=== PATIENT | male | born 1945 | race Caucasian/White ===

== ENCOUNTER 2016-04-07 09:51 | Outpatient (RCR) | payer MEDICARE, OTHER ==
--- OUTSIDE RECORDS SUMMARY | 2016-01-09 10:00 | XMS REPORT | Continuity of Care Document ---
Author Author [facility] Organization [facility] Address Unknown Phone Unavailable Care Team Providers Care Hostage Negotiator Name Role Phone Jese Cassidy PCP [phone] Source Comments Some departments are not documenting in the electronic medical record. If you do not see the information that you expected, contact Release of Information in the Health Information Management department at [phone] for further assistance in locating additional records.[facility] Active Allergies and Adverse Reactions No Known Allergies Current Medications Prescription Sig. Disp. Refills Start End Date Status Date amLODIPine (NORVASC) 10 Take 10 mg by mouth Active mg tablet daily. meloxicam (MOBIC) 7.5 mg Take 7.5 mg by mouth Active tablet daily. escitalopram oxalate Take 20 mg by mouth Active (LEXAPRO) 20 mg tablet daily. ondansetron (ZOFRAN ODT) Take by mouth every 8 Active 4 mg rapid dissolve hours as needed for tablet Nausea. hyoscyamine (ANASPAZ; Place 125 mcg under Active NULEV; SYMAX FASTABS; tongue every 4 hours as HYOMAX-FT; ED-SPAZ; needed for Cramps. OSCIMIN) 0.125 mg rapid dissolve tablet linaclotide(+) (LINZESS) Take 145 mcg by mouth Active 145 mcg cap capsule daily 30 minutes before breakfast. phentermine(+) 37.5 mg Take 37.5 mg by mouth Active tablet every morning. HYDROcodone/acetaminophen Take 1 Tab by mouth every Active (+) (LORTAB, NORCO) 6 hours as needed for 10/325 mg tablet Pain Active Problems No known active problems Social History Tobacco Use Types Packs/Day Years Used Date Current Every Day Smoker Last Filed Vital Signs Vital Sign Reading Time Taken Blood Pressure 131/82 06/19/2015 4:02 PM CDT Pulse 71 06/19/2015 2:41 PM CDT Temperature 36.7 C (98 F) 06/19/2015 2:41 PM CDT Respiratory Rate 16 06/19/2015 2:41 PM CDT Height 1.753 m (5' 9") 06/19/2015 2:41 PM CDT Weight 109.77 kg (242 lb) 06/19/2015 2:41 PM CDT Body Mass Index 35.72 06/19/2015 2:41 PM CDT Oxygen Saturation 96% 06/19/2015 4:02 PM CDT Plan of Care Health Maintenance Due Date Last Done Comments Physical (Comprehensive) 12/10/1952 Exam Pertussis Vaccine 12/10/1955 Tetanus Vaccine 1961 Colorectal Cancer 1994 Screening Shingles Vaccine 2004 Prevnar/Pneumovax (#1) 2009 Influenza Vaccine 11/29/2015 Results from Last 3 Months Not on file
[~2016-04-07 09:51] MED LIST: AMLO1CAP7 PO; ESCI20TA38 PO; HYDR-2890 PO; HYDR1TAB PO; HYDR1TAB8 OP; HYOS0.1283 SL; MELO15TA14 PO; ONDA4TAB11 PO; PHEN37.53; PHEN37.53 PO
== END 2016-04-08 | disposition home or self-care (01) ==
PROVIDERS: ATTEND Orthopaedic Surgery
DX: Z47.89 Encounter for other orthopedic aftercare (principal); M54.5 Low back pain

== ENCOUNTER 2016-04-23 10:16 | Outpatient (CLI) | payer MEDICARE, OTHER ==
[~2016-04-23 10:16] MED LIST changes: -RT-ALBUTEROL SULF 2.5 MG/3 ML PRE-MIX VIAL INH ONE
--- OUTSIDE RECORDS SUMMARY | 2016-04-23 10:20 | XMS REPORT | Continuity of Care Document ---
Author Author [facility] Organization [facility] Address Unknown Phone Unavailable Care Team Providers Care Electrophysiology Nurse Practitioner Name Role Phone Jese Cassidy PCP [phone] Source Comments Some departments are not documenting in the electronic medical record. If you do not see the information that you expected, contact Release of Information in the Health Information Management department at [phone] for further assistance in locating additional records.[facility] Active Allergies and Adverse Reactions No [...]
== END 2016-04-23 10:30 | disposition home or self-care (01) ==
LOC: SLEEP 10:16
PROVIDERS: ATTEND Internal Medicine Critical Care Medicine
DX: G47.9 Sleep disorder, unspecified (principal); R06.00 Dyspnea, unspecified; R06.83 Snoring; E66.9 Obesity, unspecified; Z72.0 Tobacco use

== ENCOUNTER → 2016-04-23 | Outpatient (CLI) | payer MEDICARE, OTHER ==
[~2016-04-23] MED LIST changes: +RT-ALBUTEROL SULF 2.5 MG/3 ML PRE-MIX VIAL INH ONE
--- OUTSIDE RECORDS SUMMARY | 2016-04-23 12:58 | XMS REPORT | Continuity of Care Document ---
Author Author [facility] Organization [facility] Address Unknown Phone Unavailable Care Team Providers Care Database Technician Name Role Phone Jese Cassidy PCP [phone] Source Comments Some departments are not documenting in the electronic medical record. If you do not see the information that you expected, contact Release of Information in the Health Information Management department at [phone] for further assistance in locating additional records.[facility] Active Allergies and Adverse Reactions [...]
== END ==
LOC: RT 12:55
PROVIDERS: ATTEND Nurse Practitioner Family
DX: R06.00 Dyspnea, unspecified (principal); Z72.0 Tobacco use; G47.33 Obstructive sleep apnea (adult) (pediatric); R06.83 Snoring; E66.9 Obesity, unspecified
CPT/HCPCS: 94060; 94640; 94726; 94729

== ENCOUNTER 2016-07-03 09:45 | Outpatient (RCR) | payer MEDICARE, OTHER ==
--- OUTSIDE RECORDS SUMMARY | 2016-04-10 10:50 | XMS REPORT | Continuity of Care Document ---
Author Author [facility] Organization [facility] Address Unknown Phone Unavailable Care Team Providers Care Power Transformer Inspector Name Role Phone Jese Cassidy PCP [phone] Source Comments Some departments are not documenting in the electronic medical record. If you do not see the information that you expected, contact Release of Information in the Health Information Management department at [phone] for further assistance in locating additional records.[facility] Active Allergies and Adverse Reactions No Known [...]
== END 2016-07-03 12:08 | disposition home or self-care (01) ==
PROVIDERS: ATTEND Orthopaedic Surgery
DX: Z47.89 Encounter for other orthopedic aftercare (principal); M54.5 Low back pain

== ENCOUNTER 2017-03-25 06:55 | Inpatient (IN) | payer MEDICARE, OTHER ==
[2017-03-25] VITALS (9 sets, daily range): BP systolic 102–141; BP diastolic 75–89
[~2017-03-25] VITALS: Ht 175.3 cm; Wt 115.2 kg
[2017-03-25] MEDS ORDERED: NS IV 1000 ML 1,000 ML IV ONE ×3 (07:07→10:30)
--- OUTSIDE RECORDS SUMMARY | 2017-03-25 07:13 | XMS REPORT | Continuity of Care Document ---
Author Author [facility] Organization [facility] Address Unknown Phone Unavailable Allergies Active Description Code Type Severity Reaction Onset Reported/Identified Relationship to Patient Clinical Status Yes No Known Drug Allergies [id number] Drug Allergy Unknown N/A 10/15/2012 Medications There is no data. Problems Date Dx Coded Attending Type Code Diagnosis Diagnosed By 02/26/1207 JOE MORALES DO Ot M54.5 LOW BACK PAIN 02/26/1207 JOE MORALES DO Ot Z47.89 ENCOUNTER FOR OTHER ORTHOPEDIC AFTERCARE 09/07/2013 STEVEN LÓPEZ DO Ot 813.04 FX UPPER ULNA NEC/NOS-CL 09/07/2013 STEVEN LÓPEZ DO Ot E000.0 CIVILIAN ACTIVITY DONE FOR INCOME OR PAY 09/07/2013 STEVEN LÓPEZ DO Ot E029.9 OTHER ACTIVITY 09/07/2013 STEVEN LÓPEZ DO Ot E849.4 ACCID IN RECREATION AREA 09/07/2013 STEVEN LÓPEZ DO Ot E884.9 FALL-1 LEVEL TO OTH NEC 02/20/2015 JOVANNY LEWIS MD Ot E86.0 DEHYDRATION 02/20/2015 JOVANNY LEWIS MD Ot F17.210 NICOTINE DEPENDENCE, CIGARETTES, UNCOMPL 02/20/2015 JOVANNY LEWIS MD Ot R19.7 DIARRHEA, UNSPECIFIED 01/09/2016 Ot 440.0 AORTIC ATHEROSCLEROSIS 01/09/2016 Ot 783.1 ABNORMAL WEIGHT GAIN 01/09/2016 Ot 786.2 COUGH 01/09/2016 Ot 788.41 URINARY FREQUENCY 01/09/2016 Ot 789.03 ABDOMINAL PAIN, RIGHT LOWER QUADRANT 01/09/2016 Ot 790.29 OTHER ABNORMAL GLUCOSE 01/09/2016 Ot 722.52 LUMB/ LUMBOSAC DISC DEGEN 01/09/2016 NIDIA ROWE, HUSSEIN Espinosa Ot 553.20 VENTRAL HERNIA NOS 01/09/2016 HUSSEIN JACOB MD Ot 401.9 HYPERTENSION NOS 01/09/2016 NIDIA ROWE, HUSSEIN Espinosa Ot 553.20 VENTRAL HERNIA NOS 01/09/2016 NIDIA ROWE, HUSSEIN Espinosa Ot V72.63 PRE-PROCEDURAL LABORATORY EXAMINATION 01/09/2016 NIDIA ROWE, HUSSEIN Espinosa Ot V74.8 SCREEN-BACTERIAL DIS NEC 02/12/2016 JOE MORALES DO Ot M54.5 LOW BACK PAIN 02/12/2016 JOE MORALES DO Ot Z47.89 ENCOUNTER FOR OTHER ORTHOPEDIC AFTERCARE 02/12/2016 Ot 440.0 AORTIC ATHEROSCLEROSIS 02/12/2016 Ot 783.1 ABNORMAL WEIGHT GAIN 02/12/2016 Ot 786.2 COUGH 02/12/2016 Ot 788.41 URINARY FREQUENCY 02/12/2016 Ot 789.03 ABDOMINAL PAIN, RIGHT LOWER QUADRANT 02/12/2016 Ot 790.29 OTHER ABNORMAL GLUCOSE 02/12/2016 Ot 722.52 LUMB/ LUMBOSAC DISC DEGEN 02/12/2016 INDIA ROWE, HUSSEIN Espinosa Ot 553.20 VENTRAL HERNIA NOS 02/12/2016 NIDIA ROWE, HUSSEIN Espinosa Ot 401.9 HYPERTENSION NOS 02/12/2016 NIDIA ROWE, HUSSEIN Espinosa Ot 553.20 VENTRAL HERNIA NOS 02/12/2016 NIDIA ROWE, HUSSEIN Espinosa Ot V72.63 PRE-PROCEDURAL LABORATORY EXAMINATION 02/12/2016 NIDIA ROWE, HUSSEIN Espinosa Ot V74.8 SCREEN-BACTERIAL DIS NEC 02/12/2016 JOE MORALES DO Ot M54.5 LOW BACK PAIN 02/12/2016 JOE MORALES DO Ot Z47.89 ENCOUNTER FOR OTHER ORTHOPEDIC AFTERCARE 02/26/2016 JOE MORALES DO Ot M54.5 LOW BACK PAIN 02/26/2016 JOE MORALES DO Ot Z47.89 ENCOUNTER FOR OTHER ORTHOPEDIC AFTERCARE 03/05/2016 JOE MORALES DO Ot 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 03/05/2016 JOE MORALES DO Ot M48.06 SPINAL STENOSIS, LUMBAR REGION 03/05/2016 JOE MORALES DO Ot M51.17 INTVRT DISC DISORDERS W RADICULOPATHY, L 03/12/2016 ALLYSON MESSINA DO Ot S00.11XA CONTUSION OF RIGHT EYELID AND PERIOCULAR 03/12/2016 ALLYSON MESSINA DO Ot S00.81XA ABRASION OF OTHER PART OF HEAD, INITIAL 03/12/2016 ALLYSON MESSINA DO Ot S22.41XA MULTIPLE FRACTURES OF RIBS, RIGHT SIDE, 03/12/2016 ALLYSON MESSINA DO Ot S29.9XXA UNSPECIFIED INJURY OF THORAX, INITIAL EN 03/12/2016 ALLYSON MESSINA DO Ot S50.11XA CONTUSION OF RIGHT FOREARM, INITIAL ENCO 03/12/2016 ALLYSON MESSINA DO Ot S50.12XA CONTUSION OF LEFT FOREARM, INITIAL ENCOU 03/12/2016 ALLYSON MESSINA DO Ot W01.0XXA FALL SAME LEV FROM SLIP/TRIP W/O STRIKE 03/12/2016 ALLYSON MESSINA DO Ot Y99.8 OTHER EXTERNAL CAUSE STATUS 03/12/2016 ALLYSON MESSINA DO, Ot Z23 ENCOUNTER FOR IMMUNIZATION 03/13/2016 ALLYSON MESSINA DO Ot S00.11XA CONTUSION OF RIGHT EYELID AND PERIOCULAR 03/13/2016 ALLYSON MESSINA DO Ot S00.81XA ABRASION OF OTHER PART OF HEAD, INITIAL 03/13/2016 ALLYSON MESSINA DO Ot S22.41XA MULTIPLE FRACTURES OF RIBS, RIGHT SIDE, 03/13/2016 ALLYSON MESSINA DO Ot S29.9XXA UNSPECIFIED INJURY OF THORAX, INITIAL EN 03/13/2016 ALLYSON MESSINA DO Ot S50.11XA CONTUSION OF RIGHT FOREARM, INITIAL ENCO 03/13/2016 ALLYSON MESSINA DO Ot S50.12XA CONTUSION OF LEFT FOREARM, INITIAL ENCOU 03/13/2016 ALLYSON MESSINA DO, Ot W01.0XXA FALL SAME LEV FROM SLIP/TRIP W/O STRIKE 03/13/2016 ALLYSON MESSINA DO Ot Y99.8 OTHER EXTERNAL CAUSE STATUS 03/13/2016 ALLYSON MESSINA DO Ot Z23 ENCOUNTER FOR IMMUNIZATION 04/08/2016 JOE MORALES DO Ot M54.5 LOW BACK PAIN 04/08/2016 JOE MORALES DO Ot Z47.89 ENCOUNTER FOR OTHER ORTHOPEDIC AFTERCARE 04/09/2016 JOE MORALES DO Ot M54.5 LOW BACK PAIN 04/09/2016 JOE MORALES DO Ot Z47.89 ENCOUNTER FOR OTHER ORTHOPEDIC AFTERCARE 04/23/2016 OTTO SEGURA DO Ot G47.9 SLEEP DISORDER, UNSPECIFIED 04/23/2016 Ot 440.0 AORTIC ATHEROSCLEROSIS 04/23/2016 Ot 783.1 ABNORMAL WEIGHT GAIN 04/23/2016 Ot 786.2 COUGH 04/23/2016 Ot 788.41 URINARY FREQUENCY 04/23/2016 Ot 789.03 ABDOMINAL PAIN, RIGHT LOWER QUADRANT 04/23/2016 Ot 790.29 OTHER ABNORMAL GLUCOSE 04/23/2016 Ot 722.52 LUMB/ LUMBOSAC DISC DEGEN 04/23/2016 NIDIA ROWE, HUSSEIN Espinosa Ot 553.20 VENTRAL HERNIA NOS 04/23/2016 NIDIA ROWE, HUSSEIN Espinosa Ot 401.9 HYPERTENSION NOS 04/23/2016 NIDIA ROWE, HSUSEIN Espinosa Ot 553.20 VENTRAL HERNIA NOS 04/23/2016 NIDIA ROWE, HUSSEIN Espinosa Ot V72.63 PRE-PROCEDURAL LABORATORY EXAMINATION 04/23/2016 NIDIA ROWE, HUSSEIN Espinosa Ot V74.8 SCREEN-BACTERIAL DIS NEC 04/23/2016 JOE MORALES DO Ot 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 04/23/2016 JOE MORALES DO Ot M48.06 SPINAL STENOSIS, LUMBAR REGION 04/23/2016 JOE MORALES DO Ot M51.17 INTVRT DISC DISORDERS W RADICULOPATHY, L 04/23/2016 JOE MORALES DO Ot M54.5 LOW BACK PAIN 04/23/2016 JOE MORALES DO Ot Z47.89 ENCOUNTER FOR OTHER ORTHOPEDIC AFTERCARE 04/23/2016 MEGAN BAPTISTE APRN Ot R06.00 DYSPNEA, UNSPECIFIED 04/23/2016 MEGAN BAPTISTE APRN Ot Z72.0 TOBACCO USE 04/24/2016 OTTO SEGURA DO Ot E66.9 OBESITY, UNSPECIFIED 04/24/2016 OTTO SEGURA DO Ot G47.9 SLEEP DISORDER, UNSPECIFIED 04/24/2016 OTTO SEGURA DO Ot R06.00 DYSPNEA, UNSPECIFIED 04/24/2016 OTTO SEGURA DO Ot R06.83 SNORING 04/24/2016 OTTO SEGURA DO Ot Z72.0 TOBACCO USE 04/25/2016 MEGAN BAPTISTE APRN Ot R06.00 DYSPNEA, UNSPECIFIED 04/25/2016 MEGAN BAPTISTE APRN Ot Z72.0 TOBACCO USE 05/08/2016 JOE MORALES DO Ot M54.5 LOW BACK PAIN 05/08/2016 JOE MORALES DO Ot Z47.89 ENCOUNTER FOR OTHER ORTHOPEDIC AFTERCARE 05/20/2016 MEGAN BAPTISTE APRN Ot R06.00 DYSPNEA, UNSPECIFIED 05/20/2016 MEGAN BAPTISTE APRN Ot Z72.0 TOBACCO USE 06/19/2016 JOE MORALES DO Ot M54.5 LOW BACK PAIN 06/19/2016 JOE MORALES DO Ot Z47.89 ENCOUNTER FOR OTHER ORTHOPEDIC AFTERCARE 07/14/2016 MEGAN BAPTISTE APRN Ot E66.9 OBESITY, UNSPECIFIED 07/14/2016 MEGAN BAPTISTE APRN Ot G47.33 OBSTRUCTIVE SLEEP APNEA (ADULT) (PEDIATR 07/14/2016 MEGAN BAPTISTE APRN Ot R06.00 DYSPNEA, UNSPECIFIED 07/14/2016 MEGAN BAPTISTE APRN Ot R06.83 SNORING 07/14/2016 MEGAN BAPTISTE APRN Ot Z72.0 TOBACCO USE Procedures There is no data. Results There is no data. Encounters ACCT No. Visit Date/Time Discharge Status Pt. 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 [id number] 07/03/2016 09:45:00 07/03/2016 12:08:00 DIS Outpatient JOE MORALES DO [facility] REHAB S/P LUMBAR LAMI [id number] 04/23/2016 12:55:00 04/23/2016 23:59:59 CLS Outpatient MEGAN BPATISTE APRN [facility] RT DYSPNEA,TOBACCO USER [id number] 04/23/2016 10:16:00 04/23/2016 10:30:00 DIS Outpatient OTTO SEGURA DO [facility] SLEEP DYSPNEA,SLEEP DISTURBANCE [id number] 04/07/2016 09:51:00 04/08/2016 00:01:00 DIS Outpatient JOE MORALES DO [facility] REHAB S/P LUMBAR LAMI [id number] 03/12/2016 11:34:00 03/12/2016 13:19:00 DIS Emergency ALLYSON MESSINA DO [facility] ER FALL/RIGHT RIB PAIN [id number] 02/12/2016 15:06:00 02/12/2016 23:59:59 CLS Outpatient ANDREW CARLSONJOE [facility] RAD BACK PAIN [id number] 02/20/2015 09:33:00 02/20/2015 11:34:00 DIS Emergency JOVANNY LEWIS MD [facility] ER DIARRHEA/ABD PAIN [id number] 09/07/2013 11:03:00 09/07/2013 12:20:00 DIS Emergency STEVEN LÓPEZ DO [facility] ER FALL/RIGHT ARM INJURY [id number] 10/19/2012 11:21:00 10/19/2012 23:59:59 CLS Outpatient HUSSEIN JACOB MD [facility] SDC VENTRAL HERNIA [id number] 10/15/2012 12:44:00 10/15/2012 23:59:59 CLS Outpatient HUSSEIN JACOB MD [facility] PREOP VENTRAL HERNIA [id number] 09/03/2011 08:22:00 Document Registration [id number] 03/27/2011 08:22:00 Document Registration
--- OUTSIDE RECORDS SUMMARY | 2017-03-25 07:13 | XMS REPORT | Clinical Summary ---
Author Author [facility] Organization [facility] Address Unknown Phone Unavailable Care Team Providers Care Yield Engineer Name Role Phone PCP Unavailable Source Comments Some departments are not documenting in the electronic medical record. If you do not see the information that you expected, contact Release of Information in the Health Information Management department at [phone] for further assistance in locating additional records.[facility] Allergies No Known Allergies Current Medications Prescription Sig. [...] Years Used Date Current Every Day Smoker Sex Assigned at Date Recorded Not on file Last Filed Vital Signs Vital Sign Reading Time Taken Blood Pressure 131/82 06/19/2015 4:02 PM CDT Pulse 71 06/19/2015 2:41 PM CDT Temperature 36.7 C (98 F) 06/19/2015 2:41 PM CDT Respiratory Rate 16 06/19/2015 2:41 PM CDT Oxygen Saturation 96% 06/19/2015 4:02 PM CDT Inhaled Oxygen - - Concentration Weight 109.8 kg (242 lb) 06/19/2015 2:41 PM CDT Height 175.3 cm (5' 9") 06/19/2015 2:41 PM CDT Body Mass Index 35.74 06/19/2015 2:41 PM CDT Plan of Treatment Health Maintenance Due Date Last Done Comments HEPATITIS C SCREENING 1944 PHYSICAL (COMPREHENSIVE) 12/10/1952 EXAM PERTUSSIS VACCINE 12/10/1955 TETANUS VACCINE 1961 COLORECTAL CANCER 1994 SCREENING SHINGLES VACCINE 2004 ABDOMINAL AORTIC ANEURYSM 2009 SCREENING PREVNAR/PNEUMOVAX (#1) 2009 INFLUENZA VACCINE 10/28/2016 Results Not on filefrom Last 3 Months
[2017-03-25] MEDS ORDERED: RT-ALBUTEROL/IPRATROPIUM 3 ML (DUONEB) VIAL INH ONE (07:15)
[2017-03-25] MEDS ORDERED: ONDANSETRON 4 MG/2 ML (SDV) Z0FRAN IVP ONE (07:15)
[2017-03-25] MEDS ORDERED: FAMOTIDINE 20MG/2ML IV (PEPCID) IVP ONE (07:15)
[2017-03-25 07:21] LABS: BASOPHILS % (AUTO) 0 % (0-10); EOSINOPHILS % (AUTO) 0 % (0-10); HEMATOCRIT 49 % (40-54); HEMOGLOBIN 15.9 G/DL (13.3-17.7); LYMPHOCYTES # (AUTO) 1.6 X 10^3 (1.0-4.0); LYMPHOCYTES % (AUTO) 13 % (12-44); MEAN CORPUSCULAR HEMOGLOBIN 26 PG (25-34); MEAN CORPUSCULAR HGB CONC 32 G/DL (32-36); MEAN CORPUSCULAR VOLUME 81 FL (80-99); MEAN PLATELET VOLUME 10.7 FL (7.4-10.4); MONOCYTES # (AUTO) 1.5 X 10^3 (0.0-1.0); MONOCYTES % (AUTO) 13 % (0-12); NEUTROPHILS # (AUTO) 8.5 X 10^3 (1.8-7.8); NEUTROPHILS % (AUTO) 73 % (42-75); PLATELET COUNT 306 10^3/uL (130-400); RED BLOOD COUNT 6.05 10^6/uL (4.35-5.85); RED CELL DISTRIBUTION WIDTH 17.4 % (10.0-14.5); WHITE BLOOD COUNT 11.6 10^3/uL (4.3-11.0)
[2017-03-25 07:33] LABS: PROTHROMBIN TIME PATIENT 13.4 SEC (12.2-14.7)
[2017-03-25 07:42] LABS: ALBUMIN 4.6 GM/DL (3.2-4.5); BILIRUBIN,TOTAL 1.2 MG/DL (0.1-1.0); CALCIUM 9.8 MG/DL (8.5-10.1); CREATININE SERUM 2.33 MG/DL (0.60-1.30); POTASSIUM 4.4 MMOL/L (3.6-5.0); TOTAL PROTEIN 8.3 GM/DL (6.4-8.2)
--- NOTE | 2017-03-25 08:12 | Diagnostic Imaging Report ---
INDICATION: Hypoxia, fever. COMPARISON: None. FINDINGS: Single frontal view of the chest demonstrates normal heart size and pulmonary vascularity. The lungs are well aerated and clear. No large pleural effusion or pneumothorax is seen. The visualized osseous structures show no acute abnormalities. IMPRESSION: No acute cardiopulmonary process. Dictated by: Dictated on workstation # [id number]
--- NOTE | 2017-03-25 08:18 | ED General ---
General Chief Complaint: Abdominal/GI Problems Stated Complaint: VOMITING,POSS FEVER Nursing Triage Note: TO ED PER W/C C/O VOMITING DIARRHEA SINCE THURSDAY Nursing Sepsis Screen: No Definite Risk Source of Information: Patient, Old Records Exam Limitations: No Limitations History of Present Illness Time Seen by Provider: 07:00 Initial Comments Patient presents with vomiting, weakness, and abdominal pain for 2 days. He also reports very little urine output. He has had subjective fever and chills. He denies diarrhea. He also has had some coughing and wheezing over the past couple of days. He chronically wheezes and uses nebulizer treatments at home but denies any respiratory diagnosis. Allergies and Home Medications Allergies Coded Allergies: No Known Drug Allergies (Unverified , 10/15/12) Home Medications Acetaminophen 500 Mg Tablet, 1,000 MG PO HS, (Reported) TAKES 2 (500MG) TABLETS Amlodipine Besylate/Benazepril 1 Each Capsule, 1 CAP PO DAILY, (Reported) Escitalopram Oxalate 10 Mg Tablet, 10 MG PO DAILY, (Reported) Furosemide 40 Mg Tablet, 40 MG PO HS, (Reported) Gabapentin 300 Mg Capsule, 300 MG PO HS, (Reported) Naproxen Sodium 220 Mg Tablet, 220 MG PO DAILY, (Reported) Omeprazole 40 Mg Capsule.dr, 40 MG PO DAILY, (Reported) Constitutional: see HPI, chills, fever (subjective), weakness EENTM: no symptoms reported Respiratory: see HPI Cardiovascular: no symptoms reported Gastrointestinal: see HPI Genitourinary: see HPI Musculoskeletal: no symptoms reported Skin: no symptoms reported Psychiatric/Neurological: No Symptoms Reported Hematologic/Lymphatic: No Symptoms Reported Immunological/Allergic: no symptoms reported Past Phvvfbr-Wpkwgg-Jlarqz Hx Patient Social History Alcohol Use: Denies Use Recreational Drug Use: Yes (SMOKES 10 CIGARETTES PER DAY) Smoking Status: Current Everyday Smoker Type Used: Cigarettes Recent Foreign Travel: No Contact w/Someone Who Travel: No Recent Infectious Disease Expo: No Recent Hopitalizations: No Surgeries History of Surgeries: Yes (HERNIA, BACK SURGERY) Surgeries: Abdominal (ventral hernia repair 2012), Orthopedic (back) Respiratory History of Respiratory Disorde: Yes Respiratory Disorders: Chronic Bronchitis Cardiovascular History of Cardiac Disorders: Yes Cardiac Disorders: Hypertension Neurological History of Neurological Disord: No Reproductive System Hx Reproductive Disorders: No Gastrointestinal History of Gastrointestinal Di: No Musculoskeletal History of Musculoskeletal Dis: Yes (ARTHRITIS, BACK PROBLEMS) Musculoskeletal Disorders: Arthritis, Chronic Back Pain Endocrine History of Endocrine Disorders: No HEENT History of HEENT Disorders: No Cancer History of Cancer: No Psychosocial History of Psychiatric Problem: No Behavioral Health Disorders: Depression Integumentary History of Skin or Integumenta: No Blood Transfusions History of Blood Disorders: No Family Medical History Significant Family History: No Pertinent Family Hx Physical Exam-Suspected Sepsis Physical Exam Vital Signs Vital Sign - Last 12Hours 03/25/17 03/25/17 07:01 08:33 Temp 97.7 Pulse 101 Resp 18 B/P (MAP) 95/50 (65) Pulse Ox 95 O2 Delivery Room Air O2 Flow Rate 6.00 Capillary Refill : Less Than 3 Seconds Blood Pressure Mean: 65 General Appearance: WD/WN, Obese, Other (very ill appearing and weak. Required assistance to the bed) HEENT: PERRL/EOMI, Normal ENT Inspection, Pharynx Normal Neck: Normal Inspection Respiratory: No Accessory Muscle Use, No Respiratory Distress, Wheezing Cardiovascular: Regular Rate, Rhythm, No Edema, No Murmur Gastrointestinal: Normal Bowel Sounds, Soft, Tenderness (diffuse, mild to moderate. Palpation induces nausea) Extremity: Normal Inspection, No Pedal Edema Neurologic/Psychiatric: Alert, Oriented x3, No Motor/Sensory Deficits, Normal Mood/Affect, repairer helper II-XII Norm as Tested Skin: normal color, warm/dry, other (crpe paper appearance suggesting dehydration) Focused Exam Evaluation Lactate Level Laboratory Tests 03/25/17 07:25: Lactic Acid Level 1.71 Lactic Acid Level Progress/Results/Core Measures Suspected Sepsis Recent Fever Within 48 Hours: No Infection Criteria Present: Suspected New Infection New/Unexplained Altered Menta: No Sepsis Screen: No Definite Risk Sepsis Diagnosis: SIRS Temperature:97.7 Pulse: 101 Respiratory Rate: 18 Laboratory Tests 03/25/17 07:12: White Blood Count 11.6H Blood Pressure 95 /50 Mean: 65 Laboratory Tests 03/25/17 07:25: Lactic Acid Level 1.71 Laboratory Tests 03/25/17 07:12: Creatinine 2.33H, INR Comment 1.0, Platelet Count 306, Total Bilirubin 1.2H Results/Orders Lab Results Laboratory Tests Test 03/25/17 07:12 03/25/17 07:23 03/25/17 07:25 Range/Units White Blood Count 11.6 H 4.3-11.0 10^3/uL Red Blood Count 6.05 H 4.35-5.85 10^6/uL Hemoglobin 15.9 13.3-17.7 G/DL Hematocrit 49 40-54 % Mean Corpuscular Volume 81 80-99 FL Mean Corpuscular Hemoglobin 26 25-34 PG Mean Corpuscular Hemoglobin Concent 32 32-36 G/DL Red Cell Distribution Width 17.4 H 10.0-14.5 % Platelet Count 306 130-400 10^3/uL Mean Platelet Volume 10.7 H 7.4-10.4 FL Neutrophils (%) (Auto) 73 42-75 % Lymphocytes (%) (Auto) 13 12-44 % Monocytes (%) (Auto) 13 H 0-12 % Eosinophils (%) (Auto) 0 0-10 % Basophils (%) (Auto) 0 0-10 % Neutrophils # (Auto) 8.5 H 1.8-7.8 X 10^3 Lymphocytes # (Auto) 1.6 1.0-4.0 X 10^3 Monocytes # (Auto) 1.5 H 0.0-1.0 X 10^3 Eosinophils # (Auto) 0.0 0.0-0.3 10^3/uL Basophils # (Auto) 0.0 0.0-0.1 10^3/uL Prothrombin Time 13.4 12.2-14.7 SEC INR Comment 1.0 0.8-1.4 Activated Partial Thromboplast Time 35 24-35 SEC Sodium Level 142 135-145 MMOL/L Potassium Level 4.4 3.6-5.0 MMOL/L Chloride Level 99 98-107 MMOL/L Carbon Dioxide Level 24 21-32 MMOL/L Anion Gap 19 H 5-14 MMOL/L Blood Urea Nitrogen 33 H 7-18 MG/DL Creatinine 2.33 H 0.60-1.30 MG/DL Estimat Glomerular Filtration Rate 28 BUN/Creatinine Ratio 14 Glucose Level 156 H 70-105 MG/DL Calcium Level 9.8 8.5-10.1 MG/DL Total Bilirubin 1.2 H 0.1-1.0 MG/DL Aspartate Amino Transf (AST/SGOT) 34 5-34 U/L Alanine Aminotransferase (ALT/SGPT) 47 0-55 U/L Alkaline Phosphatase 96 40-136 U/L Total Protein 8.3 H 6.4-8.2 GM/DL Albumin 4.6 H 3.2-4.5 GM/DL C-Reactive Protein High Sensitivity 9.26 H 0.00-0.50 MG/DL Lactic Acid Level 1.71 0.50-2.00 MMOL/L Micro Results Microbiology 03/25/17 Influenza Types A,B Antigen (FELICE) - Final, Complete My Orders Orders - RAKESH BAZAN MD Cbc With Automated Diff (03/25/17 07:07) Comprehensive Metabolic Panel (03/25/17 07:07) Lactic Acid Analyzer (03/25/17 07:07) Blood Culture (03/25/17 07:07) Sputum Culture (03/25/17 07:07) Ua Culture If Indicated (03/25/17 07:07) Protime With Inr (03/25/17 07:07) Partial Thromboplastin Time (03/25/17 07:07) Chest 1 View, Ap/Pa Only (03/25/17 07:07) O2 (03/25/17 07:07) Saline Lock/Iv-Start (03/25/17 07:07) Saline Lock/Iv-Start (03/25/17 07:07) Vital Signs Adult Sepsis Patie Q1H (03/25/17 07:07) Remove Rings In Anticipation O (03/25/17 07:07) Ns Iv 1000 Ml (Sodium Chloride 0.9%) (03/25/17 07:07) Ondansetron Injection (Zofran Injectio (03/25/17 07:15) Famotidine Injection (Pepcid Injection) (03/25/17 07:15) Albuterol/Ipra Inhalation Soln (Duoneb I (03/25/17 07:15) Svn Sm Volume Nebulizer Rt-Rfs (03/25/17 07:07) Ns Iv 1000 Ml (Sodium Chloride 0.9%) (03/25/17 07:57) Influenza A And B Antigens (03/25/17 07:57) Hs C Reactive Protein (03/25/17 07:58) Ct Abdomen/Pelvis Wo (03/25/17 08:04) Piperacillin Sodium/Tazobactam (Zosyn Vi (03/25/17 09:15) Medications Given in ED Current Medications Medications Dose Ordered Sig/[place] Route Start Time Stop Time Status Last Admin Dose Admin Albuterol/ Ipratropium 3 ml ONCE ONCE INH 03/25/17 07:15 03/25/17 07:16 DC 03/25/17 07:32 3 ML Famotidine 20 mg ONCE ONCE IVP 03/25/17 07:15 03/25/17 07:16 DC 03/25/17 07:35 20 MG Ondansetron HCl 8 mg ONCE ONCE IVP 03/25/17 07:15 03/25/17 07:16 DC 03/25/17 07:31 8 MG Piperacillin Sod/ Tazobactam Sod 4.5 gm/Sodium Chloride 100 ml @ 200 mls/hr ONCE ONCE IV 03/25/17 09:15 03/25/17 09:44 DC 03/25/17 09:42 200 MLS/HR Sodium Chloride 1,000 ml @ 0 mls/hr Q0M ONCE IV 03/25/17 07:07 03/25/17 07:10 DC 03/25/17 07:35 1,000 MLS/HR Sodium Chloride 1,000 ml @ 0 mls/hr Q0M ONCE IV 03/25/17 07:57 03/25/17 07:58 DC 03/25/17 08:08 1,000 MLS/HR Vital Signs/I&O Vital Sign - Last 12Hours 03/25/17 03/25/17 03/25/17 03/25/17 07:01 07:32 07:45 08:00 Temp 97.7 Pulse 101 Resp 18 B/P (MAP) 95/50 (65) 102/78 (86) 124/88 (100) Pulse Ox 95 93 O2 Delivery Room Air Room Air 03/25/17 03/25/17 03/25/17 03/25/17 08:33 09:50 09:59 10:50 Temp 97.1 98.0 Pulse 82 84 82 87 Resp 18 20 18 16 B/P (MAP) 102/75 (84) 127/82 (97) 115/76 (89) Pulse Ox 94 93 94 92 O2 Delivery OxyMask OxyMask Nasal Cannula O2 Flow Rate 6.00 5.00 6.00 4.00 03/25/17 03/25/17 11:11 12:00 Temp 97.9 Pulse 87 85 Resp 20 B/P (MAP) 128/84 (99) Pulse Ox 92 93 O2 Delivery Nasal Cannula O2 Flow Rate 4.00 Capillary Refill : Less Than 3 Seconds Blood Pressure Mean: 65 Progress Note : Progress Note Patient was treated with Pepcid and Zofran. Patient initially had borderline systolic blood pressures in the 90s. 2 L of normal saline were administered. Blood pressures improved. Patient was not able to produce a urine sample for us. CT demonstrated small bowel obstruction with a transition point near a metallic foreign body possibly related to prior ventral hernia repair. Dr. Boudreaux was contacted and is not available until next week for consultation. Dr. Villareal will be consulted for surgical evaluation. Dr. Lugo has accepted admission. Patient had a mildly elevated WBC and CRP. He also had subjective fevers at home. Zosyn will be ordered for initial empiric antibiotic therapy. Patient was wheezing and became mildly hypoxic. A DuoNeb treatment was administered along with supplemental oxygen. Patient does use nebulizer treatments at home. Chest x-ray was unremarkable. NG tube will be ordered for placement on the floor which will likely help his respiratory status. Patient was unable to produce a urine specimen while in the ER. Diagnostic Imaging Diagonstic Imaging: Xray Plain Films/CT/US/NM/MRI: chest Comments Chest x-ray viewed by me and report reviewed. See report below: NAME: DARRIUS ABRAHAM [facility] REC#: [id number] PT STATUS: REG ER : 1945 PHYSICIAN: RAKESH BAZAN MD ADMIT DATE: 03/25/17/ER Draft Date of Exam:03/25/17 CHEST 1 VIEW, AP/PA ONLY INDICATION: Hypoxia, fever. COMPARISON: None. FINDINGS: Single frontal view of the chest demonstrates normal heart size and pulmonary vascularity. The lungs are well aerated and clear. No large pleural effusion or pneumothorax is seen. The visualized osseous structures show no acute abnormalities. IMPRESSION: No acute cardiopulmonary process. Dictated on workstation # [id number] Dict: 03/25/1710 Trans: 03/25/17 0811 PENG [id number] Interpreted by: ARJUN WRIGHT MD Diagonstic Imaging: CT Plain Films/CT/US/NM/MRI: abdomen, pelvis Comments CT abdomen and pelvis viewed by me and report reviewed. See report below: NAME: DARRIUS ABRAHAM [facility] REC#: [id number] PT STATUS: REG ER : 1945 PHYSICIAN: RAKESH BAZAN MD ADMIT DATE: 03/25/17/ER Draft Date of Exam:03/25/17 CT ABDOMEN/PELVIS WO PROCEDURE: CT abdomen and pelvis without contrast. TECHNIQUE: Multiple contiguous axial images were obtained through the abdomen and pelvis without the use of intravenous contrast. INDICATION: Vomiting, fever. COMPARISON: 03/27/2011. FINDINGS: Included views of the lung bases are mildly obscured secondary to motion artifact but show no gross acute abnormalities. CT abdomen: There are findings of small bowel obstruction. Colon is mostly decompressed. Distal and terminal ileum is also decompressed; however, remainder of the proximal ileum and jejunum show moderate abnormal distention. There is also abnormal dilatation of the third and fourth portions of the duodenum. Small bowel measures approximately 3.7 cm in diameter. There is suggestion of focal transition point in the region of the umbilicus. Small metallic foreign body is noted in this area and may be on the basis of previous surgery. Ingested foreign body cannot be entirely excluded (image 66, series 2.) There is no pneumatosis, pneumoperitoneum, or portal venous gas. There is no free fluid or loculated air-fluid collection. Appendix cannot be adequately identified but appears to be surgically absent. Liver is diffusely hypodense consistent with background of hepatic steatosis. Multiple rounded hypodensities of both kidneys are noted and are likely on the basis of hypodense cysts. There is a single exophytic hyperdensity extending from the posterior margins of the inferior pole of the right kidney. This is incompletely characterized on this exam but may represent a small hemorrhagic cyst. It is stable compared to 03/27/2011. The adrenal glands, spleen, and pancreas have an unremarkable noncontrast CT appearance. No abnormal mesenteric or retroperitoneal adenopathy is seen. Mild calcified aortic atherosclerosis is noted. Postsurgical changes of the lumbar spine are also present. CT pelvis: Urinary bladder is unopacified. No calculi are seen within the urinary bladder. There is no loculated fluid collection, free fluid, or free air within the pelvis. No abnormal lymph nodes are identified. Bony structures show no acute abnormalities. IMPRESSION: 1. Findings of small bowel obstruction with focal transition point in the periumbilical area. Again, there is a linear metallic density foreign object in this area. Findings could be on the basis of previous umbilical hernia repair. Ingested foreign body, however, cannot be entirely excluded. Surgical consultation is recommended. 2. No pneumatosis, pneumoperitoneum, portal venous gas, free fluid, or loculated air-fluid collection. 3. Hepatic steatosis. 4. Multiple renal cysts as described above. Dictated on workstation # [id number] Dict: 03/25/1731 Trans: 03/25/17 0844 [id number] Interpreted by: ARJUN WRIGHT MD Departure Communication (Admissions) Time/Spoke to Admitting Phy: 09:[address] Lugo Time/Spoke to Consulting Phy: 09:27 Communication/Consulting Dr. Villareal Impression Impression: Primary Impression: Small bowel obstruction Additional Impressions: Acute renal failure Qualified Codes: N17.9 - Acute kidney failure, unspecified COPD exacerbation Hypovolemia Disposition: ADMITTED INPATIENT Condition: Improved Admissions Decision to Admit Reason: Admit from ER (General) Decision to Admit/Date: Mar 25, 2017 Time/Decision to Admit Time: 09:00 Departure-Patient Inst. Referrals: KRIS RODRÍGUEZ MD (PCP/Family) Primary Care Physician RAKESH BAZAN MD Mar 25, 2017 08:18
--- NOTE | 2017-03-25 08:44 | Diagnostic Imaging Report ---
PROCEDURE: CT abdomen and pelvis without contrast. TECHNIQUE: Multiple contiguous axial images were obtained through the abdomen and pelvis without the use of intravenous contrast. INDICATION: Vomiting, fever. COMPARISON: 03/27/2011. FINDINGS: Included views of the lung bases are mildly obscured secondary to motion artifact but show no gross acute abnormalities. CT abdomen: There are findings of small bowel obstruction. Colon is mostly decompressed. Distal and terminal ileum is also decompressed; however, remainder of the proximal ileum and jejunum show moderate abnormal distention. There is also abnormal dilatation of the third and fourth portions of the duodenum. Small bowel measures approximately 3.7 cm in diameter. There is suggestion of focal transition point in the region of the umbilicus. Small metallic foreign body is noted in this area and may be on the basis of previous surgery. Ingested foreign body cannot be entirely excluded (image 66, series 2.) There is no pneumatosis, pneumoperitoneum, or portal venous gas. There is no free fluid or loculated air-fluid collection. Appendix cannot be adequately identified but appears to be surgically absent. Liver is diffusely hypodense consistent with background of hepatic steatosis. Multiple rounded hypodensities of both kidneys are noted and are likely on the basis of hypodense cysts. There is a single exophytic hyperdensity extending from the posterior margins of the inferior pole of the right kidney. This is incompletely characterized on this exam but may represent a small hemorrhagic cyst. It is stable compared to 03/27/2011. The adrenal glands, spleen, and pancreas have an unremarkable noncontrast CT appearance. No abnormal mesenteric or retroperitoneal adenopathy is seen. Mild calcified aortic atherosclerosis is noted. Postsurgical changes of the lumbar spine are also present. CT pelvis: Urinary bladder is unopacified. No calculi are seen within the urinary bladder. There is no loculated fluid collection, free fluid, or free air within the pelvis. No abnormal lymph nodes are identified. Bony structures show no acute abnormalities. IMPRESSION: 1. Findings of small bowel obstruction with focal transition point in the periumbilical area. Again, there is a linear metallic density foreign object in this area. Findings could be on the basis of previous umbilical hernia repair. Ingested foreign body, however, cannot be entirely excluded. Surgical consultation is recommended. 2. No pneumatosis, pneumoperitoneum, portal venous gas, free fluid, or loculated air-fluid collection. 3. Hepatic steatosis. 4. Multiple renal cysts as described above. Dictated by: Dictated on workstation # [id number]
[2017-03-25] MEDS ORDERED: PIPERACILLIN SODIUM/TAZOBACTAM 4.5 GM in NS (IVPB) 100 ML IV ONE (09:15)
[2017-03-25] MEDS ORDERED: NS IV 1000 ML 1,000 ML ONE (10:20)
[2017-03-25] MEDS ORDERED: ONDANSETRON 4 MG/2 ML (SDV) Z0FRAN IV PRN (10:30)
[2017-03-25] MEDS ORDERED: CATHETER FLUSH 10 ML SYR IV PRN (10:30)
[2017-03-25] MEDS ORDERED: GABA-488 PO (10:44)
[2017-03-25] MEDS ORDERED: FURO40TA4 PO (10:44)
[2017-03-25] MEDS ORDERED: OMEP40CA36 PO (10:44)
[2017-03-25] MEDS ORDERED: ESCI10TA55 PO (10:44)
[2017-03-25] MEDS ORDERED: AMLO1CAP9 PO (10:44)
--- NOTE | 2017-03-25 11:07 | History & Physical-Hospitalist ---
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 who presents to the emergency room after nausea and vomiting and abdominal pain since Thursday morning. Apparently the pain began abruptly was unable to eat or drink since that time and has vomited small amounts every hour to per his . He's never had any type of abdominal issues and he had his umbilical hernia repaired by Dr. Boudreaux back in 2012 in an uncomplicated manner. He is found to have acute renal failure most recent creatinine was 0.8 and 2015 due to severe dehydration so he will be placed on aggressive IV fluid resuscitation NG tube will be placed under Dr. Villareal recommendations and he will be given antibiotics and pain control. He was given Zosyn once in ER to cover for sepsis from bacterial infection. 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[employer]) Alcohol Use: Denies Use Recreational Drug Use: Yes (SMOKES 10 CIGARETTES PER DAY) Smoking Status: Current Everyday Smoker (6 cigs a day) Type Used: Cigarettes Recent Foreign Travel: No Contact w/other who traveled: No Recent Hopitalizations: No Recent Infectious Disease Expo: No Immunizations Up To Date Date of Influenza Vaccine: Jan 23, 2017 Surgeries Yes (HERNIA, BACK SURGERY) Abdominal (ventral hernia repair [address] Dr Boudreaux), Orthopedic (back) Respiratory Yes COPD Cardiovascular Yes Hypertension Neurological No Reproductive System Hx Reproductive Disorders: No Genitourinary No Gastrointestinal No Musculoskeletal Yes (ARTHRITIS, BACK PROBLEMS) Arthritis, Chronic Back Pain Endocrine History of Endocrine Disorders: No HEENT History of HEENT Disorders: No Cancer No Psychosocial History of Psychiatric Problem: No Behavioral Health Disorders: Depression Integumentary History of Skin or Integumenta: No Blood Transfusions History of Blood Disorders: No Family Medical History Significant Family History: No Pertinent Family Hx Review of Systems Constitutional: see HPI, weakness EENTM: no symptoms reported Respiratory: cough, wheezing Cardiovascular: no symptoms reported Gastrointestinal: abdominal pain (LLQ), loss of appetite, nausea, vomiting Genitourinary: decreased output Musculoskeletal: back pain Skin: no symptoms reported Psychiatric/Neurological: Anxiety All Other Systems Reviewed Negative Unless Noted: Yes Physical Exam Physical Exam Vital Signs Vital Sign - Last 12Hours 03/25/17 03/25/17 07:01 08:33 Temp 97.7 Pulse 101 Resp 18 B/P (MAP) 95/50 (65) Pulse Ox 95 O2 Delivery Room Air O2 Flow Rate 6.00 Capillary Refill : Less Than 3 Seconds General Appearance: WD/WN, Chronically ill, Mild Distress, Obese Eyes: Bilateral Eye Normal Inspection, Bilateral Eye PERRL HEENT: PERRL/EOMI, Normal ENT Inspection, Pharynx Normal Neck: Full Range of Motion, Normal Inspection, Non Tender, Supple, Carotid Bruit Respiratory: Chest Non Tender, Lungs Clear, No Accessory Muscle Use, No Respiratory Distress, Decreased Breath Sounds Cardiovascular: Regular Rate, Rhythm, No Edema, No Gallop, No JVD, No Murmur, Normal Peripheral Pulses Gastrointestinal: Normal Bowel Sounds, No Organomegaly, No Pulsatile Mass, Abnormal Bowel Sounds (none noted), Distended, Guarding, Rebound, Tenderness Back: Normal Inspection, No CVA Tenderness, No Vertebral Tenderness Extremity: Normal Capillary Refill, Normal Inspection, Normal Range of Motion, Non Tender, No Calf Tenderness, No Pedal Edema Neurologic/Psychiatric: Alert, Oriented x3, No Motor/Sensory Deficits, Depressed Affect Skin: Normal Color, Warm/Dry Lymphatic: No Adenopathy Results Results/Procedures Lab Laboratory Tests 03/25/17 07:12 Assessment/Plan Admission Diagnosis SBO ARF dehydration COPD with wheezing Assessment and Plan Plan: IVF Check labs in am NGT Anti-emetics Pain control Nebs O2 Diagnosis/Problems Diagnosis/Problems (1) Small bowel obstruction Status: Acute Assessment & Plan: NGT and consulting Dr Villareal (2) Acute renal failure Status: Acute Assessment & Plan: Aggressive IVF Qualifiers: Qualified Codes: N17.9 - Acute kidney failure, unspecified (3) Hypovolemia Status: Acute Assessment & Plan: IVF (4) COPD exacerbation Status: Acute Assessment & Plan: Nebs ANNA BUITRAGO DO Mar 25, 2017 11:07
[2017-03-25] MEDS ORDERED: ACET-2267 PO (11:58)
[2017-03-25] MEDS ORDERED: NAPR220T66 PO (11:58)
--- NOTE | 2017-03-25 12:43 | Consultation ---
History of Present Illness History of Present Illness Patient Consulted On(yasmeen/time) 03/25/17 12:37 Time Seen by Provider: 11:10 History of Present Illness Surgery is asked to consult regarding partial small bowel resection (PSBO). HPI: Patient presented to the ER with vomiting, weakness, and abdominal pain for 2 days. He also reports very little urine output. He has had subjective fever ( did not take temp) and chills. He denies diarrhea and states he did have a BM yesterday, but no flatus. He also has had some coughing and wheezing over the past couple of days. He chronically wheezes and uses nebulizer treatments at home but denies any respiratory diagnosis. He has not been able to eat or drink anything over past couple of days. He rates the abdominal pain as 5 out of 10; dull, constant pain, mainly upper abdomen. He has not had symptoms like this before; states they weren't worried about it at first because their son had similar symptoms last week. Allergies and Home Medications Allergies Coded Allergies: No Known Drug Allergies (Unverified , 10/15/12) Home Medications Acetaminophen 500 Mg Tablet, 1,000 MG PO HS, (Reported) TAKES 2 (500MG) TABLETS Amlodipine Besylate/Benazepril 1 Each Capsule, 1 CAP PO DAILY, (Reported) Escitalopram Oxalate 10 Mg Tablet, 10 MG PO DAILY, (Reported) Furosemide 40 Mg Tablet, 40 MG PO HS, (Reported) Gabapentin 300 Mg Capsule, 300 MG PO HS, (Reported) Naproxen Sodium 220 Mg Tablet, 220 MG PO DAILY, (Reported) Omeprazole 40 Mg Capsule.dr, 40 MG PO DAILY, (Reported) Past Pequecu-Rniqsd-Ujxecz Hx Patient Social History Alcohol Use: Denies Use Recreational Drug Use: Yes (SMOKES 10 CIGARETTES PER DAY) Smoking Status: Current Everyday Smoker (6 cigs a day) Type Used: Cigarettes Recent Foreign Travel: No Contact w/Someone Who Travel: No Recent Infectious Disease Expo: No Recent Hopitalizations: No Physical Abuse Screen: No Sexual Abuse: No Immunizations Up To Date Date of Influenza Vaccine: Jan 23, 2017 Seasonal Allergies Seasonal Allergies: No Surgeries History of Surgeries: Yes (L ROTATOR CUFF REPAIR ) Surgeries: Abdominal (ventral hernia repair 2012 Dr Boudreaux), Orthopedic (back) Respiratory History of Respiratory Disorde: Yes Respiratory Disorders: Chronic Bronchitis Cardiovascular History of Cardiac Disorders: Yes Cardiac Disorders: Hypertension Neurological History of Neurological Disord: No Reproductive System Hx Reproductive Disorders: No Genitourinary History of Genitourinary Disor: No Gastrointestinal History of Gastrointestinal Di: No Gastrointestinal Disorders: Abdominal Hernia Musculoskeletal History of Musculoskeletal Dis: Yes (ARTHRITIS, BACK PROBLEMS) Musculoskeletal Disorders: Arthritis, Chronic Back Pain Endocrine History of Endocrine Disorders: No HEENT History of HEENT Disorders: Yes HEENT Disorders: Cataract Loss of Vision: Denies Hearing Impairment: Denies Cancer History of Cancer: No Psychosocial History of Psychiatric Problem: Yes Behavioral Health Disorders: Depression Integumentary History of Skin or Integumenta: No Blood Transfusions History of Blood Disorders: No Family Medical History Significant Family History: No Pertinent Family Hx, CAD Over 55 Years Old ( mother), Diabetes (father) Review of Systems-General Constitutional: chills, diaphoresis, fever, malaise, weakness EENTM: No hearing loss, No blurred vision, No epistaxis, No throat pain, No throat swelling Respiratory: No cough, No phlegm, No short of breath, wheezing Cardiovascular: No chest pain, No edema, No palpitations Gastrointestinal: see HPI, No jaundice, No melena Genitourinary: No dysuria, No frequency, No hematuria, hesitancy, other ( oliguria) Musculoskeletal: back pain, joint pain, joint swelling, muscle stiffness Skin: No change in color, No dryness, No hx of skin cancer Psychiatric/Neurological: Depressed, Denies Headache, Denies Seizure, Denies Tremors Other pt denies any heat or cold intolerance; denies any abnormal bruising or bleeding Physical Exam-General Problems Physical Exam Vital Signs Vital Sign - Last 12Hours 03/25/17 03/25/17 07:01 08:33 Temp 97.7 Pulse 101 Resp 18 B/P (MAP) 95/50 (65) Pulse Ox 95 O2 Delivery Room Air O2 Flow Rate 6.00 Capillary Refill : Less Than 3 Seconds General Appearance: WD/WN, mild distress, other (looks tired) Eyes: Bilateral Eye PERRL, Bilateral Eye EOMI HEENT: pharynx normal, No scleral icterus (R), No scleral icterus (L), No pale conjunctivae (R), No pale conjunctivae (L) Neck: non-tender, full range of motion, No thyromegaly Respiratory: chest non-tender, no respiratory distress, no accessory muscle use , wheezing Cardiovascular: regular rate, rhythm, no edema, no murmur Gastrointestinal: soft, no organomegaly, No guarding, No rebound, tenderness ( diffusely) Rectal: deferred Back: no CVA tenderness, vertebral tenderness Extremities: normal range of motion, no calf tenderness, normal capillary refill 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/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 nml as tested, no motor/sensory deficits, alert, normal mood/affect, oriented x 3 Skin: normal color, warm/dry Lymphatic: no adenopathy (neck, axilla or groin) Data Review Labs Laboratory Tests 03/25/17 07:12: White Blood Count 11.6H, Red Blood Count 6.05H, Hemoglobin 15.9, Hematocrit 49, Mean Corpuscular Volume 81, Mean Corpuscular Hemoglobin 26, Mean Corpuscular Hemoglobin Concent 32, Red Cell Distribution Width 17.4H, Platelet Count 306, Mean Platelet Volume 10.7H, Neutrophils (%) (Auto) 73, Lymphocytes (%) (Auto) 13 , Monocytes (%) (Auto) 13H, Eosinophils (%) (Auto) 0, Basophils (%) (Auto) 0, Neutrophils # (Auto) 8.5H, Lymphocytes # (Auto) 1.6, Monocytes # (Auto) 1.5H, Eosinophils # (Auto) 0.0, Basophils # (Auto) 0.0, Prothrombin Time 13.4, INR Comment 1.0, Activated Partial Thromboplast Time 35, Sodium Level 142, Potassium Level 4.4, Chloride Level 99, Carbon Dioxide Level 24, Anion Gap 19H, Blood Urea Nitrogen 33H, Creatinine 2.33H, Estimat Glomerular Filtration Rate 28 , BUN/Creatinine Ratio 14, Glucose Level 156H, Calcium Level 9.8, Total Bilirubin 1.2H, Aspartate Amino Transf (AST/SGOT) 34, Alanine Aminotransferase ( ALT/SGPT) 47, Alkaline Phosphatase 96, Total Protein 8.3H, Albumin 4.6H 03/25/17 07:23: C-Reactive Protein High Sensitivity 9.26H 03/25/17 07:25: Lactic Acid Level 1.71 Microbiology 03/25/17 Influenza Types A,B Antigen (FELICE) - Final, Complete Assessment/Plan Assessment/Plan Assessment/Plan 1. PSBO 2. Oliguria with Acute Renal failure 3. HTN 4. Chronic Bronchitis 5. Arthritis Pt was admitted NPO, IV fluids (at high rate), NGT placed, pain control, given a dose of ABX and will be started on his HTN meds. He can wet his mouth but no ice chips. 1000 ml was removed once NGT placed and pt had relief of most of his abd pain and nausea is gone. He was told to continue ambulating and can chew gum, both will help with intestinal motility. If things don't continue improving then the next step is a small bowel follow through; to make sure there is not a complete bowel obstruction. Discussed all of this with pt and his , all questions answered to their satisfaction. Clinical Quality Measures DVT/VTE Risk/Contraindication: Risk Factor Score Per Nursin RFS Level Per Nursing on Admit: 4+=Very High JENIFFER CHAVIRA DO Mar 25, 2017 12:43
[2017-03-25 13:50] LABS: CLARITY,URINE CLEAR; COLOR,URINE AMBER; GLUCOSE, URINE (UA) NEGATIVE (NEGATIVE); KETONES,URINE NEGATIVE (NEGATIVE); LEUKOCYTE ESTERASE ,URINE 1+ (NEGATIVE); NITRITE,URINE NEGATIVE (NEGATIVE); PH,URINE 5 (5-9); PROTEIN,URINE 2+ (NEGATIVE); UROBILINOGEN,URINE 1 MG/DL (NORMAL)
[2017-03-25 14:08] LABS: AMORPHOUS SEDIMENT,UR RARE AMOR URATES /LPF; BACTERIA,URINE NEGATIVE /HPF; BILIRUBIN,URINE 2+ (NEGATIVE); SQUAMOUS EPITHELIAL CELL,UR 0-2 /HPF; WBC,URINE 0-2 /HPF
[2017-03-25] MEDS: NS IV 1000 ML 1,000 ML IV SCH ×2 (14:12→21:11)
[2017-03-25] MEDS ORDERED: RT-ALBUTEROL SULF 2.5 MG/3 ML PRE-MIX VIAL INH PRN (15:15)
[2017-03-25] MEDS: fentaNYL INJECTION 100 MCG/2 ML AMP IVP PRN ×2 (15:52→20:27)
[2017-03-25] MEDS ORDERED: NITROGLYCERIN 2% OINT 1 GM UNIT DOSE PACKET TOP PRN (16:30)
[2017-03-25] MEDS: RT-ALBUTEROL/IPRATROPIUM 3 ML (DUONEB) VIAL INH SCH (18:58)
[2017-03-26] VITALS: BP_SYST 115; BP_SYST 127; BP_DIAS 71; BP_DIAS 80
[2017-03-26] MEDS: fentaNYL INJECTION 100 MCG/2 ML AMP IVP PRN ×2 (02:58→09:59)
[2017-03-26] MEDS: NS IV 1000 ML 1,000 ML IV SCH (03:50)
[2017-03-26] MEDS: RT-ALBUTEROL/IPRATROPIUM 3 ML (DUONEB) VIAL INH SCH ×4 (06:52→19:27)
[2017-03-26] MEDS: FAMOTIDINE 20MG/2ML IV (PEPCID) IV SCH (08:19)
[2017-03-26 08:31] LABS: BASOPHILS % (AUTO) 0 % (0-10); EOSINOPHILS # (AUTO) 0.1 10^3/uL (0.0-0.3); EOSINOPHILS % (AUTO) 2 % (0-10); HEMATOCRIT 43 % (40-54); HEMOGLOBIN 13.3 G/DL (13.3-17.7); LYMPHOCYTES # (AUTO) 1.4 X 10^3 (1.0-4.0); LYMPHOCYTES % (AUTO) 23 % (12-44); MEAN CORPUSCULAR HEMOGLOBIN 26 PG (25-34); MEAN CORPUSCULAR HGB CONC 31 G/DL (32-36); MEAN CORPUSCULAR VOLUME 85 FL (80-99); MEAN PLATELET VOLUME 10.5 FL (7.4-10.4); MONOCYTES # (AUTO) 0.9 X 10^3 (0.0-1.0); MONOCYTES % (AUTO) 15 % (0-12); NEUTROPHILS # (AUTO) 3.7 X 10^3 (1.8-7.8); NEUTROPHILS % (AUTO) 60 % (42-75); PLATELET COUNT 213 10^3/uL (130-400); RED BLOOD COUNT 5.06 10^6/uL (4.35-5.85); RED CELL DISTRIBUTION WIDTH 16.3 % (10.0-14.5); WHITE BLOOD COUNT 6.2 10^3/uL (4.3-11.0)
[2017-03-26 08:50] LABS: ALANINE AMINOTRANSFERASE 42 U/L (0-55); ALBUMIN 3.9 GM/DL (3.2-4.5); ALKALINE PHOSPHATASE 75 U/L (40-136); BILIRUBIN,TOTAL 0.7 MG/DL (0.1-1.0); BUN/CREATININE RATIO 32; CALCIUM 8.6 MG/DL (8.5-10.1); CARBON DIOXIDE 23 MMOL/L (21-32); CHLORIDE 110 MMOL/L (98-107); CREATININE SERUM 0.79 MG/DL (0.60-1.30); GFR ESTIMATED > 60; GLUCOSE 104 MG/DL (70-105); POTASSIUM 3.9 MMOL/L (3.6-5.0); SODIUM 145 MMOL/L (135-145); TOTAL PROTEIN 6.6 GM/DL (6.4-8.2)
[2017-03-26 08:54] VITALS: BP 127/88
--- NOTE | 2017-03-26 09:33 | Progress Note-Hospitalist ---
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 Cassidy'medhat who presents to the emergency room after nausea and vomiting and abdominal pain since Thursday morning. Apparently the pain began abruptly was unable to eat or drink since that time and has vomited small amounts every hour to per his . He's never had any type of abdominal issues and he had his umbilical hernia repaired by Dr. Boudreaux back in 2012 in an uncomplicated manner. He is found to have acute renal failure most recent creatinine was 0.8 and 2015 due to severe dehydration so he will be placed on aggressive IV fluid resuscitation NG tube will be placed under Dr. Villareal recommendations and he will be given antibiotics and pain control. He was given Zosyn once in ER to cover for sepsis from bacterial infection. Progress Notes/Assess & Plan Date Seen 03/26/17 Time Seen by Provider: 08:20 Admission Dx/Process SBO ARF dehydration COPD with wheezing Diagonsis/Assessment & Plan Pt feels great. + large BM yesterday and +flatus this morning. Dr Villareal will see the patient and decide whether NGT can be DC or not Creatinine is normal Checked meds and labs AFVSS, Pleasant, O x 3, improved, in chair NGT in place RRR, CTAB no rales noted No edema + BS Laboratory Tests 03/26/17 08:11 Assessment: SBO with large BM last night and + flatus today without any abdominal pain s/p NGT removing 1000cc of bowel contents ARF now resolved Dehydration now resolved COPD with wheezing improved on Nebs Plan: IVF to continue but will decrease the rate to prevent overload Check labs in am NGT DC per Dr Villareal Anti-emetics Pain control Nebs O2 Diagnosis/Problems Diagnosis/Problems (1) Small bowel obstruction Status: Acute Assessment & Plan: NGT and consulting Dr Villareal (2) Acute renal failure Status: Acute Assessment & Plan: Aggressive IVF Qualifiers: Qualified Codes: N17.9 - Acute kidney failure, unspecified (3) Hypovolemia Status: Acute Assessment & Plan: IVF (4) COPD exacerbation Status: Acute Assessment & Plan: Nebs ANNA BUITRAGO DO Mar 26, 2017 09:33
[2017-03-26] MEDS: NAPROXEN 250 MG (NAPROSYN) TABLET PO SCH (10:32)
[2017-03-26] MEDS ORDERED: FUROSEMIDE 40 MG/4 ML INJ (LASIX) IVP NR (11:25)
[2017-03-26 12:00] VITALS: BP 137/95
[2017-03-26 16:14] VITALS: BP 113/67
--- NOTE | 2017-03-26 16:33 | Progress Note ---
Subjective Time Seen by Provider: 13:48 Subjective/Events-last exam Pt seen and examined; he had large BM yesterday and is passing gas. He denies nausea and vomiting. He had his NGT pulled early in the day and has been drinking water without problems. He still has some minimal "squeezy" pain. Review of Systems General: No Chills, No Night Sweats Pulmonary: No Dyspnea, No Cough Cardiovascular: No: Chest Pain, Palpitations Gastrointestinal: Abdominal Pain (very minimal), No: Nausea, Vomiting Objective Exam Vital Signs Date Time Temp Pulse Resp B/P (MAP) Pulse Ox O2 Delivery O2 Flow Rate FiO2 03/26/17 16:14 98.2 78 18 113/67 (82) 91 Nasal Cannula 4.00 03/26/17 14:58 96 4.00 03/26/17 13:09 95 Nasal Cannula 4.00 03/26/17 12:00 97.7 77 20 137/95 (109) 96 Nasal Cannula 4.00 03/26/17 09:11 Nasal Cannula 4.00 03/26/17 08:54 97.9 90 20 127/88 (101) 95 Nasal Cannula 5.00 03/26/17 06:53 94 Nasal Cannula 5.00 03/26/17 00:00 97.4 85 20 127/80 (96) 92 Nasal Cannula 5.00 03/25/17 21:00 Nasal Cannula 5.00 03/25/17 19:08 98.5 91 18 141/89 (106) 91 Nasal Cannula 5.00 03/25/17 18:58 91 Nasal Cannula 5.00 I & O 03/26/17 07:00 Intake Total 5100 ml Output Total 3100 ml Balance 2000 ml Capillary Refill : Less Than 3 Seconds General Appearance: WD/WN, Obese HEENT: PERRL/EOMI, Pharynx Normal Respiratory: No Accessory Muscle Use, No Respiratory Distress, Wheezing Cardiovascular: Regular Rate, Rhythm, No Edema, No Murmur Gastrointestinal: soft, no organomegaly, No guarding, No rebound, tenderness ( minimal, more RUQ) Extremity: Normal Inspection, No Pedal Edema Neurologic/Psychiatric: Alert, Oriented x3, No Motor/Sensory Deficits, Normal 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/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, 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 Norm as Tested Skin: Normal Color, Warm/Dry Results Lab Laboratory Tests 12/28/17 08:11: White Blood Count 6.2, Red Blood Count 5.06, Hemoglobin 13.3, Hematocrit 43, Mean Corpuscular Volume 85, Mean Corpuscular Hemoglobin 26, Mean Corpuscular Hemoglobin Concent 31L, Red Cell Distribution Width 16.3H, Platelet Count 213, Mean Platelet Volume 10.5H, Neutrophils (%) (Auto) 60, Lymphocytes (%) (Auto) 23 , Monocytes (%) (Auto) 15H, Eosinophils (%) (Auto) 2, Basophils (%) (Auto) 0, Neutrophils # (Auto) 3.7, Lymphocytes # (Auto) 1.4, Monocytes # (Auto) 0.9, Eosinophils # (Auto) 0.1, Basophils # (Auto) 0.0, Sodium Level 145, Potassium Level 3.9, Chloride Level 110H, Carbon Dioxide Level 23, Anion Gap 12, Blood Urea Nitrogen 25H, Creatinine 0.79, Estimat Glomerular Filtration Rate > 60, BUN /Creatinine Ratio 32, Glucose Level 104, Calcium Level 8.6, Total Bilirubin 0.7 , Aspartate Amino Transf (AST/SGOT) 22, Alanine Aminotransferase (ALT/SGPT) 42, Alkaline Phosphatase 75, Total Protein 6.6, Albumin 3.9 Microbiology 03/25/17 Blood Culture - Preliminary, Resulted No growth 03/25/17 Influenza Types A,B Antigen (FELICE) - Final, Complete Assessment/Plan Assessment/Plan Assessment/Plan 1. PSBO - resolved 2. Oliguria with Acute Renal failure -resolved 3. HTN 4. Chronic Bronchitis 5. Arthritis Pt had NGT removed and will be started on clears. He was told to continue ambulating and can chew gum, both will help with intestinal motility. Will slowly advance to soft diet tomorrow and hopefully D\\C home around lunch if he has continued improvement and no problems with increased diet. His asked about repeat CT or other study; but he does not need those if he has bowel fxn and no nausea or vomiting. He still could have stricture or PSBO and that is why he is not going home tonight. Clinical Quality Measures DVT/VTE Risk/Contraindication: Risk Factor Score Per Nursin RFS Level Per Nursing on Admit: 4+=Very High JENIFFER CHAVIRA DO Mar 26, 2017 16:33
[2017-03-26 20:00] VITALS: BP 136/92
[2017-03-26] MEDS: FUROSEMIDE 40 MG (LASIX) TAB PO SCH ×2 (21:00→21:16)
[2017-03-26] MEDS ORDERED: ACETAMINOPHEN 500 MG TAB (TYLENOL) PO SCH (21:00)
[2017-03-26] MEDS ORDERED: GABAPENTIN 300 MG (NEURONTIN) CAP PO SCH (21:00)
[2017-03-27] VITALS: BP 136/92
[2017-03-27 04:00] VITALS: BP 130/80
[2017-03-27 05:34] LABS: BASOPHILS % (AUTO) 0 % (0-10); EOSINOPHILS # (AUTO) 0.1 10^3/uL (0.0-0.3); EOSINOPHILS % (AUTO) 3 % (0-10); HEMATOCRIT 39 % (40-54); HEMOGLOBIN 12.5 G/DL (13.3-17.7); LYMPHOCYTES # (AUTO) 1.1 X 10^3 (1.0-4.0); LYMPHOCYTES % (AUTO) 21 % (12-44); MEAN CORPUSCULAR HEMOGLOBIN 27 PG (25-34); MEAN CORPUSCULAR HGB CONC 32 G/DL (32-36); MEAN CORPUSCULAR VOLUME 83 FL (80-99); MEAN PLATELET VOLUME 10.3 FL (7.4-10.4); MONOCYTES # (AUTO) 0.9 X 10^3 (0.0-1.0); MONOCYTES % (AUTO) 17 % (0-12); NEUTROPHILS % (AUTO) 59 % (42-75); PLATELET COUNT 212 10^3/uL (130-400); RED BLOOD COUNT 4.72 10^6/uL (4.35-5.85); RED CELL DISTRIBUTION WIDTH 15.3 % (10.0-14.5); WHITE BLOOD COUNT 5.1 10^3/uL (4.3-11.0)
[2017-03-27 06:02] LABS: ALANINE AMINOTRANSFERASE 36 U/L (0-55); ALBUMIN 3.7 GM/DL (3.2-4.5); ALKALINE PHOSPHATASE 71 U/L (40-136); BILIRUBIN,TOTAL 0.8 MG/DL (0.1-1.0); BUN/CREATININE RATIO 27; CARBON DIOXIDE 27 MMOL/L (21-32); CHLORIDE 105 MMOL/L (98-107); CREATININE SERUM 0.71 MG/DL (0.60-1.30); GFR ESTIMATED > 60; GLUCOSE 97 MG/DL (70-105); POTASSIUM 3.7 MMOL/L (3.6-5.0); SODIUM 141 MMOL/L (135-145); TOTAL PROTEIN 6.4 GM/DL (6.4-8.2)
[2017-03-27] MEDS: RT-ALBUTEROL/IPRATROPIUM 3 ML (DUONEB) VIAL INH SCH (06:13)
[2017-03-27] MEDS ORDERED: PANTOPRAZOLE 40 MG (PROTONIX) TAB PO SCH (07:00)
--- NOTE | 2017-03-27 07:34 | Progress Note ---
Subjective Time Seen by Provider: 07:23 Subjective/Events-last exam Pt seen and examined; states he feels great, had another large BM last night and is passing lots of gas. He is tolerating diet. Review of Systems General: No Chills, No Night Sweats Pulmonary: No Cough Cardiovascular: No: Chest Pain Gastrointestinal: No: Nausea, Vomiting, Abdominal Pain Objective Exam Vital Signs Date Time Temp Pulse Resp B/P (MAP) Pulse Ox O2 Delivery O2 Flow Rate FiO2 03/27/17 06:13 92 Room Air 03/27/17 04:00 98.9 72 12 130/80 (97) 94 Room Air 03/27/17 00:00 98.4 70 14 136/92 (107) 90 Room Air 03/26/17 21:00 Room Air 4.00 03/26/17 20:00 98.3 67 18 136/92 (107) 95 Nasal Cannula 4.00 03/26/17 19:27 92 Room Air 03/26/17 16:14 98.2 78 18 113/67 (82) 91 Nasal Cannula 4.00 03/26/17 14:58 96 4.00 03/26/17 13:09 95 Nasal Cannula 4.00 03/26/17 12:00 97.7 77 20 137/95 (109) 96 Nasal Cannula 4.00 03/26/17 09:11 Nasal Cannula 4.00 03/26/17 08:54 97.9 90 20 127/88 (101) 95 Nasal Cannula 5.00 I & O 03/27/17 07:00 Intake Total 2180 ml Output Total 450 ml Balance 1730 ml Capillary Refill : Less Than 3 Seconds General Appearance: WD/WN, Obese HEENT: PERRL/EOMI, Pharynx Normal Respiratory: No Accessory Muscle Use, No Respiratory Distress, Wheezing Cardiovascular: Regular Rate, Rhythm, No Edema, No Murmur Gastrointestinal: non tender, soft, no organomegaly, No guarding, No rebound Extremity: Normal Inspection, No Pedal Edema Neurologic/Psychiatric: Alert, Oriented x3, No Motor/Sensory Deficits, Normal Mood/Affect, 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 management 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 II-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 Norm as Tested Skin: Normal Color, Warm/Dry Results Lab Laboratory Tests 03/26/17 08:11: White Blood Count 6.2, Red Blood Count 5.06, Hemoglobin 13.3, Hematocrit 43, Mean Corpuscular Volume 85, Mean Corpuscular Hemoglobin 26, Mean Corpuscular Hemoglobin Concent 31L, Red Cell Distribution Width 16.3H, Platelet Count 213, Mean Platelet Volume 10.5H, Neutrophils (%) (Auto) 60, Lymphocytes (%) (Auto) 23 , Monocytes (%) (Auto) 15H, Eosinophils (%) (Auto) 2, Basophils (%) (Auto) 0, Neutrophils # (Auto) 3.7, Lymphocytes # (Auto) 1.4, Monocytes # (Auto) 0.9, Eosinophils # (Auto) 0.1, Basophils # (Auto) 0.0, Sodium Level 145, Potassium Level 3.9, Chloride Level 110H, Carbon Dioxide Level 23, Anion Gap 12, Blood Urea Nitrogen 25H, Creatinine 0.79, Estimat Glomerular Filtration Rate > 60, BUN /Creatinine Ratio 32, Glucose Level 104, Calcium Level 8.6, Total Bilirubin 0.7 , Aspartate Amino Transf (AST/SGOT) 22, Alanine Aminotransferase (ALT/SGPT) 42, Alkaline Phosphatase 75, Total Protein 6.6, Albumin 3.9 03/27/17 05:15: White Blood Count 5.1, Red Blood Count 4.72, Hemoglobin 12.5L, Hematocrit 39L, Mean Corpuscular Volume 83, Mean Corpuscular Hemoglobin 27, Mean Corpuscular Hemoglobin Concent 32, Red Cell Distribution Width 15.3H, Platelet Count 212, Mean Platelet Volume 10.3, Neutrophils (%) (Auto) 59, Lymphocytes (%) (Auto) 21 , Monocytes (%) (Auto) 17H, Eosinophils (%) (Auto) 3, Basophils (%) (Auto) 0, Neutrophils # (Auto) 3.0, Lymphocytes # (Auto) 1.1, Monocytes # (Auto) 0.9, Eosinophils # (Auto) 0.1, Basophils # (Auto) 0.0, Sodium Level 141, Potassium Level 3.7, Chloride Level 105, Carbon Dioxide Level 27, Anion Gap 9, Blood Urea Nitrogen 19H, Creatinine 0.71, Estimat Glomerular Filtration Rate > 60, BUN/ Creatinine Ratio 27, Glucose Level 97, Calcium Level 9.0, Total Bilirubin 0.8, Aspartate Amino Transf (AST/SGOT) 22, Alanine Aminotransferase (ALT/SGPT) 36, Alkaline Phosphatase 71, Total Protein 6.4, Albumin 3.7 Microbiology 03/25/17 Blood Culture - Preliminary, Resulted No growth 03/25/17 Influenza Types A,B Antigen (FELICE) - Final, Complete Assessment/Plan Assessment/Plan Assessment/Plan 1. PSBO - resolved 2. Oliguria with Acute Renal failure -resolved 3. HTN 4. Chronic Bronchitis 5. Arthritis Pt is doing great and can go home. Clinical Quality Measures DVT/VTE Risk/Contraindication: Risk Factor Score Per Nursin RFS Level Per Nursing on Admit: 4+=Very High JENIFFER CHAVIRA DO Mar 27, 2017 07:33
[2017-03-27 08:17] VITALS: BP 123/79
[2017-03-27] MEDS: NAPROXEN 250 MG (NAPROSYN) TABLET PO SCH (08:23)
[2017-03-27] MEDS: FAMOTIDINE 20MG/2ML IV (PEPCID) IV SCH (08:23)
[2017-03-27] MEDS ORDERED: amLODIPine 10 MG (NORVASC) TAB PO SCH (09:00)
[2017-03-27] MEDS ORDERED: BENAZEPRIL 20 MG (LOTENSIN) TAB PO SCH (09:00)
[2017-03-27 10:59] VITALS: BP 123/79
--- NOTE | 2017-03-27 12:09 | Discharge Summary-Hospitalist ---
Diagnosis/Chief Complaint Date of Admission Mar 25, 2017 at 09:34 Date of Discharge Mar 27, 2017 at 11:11 Discharge Date: Mar 27, 2017 Admission Diagnosis SBO ARF dehydration COPD with wheezing Discharge Diagnosis Pt feels great. + large BM yesterday and +flatus this morning. Dr Villareal will see the patient and decide whether NGT can be DC or not Creatinine is normal Checked meds and labs AFVSS, Pleasant, O x 3, improved, in chair NGT in place RRR, CTAB no rales noted No edema + BS Laboratory Tests 03/26/17 08:11 Assessment: SBO with large BM last night and + flatus today without any abdominal pain s/p NGT removing 1000cc of bowel contents ARF now resolved Dehydration now resolved COPD with wheezing improved on Nebs Plan: IVF to continue but will decrease the rate to prevent overload Check labs in am NGT DC per Dr Villareal Anti-emetics Pain control Nebs O2 (1) Small bowel obstruction Status: Acute Assessment & Plan: NGT and consulting Dr Villareal (2) Acute renal failure Status: Acute Assessment & Plan: Aggressive IVF (3) Hypovolemia Status: Acute Assessment & Plan: IVF (4) COPD exacerbation Status: Acute Assessment & Plan: Nebs Discharge Summary Discharge Physical Examination Allergies: Coded Allergies: No Known Drug Allergies (Unverified , 10/15/12) Vitals & I&Os Vital Signs Date Time Temp Pulse Resp B/P (MAP) Pulse Ox O2 Delivery O2 Flow Rate FiO2 03/27/17 10:59 75 18 123/79 93 Room Air 03/27/17 08:17 98.0 03/26/17 21:00 4.00 Hospital Course Notes from 03/27/17 Chart Review: No fever Vitals stable WBC normal 5.1 Hgb 12.5 CMP normal Patient Interview: Pt confirms seeing Dr. Villareal. Pts states he did not have a follow up. I informed the pt that I will arrange a two week follow up with Dr. Boudreaux. Pt asked why this is necessary. I informed the pt that it will be good to help make sure this doesnt happen again. Pts asked how they will tell if this happens again; I informed them that the pt will most likely present the same way. Pt states he would like to DC by 1100, so he can watch the [employer] basketball game Plan: Follow up with Dr. Boudreaux Scribed by Kimmie Tucker under direct supervision of Dr. Julia Buitrago. Hospital course: Patient had an uneventful hospital course he was admitted given aggressive IV fluids to acute renal failure from dehydration and small bowel obstruction was managed by Dr. Villareal in a conservative manner. NG tube was placed with good results of 1000 mL of fecal material and that evening he had a large bowel movement and had return option and was doing very well. Patient was advanced on his diet and overall had no issues had normal bowel function and was discharged in good condition. Labs (last 24 hrs) Laboratory Tests 03/27/17 05:15: White Blood Count 5.1, Red Blood Count 4.72, Hemoglobin 12.5L, Hematocrit 39L, Mean Corpuscular Volume 83, Mean Corpuscular Hemoglobin 27, Mean Corpuscular Hemoglobin Concent 32, Red Cell Distribution Width 15.3H, Platelet Count 212, Mean Platelet Volume 10.3, Neutrophils (%) (Auto) 59, Lymphocytes (%) (Auto) 21 , Monocytes (%) (Auto) 17H, Eosinophils (%) (Auto) 3, Basophils (%) (Auto) 0, Neutrophils # (Auto) 3.0, Lymphocytes # (Auto) 1.1, Monocytes # (Auto) 0.9, Eosinophils # (Auto) 0.1, Basophils # (Auto) 0.0, Sodium Level 141, Potassium Level 3.7, Chloride Level 105, Carbon Dioxide Level 27, Anion Gap 9, Blood Urea Nitrogen 19H, Creatinine 0.71, Estimat Glomerular Filtration Rate > 60, BUN/ Creatinine Ratio 27, Glucose Level 97, Calcium Level 9.0, Total Bilirubin 0.8, Aspartate Amino Transf (AST/SGOT) 22, Alanine Aminotransferase (ALT/SGPT) 36, Alkaline Phosphatase 71, Total Protein 6.4, Albumin 3.7 Microbiology 03/25/17 Blood Culture - Preliminary, Resulted No growth 03/25/17 Influenza Types A,B Antigen (FELICE) - Final, Complete Pending Labs Laboratory Tests 03/27/17 05:15: White Blood Count 5.1, Red Blood Count 4.72, Hemoglobin 12.5, Hematocrit 39, Mean Corpuscular Volume 83, Mean Corpuscular Hemoglobin 27, Mean Corpuscular Hemoglobin Concent 32, Red Cell Distribution Width 15.3, Platelet Count 212, Mean Platelet Volume 10.3, Neutrophils (%) (Auto) 59, Lymphocytes (%) (Auto) 21 , Monocytes (%) (Auto) 17, Eosinophils (%) (Auto) 3, Basophils (%) (Auto) 0, Neutrophils # (Auto) 3.0, Lymphocytes # (Auto) 1.1, Monocytes # (Auto) 0.9, Eosinophils # (Auto) 0.1, Basophils # (Auto) 0.0, Sodium Level 141, Potassium Level 3.7, Chloride Level 105, Carbon Dioxide Level 27, Anion Gap 9, Blood Urea Nitrogen 19, Creatinine 0.71, Estimat Glomerular Filtration Rate > 60, BUN/ Creatinine Ratio 27, Glucose Level 97, Calcium Level 9.0, Total Bilirubin 0.8, Aspartate Amino Transf (AST/SGOT) 22, Alanine Aminotransferase (ALT/SGPT) 36, Alkaline Phosphatase 71, Total Protein 6.4, Albumin 3.7 Discharge Home Medications: Active Scripts Active Reported Tylenol Extra Strength (Acetaminophen) 500 Mg Tablet 1,000 Mg PO HS TAKES 2 (500MG) TABLETS Aleve (Naproxen Sodium) 220 Mg Tablet 220 Mg PO DAILY Omeprazole 40 Mg Capsule.dr 40 Mg PO DAILY Escitalopram Oxalate 10 Mg Tablet 10 Mg PO DAILY Furosemide 40 Mg Tablet 40 Mg PO HS Gabapentin 300 Mg Capsule 300 Mg PO HS Amlodipine-Benazepril 10-20 mg (Amlodipine Besylate/Benazepril) 1 Each Capsule 1 Cap PO DAILY Instructions to patient/family Please see electronic discharge instructions given to patient. Clinical Quality Measures DVT/VTE Risk/Contraindication: Risk Factor Score Per Nursin RFS Level Per Nursing on Admit: 4+=Very High Problem Qualifiers (1) Acute renal failure: Acute renal failure type: unspecified Qualified Codes: N17.9 - Acute kidney failure, unspecified JULIA BUITRAGO DO Mar 27, 2017 12:09
== END 2017-03-27 11:11 | disposition home or self-care (01) | DRG 327 ==
LOC: EDUNIT# 06:55 → ER 06:57 → 4TH 09:34
PROVIDERS: ADMIT Internal Medicine; ATTEND Family Medicine
PROC: 0D9470Z Drainage of Esophagogastric Junction with Drainage Device, Via Natural or Artificial Opening (ICD-10-PCS; principal; 2017-03-25)
DX: K56.690 Other partial intestinal obstruction (principal); N17.9 Acute kidney failure, unspecified; J44.1 Chronic obstructive pulmonary disease with (acute) exacerbation; E86.1 Hypovolemia; E86.0 Dehydration; I10 Essential (primary) hypertension; R09.02 Hypoxemia; F17.210 Nicotine dependence, cigarettes, uncomplicated; M19.91 Primary osteoarthritis, unspecified site; M54.9 Dorsalgia, unspecified; F32.9 Major depressive disorder, single episode, unspecified; E66.9 Obesity, unspecified; Z68.37 Body mass index [BMI] 37.0-37.9, adult
CPT/HCPCS: 36415; 71010; 74176; 80053; 81000; 83605; 85025; 85610; 85730; 86141; 87040; 87804; 94640; 94760; 94761; 96361; 96374; 96375

== ENCOUNTER 2017-03-28 23:38 | Inpatient (IN) | payer MEDICARE, OTHER ==
[~2017-03-28] VITALS: Ht 175.3 cm; Wt 115.2 kg
[~2017-03-28 23:38] MED LIST changes: +ACET-2267 PO; +AMLO1CAP9 PO; +ESCI10TA55 PO; +FURO40TA4 PO; +GABA-488 PO; +NAPR220T66 PO; +OMEP40CA36 PO
[2017-03-28] MEDS ORDERED: NS IV 1000 ML 1,000 ML IV ONE (23:49)
[2017-03-28 23:56] LABS: BASOPHILS % (AUTO) 0 % (0-10); EOSINOPHILS # (AUTO) 0.3 10^3/uL (0.0-0.3); EOSINOPHILS % (AUTO) 3 % (0-10); HEMATOCRIT 43 % (40-54); HEMOGLOBIN 13.9 G/DL (13.3-17.7); LYMPHOCYTES # (AUTO) 1.3 X 10^3 (1.0-4.0); LYMPHOCYTES % (AUTO) 16 % (12-44); MEAN CORPUSCULAR HEMOGLOBIN 26 PG (25-34); MEAN CORPUSCULAR HGB CONC 32 G/DL (32-36); MEAN CORPUSCULAR VOLUME 81 FL (80-99); MEAN PLATELET VOLUME 10.5 FL (7.4-10.4); MONOCYTES # (AUTO) 0.9 X 10^3 (0.0-1.0); MONOCYTES % (AUTO) 11 % (0-12); NEUTROPHILS % (AUTO) 71 % (42-75); PLATELET COUNT 251 10^3/uL (130-400); RED BLOOD COUNT 5.28 10^6/uL (4.35-5.85); RED CELL DISTRIBUTION WIDTH 15.5 % (10.0-14.5); WHITE BLOOD COUNT 8.6 10^3/uL (4.3-11.0)
[2017-03-29] MEDS ORDERED: ONDANSETRON 4 MG/2 ML (SDV) Z0FRAN IVP ONE
[2017-03-29] MEDS ORDERED: RT-ALBUTEROL/IPRATROPIUM 3 ML (DUONEB) VIAL INH ONE
[2017-03-29 00:17] LABS: ALANINE AMINOTRANSFERASE 124 U/L (0-55); ALBUMIN 4.1 GM/DL (3.2-4.5); ALKALINE PHOSPHATASE 90 U/L (40-136); BILIRUBIN,TOTAL 0.9 MG/DL (0.1-1.0); BUN/CREATININE RATIO 16; CALCIUM 9.2 MG/DL (8.5-10.1); CARBON DIOXIDE 24 MMOL/L (21-32); CHLORIDE 105 MMOL/L (98-107); CREATININE SERUM 0.77 MG/DL (0.60-1.30); GFR ESTIMATED > 60; GLUCOSE 119 MG/DL (70-105); MAGNESIUM 1.9 MG/DL (1.8-2.4); POTASSIUM 3.5 MMOL/L (3.6-5.0); SODIUM 142 MMOL/L (135-145); TOTAL PROTEIN 7.3 GM/DL (6.4-8.2)
--- NOTE | 2017-03-29 00:56 | ED Abdominal Pain ---
General Chief Complaint: Abdominal/GI Problems Stated Complaint: VOMITING Nursing Triage Note: PT BROUGHT IN BY WITH REPORTS OF WEAKNESS, N/V, AND BLOODY STOOLS SINCE THIS AM. SHE REPORTS THAT HE WAS DC'D FROM THIS HOSPITAL YESTERDAY WITH A SMALL BOWEL OBSTRUCTION. Sepsis Screen: No Definite Risk Source of Information: Patient, Old Records Exam Limitations: No Limitations History of Present Illness Time Seen By Provider: 23:51 Initial Comments This 71-year-old gentleman presents to the emergency room with concern for possible relapsing small bowel obstruction. He was recently admitted for treatment of small bowel obstruction, COPD exacerbation, and acute renal failure. He did have a solid bowel movement this morning followed by some watery gaseous bowel movements. Since then he has developed distention, pain, nausea, and vomiting. He also has wheezing. Allergies and Home Medications Allergies Coded Allergies: No Known Drug Allergies (Unverified , 10/15/12) Home Medications Acetaminophen 500 Mg Tablet, 1,000 MG PO HS, (Reported) TAKES 2 (500MG) TABLETS Amlodipine Besylate/Benazepril 1 Each Capsule, 1 CAP PO DAILY, (Reported) Escitalopram Oxalate 10 Mg Tablet, 10 MG PO DAILY, (Reported) Furosemide 40 Mg Tablet, 40 MG PO HS, (Reported) Gabapentin 300 Mg Capsule, 300 MG PO HS, (Reported) Naproxen Sodium 220 Mg Tablet, 220 MG PO DAILY, (Reported) Omeprazole 40 Mg Capsule.dr, 40 MG PO DAILY, (Reported) Review of Systems Constitutional: no symptoms reported EENTM: No Symptoms Reported Respiratory: See HPI Cardiovascular: No Symptoms Reported Gastrointestinal: See HPI Genitourinary: No Symptoms Reported Musculoskeletal: no symptoms reported Skin: no symptoms reported Psychiatric/Neurological: No Symptoms Reported Endocrine: No Symptoms Reported Hematologic/Lymphatic: No Symptoms Reported Past Hmgqdro-Ffagom-Mjnmgf Hx Patient Social History Alcohol Use: Occasionally Uses Recreational Drug Use: No Smoking Status: Current Everyday Smoker Type Used: Cigarettes Recent Foreign Travel: No Contact w/Someone Who Travel: No Recent Infectious Disease Expo: No Recent Hopitalizations: No Immunizations Up To Date Tetanus Booster (TDap): Unknown Date of Influenza Vaccine: Jan 23, 2017 Seasonal Allergies Seasonal Allergies: No Surgeries History of Surgeries: Yes (L ROTATOR CUFF REPAIR ) Surgeries: Abdominal (hernia repair), Orthopedic Respiratory History of Respiratory Disorde: Yes Respiratory Disorders: Chronic Bronchitis Currently Using CPAP: No Currently Using BIPAP: No Cardiovascular History of Cardiac Disorders: Yes Cardiac Disorders: Hypertension Neurological History of Neurological Disord: No Reproductive System Hx Reproductive Disorders: No Genitourinary History of Genitourinary Disor: No Gastrointestinal History of Gastrointestinal Di: Yes Gastrointestinal Disorders: Abdominal Hernia, Obstructive Bowel (small bowel obstruction) Musculoskeletal History of Musculoskeletal Dis: Yes (ARTHRITIS, BACK PROBLEMS) Musculoskeletal Disorders: Arthritis, Chronic Back Pain Endocrine History of Endocrine Disorders: No HEENT History of HEENT Disorders: Yes HEENT Disorders: Cataract Loss of Vision: Denies Hearing Impairment: Denies Cancer History of Cancer: No Psychosocial History of Psychiatric Problem: Yes Behavioral Health Disorders: Depression Integumentary History of Skin or Integumenta: No Blood Transfusions History of Blood Disorders: No Family Medical History Significant Family History: No Pertinent Family Hx, CAD Over 55 Years Old, Diabetes Physical Exam Vital Signs VS - Last 72 Hours, by Label 03/28/17 03/29/17 23:45 00:03 Temp 98.1 Pulse 85 Resp 14 B/P (MAP) 122/81 (95) Pulse Ox 94 94 O2 Delivery Room Air Room Air Capillary Refill : Less Than 3 Seconds General Appearance: WD/WN, mild distress HEENT: PERRL/EOMI, normal ENT inspection Neck: normal inspection Respiratory: no respiratory distress, no accessory muscle use, wheezing (mild) Cardiovascular: regular rate, rhythm, no edema, no murmur Gastrointestinal: abnormal bowel sounds (decreased), distended, tenderness ( mild, generalized) Extremities: normal inspection, no pedal edema Neurologic/Psychiatric: acid strength inspector II-XII nml as tested, no motor/sensory deficits, alert, normal mood/affect, oriented x 3 Skin: normal color, warm/dry Progress/Results/Core Measures Results/Orders Lab Results Laboratory Tests Test 03/28/17 23:45 Range/Units White Blood Count 8.6 4.3-11.0 10^3/uL Red Blood Count 5.28 4.35-5.85 10^6/uL Hemoglobin 13.9 13.3-17.7 G/DL Hematocrit 43 40-54 % Mean Corpuscular Volume 81 80-99 FL Mean Corpuscular Hemoglobin 26 25-34 PG Mean Corpuscular Hemoglobin Concent 32 32-36 G/DL Red Cell Distribution Width 15.5 H 10.0-14.5 % Platelet Count 251 130-400 10^3/uL Mean Platelet Volume 10.5 H 7.4-10.4 FL Neutrophils (%) (Auto) 71 42-75 % Lymphocytes (%) (Auto) 16 12-44 % Monocytes (%) (Auto) 11 0-12 % Eosinophils (%) (Auto) 3 0-10 % Basophils (%) (Auto) 0 0-10 % Neutrophils # (Auto) 6.0 1.8-7.8 X 10^3 Lymphocytes # (Auto) 1.3 1.0-4.0 X 10^3 Monocytes # (Auto) 0.9 0.0-1.0 X 10^3 Eosinophils # (Auto) 0.3 0.0-0.3 10^3/uL Basophils # (Auto) 0.0 0.0-0.1 10^3/uL Sodium Level 142 135-145 MMOL/L Potassium Level 3.5 L 3.6-5.0 MMOL/L Chloride Level 105 98-107 MMOL/L Carbon Dioxide Level 24 21-32 MMOL/L Anion Gap 13 5-14 MMOL/L Blood Urea Nitrogen 12 7-18 MG/DL Creatinine 0.77 0.60-1.30 MG/DL Estimat Glomerular Filtration Rate > 60 BUN/Creatinine Ratio 16 Glucose Level 119 H 70-105 MG/DL Calcium Level 9.2 8.5-10.1 MG/DL Magnesium Level 1.9 1.8-2.4 MG/DL Total Bilirubin 0.9 0.1-1.0 MG/DL Aspartate Amino Transf (AST/SGOT) 64 H 5-34 U/L Alanine Aminotransferase (ALT/SGPT) 124 H 0-55 U/L Alkaline Phosphatase 90 40-136 U/L C-Reactive Protein High Sensitivity 2.64 H 0.00-0.50 MG/DL Total Protein 7.3 6.4-8.2 GM/DL Albumin 4.1 3.2-4.5 GM/DL My Orders Orders - RAKESH BAZAN MD Cbc With Automated Diff (03/28/17 23:49) Comprehensive Metabolic Panel (03/28/17 23:49) Hs C Reactive Protein (03/28/17 23:49) Magnesium (03/28/17 23:49) Saline Lock/Iv-Start (03/28/17 23:49) Chest 1 View, Ap/Pa Only (03/28/17 23:49) Abdomen, Flat & Upright/Decub (03/28/17 23:49) Albuterol/Ipra Inhalation Soln (Duoneb I (03/29/17 00:00) Svn Sm Volume Nebulizer Rt-Rfs (03/28/17 23:49) Ns Iv 1000 Ml (Sodium Chloride 0.9%) (03/28/17 23:49) Ondansetron Injection (Zofran Injectio (03/29/17 00:00) Medications Given in ED Current Medications Medications Dose Ordered Sig/[place] Route Start Time Stop Time Status Last Admin Dose Admin Albuterol/ Ipratropium 3 ml ONCE ONCE INH 03/29/17 00:00 03/29/17 00:01 DC 03/28/17 23:58 3 ML Ondansetron HCl 8 mg ONCE ONCE IVP 03/29/17 00:00 03/29/17 00:01 DC 03/29/17 00:00 8 MG Sodium Chloride 1,000 ml @ 0 mls/hr Q0M ONCE IV 03/28/17 23:49 03/28/17 23:51 DC 03/29/17 00:00 0 MLS/HR Vital Signs/I&O Vital Sign - Last 12Hours 03/28/17 03/29/17 23:45 00:03 Temp 98.1 Pulse 85 Resp 14 B/P (MAP) 122/81 (95) Pulse Ox 94 94 O2 Delivery Room Air Room Air Blood Pressure Mean: 95 Progress Note #1: Progress Note Patient received a DuoNeb treatment. Supplemental oxygen was applied. Small bowel obstruction was evident on x-rays. Case was discussed with Dr. Chavez and Dr. Lugo. He will be admitted and will have a small bowel follow-through the morning. Dr. Chavez requested an NG placement. Progress Note #2: Progress Note NG tube was placed in the emergency room with immediate significant output. Patient was given promethazine to help him sleep and to help with nausea. Diagnostic Imaging Diagonstic Imaging: Xray Plain Films/CT/US/NM/MRI: chest Comments Chest x-ray viewed by me. Report not yet available. No acute abnormalities appreciated when compared with prior. Diagonstic Imaging: Xray Plain Films/CT/US/NM/MRI: abdomen, pelvis Comments X-ray of the abdomen and pelvis viewed by me. Report yet available. There are are distended loops of small bowel as well as air-fluid levels on the upright film. Findings suggestive of small bowel obstruction. Departure Communication (Admissions) Time/Spoke to Admitting Phy: 00:[address] Chavez Time/Spoke to Consulting Phy: 00:48 Communication/Consulting Dr. Lugo Impression Impression: Primary Impression: Small bowel obstruction Additional Impression: COPD exacerbation Disposition: ADMITTED INPATIENT Condition: Improved Admissions Decision to Admit Reason: Admit from ER (General) Decision to Admit/Date: Mar 29, 2017 Time/Decision to Admit Time: 00:35 Departure-Patient Inst. Referrals: KRIS RODRÍGUEZ MD (PCP/Family) Primary Care Physician RAKESH BAZAN MD Mar 29, 2017 00:56
[2017-03-29] MEDS ORDERED: PROMETHAZINE INJ 25 MG/ML (PHENERGAN) AMP IVP ONE (01:30)
[2017-03-29] MEDS ORDERED: D5 1/2 NS W/KCL 20 MEQ/L 1,000 ML IV ONE (02:18)
[2017-03-29] MEDS: D5 1/2 NS W/KCL 20 MEQ/L 1,000 ML IV SCH ×4 (02:52→22:49)
[2017-03-29 04:00] VITALS: BP 110/67
[2017-03-29] MEDS: RT-ALBUTEROL/IPRATROPIUM 3 ML (DUONEB) VIAL INH SCH ×5 (06:58→23:03)
--- NOTE | 2017-03-29 07:23 | Diagnostic Imaging Report ---
EXAMINATION: Abdomen supine and erect There are numerous dilated gas-filled segments of small bowel present. There are also several prominent air-fluid levels on the erect film. This appearance does suggest a small bowel obstruction. I would recommend that either CT of the abdomen or pelvis or contrast small bowel exam be performed for further study. There is no sign of a pneumoperitoneum. There is no mass or organomegaly identified. There has been a prior fusion of L3-S1. The osseous structures are intact. IMPRESSION: 1. The dilated gas-filled segments of small bowel do suggest a small bowel obstruction. Recommendations as above. 2. These results were called to the ER at the time of this dictation. CRITICAL FINDING Dictated by: Dictated on workstation # [id number]
--- NOTE | 2017-03-29 07:25 | Diagnostic Imaging Report ---
EXAMINATION: AP chest at 1235 AM INDICATION: Chest pain The heart size is within normal limits and stable when compared to 03/25/2017. The lungs remain clear. There is still no sign of failure, pneumonia or of a pleural effusion to indicate an acute abnormality. The mediastinum is not widened. The osseous structures are intact. There are few dilated gas-filled segments of small bowel in the left upper quadrant. Reportedly, an abdomen series is pending for further study. IMPRESSION: 1. There is no evidence for an acute cardiopulmonary abnormality. 2. An abdomen series is pending for further evaluation. Dictated by: Dictated on workstation # [id number]
[2017-03-29] MEDS: FAMOTIDINE 20MG/2ML IV (PEPCID) IVP SCH ×2 (07:55→19:58)
[2017-03-29 08:20] VITALS: BP 134/79
--- NOTE | 2017-03-29 11:54 | Consultation-Hospitalist ---
HPI History of Present Illness: HPI/Chief Complaint CC: Medical management of COPD and hypertension during small bowel obstruction episode recurrent and type HPI: This is a 71-year-old white male that I just released on Thursday when Dr Villareal and I were in agreement that he was ready to go due to resolution of small bowel obstruction with conservative management of NG tube and IV fluids and pain control but did well until late last night began having abdominal pain nausea and vomiting similar to previous episode went to the ER found to have another small bowel obstruction and he was placed on IV fluids NG tube placed and pain control initiated and I then consulted for medical management to follow Dr. Chavez and his recommendations for recurrent small bowel obstruction. At this current time patient is drowsy from pain medication and really unable to provide me with any details about this issue. Source: patient Exam Limitations: clinical condition Date Seen 03/29/17 Attending Physician Miguel A Chavez DO PCP Jese Cassidy MD Referring Physician Date of Admission Mar 29, 2017 at 00:50 Home Medications & Allergies Home Medications Reviewed patient Home Medication Reconciliation Form Allergies Allergies Coded Allergies No Known Drug Allergies (Unverified10/15/12) Past Twklaym-Furitp-Qvlhod Hx Patient Social History Marrital Status: Employed/Student: retired Alcohol Use: Occasionally Uses Recreational Drug Use: No Smoking Status: Current Everyday Smoker Type Used: Cigarettes Physical Abuse Screen: No Sexual Abuse: No Recent Foreign Travel: No Contact w/other who traveled: No Recent Hopitalizations: No Recent Infectious Disease Expo: No Immunizations Up To Date Tetanus Booster (TDap): Unknown Date of Influenza Vaccine: Jan 23, 2017 Seasonal Allergies Seasonal Allergies: No Surgeries Yes (L ROTATOR CUFF REPAIR ) Abdominal (hernia repair 2012), Orthopedic Respiratory Yes COPD Currently Using CPAP: No Currently Using BIPAP: No Cardiovascular Yes Hypertension Neurological No Reproductive System Hx Reproductive Disorders: No Genitourinary No Gastrointestinal Yes Abdominal Hernia, Obstructive Bowel Musculoskeletal Yes (ARTHRITIS, BACK PROBLEMS) Arthritis, Chronic Back Pain Endocrine History of Endocrine Disorders: No HEENT History of HEENT Disorders: Yes HEENT Disorders: Cataract Loss of Vision: Denies Hearing Impairment: Denies Cancer No Psychosocial History of Psychiatric Problem: Yes Behavioral Health Disorders: Depression Integumentary History of Skin or Integumenta: No Blood Transfusions History of Blood Disorders: No Family Medical History Significant Family History: No Pertinent Family Hx, CAD Over 55 Years Old, Diabetes Review of Systems Constitutional: see HPI EENTM: no symptoms reported Respiratory: no symptoms reported Cardiovascular: no symptoms reported Gastrointestinal: abdominal pain (RLQ), loss of appetite, nausea, vomiting Genitourinary: no symptoms reported Musculoskeletal: no symptoms reported Skin: no symptoms reported Psychiatric/Neurological: No Symptoms Reported All Other Systems Reviewed Negative Unless Noted: Yes Physical Exam Physical Exam Vital Signs Vital Sign - Last 12Hours 03/28/17 03/29/17 23:45 01:45 Temp 98.1 Pulse 85 Resp 14 B/P (MAP) 122/81 (95) Pulse Ox 94 O2 Delivery Room Air O2 Flow Rate 4.00 Capillary Refill : Less Than 3 Seconds General Appearance: No Apparent Distress, WD/WN, Chronically ill, Obese Eyes: Bilateral Eye Normal Inspection, Bilateral Eye PERRL HEENT: PERRL/EOMI, Normal ENT Inspection, Pharynx Normal Neck: Full Range of Motion, Normal Inspection, Non Tender, Supple, Carotid Bruit Respiratory: Chest Non Tender, Lungs Clear, No Accessory Muscle Use, No Respiratory Distress, Decreased Breath Sounds Cardiovascular: Regular Rate, Rhythm, No Edema, No Gallop, No JVD, No Murmur, Normal Peripheral Pulses Gastrointestinal: No Organomegaly, No Pulsatile Mass, Abnormal Bowel Sounds, Distended, Tenderness Back: Normal Inspection, No CVA Tenderness, No Vertebral Tenderness Extremity: Normal Capillary Refill, Normal Inspection, Normal Range of Motion, Non Tender, No Calf Tenderness, No Pedal Edema Neurologic/Psychiatric: Alert, No Motor/Sensory Deficits, Normal Mood/Affect, Other (drowsy) Skin: Normal Color, Warm/Dry Lymphatic: No Adenopathy Results Results/Procedures Lab Laboratory Tests 03/28/17 23:45 Assessment/Plan Admission Diagnosis Assessment: Recurrent small bowel obstruction following discharge on Thursday due to same condition History of hernia [place] [address] Boudreaux umbilical type Hypertension COPD Current smoker History of acute renal failure requiring IV fluids during last hospital stay due to profound dehydration Assessment and Plan Plan: Maintain IV fluids Maintain NG tube Maintain Pepcid Nitroglycerin every 6 hours when necessary elevated blood pressure since patient is nothing by mouth Monitor creatinine Nebulizer treatments Smoking cessation Await surgical consultation Clinical Quality Measures DVT/VTE Risk/Contraindication: Risk Factor Score Per Nursin RFS Level Per Nursing on Admit: 4+=Very High ANNA BUITRAGO DO Mar 29, 2017 11:54
[2017-03-29] MEDS ORDERED: NITROGLYCERIN 2% OINT 1 GM UNIT DOSE PACKET TOP PRN (13:30)
--- NOTE | 2017-03-29 15:12 | History & Physical-Surgical ---
History of Present Illness History of Present Illness Reason for visit/HPI CC: n/v abdominal pain. patient is a 71 year old male who was just recently released from hospital for small bowel obstruction. Last night began having nausea followed by emesis. His abdomen became very distended and he began having moderate pain diffusely. Patient was continuing to have the nausea and emesis and went to be evaluated by emergency dept. Patient had abdominal x rays demonstrating bowel distention and NG tube was placed which immediately began removing fluid. Patient states that since ng tube was put in his abdomen has continued to decrease in size. He notes having some small bowel movements yesterday. Denies fever sweats chills shortness of breath or chest pain at this time. Date of Admission Mar 29, 2017 at 00:50 Date Seen by Provider: Mar 29, 2017 Time Seen by Provider: 09:36 I consulted on this patient on 03/29/17 15:06 Attending Physician Kristian Chavez DO Admitting Physician Jese Cassidy MD Consult Allergies and Home Medications Allergies Coded Allergies: No Known Drug Allergies (Unverified , 10/15/12) Home Medications Acetaminophen 500 Mg Tablet, 1,000 MG PO HS, (Reported) TAKES 2 (500MG) TABLETS Amlodipine Besylate/Benazepril 1 Each Capsule, 1 CAP PO DAILY, (Reported) Escitalopram Oxalate 10 Mg Tablet, 10 MG PO DAILY, (Reported) Furosemide 40 Mg Tablet, 40 MG PO HS, (Reported) Gabapentin 300 Mg Capsule, 300 MG PO HS, (Reported) Naproxen Sodium 220 Mg Tablet, 220 MG PO DAILY, (Reported) Omeprazole 40 Mg Capsule.dr, 40 MG PO DAILY, (Reported) Past Mascuid-Ojmfxz-Wwdbtf Hx Patient Social History Alcohol Use: Occasionally Uses Recreational Drug Use: No Smoking Status: Current Everyday Smoker Type Used: Cigarettes Recent Foreign Travel: No Contact w/Someone Who Travel: No Recent Infectious Disease Expo: No Recent Hopitalizations: No Physical Abuse Screen: No Sexual Abuse: No Immunizations Up To Date Tetanus Booster (TDap): Unknown Date of Influenza Vaccine: Jan 23, 2017 Seasonal Allergies Seasonal Allergies: No Surgeries History of Surgeries: Yes (L ROTATOR CUFF REPAIR ) Surgeries: Abdominal (hernia repair 2012), Orthopedic Respiratory History of Respiratory Disorde: Yes Respiratory Disorders: Chronic Bronchitis Cardiovascular History of Cardiac Disorders: Yes Cardiac Disorders: Hypertension Neurological History of Neurological Disord: No Reproductive System Hx Reproductive Disorders: No Genitourinary History of Genitourinary Disor: No Gastrointestinal History of Gastrointestinal Di: Yes Gastrointestinal Disorders: Abdominal Hernia, Obstructive Bowel Musculoskeletal History of Musculoskeletal Dis: Yes (ARTHRITIS, BACK PROBLEMS) Musculoskeletal Disorders: Arthritis, Chronic Back Pain Endocrine History of Endocrine Disorders: No HEENT History of HEENT Disorders: Yes HEENT Disorders: Cataract Loss of Vision: Denies Hearing Impairment: Denies Cancer History of Cancer: No Psychosocial History of Psychiatric Problem: Yes Behavioral Health Disorders: Depression Integumentary History of Skin or Integumenta: No Blood Transfusions History of Blood Disorders: No Family Medical History Significant Family History: No Pertinent Family Hx, CAD Over 55 Years Old, Diabetes Constitutional: see HPI EENTM: no symptoms reported Respiratory: no symptoms reported Cardiovascular: no symptoms reported Gastrointestinal: see HPI Genitourinary: no symptoms reported Musculoskeletal: no symptoms reported Skin: no symptoms reported Psychiatric/Neurological: No Symptoms Reported Physical Exam Vital Signs Vital Sign - Last 12Hours 03/28/17 03/29/17 23:45 01:45 Temp 98.1 Pulse 85 Resp 14 B/P (MAP) 122/81 (95) Pulse Ox 94 O2 Delivery Room Air O2 Flow Rate 4.00 Capillary Refill : Less Than 3 Seconds General Appearance: No Apparent Distress HEENT: PERRL/EOMI Neck: Non Tender, Supple Respiratory: No Accessory Muscle Use, No Respiratory Distress Cardiovascular: Regular Rate, Rhythm Gastrointestinal: Distended, Other (no significant tenderness no guarding or rebounding.) Rectal: Deferred Back: Normal Inspection Extremity: Normal Range of Motion, Non Tender Neurologic/Psychiatric: Alert, Oriented x3, No Motor/Sensory Deficits, Normal Mood/Affect, communications writer II-XII Norm as Tested Skin: Normal Color, Warm/Dry Lymphatic: No Adenopathy Data Review Labs Laboratory Tests 03/28/17 23:45: White Blood Count 8.6, Red Blood Count 5.28, Hemoglobin 13.9, Hematocrit 43, Mean Corpuscular Volume 81, Mean Corpuscular Hemoglobin 26, Mean Corpuscular Hemoglobin Concent 32, Red Cell Distribution Width 15.5H, Platelet Count 251, Mean Platelet Volume 10.5H, Neutrophils (%) (Auto) 71, Lymphocytes (%) (Auto) 16 , Monocytes (%) (Auto) 11, Eosinophils (%) (Auto) 3, Basophils (%) (Auto) 0, Neutrophils # (Auto) 6.0, Lymphocytes # (Auto) 1.3, Monocytes # (Auto) 0.9, Eosinophils # (Auto) 0.3, Basophils # (Auto) 0.0, Sodium Level 142, Potassium Level 3.5L, Chloride Level 105, Carbon Dioxide Level 24, Anion Gap 13, Blood Urea Nitrogen 12, Creatinine 0.77, Estimat Glomerular Filtration Rate > 60, BUN/ Creatinine Ratio 16, Glucose Level 119H, Calcium Level 9.2, Magnesium Level 1.9 , Total Bilirubin 0.9, Aspartate Amino Transf (AST/SGOT) 64H, Alanine Aminotransferase (ALT/SGPT) 124H, Alkaline Phosphatase 90, C-Reactive Protein High Sensitivity 2.64H, Total Protein 7.3, Albumin 4.1 Assessment/Plan Assessment/Plan Assessment/Plan recurrent small bowel obstruction nausea and vomiting copd htn npo iv hydration ng tube to liws SBFT to be done Dr. Lugo for medical management Clinical Quality Measures DVT/VTE Risk/Contraindication: Risk Factor Score Per Nursin RFS Level Per Nursing on Admit: 4+=Very High KRISTIAN CHAVEZ DO Mar 29, 2017 15:12
[2017-03-29 16:45] VITALS: BP 117/81
[2017-03-29] MEDS: fentaNYL INJECTION 100 MCG/2 ML AMP IVP PRN ×3 (17:27→23:29)
[2017-03-29] MEDS: ONDANSETRON 4 MG/2 ML (SDV) Z0FRAN IV PRN (17:28)
[2017-03-29 20:29] VITALS: BP 112/77
[2017-03-30 00:50] VITALS: BP 119/76
[2017-03-30] MEDS: fentaNYL INJECTION 100 MCG/2 ML AMP IVP PRN ×5 (02:09→18:04)
[2017-03-30] MEDS: ONDANSETRON 4 MG/2 ML (SDV) Z0FRAN IV PRN (02:09)
[2017-03-30 04:50] VITALS: BP 118/74
[2017-03-30] MEDS: D5 1/2 NS W/KCL 20 MEQ/L 1,000 ML IV SCH ×3 (05:20→18:43)
[2017-03-30 06:07] LABS: BASOPHILS % (AUTO) 0 % (0-10); EOSINOPHILS # (AUTO) 0.1 10^3/uL (0.0-0.3); EOSINOPHILS % (AUTO) 2 % (0-10); HEMATOCRIT 43 % (40-54); HEMOGLOBIN 13.3 G/DL (13.3-17.7); LYMPHOCYTES # (AUTO) 1.2 X 10^3 (1.0-4.0); LYMPHOCYTES % (AUTO) 20 % (12-44); MEAN CORPUSCULAR HEMOGLOBIN 26 PG (25-34); MEAN CORPUSCULAR HGB CONC 31 G/DL (32-36); MEAN CORPUSCULAR VOLUME 85 FL (80-99); MEAN PLATELET VOLUME 10.3 FL (7.4-10.4); MONOCYTES # (AUTO) 0.8 X 10^3 (0.0-1.0); MONOCYTES % (AUTO) 13 % (0-12); NEUTROPHILS # (AUTO) 3.9 X 10^3 (1.8-7.8); NEUTROPHILS % (AUTO) 65 % (42-75); PLATELET COUNT 253 10^3/uL (130-400); RED BLOOD COUNT 5.08 10^6/uL (4.35-5.85); RED CELL DISTRIBUTION WIDTH 15.8 % (10.0-14.5); WHITE BLOOD COUNT 5.9 10^3/uL (4.3-11.0)
[2017-03-30 06:33] LABS: ALANINE AMINOTRANSFERASE 95 U/L (0-55); ALKALINE PHOSPHATASE 86 U/L (40-136); BILIRUBIN,TOTAL 0.4 MG/DL (0.1-1.0); BUN/CREATININE RATIO 13; CALCIUM 9.3 MG/DL (8.5-10.1); CARBON DIOXIDE 31 MMOL/L (21-32); CHLORIDE 103 MMOL/L (98-107); CREATININE SERUM 0.76 MG/DL (0.60-1.30); GFR ESTIMATED > 60; GLUCOSE 136 MG/DL (70-105); POTASSIUM 3.7 MMOL/L (3.6-5.0); SODIUM 145 MMOL/L (135-145)
[2017-03-30] MEDS: RT-ALBUTEROL/IPRATROPIUM 3 ML (DUONEB) VIAL INH SCH ×5 (07:00→22:00)
[2017-03-30 08:00] VITALS: BP 123/77
[2017-03-30] MEDS ORDERED: PATIENT MAY USE OWN MEDS, ALL MC SCH (08:30)
[2017-03-30] MEDS: FAMOTIDINE 20MG/2ML IV (PEPCID) IVP SCH ×2 (09:09→20:32)
[2017-03-30] MEDS: PROMETHAZINE INJ 25 MG/ML (PHENERGAN) AMP IVP PRN ×2 (09:10→20:33)
--- NOTE | 2017-03-30 09:42 | Diagnostic Imaging Report ---
EXAMINATION: Small bowel follow-through. INDICATION: Small bowel obstruction. TECHNIQUE: Textile Colorist Dyer radiographs of the abdomen and pelvis were acquired. Subsequently a total of 240 mL of a mix of Gastrografin and water was injected into the patient's indwelling nasogastric tube. FINDINGS: Initial wheel cutter radiographs demonstrates marked abnormal gaseous distention of the small bowel. The enteric tube loops within the region of the stomach. Initial images demonstrate a normal mucosal appearance of the stomach and contrast demonstrated within the proximal aspect of the duodenal sweep. At 30 minutes there is contrast demonstrated within the proximal loops of the jejunum. There is no abnormal mucosal thickening evident. At one hour, the contrast remains within the proximal small bowel loops. At 2 hours there is further passage of contrast to now what is likely the ileum. These loops are more significantly dilated but there is no abnormal mucosal thickening evident. Contrast remains within small bowel on the 5 hour and 10 hour images. Contrast is finally demonstrated within the right colon at 19 hours. Impression: 1. Marked delay in enteric transit of contrast. At 10 hours, contrast remains within dilated loops of small bowel. Contrast is not visualized within the colon until the 19 hour examination. The findings are most suggestive of a high-grade partial small bowel obstruction. Dictated by: Dictated on workstation # [id number]
--- NOTE | 2017-03-30 09:44 | Progress Note ---
Subjective Date Seen by Provider: Mar 30, 2017 Time Seen by Provider: 09:30 Subjective/Events-last exam patient with a couple loose stools yesterday evening. Last night also began having some more nausea and abdominal distention. He ng tube was hooked back to LIWS and got quite a bit of fluid suctioned from NG. Patient states abdomen today feeling better than last night. His ng tube is bothering him some. Sbft x ray this morning has bowel distention and some contrast in the colon. Denies fever sweats chills shortness of breath or chest pain. Objective Exam Vital Signs Date Time Temp Pulse Resp B/P (MAP) Pulse Ox O2 Delivery O2 Flow Rate FiO2 03/30/17 08:00 96.8 74 22 123/77 (92) 94 Nasal Cannula 4.00 03/30/17 07:00 96 Nasal Cannula 4.00 03/30/17 04:50 98.2 81 20 118/74 (89) 96 Nasal Cannula 4.00 03/30/17 00:50 99.2 75 18 119/76 (90) 94 Nasal Cannula 4.00 03/29/17 23:05 95 Nasal Cannula 4.00 03/29/17 20:29 98.5 84 20 112/77 (89) 95 Nasal Cannula 4.00 03/29/17 20:00 Nasal Cannula 4.00 03/29/17 19:21 94 Nasal Cannula 4.00 03/29/17 16:45 98.4 79 20 117/81 (93) 92 Nasal Cannula 4.00 03/29/17 11:11 93 Nasal Cannula 4.00 I & O 03/30/17 07:00 Intake Total 3000 ml Output Total 4000 ml Balance -1000 ml Capillary Refill : Less Than 3 Seconds General Appearance: No Apparent Distress HEENT: PERRL/EOMI Neck: Non Tender, Supple Respiratory: No Accessory Muscle Use, No Respiratory Distress Cardiovascular: Regular Rate, Rhythm Gastrointestinal: distended, tenderness (minimal generalized) Extremity: Normal Range of Motion, Non Tender Neurologic/Psychiatric: Alert, Oriented x3, No Motor/Sensory Deficits, Normal 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8, Eosinophils # (Auto) 0.1, Basophils # (Auto) 0.0, Sodium Level 145, Potassium Level 3.7, Chloride Level 103, Carbon Dioxide Level 31, Anion Gap 11, Blood Urea Nitrogen 10, Creatinine 0.76, Estimat Glomerular Filtration Rate > 60, BUN/ Creatinine Ratio 13, Glucose Level 136H, Calcium Level 9.3, Total Bilirubin 0.4 , Aspartate Amino Transf (AST/SGOT) 31, Alanine Aminotransferase (ALT/SGPT) 95H , Alkaline Phosphatase 86, Total Protein 7.0, Albumin 4.0 Assessment/Plan Assessment/Plan Assessment/Plan recurrent small bowel obstruction nausea and vomiting copd htn patient passing a small amount of stool but having nausea and drainage from NG tube feel this is partial small bowel obstruction it looks like there is contrast in the colon, will continue NG suction for next 24 hours and see how patient is doing. if no improvement may need surgical intervention which I did discuss with patient and . npo Iv hydration ambulate repeat abd x ray in am Clinical Quality Measures DVT/VTE Risk/Contraindication: Risk Factor Score Per Nursin RFS Level Per Nursing on Admit: 4+=Very High KRISTIAN OSEGUERA DO Mar 30, 2017 09:44
[2017-03-30 12:00] VITALS: BP 130/70
--- NOTE | 2017-03-30 12:36 | Progress Note-Hospitalist ---
Progress Note HPI/CC on Admission CC: Medical management of COPD and hypertension during small bowel obstruction episode recurrent and type HPI: This is a 71-year-old white male that I just released on Thursday when Dr Villareal and I were in agreement that he was ready to go due to resolution of small bowel obstruction with conservative management of NG tube and IV fluids and pain control but did well until late last night began having abdominal pain nausea and vomiting similar to previous episode went to the ER found to have another small bowel obstruction and he was placed on IV fluids NG tube placed and pain control initiated and I then consulted for medical management to follow Dr. Chavez and his recommendations for recurrent small bowel obstruction. At this current time patient is drowsy from pain medication and really unable to provide me with any details about this issue. Progress Notes/Assess & Plan Date Seen 03/30/17 Time Seen by Provider: 11:15 Admission Dx/Process Assessment: Recurrent small bowel obstruction following discharge on Thursday due to same condition History of hernia [place] [address] Boudreaux umbilical type Hypertension COPD Current smoker History of acute renal failure requiring IV fluids during last hospital stay due to profound dehydration Diagonsis/Assessment & Plan patient doing about the same Clamped NG tube to get small bowel series but was so uncomfortable NG tube was replaced to suction and removed 3500 mL with good results and resolution of abdominal pain Patient received Phenergan and now slightly sedated but denies any pain Overall continues to be stable but very complex issue that likely will require surgical intervention Nebulizers ordered No fever, vital signs stable, chronically ill, obese, NG tube in place along with oxygen Regular rate and rhythm, clear to auscultation bilaterally but diminished all denson No bowel sounds are noted and distended abdomen but softer than yesterday No edema Assessment: Recurrent small bowel obstruction following discharge on Thursday due to same condition History of hernia repair [place] [address] Boudreaux umbilical type Hypertension COPD Current smoker History of acute renal failure requiring IV fluids during last hospital stay due to profound dehydration Plan: Maintain IV fluids Maintain NG tube Maintain Pepcid Nitroglycerin every 6 hours when necessary elevated blood pressure since patient is nothing by mouth Monitor creatinine Nebulizer treatments Smoking cessation Await surgical consultation ANNA BUITRAGO DO Mar 30, 2017 12:36
[2017-03-30 16:06] VITALS: BP 110/74
[2017-03-30] MEDS: AMLODIPINE BENAZEPRIL PO SCH (16:24)
[2017-03-30] MEDS: ESCITALOPRAM 10 MG PO SCH (16:24)
[2017-03-30 20:53] VITALS: BP 100/66
[2017-03-31 00:40] VITALS: BP 117/70
[2017-03-31] MEDS: D5 1/2 NS W/KCL 20 MEQ/L 1,000 ML IV SCH ×4 (01:07→20:49)
[2017-03-31] MEDS: RT-ALBUTEROL/IPRATROPIUM 3 ML (DUONEB) VIAL INH SCH ×6 (02:00→22:46)
[2017-03-31] MEDS: PROMETHAZINE INJ 25 MG/ML (PHENERGAN) AMP IVP PRN ×2 (04:34→22:08)
[2017-03-31 06:15] LABS: HEMOGLOBIN 13.1 G/DL (13.3-17.7); MEAN PLATELET VOLUME 10.1 FL (7.4-10.4); RED BLOOD COUNT 4.9 10^6/uL (4.35-5.85); RED CELL DISTRIBUTION WIDTH 15.4 % (10.0-14.5); WHITE BLOOD COUNT 7.5 10^3/uL (4.3-11.0)
[2017-03-31 06:40] LABS: BUN/CREATININE RATIO 10; CALCIUM 9.2 MG/DL (8.5-10.1); CARBON DIOXIDE 31 MMOL/L (21-32); CHLORIDE 103 MMOL/L (98-107); CREATININE SERUM 0.78 MG/DL (0.60-1.30); GFR ESTIMATED > 60; GLUCOSE 101 MG/DL (70-105); MAGNESIUM 1.9 MG/DL (1.8-2.4); POTASSIUM 3.9 MMOL/L (3.6-5.0); SODIUM 144 MMOL/L (135-145)
--- NOTE | 2017-03-31 07:58 | Diagnostic Imaging Report ---
INDICATION: Small bowel obstruction COMPARISON: 03/29/2017 at 3 PM. FINDINGS: There is an NG tube is now in place. There is residual contrast within the colon. Small bowel loops are no longer distended. There is no free air. IMPRESSION: 1. Resolved small bowel obstruction. 2. NG tube within the stomach. Dictated by: Dictated on workstation # [id number]
[2017-03-31 08:00] VITALS: BP 122/70
[2017-03-31] MEDS: FAMOTIDINE 20MG/2ML IV (PEPCID) IVP SCH ×2 (08:36→20:21)
[2017-03-31] MEDS: AMLODIPINE BENAZEPRIL PO SCH (08:37)
[2017-03-31] MEDS: ESCITALOPRAM 10 MG PO SCH (08:38)
[2017-03-31] MEDS: fentaNYL INJECTION 100 MCG/2 ML AMP IVP PRN (09:20)
[2017-03-31] MEDS: NICOTINE 21 MG (NICODERM) PATCH TD SCH (11:37)
--- NOTE | 2017-03-31 14:33 | Progress Note ---
Subjective Date Seen by Provider: Mar 31, 2017 Time Seen by Provider: 14:30 Subjective/Events-last exam Patient feeling better. He's had several bowel movements. He is not feeling any nausea. He is wanting to drink. He has no abdominal pain. He denies any nausea vomiting fever sweats chills shortness of breath or chest pain. His abdominal x-ray this morning demonstrating no findings suggestive of bowel obstruction. Objective Exam Vital Signs Date Time Temp Pulse Resp B/P (MAP) Pulse Ox O2 Delivery O2 Flow Rate FiO2 03/31/17 09:43 94 Room Air 4.00 03/31/17 08:00 94 Nasal Cannula 4.00 03/31/17 08:00 98.1 63 20 122/70 (87) 97 Nasal Cannula 4.00 03/31/17 00:40 98.3 79 18 117/70 (86) 95 Nasal Cannula 4.00 03/30/17 20:53 98.9 67 18 100/66 (77) 97 Nasal Cannula 4.00 03/30/17 18:46 94 Nasal Cannula 4.00 03/30/17 16:06 98.6 78 20 110/74 (86) 95 Nasal Cannula 4.00 03/30/17 15:16 97 Nasal Cannula 4.00 I & O 03/31/17 07:00 Intake Total 985 ml Output Total 3450 ml Balance -2465 ml Capillary Refill : Less Than 3 Seconds General Appearance: No Apparent Distress HEENT: PERRL/EOMI Neck: Non Tender, Supple Respiratory: No Accessory Muscle Use, No Respiratory Distress Cardiovascular: Regular Rate, Rhythm Gastrointestinal: non tender, soft, No guarding, No rebound Extremity: Normal Range of Motion, Non Tender Neurologic/Psychiatric: Alert, Oriented x3, No Motor/Sensory Deficits, Normal 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, 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 Norm as Tested Skin: Normal Color, Warm/Dry Lymphatic: No Adenopathy Results Lab Laboratory Tests 03/31/17 06:10: White Blood Count 7.5, Red Blood Count 4.90, Hemoglobin 13.1L, Hematocrit 42, Mean Corpuscular Volume 86, Mean Corpuscular Hemoglobin 27, Mean Corpuscular Hemoglobin Concent 31L, Red Cell Distribution Width 15.4H, Platelet Count 234, Mean Platelet Volume 10.1, Sodium Level 144, Potassium Level 3.9, Chloride Level 103, Carbon Dioxide Level 31, Anion Gap 10, Blood Urea Nitrogen 8, Creatinine 0.78, Estimat Glomerular Filtration Rate > 60, BUN/Creatinine Ratio 10, Glucose Level 101, Calcium Level 9.2, Magnesium Level 1.9 Assessment/Plan Assessment/Plan Assessment/Plan recurrent small bowel obstruction nausea and vomiting copd htn Patient having bowel movements and passing flatus. Abdominal x-ray not showing any findings suggestive of small bowel obstruction. We'll remove NG tube and started on clears. Possibly home tomorrow if he continues to improve, while tolerating diet. Clinical Quality Measures DVT/VTE Risk/Contraindication: Risk Factor Score Per Nursin RFS Level Per Nursing on Admit: 4+=Very High KRISTIAN OSEGUERA DO Mar 31, 2017 14:33
[2017-03-31 16:00] VITALS: BP 94/63
--- NOTE | 2017-03-31 19:18 | CONSULTATION REPORT ---
DATE OF SERVICE: ATTENDING PRIMARY CARE PHYSICIAN: Dr. John Cassidy. ADMITTING PHYSICIAN: Dr. Chavez. HISTORY OF PRESENT ILLNESS: The patient is a 71-year-old male known to us from previous family association. This gentleman developed abdominal distention and nausea and vomiting approximately one week ago. Radiographic imaging was consistent with partial small-bowel obstruction. He was treated conservatively with IV fluids, electrolyte correction as well as bowel rest. He was able to have some bowel function and was then discharged home. He reports that he went home he ate another meal; however, had recurrence of symptoms. He then presented back to the hospital and again found to have radiographic as well as physical signs of a partial small-bowel obstruction with associated nausea and vomiting. He was again treated with conservative management with NG tube decompression and IV fluids. He also underwent a Gastrografin small bowel follow through. There was slow transit throughout the small bowel; however, the contrast did reach the colon approximately 19 hours. Since the Gastrografin small bowel follow through study has had multiple loose bowel movements and has not had any abdominal distention or any nausea or vomiting. His NG tube output also was very minimal and removed. He was recently started on clear liquid diet. The most likely etiology of the partial small-bowel obstruction is due to intra-abdominal adhesions. He did undergo a laparoscopic ventral abdominal hernia repair laparoscopically with a large mesh. At this time, upon examination, he is doing well and is in no acute distress. PAST MEDICAL HISTORY: COPD, hypertension, degenerative joint disease, depression. PAST SURGICAL HISTORY: ORIF of the lumbar vertebrae x2, left rotator cuff repair, laparoscopic ventral abdominal hernia repair in 09/2012. ALLERGIES: No known drug allergies. MEDICATIONS: Amlodipine daily, citalopram 10 mg daily, furosemide 40 mg daily, gabapentin 300 mg daily, naproxen 220 mg daily, omeprazole 40 mg daily. SOCIAL HISTORY: Positive for smoke. He states that he smokes 10 cigarettes daily with greater than 40-pack total years. Negative alcohol. FAMILY HISTORY: Coronary artery disease and diabetes. VITAL SIGNS: Temperature 98.2, blood pressure 94/73, pulse 74, respirations 18, pulse ox 96% on 4 liters nasal cannula. REVIEW OF SYSTEMS: He is well-nourished male currently in no acute distress. He is not experiencing any shortness of breath or difficulty breathing. No chest pain, palpitations, diaphoresis. No nausea, vomiting, no abdominal distention. He has had multiple loose small bowel movements yesterday as well as today. No red blood per rectum, no dark tarry stools. No fever or chills. No recent inadvertent weight loss. PHYSICAL EXAMINATION: CHEST: Scattered rales and rhonchi as well as distant breath sounds bilaterally. HEART: Regular, no murmurs. EXTREMITIES: No lower extremity edema, negative Homans sign. HEENT: No scleral icterus. NECK: No cervical lymphadenopathy. ABDOMEN: Soft, nontender, nondistended with no palpable recurrent hernias. SKIN: Warm and dry. LABORATORY DATA: WBC 7.5, hemoglobin 13.1, hematocrit 42, platelets 234, BUN 8, creatinine 0.78. ASSESSMENT AND PLAN: A 71-year-old male with partial small-bowel obstruction. After a second round of conservative management, he appears to be doing well. We will continue him on a clear liquid diet today and if he continues to do well, we will advance to a soft low residue diet. If he has recurrent symptoms again, this is most likely due to adhesions and we may then proceed with diagnostic laparoscopy as well as lysis of adhesions. For now, we will again continue with conservative management, especially due to his other medical comorbidities including chronic obstructive pulmonary disease and potential lung issues after surgery. Job ID: [id number] DocumentID: [id number] Dictated Date: 03/31/2017 17:18:04 Melter Caster Date: 03/31/2017 19:17:19 Dictated By: ADOLFO LARSON MD MTDD
[2017-04-01 00:40] VITALS: BP 115/71
[2017-04-01] MEDS: RT-ALBUTEROL/IPRATROPIUM 3 ML (DUONEB) VIAL INH SCH ×4 (03:38→14:50)
[2017-04-01] MEDS: PROMETHAZINE INJ 25 MG/ML (PHENERGAN) AMP IVP PRN (04:33)
[2017-04-01 08:00] VITALS: BP 135/82
[2017-04-01] MEDS: D5 1/2 NS W/KCL 20 MEQ/L 1,000 ML IV SCH (08:11)
[2017-04-01] MEDS: FAMOTIDINE 20MG/2ML IV (PEPCID) IVP SCH (08:55)
[2017-04-01] MEDS: NICOTINE 21 MG (NICODERM) PATCH TD SCH (08:55)
[2017-04-01] MEDS: AMLODIPINE BENAZEPRIL PO SCH (08:56)
[2017-04-01] MEDS: ESCITALOPRAM 10 MG PO SCH (08:56)
[2017-04-01] MEDS ORDERED: NICOTINE PATCH REMOVAL TP SCH (08:59)
--- NOTE | 2017-04-01 11:58 | Progress Note-Hospitalist ---
Progress Note HPI/CC on Admission CC: Medical management of COPD and hypertension during small bowel obstruction episode recurrent and type HPI: This is a 71-year-old white male that I just released on Thursday when Dr Villareal and I were in agreement that he was ready to go due to resolution of small bowel obstruction with conservative management of NG tube and IV fluids and pain control but did well until late last night began having abdominal pain nausea and vomiting similar to previous episode went to the ER found to have another small bowel obstruction and he was placed on IV fluids NG tube placed and pain control initiated and I then consulted for medical management to follow Dr. Chavez and his recommendations for recurrent small bowel obstruction. At this current time patient is drowsy from pain medication and really unable to provide me with any details about this issue. Progress Notes/Assess & Plan Date Seen 04/01/17 Time Seen by Provider: 11:30 Admission Dx/Process Assessment: Recurrent small bowel obstruction following discharge on Thursday due to same condition History of hernia [place] [address] Boudreaux umbilical type Hypertension COPD Current smoker History of acute renal failure requiring IV fluids during last hospital stay due to profound dehydration Diagonsis/Assessment & Plan Small bowel obstruction has been cleared Surgery will likely discharge today Tolerating clear liquids Denies any abdominal pain No fever, vital signs stable, chronically ill, obese, improved Regular rate and rhythm, clear to auscultation bilaterally but diminished all denson No edema Assessment: Recurrent small bowel obstruction following discharge on Thursday due to same condition History of hernia repair in [address] Boudreaux umbilical type Hypertension COPD Current smoker History of acute renal failure requiring IV fluids during last hospital stay due to profound dehydration Plan: DC home if ok with surgery ANNA BUITRAGO DO Apr 01, 2017 11:58
--- NOTE | 2017-04-01 12:03 | Discharge Inst-Surgical ---
D/C Lap Instructions-NEO Follow Up PRN Activity as tolerated Low residue diet Avoid Alcohol, Caffeine, Spicy Katy and Acid foods. Drink 64 fluid oz or more of fluids per day. Symptoms to Report: Fever over 101 degree F, Nausea/Vomiting If any problems/questions: Contact your physician or go to Emergency Room ADOLFO LARSON MD Apr 01, 2017 12:03
--- NOTE | 2017-04-01 12:35 | Progress Note (SOAP) ---
Subjective Date Seen by Provider: Apr 01, 2017 Time Seen by Provider: 12:00 Subjective/Events-last exam doing better. tolerating clears and having BM's. no nausea/vomiting. Objective Exam Vital Signs Date Time Temp Pulse Resp B/P (MAP) Pulse Ox O2 Delivery O2 Flow Rate FiO2 04/01/17 10:48 94 Room Air 0.00 04/01/17 08:00 97.2 82 18 135/82 (99) 92 Nasal Cannula 4.00 04/01/17 07:12 94 Nasal Cannula 2.00 04/01/17 03:38 88 Nasal Cannula 2.00 04/01/17 00:40 98.4 79 20 115/71 (86) 96 Nasal Cannula 4.00 03/31/17 22:46 90 Nasal Cannula 2.00 03/31/17 19:44 90 Room Air 03/31/17 16:00 98.2 74 18 94/63 (73) 96 Nasal Cannula 4.00 03/31/17 15:19 96 Room Air 2.00 I & O 04/01/17 07:00 Intake Total 1520 ml Output Total 1300 ml Balance 220 ml Capillary Refill : Less Than 3 Seconds General Appearance: No Apparent Distress HEENT: PERRL/EOMI Neck: Full Range of Motion Respiratory: Chest Non Tender, Decreased Breath Sounds Cardiovascular: Regular Rate, Rhythm Gastrointestinal: normal bowel sounds, non tender, soft Extremity: Normal Capillary Refill Neurologic/Psychiatric: Alert, Oriented x3 Skin: Normal Color Lymphatic: No Adenopathy Assessment/Plan Assessment/Plan Assess & Plan/Chief Complaint PSBO. resolving. low residue diet. when tolerating diet will d/c home. Clinical Quality Measures DVT/VTE Risk/Contraindication: Risk Factor Score Per Nursin RFS Level Per Nursing on Admit: 4+=Very High ADOLFO LARSON MD Apr 01, 2017 12:35
[2017-04-01 16:10] VITALS: BP 135/82
[2017-04-01] MEDS ORDERED: FAMOTIDINE 20 MG (PEPCID) TABLET PO SCH (21:00)
== END 2017-04-01 16:35 | disposition home or self-care (01) | DRG 327 ==
LOC: EDUNIT# 23:38 → ER 23:39 → 4TH 03-29 00:50
PROVIDERS: ADMIT Surgery; ATTEND Surgery
PROC: 0D9470Z Drainage of Esophagogastric Junction with Drainage Device, Via Natural or Artificial Opening (ICD-10-PCS; principal; 2017-03-29)
DX: K56.690 Other partial intestinal obstruction (principal); J44.1 Chronic obstructive pulmonary disease with (acute) exacerbation; I10 Essential (primary) hypertension; M19.91 Primary osteoarthritis, unspecified site; M54.9 Dorsalgia, unspecified; F32.9 Major depressive disorder, single episode, unspecified; F17.210 Nicotine dependence, cigarettes, uncomplicated; E66.9 Obesity, unspecified; Z68.37 Body mass index [BMI] 37.0-37.9, adult
CPT/HCPCS: 36415; 71010; 74018; 74020; 74250; 80048; 80053; 83735; 85025; 85027; 86141; 94640; 94664; 94760

== ENCOUNTER → 2018-01-18 | Outpatient (CLI) | payer MEDICARE, OTHER ==
--- NOTE | 2018-01-18 17:00 | Diagnostic Imaging Report ---
PROCEDURE: US Thyroid. TECHNIQUE: Multiple real-time grayscale images were obtained of the thyroid in various projections. INDICATION: Thyromegaly. FINDINGS: The right lobe of the thyroid measures 5.0 x 1.7 x 2.1 cm and the left lobe measures 4.6 x 1.7 x 2.0 cm. Both lobes show homogeneous echotexture. No discrete mass is detected. IMPRESSION: Unremarkable thyroid ultrasound. Dictated by: Dictated on workstation # [id number]
== END ==
LOC: RAD 14:48
PROVIDERS: ATTEND Nurse Practitioner Family
DX: E01.0 Iodine-deficiency related diffuse (endemic) goiter (principal)
CPT/HCPCS: 76536

== ENCOUNTER → 2018-02-05 | Outpatient (CLI) | payer MEDICARE, OTHER ==
--- NOTE | 2018-02-05 17:44 | Diagnostic Imaging Report ---
INDICATION: Claudication. EXAMINATION: Bilateral lower extremity arterial Doppler was performed in the routine fashion with color flow Doppler and waveform analysis. FINDINGS: On the right side, flow is triphasic throughout except for biphasic in the dorsalis pedis with relatively slow flow. On the left side, flow is triphasic throughout with monophasic flow in the dorsalis pedis with relatively low velocities. There is no focal high velocity jet or occluded segment. IMPRESSION: Flow is triphasic throughout except for in the dorsalis pedis on both sides with some relatively slow in the dorsalis pedis. The posterior tibial artery shows normal velocity and waveforms. These findings are compatible with small vessel disease in the dorsalis pedis. No major vessel stenosis or occlusion was seen. Dictated by: Dictated on workstation # [id number]
== END ==
LOC: RAD 14:05
PROVIDERS: ATTEND Nurse Practitioner Family
DX: I73.9 Peripheral vascular disease, unspecified (principal); E01.0 Iodine-deficiency related diffuse (endemic) goiter; R13.10 Dysphagia, unspecified
CPT/HCPCS: 93925

== ENCOUNTER → 2018-03-15 | Outpatient (CLI) | payer MEDICARE, OTHER ==
[~2018-03-15] MED LIST changes: +CATHETER FLUSH 10 ML SYR IV PRN; +REGADENOSON 0.4 MG/5 ML SYR (LEXISCAN) IV ONE
[2018-03-15 08:05] VITALS: BP 122/90
[2018-03-15 08:09] VITALS: BP 119/75
--- NOTE | 2018-03-15 13:08 | STRESS TEST ---
DATE OF SERVICE: 03/15/2018 NUCLEAR MYOVIEW REPORT REFERRING PHYSICIAN: Dr. Vincent. In summary, the patient was injected with 10.67 mCi of technetium-99 Myoview and the resting images were obtained. With peak stress level, a 32.3 mCi of technetium-99 Myoview were injected and the stress images were acquired. The resting and stress images were reviewed and compared in the short axis, horizontal long axis, and vertical long axis views. Review of the images showed diaphragmatic attenuation with typical male pattern. No significant ischemia or infarction was seen. SSS is 1, SDS 1, TID value 1.15. On the gated images, the left ventricle appeared to be in normal size with normal contractility. Calculated ejection fraction 61%. CONCLUSION: 1. Diaphragmatic attenuation with typical male pattern with no significant ischemia or infarction on SPECT images. 2. Normal left ventricular size with normal contractility. Calculated ejection fraction 61%. Job ID: [id number] DocumentID: [id number] Dictated Date: 03/15/2018 12:45:16 Senior Tax Specialist Date: 03/15/2018 13:08:07 Dictated By: AYDEN LEMUS MD
== END ==
LOC: CARD 06:57
PROVIDERS: ATTEND Internal Medicine
DX: R07.9 Chest pain, unspecified (principal)
CPT/HCPCS: 78452; 93017

== ENCOUNTER → 2018-03-16 | Outpatient (CLI) | payer MEDICARE, OTHER ==
[~2018-03-16] MED LIST changes: -CATHETER FLUSH 10 ML SYR IV PRN; -REGADENOSON 0.4 MG/5 ML SYR (LEXISCAN) IV ONE
--- NOTE | 2018-03-16 12:16 | Diagnostic Imaging Report ---
PROCEDURE: US carotid duplex, bilateral. TECHNIQUE: Multiple real-time grayscale images were obtained over the carotid arteries in various projections, bilaterally. Additional spectral analysis and color Doppler duplex images were also obtained. DATE: March 16, 2018. INDICATION: 72-year-old male, altered mental status. Mild cognitive impairment. COMPARISON: None. FINDINGS: Peak systolic velocity in the right common carotid artery measures 81 cm/s. Peak systolic velocity in the right proximal internal carotid artery measures 58 cm/s, 59 cm/s within the mid right internal carotid artery, and 56 cm/s distally. Peak systolic velocity in the right external carotid artery measures 59 cm/s. Peak systolic velocity in the left common carotid artery measures 87 cm/s. Peak systolic velocity in left proximal internal carotid artery measures 53 cm/s, 58 cm/s in the mid left internal carotid artery, and 63 cm/s distally. Peak systolic velocity in left external carotid artery measures 38 cm/s. There is no well demonstrated blood flow in the right vertebral artery or left vertebral artery. IMPRESSION: 1. Negative for hemodynamically significant right or left internal carotid artery stenosis. 2. The right and left vertebral arteries are not well seen. For further assessment of the vertebral arteries, consider dedicated CT neck angiography with intravenous contrast. Parameters based on the consensus panel Robison-Scale and Doppler ultrasound criteria published January 2003, Radiology, Volume 229. DOPPLER (peak systolic velocity M/S Right Left CCA .81 .87 ICA Proximal .58 .53 ICA Mid .59 .58 ICA Distal .56 .63 RATIO .73 .72 ECA .59 .38 VERT NOT SEEN NOT SEEN Dictated by: Dictated on workstation # [id number]
== END ==
LOC: RAD 08:45
PROVIDERS: ATTEND Internal Medicine
DX: G31.84 Mild cognitive impairment of uncertain or unknown etiology (principal)
CPT/HCPCS: 93880

== ENCOUNTER 2018-08-06 13:49 | Outpatient (RCR) | payer MEDICARE, OTHER | END 2018-08-08 | disposition home or self-care (01) | PROVIDERS: ATTEND Nurse Practitioner Family | DX: G20 Parkinson's disease (principal); R53.1 Weakness; R26.81 Unsteadiness on feet ==

== ENCOUNTER 2018-09-17 13:15 | Emergency (ER) | payer MEDICARE, OTHER ==
[~2018-09-17] VITALS: Ht 175.3 cm; Wt 108.9 kg
[2018-09-17 13:32] LABS: BASOPHILS % (AUTO) 1 % (0-10); EOSINOPHILS # (AUTO) 0.2 10^3/uL (0.0-0.3); EOSINOPHILS % (AUTO) 3 % (0-10); HEMATOCRIT 40 % (40-54); HEMOGLOBIN 12.9 G/DL (13.3-17.7); LYMPHOCYTES # (AUTO) 1.8 X 10^3 (1.0-4.0); LYMPHOCYTES % (AUTO) 30 % (12-44); MEAN CORPUSCULAR HEMOGLOBIN 27 PG (25-34); MEAN CORPUSCULAR HGB CONC 32 G/DL (32-36); MEAN CORPUSCULAR VOLUME 85 FL (80-99); MEAN PLATELET VOLUME 10.8 FL (7.4-10.4); MONOCYTES # (AUTO) 0.5 X 10^3 (0.0-1.0); MONOCYTES % (AUTO) 9 % (0-12); NEUTROPHILS # (AUTO) 3.5 X 10^3 (1.8-7.8); NEUTROPHILS % (AUTO) 58 % (42-75); PLATELET COUNT 238 10^3/uL (130-400); RED CELL DISTRIBUTION WIDTH 14.2 % (10.0-14.5)
[2018-09-17 13:54] LABS: ALANINE AMINOTRANSFERASE < 6 U/L (0-55); ALBUMIN 4.2 GM/DL (3.2-4.5); ALKALINE PHOSPHATASE 85 U/L (40-136); BILIRUBIN,TOTAL 0.4 MG/DL (0.1-1.0); BUN/CREATININE RATIO 19; CALCIUM 9.1 MG/DL (8.5-10.1); CARBON DIOXIDE 26 MMOL/L (21-32); CHLORIDE 105 MMOL/L (98-107); CREATININE SERUM 0.83 MG/DL (0.60-1.30); GFR ESTIMATED > 60; GLUCOSE 95 MG/DL (70-105); POTASSIUM 3.7 MMOL/L (3.6-5.0); SODIUM 141 MMOL/L (135-145); TOTAL PROTEIN 6.9 GM/DL (6.4-8.2)
[2018-09-17 14:08] LABS: VALPROIC ACID < 2.0 UG/ML (50.0-100.0)
--- OUTSIDE RECORDS SUMMARY | 2018-09-17 14:23 | XMS REPORT | Clinical Summary ---
Author Author [facility] Organization [facility] Address Unknown Phone Unavailable Care Team Providers Care Counseling Director Name Role Phone Hasmukh Matthew MD Unavailable Jese Cassidy MD PCP Jorge Almonte MD Unavailable Source Comments Some departments are not documenting in the electronic medical record. If you d o not see the information that you expected, contact Release of Information in [facility] [employer] Information Management department at [phone] for further assistan ce in locating additional records.[facility] Allergies No Known Allergies Medications End Date Status Medication Sig Dispensed Refills Start Date Active amLODIPine (NORVASC) 10 Take 10 mg by 0 mg tablet mouth daily. Active meloxicam (MOBIC) 7.5 mg Take 7.5 mg 0 tablet by mouth daily. Active escitalopram oxalate Take 20 mg by 0 (LEXAPRO) 20 mg tablet mouth daily. Active ondansetron (ZOFRAN ODT) Take by 0 4 mg rapid dissolve mouth every 8 tablet hours as needed for Nausea. Active hyoscyamine (ANASPAZ; Place 125 mcg 0 NULEV; SYMAX FASTABS; under tongue HYOMAX-FT; ED-SPAZ; every 4 hours OSCIMIN) 0.125 mg rapid as needed for dissolve tablet Cramps. Active linaclotide(+) (LINZESS) Take 145 mcg 0 145 mcg cap capsule by mouth daily 30 minutes before breakfast. Active phentermine(+) 37.5 mg Take 37.5 mg 0 tablet by mouth every morning. Active HYDROcodone/acetaminophen Take 1 Tab by 0 (+) (LORTAB, NORCO) mouth every 6 10/325 mg tablet hours as needed for Pain Active Problems No known active problems Social History Date Tobacco Use Types Packs/Day Years Used Current Every Day Smoker Drinks/Week oz/Week Comments Alcohol Use 0 Standard drinks or equivalent 0.0 Not Asked Sex Assigned at Date Recorded Not on file Industry Job Start Date Occupation Not on file Not on file Not on file Travel End Travel History Travel Start No recent travel history available. Last Filed Vital Signs Reading Time Taken Comments Vital Sign 131/82 06/19/2015 4:02 PM CDT Blood Pressure 71 06/19/2015 2:41 PM CDT Pulse 36.7 C (98 F) 06/19/2015 2:41 PM CDT Temperature 16 06/19/2015 2:41 PM CDT Respiratory Rate 96% 06/19/2015 4:02 PM CDT Oxygen Saturation - - Inhaled Oxygen Concentration 109.8 kg (242 lb) 06/19/2015 2:41 PM CDT Weight 175.3 cm (5' 9") 06/19/2015 2:41 PM CDT Height 35.74 06/19/2015 2:41 PM CDT Body Mass Index Plan of Treatment Health Maintenance Due Date Last Done Comments HEPATITIS C SCREENING 1944 PHYSICAL (COMPREHENSIVE) 12/10/1951 EXAM DTAP/TDAP VACCINES (1 - 1962 Tdap) COLORECTAL CANCER 1994 SCREENING SHINGLES RECOMBINANT 1994 VACCINE (1 of 2) ABDOMINAL AORTIC ANEURYSM 2009 SCREENING PNEUMONIA (PCV13/PPSV23) 2009 VACCINES (1 of 2 - PCV13) INFLUENZA VACCINE 12/28/2018 Results Not on filefrom Last 3 Months Insurance Type Payer Benefit Subscriber ID Effective Phone Address Plan / Dates Group PPO [facility]BS [facility] xxxxxxxxxxxx [id number] PREF CARE resent BLUE Medicare MEDICARE MEDICARE xxxxxxxxxx [id number] PART A AND resent B Advance Directives Patient Controls Technician Explanation Type Date Recorded Advance 05/07/2015 4:08 PM Directive/DPOA
--- OUTSIDE RECORDS SUMMARY | 2018-09-17 14:24 | XMS REPORT | Continuity of Care Document ---
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 01/09/2016 NIDIA ROWE, HUSSEIN Espinosa [...] 790.29 OTHER ABNORMAL GLUCOSE 02/12/2016 Ot 722.52 LUMB/LUMBOSAC DISC DEGEN 02/12/2016 NIDIA ROWE, HUSSEIN Espinosa Ot 553.20 [...] OF RIBS, RIGHT SIDE, 03/12/2016 ALLYSON MESSINA DO, Ot S29.9XXA UNSPECIFIED INJURY OF THORAX, INITIAL [...] Z23 ENCOUNTER FOR IMMUNIZATION 03/13/2016 ALLYSON MESSINA DO, Ot S00.11XA CONTUSION OF RIGHT EYELID AND PERIOCULAR 03/13/2016 ALLYSON MESSINA DO, Ot S00.81XA ABRASION OF OTHER PART OF HEAD, INITIAL 03/13/2016 ALLYSON MESSINA DO, Ot S22.41XA MULTIPLE FRACTURES OF RIBS, RIGHT SIDE, 03/13/2016 ALLYSON MESSINA DO, Ot S29.9XXA UNSPECIFIED INJURY OF THORAX, INITIAL EN 03/13/2016 ALLYSON MESSINA DO, Ot S50.11XA CONTUSION OF RIGHT FOREARM, INITIAL ENCO 03/13/2016 ALLYSON MESSINA DO, Ot S50.12XA CONTUSION OF LEFT FOREARM, INITIAL ENCOU 03/13/2016 ALLYSON MESSINA DO, Ot W01.0XXA FALL SAME LEV FROM SLIP/TRIP W/O STRIKE 03/13/2016 ALLYSON MESSINA DO, Ot Y99.8 OTHER EXTERNAL CAUSE STATUS 03/13/2016 ALLYSON MESSINA DO Ot Z23 ENCOUNTER FOR IMMUNIZATION 04/08/2016 JOE MORALES DO Ot M54.5 LOW BACK PAIN 04/08/2016 JOE MORALES DO Ot Z47.89 ENCOUNTER FOR OTHER ORTHOPEDIC AFTERCARE 04/09/2016 JOE MORALES DO Ot M54.5 LOW BACK PAIN 04/09/2016 JOE MORALES DO Ot Z47.89 ENCOUNTER FOR OTHER ORTHOPEDIC AFTERCARE 04/23/2016 OTTO SEGURA DO Ot E66.9 OBESITY, UNSPECIFIED 04/23/2016 OTTO SEGURA DO Ot G47.9 SLEEP DISORDER, UNSPECIFIED 04/23/2016 OTTO SEGURA DO Ot R06.00 DYSPNEA, UNSPECIFIED 04/23/2016 OTTO SEGURA DO Ot R06.83 SNORING 04/23/2016 OTTO SEGURA DO Ot Z72.0 TOBACCO USE 04/23/2016 Ot 440.0 AORTIC ATHEROSCLEROSIS 04/23/2016 Ot 783.1 ABNORMAL WEIGHT GAIN 04/23/2016 Ot 786.2 COUGH 04/23/2016 Ot 788.41 URINARY FREQUENCY 04/23/2016 Ot 789.03 ABDOMINAL PAIN, RIGHT LOWER QUADRANT 04/23/2016 Ot 790.29 OTHER ABNORMAL GLUCOSE 04/23/2016 Ot 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/LUMBOSAC DISC DEGEN 04/23/2016 NIDIA ROWE, HUSSEIN Espinosa Ot 553.20 VENTRAL HERNIA NOS 04/23/2016 NIDIA ROWE, HUSSEIN Espinosa Ot 401.9 HYPERTENSION NOS 04/23/2016 NIDIA ROWE, HUSSEIN Espinosa Ot 553.20 [...] Ot R06.00 DYSPNEA, UNSPECIFIED 04/25/2016 MEGAN BAPTISTE CON[employer] M[employer]GAGE UNDERWRITER Ot Z72.0 TOBACCO USE 05/08/2016 JOE MORALES DO Ot M54.5 LOW BACK PAIN 05/08/2016 JOE MORALES DO Ot Z47.89 ENCOUNTER FOR OTHER ORTHOPEDIC AFTERCARE 05/20/2016 MEGAN BAPTISTE APRN Ot R06.00 DYSPNEA, UNSPECIFIED 05/20/2016 MEGAN BAPTISTE APRN Ot Z72.0 TOBACCO USE 06/19/2016 JOE MORALES DO Ot M54.5 LOW BACK PAIN 06/19/2016 JOE MORALES DO Ot Z47.89 ENCOUNTER FOR OTHER ORTHOPEDIC AFTERCARE 07/03/2016 JOE MORALES DO Ot M54.5 LOW BACK PAIN 07/03/2016 JOE MORALES DO Ot Z47.89 ENCOUNTER FOR OTHER ORTHOPEDIC AFTERCARE 07/14/2016 MEGAN BAP[employer]ISTE [employer] UNDERWRITER Ot E66.9 OBESITY, UNSPECIFIED 07/14/2016 MEGAN B[employer]E [employer] UNDERWRITER Ot G47.33 OBSTRUCTIVE SLEEP APNEA (ADULT) (PEDIATR 07/14/2016 MEGAN BAPTISTE APRN Ot R06.00 DYSPNEA, UNSPECIFIED 07/14/2016 MEGAN [employer]E [employer] UNDERWRITER Ot R06.83 SNORING 07/14/2016 MEGAN BAPTISTE APRN Ot Z72.0 TOBACCO USE 03/25/2017 NIDIA ROWE, HUSSEIN Espinosa Ot 553.20 VENTRAL HERNIA NOS 03/25/2017 NIDIA ROWE, HUSSEIN Espinosa Ot 401.9 HYPERTENSION NOS 03/25/2017 NIDIA ROWE, HUSSEIN Espinosa Ot 553.20 VENTRAL HERNIA NOS 03/25/2017 NIDIA ROWE, HUSSEIN Espinosa Ot V72.63 PRE-PROCEDURAL LABORATORY EXAMINATION 03/25/2017 NIDIA ROWE, HUSSEIN Espinosa Ot V74.8 SCREEN-BACTERIAL DIS NEC 03/25/2017 JOE MORALES DO Ot 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1 HYPOVOLEMIA 03/27/2017 KRIS RODRÍGUEZ MD Ot F17.210 NICOTINE DEPENDENCE, CIGARETTES, UNCOMPL 03/27/2017 KRIS RODRÍGUEZ MD Ot F32.9 MAJOR DEPRESSIVE DISORDER, SINGLE EPISOD 03/27/2017 KRIS RODRÍGUEZ MD Ot I10 ESSENTIAL (PRIMARY) HYPERTENSION 03/27/2017 KRIS RODRÍGUEZ MD Ot J44.1 CHRONIC OBSTRUCTIVE PULMONARY DISEASE W 03/27/2017 KRIS RODRÍGUEZ MD R Ot K56.690 OTHER PARTIAL INTESTINAL OBSTRUCTION 03/27/2017 KRIS RODRÍGUEZ MD R Ot M19.91 PRIMARY OSTEOARTHRITIS, UNSPECIFIED SITE 03/27/2017 KRIS RODRÍGUEZ MD Ot M54.9 DORSALGIA, UNSPECIFIED 03/27/2017 KRIS RODRÍGUEZ MD R Ot N17.9 ACUTE KIDNEY FAILURE, UNSPECIFIED 03/27/2017 KRIS RODRÍGUEZ MD R Ot R09.02 HYPOXEMIA 03/27/2017 KRIS RODRÍGUEZ MD Ot Z68.37 BODY MASS INDEX (BMI) 37.0-37.9, ADULT 04/01/2017 ADOLFO LARSON MD Ot E66.9 OBESITY, UNSPECIFIED 04/01/2017 ADOLFO LARSON MD Ot F17.210 NICOTINE DEPENDENCE, CIGARETTES, UNCOMPL 04/01/2017 ADOLFO LARSON MD Ot F32.9 MAJOR DEPRESSIVE DISORDER, SINGLE EPISOD 04/01/2017 NEO ROWE, ADOLFO Ot I10 ESSENTIAL (PRIMARY) HYPERTENSION 04/01/2017 NEO ROWE, ADOLFO Ot J44.1 CHRONIC OBSTRUCTIVE PULMONARY DISEASE W 04/01/2017 ADOLFO LARSON MD Ot K56.690 OTHER PARTIAL INTESTINAL OBSTRUCTION 04/01/2017 NEO ROWE, ADOLFO Ot M19.91 PRIMARY OSTEOARTHRITIS, UNSPECIFIED SITE 04/01/2017 ADOLFO LARSON MD Ot M54.9 DORSALGIA, UNSPECIFIED 04/01/2017 NEO ROWE, ADOLFO Ot Z68.37 BODY MASS INDEX (BMI) 37.0-37.9, ADULT 01/14/2018 WIN DIALLOP Ot I70.213 ATHSCL [place] ARTERIES OF EXTRM W INTRMT 01/18/2018 NIDIA ROWE, HUSSEIN Espinosa Ot 553.20 VENTRAL HERNIA NOS 01/18/2018 NIDIA ROWE, HUSSEIN Espinosa Ot 401.9 HYPERTENSION NOS 01/18/2018 NIDIA ROWE, HUSSEIN Espinosa Ot 553.20 VENTRAL HERNIA NOS 01/18/2018 NIDIA ROWE, HUSSEIN Espinosa Ot V72.63 PRE-PROCEDURAL LABORATORY EXAMINATION 01/18/2018 NIDIA ROWE, HUSSEIN Espinosa Ot V74.8 SCREEN-BACTERIAL DIS NEC 01/18/2018 JOE MORALES DO Ot 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 01/18/2018 JOE MORALES DO Ot M48.06 SPINAL STENOSIS, LUMBAR REGION 01/18/2018 JOE MORALES DO Ot M51.17 INTVRT DISC DISORDERS W RADICULOPATHY, L 01/18/2018 MEGAN BAPTISTE APRN Ot E66.9 OBESITY, UNSPECIFIED 01/18/2018 MEGAN BAPTISTE APRN Ot G47.33 OBSTRUCTIVE SLEEP APNEA (ADULT) (PEDIATR 01/18/2018 MEGAN BAPTISTE APRN Ot R06.00 DYSPNEA, UNSPECIFIED 01/18/2018 MEGAN BAPTISTE APRN Ot R06.83 SNORING 01/18/2018 MEGAN BAPTISTE APRN Ot Z72.0 TOBACCO USE 01/18/2018 WIN DIALLOP Ot I70.213 ATHSCL [place] ARTERIES OF EXTRM W INTRMT 01/20/2018 WIN DIALLO REFERRAL COORDINATOR Ot E01.0 IODINE-DEFICIENCY RELATED DIFFUSE (ENDEM 02/09/2018 WIN DIALLO REFERRAL COORDINATOR Ot E01.0 IODINE-DEFICIENCY RELATED DIFFUSE (ENDEM 02/09/2018 WIN DIALLO REFERRAL COORDINATOR Ot I73.9 PERIPHERAL VASCULAR DISEASE, UNSPECIFIED 02/09/2018 WIN DIALLO REFERRAL COORDINATOR Ot R13.10 DYSPHAGIA, UNSPECIFIED 03/17/2018 IMANI CARLSON, ALLYSON J Ot R07.9 CHEST PAIN, UNSPECIFIED 03/21/2018 DIALLO DO, ALLYSON J Ot R07.9 CHEST PAIN, UNSPECIFIED 04/07/2018 DIALLO DO, ALLYSON J Ot R07.9 CHEST PAIN, UNSPECIFIED 04/07/2018 IMANI CARLSON, ALLYSON Damon Ot G31.84 MILD COGNITIVE IMPAIRMENT, SO STATED 05/11/2018 WIN DIALLO L REFERRAL COORDINATOR Ot G20 PARKINSON'S DISEASE 05/11/2018 LUCÍA DIALLOIA L REFERRAL COORDINATOR Ot R26.81 UNSTEADINESS ON FEET 05/11/2018 LUCÍA DIALLOIA L REFERRAL COORDINATOR Ot R53.1 WEAKNESS 05/26/2018 LUCÍA DIALLOIA L REFERRAL COORDINATOR Ot G20 PARKINSON'S DISEASE 05/26/2018 LUCÍA DIALLOIA L REFERRAL COORDINATOR Ot R26.81 UNSTEADINESS ON FEET 05/26/2018 LUCÍA DIALLOIA L REFERRAL COORDINATOR Ot R53.1 WEAKNESS 06/18/2018 LUCÍA DIALLOIA L REFERRAL COORDINATOR Ot G20 PARKINSON'S DISEASE 06/18/2018 LUCÍA DIALLOIA L REFERRAL COORDINATOR Ot R26.81 UNSTEADINESS ON FEET 06/18/2018 LUCÍA DIALLOIA L REFERRAL COORDINATOR Ot R53.1 WEAKNESS 08/08/2018 JAGDISH DIALLORICIA L REFERRAL COORDINATOR Ot G20 PARKINSON'S DISEASE 08/08/2018 LUCÍA DIALLOIA L REFERRAL COORDINATOR Ot R26.81 UNSTEADINESS ON FEET 08/08/2018 LUCÍA DIALLOIA L REFERRAL COORDINATOR Ot R53.1 WEAKNESS 08/24/2018 LUCÍA DIALLOIA L REFERRAL COORDINATOR Ot G20 PARKINSON'S DISEASE 08/24/2018 LUCÍA DIALLOIA L REFERRAL COORDINATOR Ot R26.81 UNSTEADINESS ON FEET 08/24/2018 WIN DIALLO REFERRAL COORDINATOR Ot R53.1 WEAKNESS 09/01/2018 WIN DIALLO REFERRAL COORDINATOR Ot G20 PARKINSON'S DISEASE 09/01/2018 WIN DIALLO REFERRAL COORDINATOR Ot R26.81 UNSTEADINESS ON FEET 09/01/2018 WIN DIALLO REFERRAL COORDINATOR Ot R53.1 WEAKNESS Procedures Code Description Performed By Performed On [id number] DRAINAGE OF ESOPHAGAST JUNCT WITH DRAIN 03/25/2017 [id number] DRAINAGE OF ESOPHAGAST JUNCT WITH DRAIN 03/29/2017 Results Test Result Range Complete blood count (CBC) with automated white blood cell (WBC) differential - 03/25/17 07:12 Blood leukocytes automated count (number/volume) 11.6 10*3/uL 4.3-11.0 Blood erythrocytes automated count (number/volume) 6.05 10*6/uL 4.35-5.85 Venous blood hemoglobin measurement (mass/volume) 15.9 g/dL 13.3-17.7 Blood hematocrit (volume fraction) 49 % 40-54 Automated erythrocyte mean corpuscular volume 81 [foz_us] 80-99 Automated erythrocyte mean corpuscular hemoglobin (mass per erythrocyte) 26 pg 25-34 Automated erythrocyte mean corpuscular hemoglobin concentration measurement (mass/volume) 32 g/dL 32-36 Automated erythrocyte distribution width ratio 17.4 % 10.0- 14.5 Automated blood platelet count (count/volume) 306 10*3/uL 130-400 Automated blood platelet mean volume measurement 10.7 [foz_us] 7.4-10.4 Automated blood neutrophils/100 leukocytes 73 % 42-75 Automated blood lymphocytes/100 leukocytes 13 % 12-44 Blood monocytes/100 leukocytes 13 % 0-12 Automated blood eosinophils/100 leukocytes 0 % 0-10 Automated blood basophils/100 leukocytes 0 % 0-10 Blood neutrophils automated count (number/volume) 8.5 10*3 1.8-7.8 Blood lymphocytes automated count (number/volume) 1.6 10*3 1.0-4.0 Blood monocytes automated count (number/volume) 1.5 10*3 0.0- 1.0 Automated eosinophil count 0.0 10*3/uL 0.0-0.3 Automated blood basophil count (count/volume) 0.0 10*3/uL 0.0-0.1 PT panel in platelet poor plasma by coagulation assay - 03/25/17 07:12 Prothrombin time (PT) in platelet poor plasma by coagulation assay 13.4 s 12.2-14.7 INR in platelet poor plasma or blood by coagulation assay 1.0 0.8-1.4 Activated partial thromboplastin time (aPTT) in platelet poor plasma bycoagulation assay - 03/25/17 07:12 Activated partial thromboplastin time (aPTT) in platelet poor plasma bycoagulation assay 35 s 24-35 Comprehensive metabolic panel - 03/25/17 07:12 Serum or plasma sodium measurement (moles/volume) 142 mmol/L 135-145 Serum or plasma potassium measurement (moles/volume) 4.4 mmol/L 3.6-5.0 Serum or plasma chloride measurement (moles/volume) 99 mmol/L 98-107 Carbon dioxide 24 mmol/L 21-32 Serum or plasma anion gap determination (moles/volume) 19 mmol/L 5-14 Serum or plasma urea nitrogen measurement (mass/volume) 33 mg/dL 7-18 Serum or plasma creatinine measurement (mass/volume) 2.33 mg/dL 0.60-1.30 Serum or plasma urea nitrogen/creatinine mass ratio 14 NRG Serum or plasma creatinine measurement with calculation of estimated glomerular filtration rate 28 NRG Serum or plasma glucose measurement (mass/volume) 156 mg/dL 70-105 Serum or plasma calcium measurement (mass/volume) 9.8 mg/dL 8.5-10.1 Serum or plasma total bilirubin measurement (mass/volume) 1.2 mg/dL 0.1-1.0 Serum or plasma alkaline phosphatase measurement (enzymatic activity/volume) 96 U/L 40-136 Serum or plasma aspartate aminotransferase measurement (enzymatic activity/volume) 34 U/L 5-34 Serum or plasma alanine aminotransferase measurement (enzymatic activity/volume) 47 U/L 0-55 Serum or plasma protein measurement (mass/volume) 8.3 g/dL 6.4-8.2 Serum or plasma albumin measurement (mass/volume) 4.6 g/dL 3.2-4.5 Serum or plasma C reactive protein measurement (mass/volume) - 03/25/17 07:23 Serum or plasma C reactive protein measurement (mass/volume) 9.26 mg/dL 0.00-0.50 Blood lactic acid measurement (moles/volume) - 03/25/17 07:25 Blood lactic acid measurement (moles/volume) 1.71 mmol/L 0.50- 2.00 Bacterial blood culture - 03/25/17 07:25 Bacterial blood culture NG NRG Bacterial blood culture - 03/25/17 07:38 Bacterial blood culture NG NRG Influenza virus A and B antigen detection - 03/25/17 07:55 FLU RESULT NEGATIVE FOR INFLUENZA A AND B ANTIGENS BY IA NRG Complete urinalysis with reflex to culture - 03/25/17 13:45 Urine color determination CHAD NRG Urine clarity determination CLEAR NRG Urine pH measurement by test strip 5 5-9 Specific gravity of urine by test strip 1.025 1.016-1.022 Urine protein assay by test strip, semi-quantitative 2+ NEGATIVE Urine glucose detection by automated test strip NEGATIVE NEGATIVE Erythrocytes detection in urine sediment by light microscopy NEGATIVE NEGATIVE Urine ketones detection by automated test strip NEGATIVE NEGATIVE Urine nitrite detection by test strip NEGATIVE NEGATIVE Urine total bilirubin detection by test strip 2+ NEGATIVE Urine urobilinogen measurement by automated test strip (mass/volume) 1 mg/dL NORMAL Urine leukocyte esterase detection by dipstick 1+ NEGATIVE Automated urine sediment erythrocyte count by microscopy (number/high power field) NONE NRG Automated urine sediment leukocyte count by microscopy (number/high power field) [HPF] NRG Bacteria detection in urine sediment by light microscopy NEGATIVE NRG Squamous epithelial cells detection in urine sediment by light microscopy 0-2 NRG Crystals detection in urine sediment by light microscopy PRESENT NRG Casts detection in urine sediment by light microscopy PRESENT NRG Mucus detection in urine sediment by light microscopy NEGATIVE NRG Complete urinalysis with reflex to culture NO NRG Amorphous sediment detection in urine sediment by light microscopy RARE PEMA URATES NRG Hyaline casts detection in urine sediment by light microscopy 2-5 NRG Complete blood count (CBC) with automated white blood cell (WBC) differential - 03/26/17 08:11 Blood leukocytes automated count (number/volume) 6.2 10*3/uL 4.3-11.0 Blood erythrocytes automated count (number/volume) 5.06 10*6/uL 4.35-5.85 Venous blood hemoglobin measurement (mass/volume) 13.3 g/dL 13.3-17.7 Blood hematocrit (volume fraction) 43 % 40-54 Automated erythrocyte mean corpuscular volume 85 [foz_us] 80-99 Automated erythrocyte mean corpuscular hemoglobin (mass per erythrocyte) 26 pg 25-34 Automated erythrocyte mean corpuscular hemoglobin concentration measurement (mass/volume) 31 g/dL 32-36 Automated erythrocyte distribution width ratio 16.3 % 10.0- 14.5 Automated blood platelet count (count/volume) 213 10*3/uL 130-400 Automated blood platelet mean volume measurement 10.5 [foz_us] 7.4-10.4 Automated blood neutrophils/100 leukocytes 60 % 42-75 Automated blood lymphocytes/100 leukocytes 23 % 12-44 Blood monocytes/100 leukocytes 15 % 0-12 Automated blood eosinophils/100 leukocytes 2 % 0-10 Automated blood basophils/100 leukocytes 0 % 0-10 Blood neutrophils automated count (number/volume) 3.7 10*3 1.8-7.8 Blood lymphocytes automated count (number/volume) 1.4 10*3 1.0-4.0 Blood monocytes automated count (number/volume) 0.9 10*3 0.0- 1.0 Automated eosinophil count 0.1 10*3/uL 0.0-0.3 Automated blood basophil count (count/volume) 0.0 10*3/uL 0.0-0.1 Comprehensive metabolic panel - 03/26/17 08:11 Serum or plasma sodium measurement (moles/volume) 145 mmol/L 135-145 Serum or plasma potassium measurement (moles/volume) 3.9 mmol/L 3.6-5.0 Serum or plasma chloride measurement (moles/volume) 110 mmol/L 98-107 Carbon dioxide 23 mmol/L 21-32 Serum or plasma anion gap determination (moles/volume) 12 mmol/L 5-14 Serum or plasma urea nitrogen measurement (mass/volume) 25 mg/dL 7-18 Serum or plasma creatinine measurement (mass/volume) 0.79 mg/dL 0.60-1.30 Serum or plasma urea nitrogen/creatinine mass ratio 32 NRG Serum or plasma creatinine measurement with calculation of estimated glomerular filtration rate > NRG Serum or plasma glucose measurement (mass/volume) 104 mg/dL 70-105 Serum or plasma calcium measurement (mass/volume) 8.6 mg/dL 8.5-10.1 Serum or plasma total bilirubin measurement (mass/volume) 0.7 mg/dL 0.1-1.0 Serum or plasma alkaline phosphatase measurement (enzymatic activity/volume) 75 U/L 40-136 Serum or plasma aspartate aminotransferase measurement (enzymatic activity/volume) 22 U/L 5-34 Serum or plasma alanine aminotransferase measurement (enzymatic activity/volume) 42 U/L 0-55 Serum or plasma protein measurement (mass/volume) 6.6 g/dL 6.4-8.2 Serum or plasma albumin measurement (mass/volume) 3.9 g/dL 3.2-4.5 Complete blood count (CBC) with automated white blood cell (WBC) differential - 03/27/17 05:15 Blood leukocytes automated count (number/volume) 5.1 10*3/uL 4.3-11.0 Blood erythrocytes automated count (number/volume) 4.72 10*6/uL 4.35-5.85 Venous blood hemoglobin measurement (mass/volume) 12.5 g/dL 13.3-17.7 Blood hematocrit (volume fraction) 39 % 40-54 Automated erythrocyte mean corpuscular volume 83 [foz_us] 80-99 Automated erythrocyte mean corpuscular hemoglobin (mass per erythrocyte) 27 pg 25-34 Automated erythrocyte mean corpuscular hemoglobin concentration measurement (mass/volume) 32 g/dL 32-36 Automated erythrocyte distribution width ratio 15.3 % 10.0- 14.5 Automated blood platelet count (count/volume) 212 10*3/uL 130-400 Automated blood platelet mean volume measurement 10.3 [foz_us] 7.4-10.4 Automated blood neutrophils/100 leukocytes 59 % 42-75 Automated blood lymphocytes/100 leukocytes 21 % 12-44 Blood monocytes/100 leukocytes 17 % 0-12 Automated blood eosinophils/100 leukocytes 3 % 0-10 Automated blood basophils/100 leukocytes 0 % 0-10 Blood neutrophils automated count (number/volume) 3.0 10*3 1.8-7.8 Blood lymphocytes automated count (number/volume) 1.1 10*3 1.0-4.0 Blood monocytes automated count (number/volume) 0.9 10*3 0.0- 1.0 Automated eosinophil count 0.1 10*3/uL 0.0-0.3 Automated blood basophil count (count/volume) 0.0 10*3/uL 0.0-0.1 Comprehensive metabolic panel - 03/27/17 05:15 Serum or plasma sodium measurement (moles/volume) 141 mmol/L 135-145 Serum or plasma potassium measurement (moles/volume) 3.7 mmol/L 3.6-5.0 Serum or plasma chloride measurement (moles/volume) 105 mmol/L 98-107 Carbon dioxide 27 mmol/L 21-32 Serum or plasma anion gap determination (moles/volume) 9 mmol/L 5-14 Serum or plasma urea nitrogen measurement (mass/volume) 19 mg/dL 7-18 Serum or plasma creatinine measurement (mass/volume) 0.71 mg/dL 0.60-1.30 Serum or plasma urea nitrogen/creatinine mass ratio 27 NRG Serum or plasma creatinine measurement with calculation of estimated glomerular filtration rate > NRG Serum or plasma glucose measurement (mass/volume) 97 mg/dL 70-105 Serum or plasma calcium measurement (mass/volume) 9.0 mg/dL 8.5-10.1 Serum or plasma total bilirubin measurement (mass/volume) 0.8 mg/dL 0.1-1.0 Serum or plasma alkaline phosphatase measurement (enzymatic activity/volume) 71 U/L 40-136 Serum or plasma aspartate aminotransferase measurement (enzymatic activity/volume) 22 U/L 5-34 Serum or plasma alanine aminotransferase measurement (enzymatic activity/volume) 36 U/L 0-55 Serum or plasma protein measurement (mass/volume) 6.4 g/dL 6.4-8.2 Serum or plasma albumin measurement (mass/volume) 3.7 g/dL 3.2-4.5 Complete blood count (CBC) with automated white blood cell (WBC) differential - 03/28/17 23:45 Blood leukocytes automated count (number/volume) 8.6 10*3/uL 4.3-11.0 Blood erythrocytes automated count (number/volume) 5.28 10*6/uL 4.35-5.85 Venous blood hemoglobin measurement (mass/volume) 13.9 g/dL 13.3-17.7 Blood hematocrit (volume fraction) 43 % 40-54 Automated erythrocyte mean corpuscular volume 81 [foz_us] 80-99 Automated erythrocyte mean corpuscular hemoglobin (mass per erythrocyte) 26 pg 25-34 Automated erythrocyte mean corpuscular hemoglobin concentration measurement (mass/volume) 32 g/dL 32-36 Automated erythrocyte distribution width ratio 15.5 % 10.0- 14.5 Automated blood platelet count (count/volume) 251 10*3/uL 130-400 Automated blood platelet mean volume measurement 10.5 [foz_us] 7.4-10.4 Automated blood neutrophils/100 leukocytes 71 % 42-75 Automated blood lymphocytes/100 leukocytes 16 % 12-44 Blood monocytes/100 leukocytes 11 % 0-12 Automated blood eosinophils/100 leukocytes 3 % 0-10 Automated blood basophils/100 leukocytes 0 % 0-10 Blood neutrophils automated count (number/volume) 6.0 10*3 1.8-7.8 Blood lymphocytes automated count (number/volume) 1.3 10*3 1.0-4.0 Blood monocytes automated count (number/volume) 0.9 10*3 0.0- 1.0 Automated eosinophil count 0.3 10*3/uL 0.0-0.3 Automated blood basophil count (count/volume) 0.0 10*3/uL 0.0-0.1 Comprehensive metabolic panel - 03/28/17 23:45 Serum or plasma sodium measurement (moles/volume) 142 mmol/L 135-145 Serum or plasma potassium measurement (moles/volume) 3.5 mmol/L 3.6-5.0 Serum or plasma chloride measurement (moles/volume) 105 mmol/L 98-107 Carbon dioxide 24 mmol/L 21-32 Serum or plasma anion gap determination (moles/volume) 13 mmol/L 5-14 Serum or plasma urea nitrogen measurement (mass/volume) 12 mg/dL 7-18 Serum or plasma creatinine measurement (mass/volume) 0.77 mg/dL 0.60-1.30 Serum or plasma urea nitrogen/creatinine mass ratio 16 NRG Serum or plasma creatinine measurement with calculation of estimated glomerular filtration rate > NRG Serum or plasma glucose measurement (mass/volume) 119 mg/dL 70-105 Serum or plasma calcium measurement (mass/volume) 9.2 mg/dL 8.5-10.1 Serum or plasma total bilirubin measurement (mass/volume) 0.9 mg/dL 0.1-1.0 Serum or plasma alkaline phosphatase measurement (enzymatic activity/volume) 90 U/L 40-136 Serum or plasma aspartate aminotransferase measurement (enzymatic activity/volume) 64 U/L 5-34 Serum or plasma alanine aminotransferase measurement (enzymatic activity/volume) 124 U/L 0-55 Serum or plasma protein measurement (mass/volume) 7.3 g/dL 6.4-8.2 Serum or plasma albumin measurement (mass/volume) 4.1 g/dL 3.2-4.5 Magnesium - 03/28/17 23:45 Magnesium 1.9 mg/dL 1.8-2.4 Serum or plasma C reactive protein measurement (mass/volume) - 03/28/17 23:45 Serum or plasma C reactive protein measurement (mass/volume) 2.64 mg/dL 0.00-0.50 Complete blood count (CBC) with automated white blood cell (WBC) differential - 03/30/17 05:57 Blood leukocytes automated count (number/volume) 5.9 10*3/uL 4.3-11.0 Blood erythrocytes automated count (number/volume) 5.08 10*6/uL 4.35-5.85 Venous blood hemoglobin measurement (mass/volume) 13.3 g/dL 13.3-17.7 Blood hematocrit (volume fraction) 43 % 40-54 Automated erythrocyte mean corpuscular volume 85 [foz_us] 80-99 Automated erythrocyte mean corpuscular hemoglobin (mass per erythrocyte) 26 pg 25-34 Automated erythrocyte mean corpuscular hemoglobin concentration measurement (mass/volume) 31 g/dL 32-36 Automated erythrocyte distribution width ratio 15.8 % 10.0- 14.5 Automated blood platelet count (count/volume) 253 10*3/uL 130-400 Automated blood platelet mean volume measurement 10.3 [foz_us] 7.4-10.4 Automated blood neutrophils/100 leukocytes 65 % 42-75 Automated blood lymphocytes/100 leukocytes 20 % 12-44 Blood monocytes/100 leukocytes 13 % 0-12 Automated blood eosinophils/100 leukocytes 2 % 0-10 Automated blood basophils/100 leukocytes 0 % 0-10 Blood neutrophils automated count (number/volume) 3.9 10*3 1.8-7.8 Blood lymphocytes automated count (number/volume) 1.2 10*3 1.0-4.0 Blood monocytes automated count (number/volume) 0.8 10*3 0.0- 1.0 Automated eosinophil count 0.1 10*3/uL 0.0-0.3 Automated blood basophil count (count/volume) 0.0 10*3/uL 0.0-0.1 Comprehensive metabolic panel - 03/30/17 05:57 Serum or plasma sodium measurement (moles/volume) 145 mmol/L 135-145 Serum or plasma potassium measurement (moles/volume) 3.7 mmol/L 3.6-5.0 Serum or plasma chloride measurement (moles/volume) 103 mmol/L 98-107 Carbon dioxide 31 mmol/L 21-32 Serum or plasma anion gap determination (moles/volume) 11 mmol/L 5-14 Serum or plasma urea nitrogen measurement (mass/volume) 10 mg/dL 7-18 Serum or plasma creatinine measurement (mass/volume) 0.76 mg/dL 0.60-1.30 Serum or plasma urea nitrogen/creatinine mass ratio 13 NRG Serum or plasma creatinine measurement with calculation of estimated glomerular filtration rate > NRG Serum or plasma glucose measurement (mass/volume) 136 mg/dL 70-105 Serum or plasma calcium measurement (mass/volume) 9.3 mg/dL 8.5-10.1 Serum or plasma total bilirubin measurement (mass/volume) 0.4 mg/dL 0.1-1.0 Serum or plasma alkaline phosphatase measurement (enzymatic activity/volume) 86 U/L 40-136 Serum or plasma aspartate aminotransferase measurement (enzymatic activity/volume) 31 U/L 5-34 Serum or plasma alanine aminotransferase measurement (enzymatic activity/volume) 95 U/L 0-55 Serum or plasma protein measurement (mass/volume) 7.0 g/dL 6.4-8.2 Serum or plasma albumin measurement (mass/volume) 4.0 g/dL 3.2-4.5 Automated blood complete blood count (hemogram) panel - 03/31/17 06:10 Blood leukocytes automated count (number/volume) 7.5 10*3/uL 4.3-11.0 Blood erythrocytes automated count (number/volume) 4.90 10*6/uL 4.35-5.85 Venous blood hemoglobin measurement (mass/volume) 13.1 g/dL 13.3-17.7 Blood hematocrit (volume fraction) 42 % 40-54 Automated erythrocyte mean corpuscular volume 86 [foz_us] 80-99 Automated erythrocyte mean corpuscular hemoglobin (mass per erythrocyte) 27 pg 25-34 Automated erythrocyte mean corpuscular hemoglobin concentration measurement (mass/volume) 31 g/dL 32-36 Automated erythrocyte distribution width ratio 15.4 % 10.0- 14.5 Automated blood platelet count (count/volume) 234 10*3/uL 130-400 Automated blood platelet mean volume measurement 10.1 [foz_us] 7.4-10.4 Whole blood basic metabolic panel - 03/31/17 06:10 Serum or plasma sodium measurement (moles/volume) 144 mmol/L 135-145 Serum or plasma potassium measurement (moles/volume) 3.9 mmol/L 3.6-5.0 Serum or plasma chloride measurement (moles/volume) 103 mmol/L 98-107 Carbon dioxide 31 mmol/L 21-32 Serum or plasma anion gap determination (moles/volume) 10 mmol/L 5-14 Serum or plasma urea nitrogen measurement (mass/volume) 8 mg/dL 7-18 Serum or plasma creatinine measurement (mass/volume) 0.78 mg/dL 0.60-1.30 Serum or plasma urea nitrogen/creatinine mass ratio 10 NRG Serum or plasma creatinine measurement with calculation of estimated glomerular filtration rate > NRG Serum or plasma glucose measurement (mass/volume) 101 mg/dL 70-105 Serum or plasma calcium measurement (mass/volume) 9.2 mg/dL 8.5-10.1 Magnesium - 03/31/17 06:10 Magnesium 1.9 mg/dL 1.8-2.4 Encounters ACCT No. Visit Date/Time Discharge Status Pt. Type Provider Facility Loc./Unit Complaint [id number] 08/06/2018 13:49:00 08/08/2018 00:01:00 DIS Outpatient WIN DIALLO Via [facility] REHAB ATYPICAL PARKINSONS;WEAKNESS;UNSTEADY GAIT [id number] 03/16/2018 08:45:00 03/16/2018 23:59:59 CLS Outpatient ALLYSON DIALLO DO [facility] RAD MILD COGNITIVE IMPAIRMENT [id number] 03/15/2018 06:57:00 03/15/2018 23:59:59 CLS Outpatient ALLYSON DIALLO DO [facility] CARD CHEST PAIN [id number] 02/05/2018 14:05:00 02/05/2018 23:59:59 CLS Outpatient WIN DIALLO [facility] RAD BILATERAL CLAUDICATION [id number] 01/18/2018 14:48:00 01/18/2018 23:59:59 CLS Outpatient WIN DIALLO REFERRAL COORDINATOR Via [facility] RAD THYROMEGALY/CLAUDICATION BILAT [id number] 01/14/2018 14:34:00 01/14/2018 23:59:59 CLS Preadmit WIN DIALLOP [facility] RAD DIFFICULTY SWALLOWING [id number] 03/29/2017 00:50:00 04/01/2017 16:35:00 DIS Inpatient ADOLFO LARSON MD Via [facility] 4TH SBO,COPD EXACERBATION [id number] 03/25/2017 09:34:00 03/27/2017 11:11:00 DIS Inpatient KRIS RODRÍGUEZ MD [facility] 4TH SBO, RENAL FAILURE (ACUTE), COPD EXACERBATION [id number] 03/17/2017 15:57:00 03/17/2017 23:59:59 CLS Preadmit KRIS RODRÍGUEZ MD R [facility] RAD BALANCE PROBLEM DUE TO LABYRINTHINE DYSFUNCTION [id number] 07/03/2016 09:45:00 07/03/2016 12:08:00 DIS Outpatient JOE MORALES DO [facility] REHAB S/P LUMBAR LAMI [id number] 04/23/2016 12:55:00 04/23/2016 23:59:59 CLS Outpatient MEGAN BAPTISTE APRN [facility] RT DYSPNEA,TOBACCO USER [id number] 04/23/2016 10:16:00 04/23/2016 10:30:00 DIS Outpatient OTTO SEGURA DO [facility] SLEEP DYSPNEA,SLEEP DISTURBANCE [id number] 04/07/2016 09:51:00 04/08/2016 00:01:00 DIS Outpatient JOE MORALES DO [facility] REHAB S/P LUMBAR LAMI [id number] 03/12/2016 11:34:00 03/12/2016 13:19:00 DIS Emergency ALLYSON MESSINA DO [facility] ER FALL/RIGHT RIB PAIN [id number] 02/12/2016 15:06:00 02/12/2016 23:59:59 CLS Outpatient JOE MORALES DO Francisca [facility] RAD BACK PAIN [id number] 02/20/2015 09:33:00 02/20/2015 11:34:00 DIS Emergency JSOHUA ROWE, JOVANNY Pettit [facility] ER DIARRHEA/ABD PAIN [id number] 09/07/2013 11:03:00 09/07/2013 12:20:00 DIS Emergency MARIBEL CARLSON STEVEN Elsa [facility] ER FALL/RIGHT ARM INJURY [id number] 10/19/2012 11:21:00 10/19/2012 23:59:59 CLS Outpatient HUSSEIN JACOB MD [facility] VENTRAL HERNIA [id number] 10/15/2012 12:44:00 10/15/2012 23:59:59 CLS Outpatient HUSSEIN JACOB MD [facility] PREOP VENTRAL HERNIA [id number] 09/17/2018 13:16:00 ACT Emergency HORTENSIA ROWE, RAKESH Becerra [facility] ER FALL [id number] 09/14/2018 15:58:00 ACT Outpatient WIN DIALLO [facility] REHAB ATYPICAL PARKINSONS;WEAKNESS;UNSTEADY GAIT [id number] 09/03/2011 08:22:00 Document Registration [id number] 03/27/2011 08:22:00 Document Registration
--- NOTE | 2018-09-17 14:35 | Diagnostic Imaging Report ---
PROCEDURE: CT head, face, and cervical spine without contrast. TECHNIQUE: Multiple contiguous axial images were obtained through the head, neck, and facial bones without the use of intravenous contrast. Sagittal and coronal reformations through the cervical spine and facial bones were also performed. Auto Exposure Controls were utilized during the CT exam to meet ALARA standards for radiation dose reduction. INDICATION: Fall onto the face. Patient is on blood thinners. COMPARISON: Correlation is made with prior study from 03/12/2016. FINDINGS: CT head: The ventricles and sulci are within normal limits. No sulcal effacement, midline shift or hemorrhage is detected. Cisterns are patent. IMPRESSION: No acute intracranial process is detected. CT cervical spine: Minimal retrolisthesis of C4 on C5 and C5 on C6 is seen. There is significant multilevel degenerative disc disease with disc space narrowing and marginal spurring. There is multilevel facet arthropathy. No fractures are seen. Odontoid is intact. Prevertebral tissues are normal. IMPRESSION: Cervical spondylosis. No acute bony abnormality is detected. CT maxillofacial: The mandible appears to be intact. The zygomatic arches are intact. Maxillary sinus lujan as well as the orbital lujan appear to be intact. There appears to be fractures involving the anterior aspect of the nasal bones bilaterally, without evidence of significant displacement. Moderate amount of soft tissue is identified in the nasal cavity. There appears to be a fracture through the nasal septum. Anterior nasal spine is intact. There is soft tissue swelling over the nose. IMPRESSION: Findings consistent with bilateral nondisplaced nasal bone fractures as well as a nondisplaced nasal septum fracture with moderate amount of probable hemorrhage within the nasal cavity. No other facial fracture is detected. Dictated by: Dictated on workstation # [id number]
--- NOTE | 2018-09-17 15:36 | ED Fall/Injury ---
General Chief Complaint: Trauma-Non Activation Stated Complaint: FALL Nursing Triage Note: TRIP AND FALL ON FACE. PT DENIES LOC. PT DID NOT CATCH SELF WITH EXTREMITIES. PT IS ON BLOOD THINNERS. PT ALERT AND ORIENT. CCOLLAR PLACED PRIOR TO ARRIVAL. CLOTTED BLOOD NOTED IN BILATERAL NARES. Source: patient, family, EMS Exam Limitations: no limitations History of Present Illness Date Seen by Provider: Sep 17, 2018 Time Seen by Provider: 13:18 Initial Comments This 72-year-old gentleman presents to the emergency room via EMS after having a fall in his home. He reports tripping over a suitcase. He has otherwise been feeling well and believes his fall to be purely mechanical. He also has some discoordination due to Parkinson's. He has obvious injury to his face with bleeding from the nose and nasal swelling in the formation. He denies any other pain or injury. C-collar was placed prior to arrival. Patient complains of c- collar causing discomfort. Allergies and Home Medications Allergies Coded Allergies: No Known Drug Allergies (Unverified , 10/15/12) Home Medications Acetaminophen 500 Mg Tablet, 1,000 MG PO HS, (Reported) TAKES 2 (500MG) TABLETS Amlodipine Besylate/Benazepril 1 Each Capsule, 1 CAP PO DAILY, (Reported) Escitalopram Oxalate 10 Mg Tablet, 10 MG PO DAILY, (Reported) Furosemide 40 Mg Tablet, 40 MG PO HS, (Reported) Gabapentin 300 Mg Capsule, 300 MG PO HS, (Reported) Naproxen Sodium 220 Mg Tablet, 220 MG PO DAILY, (Reported) Omeprazole 40 Mg Capsule.dr, 40 MG PO DAILY, (Reported) Patient Home Medication List Home Medication List Reviewed: Yes Review of Systems Review of Systems Constitutional: no symptoms reported Eyes: No Symptoms Reported Ears, Nose, Mouth, Throat: see HPI Respiratory: no symptoms reported Cardiovascular: no symptoms reported Gastrointestinal: no symptoms reported Genitourinary: no symptoms reported Musculoskeletal: no symptoms reported Skin: no symptoms reported Psychiatric/Neurological: See HPI Past [id number] Hx Past Med/Social Hx: Reviewed and Corrections made Patient Social History Alcohol Use: Denies Use Recreational Drug Use: Yes (SMOKES 10 CIGARETTES PER DAY) Type Used: Cigarettes Recent Foreign Travel: No Contact w/Someone Who Travel: No Recent Infectious Disease Expo: No Recent Hopitalizations: No Physical Abuse: No Sexual Abuse: No Mistreated: No Fear: No Immunizations Up To Date Tetanus Booster (TDap): Unknown Date of Influenza Vaccine: Jan 23, 2017 Seasonal Allergies Seasonal Allergies: No Past Medical History Surgeries: Yes (L ROTATOR CUFF REPAIR ) Abdominal, Orthopedic Respiratory: Yes Chronic Bronchitis Currently Using CPAP: No Currently Using BIPAP: No Cardiac: Yes Hypertension Neurological: Yes Parkinson's Disease Reproductive Disorders: No Genitourinary: No Gastrointestinal: Yes Abdominal Hernia, Obstructive Bowel Musculoskeletal: Yes (ARTHRITIS, BACK PROBLEMS) Arthritis, Chronic Back Pain Endocrine: No HEENT: Yes Cataract Loss of Vision: Denies Hearing Impairment: Denies Cancer: No Psychosocial: Yes Depression Integumentary: No Blood Disorders: No Family Medical History No Pertinent Family Hx, CAD Over 55 Years Old, Diabetes Physical Exam Vital Signs Vital Signs - First Documented 09/17/18 13:33 Temp 97.6 Pulse 66 Resp 18 B/P (MAP) 122/75 (91) Pulse Ox 96 O2 Delivery OxyMask Capillary Refill : Less Than 3 Seconds Height, Weight, BMI Height: 5'9.00" Weight: 240lbs. 0.0oz. 108.208430fu; 37.5 BMI Method:Stated General Appearance: WD/WN, no apparent distress HEENT: PERRL/EOMI, other (clotted blood in the nose and red blood in the posterior pharynx. Swelling, tenderness, and the formation of the proximal nose.) Neck: non-tender, normal inspection, other (c-collar in place) Cardiovascular: regular rate, rhythm, no edema, no murmur Respiratory: lungs clear, normal breath sounds, no respiratory distress, no accessory muscle use Gastrointestinal: normal bowel sounds, non tender, soft Extremities: non-tender, normal inspection, no pedal edema, no calf tenderness Neurologic/Psychiatric: supervisor net making II-XII nml as tested, no motor/sensory deficits, alert, normal mood/affect, oriented x 3 Skin: normal color, warm/dry Luba Coma Score Best Eye Response: (4) Open Spontaneously Best Verbal Response: (5) Oriented Best Motor Response: (6) Obeys Commands Luba Total: 15 Progress/Results/Core Measures Results/Orders Lab Results Laboratory Tests Test 09/17/18 13:19 Range/Units White Blood Count 6.0 4.3-11.0 10^3/uL Red Blood Count 4.72 4.35-5.85 10^6/uL Hemoglobin 12.9 L 13.3-17.7 G/DL Hematocrit 40 40-54 % Mean Corpuscular Volume 85 80-99 FL Mean Corpuscular Hemoglobin 27 25-34 PG Mean Corpuscular Hemoglobin Concent 32 32-36 G/DL Red Cell Distribution Width 14.2 10.0-14.5 % Platelet Count 238 130-400 10^3/uL Mean Platelet Volume 10.8 H 7.4-10.4 FL Neutrophils (%) (Auto) 58 42-75 % Lymphocytes (%) (Auto) 30 12-44 % Monocytes (%) (Auto) 9 0-12 % Eosinophils (%) (Auto) 3 0-10 % Basophils (%) (Auto) 1 0-10 % Neutrophils # (Auto) 3.5 1.8-7.8 X 10^3 Lymphocytes # (Auto) 1.8 1.0-4.0 X 10^3 Monocytes # (Auto) 0.5 0.0-1.0 X 10^3 Eosinophils # (Auto) 0.2 0.0-0.3 10^3/uL Basophils # (Auto) 0.0 0.0-0.1 10^3/uL Sodium Level 141 135-145 MMOL/L Potassium Level 3.7 3.6-5.0 MMOL/L Chloride Level 105 98-107 MMOL/L Carbon Dioxide Level 26 21-32 MMOL/L Anion Gap 10 5-14 MMOL/L Blood Urea Nitrogen 16 7-18 MG/DL Creatinine 0.83 0.60-1.30 MG/DL Estimat Glomerular Filtration Rate > 60 BUN/Creatinine Ratio 19 Glucose Level 95 70-105 MG/DL Calcium Level 9.1 8.5-10.1 MG/DL Corrected Calcium 8.9 8.5-10.1 MG/DL Total Bilirubin 0.4 0.1-1.0 MG/DL Aspartate Amino Transf (AST/SGOT) 12 5-34 U/L Alanine Aminotransferase (ALT/SGPT) < 6 0-55 U/L Alkaline Phosphatase 85 40-136 U/L Total Protein 6.9 6.4-8.2 GM/DL Albumin 4.2 3.2-4.5 GM/DL Valproic Acid (Depakene) Level < 2.0 L 50.0-100.0 UG/ML My Orders Orders - RAKESH BAZAN MD Ct Head/Face/Cervical Wo (09/17/18 13:21) Cbc With Automated Diff (09/17/18 13:21) Comprehensive Metabolic Panel (09/17/18 13:21) Valproic Acid (09/17/18 13:21) Ed Iv/Invasive Line Start (09/17/18 13:21) Oxymetazoline 0.05% Nasal [place] (Afrin 0. (09/17/18 21:00) Oxymetazoline 0.05% Nasal [place] (Afrin 0. (09/17/18 15:47) Vital Signs/I&O 09/17/18 09/17/18 13:33 15:55 Temp 97.6 97.6 Pulse 66 66 Resp 18 18 B/P (MAP) 122/75 (91) 120/79 (93) Pulse Ox 96 64 O2 Delivery OxyMask Room Air 09/18/18 00:00 Intake Total 1000 ml Balance 1000 ml Blood Pressure Mean: 91 Progress Progress Note : Progress Note Patient was seen and examined. Blood work and CT scans were ordered. Patient declined to provide a urine specimen. C-collar was causing him significant discomfort and was adjusted multiple times. C-collar was removed after review of CT report. No critical injuries were identified. Nasal fracture was noted. Patient had some mild hypoxia due to lying flat and blood filling the nasal cavity. Supplemental oxygen was provided by mask. Some clots and blood was removed from the nostrils by a Jones catheter. This improved his breathing. Oxygen saturation on room air prior to dismissal was 91-94 percent. Epistaxis had stopped prior to departure. He was sent with Shannan and trevin in case bleeding resumed on the way home. There was no evidence of septal hematoma. I did ask patient's daughters and to watch for septal hematoma and return if one develops. He has some risk of septal hematoma due to the septal fracture. Departure Impression Primary Impression: Fall on same level from tripping as cause of accidental injury Additional Impressions: Epistaxis Nasal bone fractures Qualified Codes: S02.2XXA - Fracture of nasal bones, initial encounter for closed fracture Parkinsons disease Disposition: HOME, SELF-CARE Condition: Improved Departure-Patient Inst. Decision time for Depature: 15:20 Referrals: WIN DIALLO DNP (PCP) Primary Care Physician ANGIE GUO MD Patient Instructions: Nose Fracture Add. Discharge Instructions: You may apply ice to the bridge of your nose in 20 minute intervals to help control bleeding and swelling. If bleeding continues, you may place 2-4 squirts of Afrin in each nostril every 12 hours as needed. If ice and Afrin do not control bleeding, you may return to the emergency room. Return to care if you have any other problems, concerns, or worsening of your condition. Please follow-up with your primary care provider next week. If you would like your nasal fractures assessed further for reduction and setting, please contact Dr. Guo's office on Thursday. All discharge instructions reviewed with patient and/or family. Voiced understanding. Copy Copies To 1: KRIS RODRÍGUEZ MD, JOSHUA T MD Sep 17, 2018 15:36
[2018-09-17] MEDS ORDERED: OXYMETAZOLINE (AFRIN) 0.05% NA 15 ML BTL ONE (15:47)
[2018-09-17 15:55] VITALS: BP 120/79
[2018-09-17] MEDS ORDERED: OXYMETAZOLINE (AFRIN) 0.05% NA 15 ML BTL SCH (21:00)
== END 2018-09-17 16:04 | disposition home or self-care (01) ==
LOC: EDUNIT# 13:15 → ER 13:16
DX: S02.2XXA Fracture of nasal bones, initial encounter for closed fracture (principal); R04.0 Epistaxis; G20 Parkinson's disease; I10 Essential (primary) hypertension; F32.9 Major depressive disorder, single episode, unspecified; R40.2142 Coma scale, eyes open, spontaneous, at arrival to emergency department; R40.2252 Coma scale, best verbal response, oriented, at arrival to emergency department; R40.2362 Coma scale, best motor response, obeys commands, at arrival to emergency department; F17.210 Nicotine dependence, cigarettes, uncomplicated; Z87.19 Personal history of other diseases of the digestive system; Z98.890 Other specified postprocedural states; Z87.09 Personal history of other diseases of the respiratory system; W01.0XXA Fall on same level from slipping, tripping and stumbling without subsequent striking against object, initial encounter; Y92.009 Unspecified place in unspecified non-institutional (private) residence as the place of occurrence of the external cause
CPT/HCPCS: 36415; 70450; 70486; 72125; 80053; 80164; 85025

== ENCOUNTER 2018-11-05 14:59 | Outpatient (RCR) | payer MEDICARE, OTHER ==
[~2018-11-05 14:59] MED LIST changes: +AMLO-66 PO; -AMLO1CAP9 PO
== END 2018-11-09 | disposition home or self-care (01) ==
PROVIDERS: ATTEND Nurse Practitioner Family
DX: G20 Parkinson's disease (principal); R53.1 Weakness; R26.81 Unsteadiness on feet

== ENCOUNTER 2018-12-22 15:22 | Outpatient (RCR) | payer MEDICARE, OTHER | END 2018-12-22 16:06 | disposition home or self-care (01) | PROVIDERS: ATTEND Nurse Practitioner Family | DX: G20 Parkinson's disease (principal); R53.1 Weakness; R26.81 Unsteadiness on feet ==

== ENCOUNTER → 2018-12-31 | Outpatient (CLI) | payer MEDICARE, OTHER ==
--- NOTE | 2018-12-31 13:35 | Diagnostic Imaging Report ---
EXAMINATION: Modified barium swallow. INDICATION: Difficulty swallowing. FINDINGS: This exam is performed in the presence of the speech pathologist, Sanjuana. There are no prior studies available for comparison. The patient was given barium in different substances to swallow. This included honey, nectar, thin barium, cottage cheese, applesauce, ground meat, and barium on a cracker. The patient was able to swallow all the materials without penetration or aspiration. There was some residual contrast in the vallecula, however. IMPRESSION: There is no evidence for aspiration or penetration. Dictated by: Dictated on workstation # [id number]
== END ==
LOC: RAD 09:53
PROVIDERS: ATTEND Family Medicine
DX: I69.391 Dysphagia following cerebral infarction (principal)
CPT/HCPCS: 74230

== ENCOUNTER 2019-03-26 14:59 | Emergency (ER) | payer MEDICARE, OTHER ==
[~2019-03-26] VITALS: Ht 175 cm; Wt 105.0 kg
[2019-03-26] MEDS ORDERED: NS IV 500 ML 500 ML IV ONE (15:34)
--- NOTE | 2019-03-26 15:41 | ED GU-Male ---
General Chief Complaint: - Urinary Stated Complaint: LOW BACK PAIN / WEAKNESS Nursing Triage Note: Patient brought to triage room via wheelchair with spouse and daughter. Patient states he has had frequent urination x 3 days with increased lower back pain. He denies any pain or burning with urination. Patient's family states patient is weaker than normal and more agitated. Source: patient, family (daughter), spouse Exam Limitations: clinical condition (Parkinson's dementia) History of Present Illness Date Seen by Provider: Mar 26, 2019 Time Seen by Provider: 15:22 Initial Comments Patient presents to ER by private conveyance with daughter and spouse and chief complaint the past couple days increased agitation urinary incontinence and wetting the bed. He has Parkinson's dementia and while he is typically inco ntinent it is usually more of a functional incontinence missing the urinal. He has been more agitated and having increased complaints of back pain. He uses oxycodone 4 times a day as necessary for chronic back pain. He's had surgeries. He was recently started on Mybetriq by Dr. Cassidy and has never had prostatic surgery or uroscopy. Allergies and Home Medications Allergies Coded Allergies: No Known Drug Allergies (Unverified , 10/15/12) Home Medications Acetaminophen 500 Mg Tablet, 1,000 MG PO HS, (Reported) TAKES 2 (500MG) TABLETS Amlodipine Besylate/Benazepril 1 Each Capsule, 1 CAP PO DAILY, (Reported) Escitalopram Oxalate 10 Mg Tablet, 10 MG PO DAILY, (Reported) Furosemide 40 Mg Tablet, 40 MG PO HS, (Reported) Gabapentin 300 Mg Capsule, 300 MG PO HS, (Reported) Naproxen Sodium 220 Mg Tablet, 220 MG PO DAILY, (Reported) Omeprazole 40 Mg Capsule.dr, 40 MG PO DAILY, (Reported) Patient Home Medication List Home Medication List Reviewed: Yes Review of Systems Review of Systems Constitutional: No chills, No diaphoresis EENTM: No hearing loss, No eye pain Respiratory: No cough, No short of breath Cardiovascular: No chest pain, No edema Gastrointestinal: No abdominal pain, No nausea, No vomiting Genitourinary: denies dysuria; frequency, incontinence Musculoskeletal: back pain (chronic); No joint pain Skin: No pruritus, No rash Psychiatric/Neurological: Denies Headache, Denies Numbness, Denies Paresthesia Past Qtdzowx-Njqyeb-Hombms Hx Patient Social History Alcohol Use: Denies Use Recreational Drug Use: No Smoking Status: Current Everyday Smoker Type Used: Cigarettes (0.25 ppd) Recent Foreign Travel: No Contact w/Someone Who Travel: No Recent Infectious Disease Expo: No Recent Hopitalizations: No Immunizations Up To Date Tetanus Booster (TDap): Unknown Date of Influenza Vaccine: Jan 23, 2017 Seasonal Allergies Seasonal Allergies: No Past Medical History Surgeries: Yes (L ROTATOR CUFF REPAIR ) Abdominal, Orthopedic Respiratory: Yes Chronic Bronchitis Currently Using CPAP: No Currently Using BIPAP: No Cardiac: Yes Hypertension Neurological: Yes Parkinson's Disease Reproductive Disorders: No Genitourinary: No Gastrointestinal: Yes Abdominal Hernia, Obstructive Bowel Musculoskeletal: Yes (ARTHRITIS, BACK PROBLEMS) Arthritis, Chronic Back Pain Endocrine: No HEENT: Yes Cataract Loss of Vision: Denies Hearing Impairment: Denies Cancer: No Psychosocial: Yes Depression Integumentary: No Blood Disorders: No Family Medical History No Pertinent Family Hx, CAD Over 55 Years Old, Diabetes Physical Exam Vital Signs Vital Signs - First Documented 03/26/19 15:02 Temp 36.9 Pulse 63 Resp 16 B/P (MAP) 118/77 (91) Pulse Ox 94 O2 Delivery Room Air Capillary Refill : Less Than 3 Seconds Height, Weight, BMI Height: 5'9.00" Weight: 240lbs. 0.0oz. 108.874409yw; 34.00 BMI Method:Stated General Appearance: WD/WN, no apparent distress HEENT: PERRL/EOMI, normal ENT inspection, pharynx normal (oral mucosa is mildly dry.) Neck: full range of motion, supple, normal inspection Cardiovascular: normal peripheral pulses, regular rate, rhythm Respiratory: no respiratory distress, no accessory muscle use Gastrointestinal: normal bowel sounds, non tender, soft Extremities: normal range of motion, non-tender, normal capillary refill Neurologic/Psychiatric: alert, normal mood/affect, oriented x 3 Progress/Results/Core Measures Suspected Sepsis Recent Fever Within 48 Hours: No Infection Criteria Present: None New/Unexplained Altered Menta: No Sepsis Screen: No Definite Risk SIRS Temperature: Pulse: 63 Respiratory Rate: 16 Laboratory Tests 03/26/19 15:35: White Blood Count 7.2 Blood Pressure 118 /77 Mean: 91 Laboratory Tests 03/26/19 15:35: Creatinine 0.77, Platelet Count 252, Total Bilirubin 0.4 Results/Orders Lab Results Laboratory Tests Test 03/26/19 15:35 03/26/19 16:03 Range/Units White Blood Count 7.2 4.3-11.0 10^3/uL Red Blood Count 4.97 4.35-5.85 10^6/uL Hemoglobin 13.6 13.3-17.7 G/DL Hematocrit 42 40-54 % Mean Corpuscular Volume 85 80-99 FL Mean Corpuscular Hemoglobin 27 25-34 PG Mean Corpuscular Hemoglobin Concent 32 32-36 G/DL Red Cell Distribution Width 14.2 10.0-14.5 % Platelet Count 252 130-400 10^3/uL Mean Platelet Volume 10.0 7.4-10.4 FL Neutrophils (%) (Auto) 64 42-75 % Lymphocytes (%) (Auto) 25 12-44 % Monocytes (%) (Auto) 9 0-12 % Eosinophils (%) (Auto) 1 0-10 % Basophils (%) (Auto) 0 0-10 % Neutrophils # (Auto) 4.6 1.8-7.8 X 10^3 Lymphocytes # (Auto) 1.8 1.0-4.0 X 10^3 Monocytes # (Auto) 0.6 0.0-1.0 X 10^3 Eosinophils # (Auto) 0.1 0.0-0.3 10^3/uL Basophils # (Auto) 0.0 0.0-0.1 10^3/uL Sodium Level 141 135-145 MMOL/L Potassium Level 3.8 3.6-5.0 MMOL/L Chloride Level 104 98-107 MMOL/L Carbon Dioxide Level 26 21-32 MMOL/L Anion Gap 11 5-14 MMOL/L Blood Urea Nitrogen 13 7-18 MG/DL Creatinine 0.77 0.60-1.30 MG/DL Estimat Glomerular Filtration Rate > 60 BUN/Creatinine Ratio 17 Glucose Level 113 H 70-105 MG/DL Calcium Level 9.4 8.5-10.1 MG/DL Corrected Calcium 9.1 8.5-10.1 MG/DL Total Bilirubin 0.4 0.1-1.0 MG/DL Aspartate Amino Transf (AST/SGOT) 13 5-34 U/L Alanine Aminotransferase (ALT/SGPT) < 6 0-55 U/L Alkaline Phosphatase 89 40-136 U/L Total Protein 7.2 6.4-8.2 GM/DL Albumin 4.4 3.2-4.5 GM/DL Urine Color YELLOW Urine Clarity SL CLOUDY Urine pH 6.0 5-9 Urine Specific [place] 1.025 H 1.016-1.022 Urine Protein NEGATIVE NEGATIVE Urine Glucose (UA) NEGATIVE NEGATIVE Urine Ketones TRACE H NEGATIVE Urine Nitrite NEGATIVE NEGATIVE Urine Bilirubin NEGATIVE NEGATIVE Urine Urobilinogen 0.2 < = 1.0 MG/DL Urine Leukocyte Esterase NEGATIVE NEGATIVE Urine RBC (Auto) NEGATIVE NEGATIVE Urine RBC NONE /HPF Urine WBC NONE /HPF Urine Squamous Epithelial Cells RARE /HPF Urine Crystals NONE /LPF Urine Bacteria TRACE /HPF Urine Casts NONE /LPF Urine Mucus MODERATE H /LPF Urine Culture Indicated NO My Orders Orders - AMRIK MEDINA Ua Culture If Indicated (03/26/19 15:11) Cbc With Automated Diff (03/26/19 15:34) Comprehensive Metabolic Panel (03/26/19 15:34) Ed Iv/Invasive Line Start (03/26/19 15:34) Ns Iv 500 Ml (Sodium Chloride 0.9%) (03/26/19 15:34) Medications Given in ED Current Medications Medications Dose Ordered Sig/[place] Route Start Time Stop Time Status Last Admin Dose Admin Sodium Chloride 500 ml @ 0 mls/hr Q0M ONCE IV 03/26/19 15:34 03/26/19 15:36 DC 03/26/19 15:46 500 MLS/HR Vital Signs/I&O 03/26/19 15:02 Temp 36.9 Pulse 63 Resp 16 B/P (MAP) 118/77 (91) Pulse Ox 94 O2 Delivery Room Air Capillary Refill : Less Than 3 Seconds Blood Pressure Mean: 91 Progress Note : Time: 15:41 Progress Note Plan to get some basic labs and urinalysis. Suspect his behavioral disturbances maybe related delirium secondary to UTI. Aseptic Vital signs. Departure Impression Primary Impression: Dementia Qualified Codes: G20 - Parkinson's disease; F02.81 - Dementia in other diseases classified elsewhere with behavioral disturbance Additional Impression: Incontinence Qualified Codes: N39.41 - Urge incontinence Disposition: 01 HOME, SELF-CARE Condition: Stable Departure-Patient Inst. Decision time for Depature: 16:32 Referrals: KRIS CASSIDY MD Primary Care Physician Patient Instructions: Urinary Incontinence, Male (DC) Add. Discharge Instructions: Follow-up with Dr. Cassidy. Consider consult with urology. Continue your medications as prescribed. All discharge instructions reviewed with patient and/or family. Voiced understanding. AMRIK MEDINA J Mar 26, 2019 15:41
[2019-03-26 15:42] LABS: BASOPHILS % (AUTO) 0 % (0-10); EOSINOPHILS # (AUTO) 0.1 10^3/uL (0.0-0.3); EOSINOPHILS % (AUTO) 1 % (0-10); HEMATOCRIT 42 % (40-54); HEMOGLOBIN 13.6 G/DL (13.3-17.7); LYMPHOCYTES # (AUTO) 1.8 X 10^3 (1.0-4.0); LYMPHOCYTES % (AUTO) 25 % (12-44); MEAN CORPUSCULAR HEMOGLOBIN 27 PG (25-34); MEAN CORPUSCULAR HGB CONC 32 G/DL (32-36); MEAN CORPUSCULAR VOLUME 85 FL (80-99); MONOCYTES # (AUTO) 0.6 X 10^3 (0.0-1.0); MONOCYTES % (AUTO) 9 % (0-12); NEUTROPHILS # (AUTO) 4.6 X 10^3 (1.8-7.8); NEUTROPHILS % (AUTO) 64 % (42-75); PLATELET COUNT 252 10^3/uL (130-400); RED CELL DISTRIBUTION WIDTH 14.2 % (10.0-14.5); WHITE BLOOD COUNT 7.2 10^3/uL (4.3-11.0)
[2019-03-26 16:01] LABS: ALANINE AMINOTRANSFERASE < 6 U/L (0-55); ALBUMIN 4.4 GM/DL (3.2-4.5); ALKALINE PHOSPHATASE 89 U/L (40-136); BILIRUBIN,TOTAL 0.4 MG/DL (0.1-1.0); BUN/CREATININE RATIO 17; CALCIUM 9.4 MG/DL (8.5-10.1); CARBON DIOXIDE 26 MMOL/L (21-32); CHLORIDE 104 MMOL/L (98-107); CREATININE SERUM 0.77 MG/DL (0.60-1.30); GFR ESTIMATED > 60; GLUCOSE 113 MG/DL (70-105); POTASSIUM 3.8 MMOL/L (3.6-5.0); SODIUM 141 MMOL/L (135-145); TOTAL PROTEIN 7.2 GM/DL (6.4-8.2)
[2019-03-26 16:10] LABS: BILIRUBIN,URINE NEGATIVE (NEGATIVE); CLARITY,URINE SL CLOUDY; COLOR,URINE YELLOW; GLUCOSE, URINE (UA) NEGATIVE (NEGATIVE); KETONES,URINE TRACE (NEGATIVE); LEUKOCYTE ESTERASE ,URINE NEGATIVE (NEGATIVE); NITRITE,URINE NEGATIVE (NEGATIVE); PROTEIN,URINE NEGATIVE (NEGATIVE)
[2019-03-26 16:17] LABS: BACTERIA,URINE TRACE /HPF; SQUAMOUS EPITHELIAL CELL,UR RARE /HPF
[2019-03-26 16:40] VITALS: BP 109/66
== END 2019-03-26 16:40 | disposition home or self-care (01) ==
LOC: EDUNIT# 14:59 → ER 15:00
DX: G20 Parkinson's disease (principal); F02.80 Dementia in other diseases classified elsewhere, unspecified severity, without behavioral disturbance, psychotic disturbance, mood disturbance, and anxiety; R32 Unspecified urinary incontinence; I10 Essential (primary) hypertension; F32.9 Major depressive disorder, single episode, unspecified; F17.210 Nicotine dependence, cigarettes, uncomplicated; Z82.49 Family history of ischemic heart disease and other diseases of the circulatory system
CPT/HCPCS: 36415; 80053; 81000; 85025; 96360

== ENCOUNTER → 2019-07-18 | Outpatient (CLI) | payer MEDICARE, OTHER ==
[~2019-07-18] MED LIST changes: +OMEP40CA27 PO; -OMEP40CA36 PO
--- NOTE | 2019-07-18 14:26 | Diagnostic Imaging Report ---
PROCEDURE: MRI lumbar spine. TECHNIQUE: Multiplanar, multisequence MRI of the lumbar spine was performed without contrast. INDICATION: Spinal stenosis, neurogenic claudication COMPARISON: 02/12/2016 FINDINGS: 5 lumbar type vertebral bodies are present. Extensive postsurgical changes are noted throughout the lumbar spine, including decompression of the entire lumbar spine posteriorly. The decompression within the superior aspect of the lumbar spine is new since the prior examination of 2016. Additionally, posterior fusion with bilateral posterior pedicle screws is now identified at L3, L4, L5, and S1 with associated interbody disc device present at L3/L4 and L4/L5. These postsurgical changes are also new since 2016. [place] right curvature of the lumbar spine. No significant anterolisthesis or retrolisthesis. Chronic endplate degenerative changes and anterior wedging of L1 and L2 are identified with associated fatty endplate degenerative changes. No evidence of a recent vertebral body compression deformity. The conus medullaris is unremarkable and terminates at the appropriate location at L1/L2. No focal fluid collection noted within the surgical bed posterior to the lumbar spine. Left renal T2 hyperintense cyst is again identified. Paraspinal soft tissues are otherwise unremarkable. T12/L1: Mild facet joint degenerative changes. Ligamentum flavum hypertrophy. Diffuse disc bulge. There is resulting moderate central canal stenosis with mild bilateral neural foraminal stenosis, right greater than left. L1/L2: Severe disc space height loss. Diffuse disc osteophyte complex. Facet joint degenerative changes. Posterior decompression. There is resulting minimal central canal stenosis with moderate left and severe right neural foraminal stenosis. L2/L3: Postsurgical changes. Bilateral facet joint degenerative changes. Moderate disc space height loss. Diffuse disc osteophyte complex. There is resulting severe central canal stenosis measuring less than 6 mm. Moderate to severe bilateral neural foraminal stenosis. L3/L4: Postsurgical changes. Disc osteophyte complex, though this is predominantly related ti osteophyte formation. There is resulting mild to moderate left neural foraminal stenosis. No significant right neural foraminal stenosis. No significant central canal stenosis. L4/L5: Postsurgical changes. Small diffuse disc osteophyte complex. Moderate to severe bilateral neural foraminal stenosis, right greater than left. L5/S1: Postsurgical changes. Severe disc space height loss. Diffuse disc osteophyte complex. There is resulting minimal central canal stenosis with severe left and moderate right neural foraminal stenosis. IMPRESSION: Extensive postsurgical and degenerative changes as described above without acute osseous abnormality. Relatively high-grade central canal and neural foraminal stenosis at multiple levels throughout the lumbar spine as described above, having progressed since 2016. Central canal stenosis is greatest at the L2/L3 level. Dictated by: Dictated on workstation # [id number]
== END ==
LOC: RAD 12:11
PROVIDERS: ATTEND Registered Nurse
DX: M48.062 Spinal stenosis, lumbar region with neurogenic claudication (principal); M46.1 Sacroiliitis, not elsewhere classified
CPT/HCPCS: 72148

== ENCOUNTER 2019-08-03 15:12 | Outpatient (RCR) | payer MEDICARE, OTHER | END 2019-08-08 | disposition home or self-care (01) | PROVIDERS: ATTEND Internal Medicine | DX: G20 Parkinson's disease (principal); I10 Essential (primary) hypertension; Z72.0 Tobacco use ==

== ENCOUNTER → 2019-08-09 | Outpatient (CLI) | payer MEDICARE, OTHER ==
--- NOTE | 2019-08-09 14:13 | Diagnostic Imaging Report ---
CLINICAL INDICATION: Patient with low back pain spinal stenosis in the lumbar region and no identified claudication. EXAM: X-ray lumbar spine, 5 views including flexion-extension views. COMPARISON: MRI of the lumbar spine dated 07/18/2019. FINDINGS: Again seen postoperative changes to the lumbar spine with L3 through S1 posterior lumbar interbody fusion. Disc space grafts were seen at the L3-L4 and L4-5 levels. There is no evidence of hardware fracture or osteolysis. The lumbar spine shows no significant motion on flexion-extension views. There appears to be grade 1 retrolisthesis of L2 on L3. Severely hypertrophic lumbar spine spurs are again seen which is most pronounced at the thoracolumbar region. L3-L5 laminectomies are seen. There is left curvature of the thoracolumbar spine. IMPRESSION: 1: Again seen posterior lumbar interbody fusion with no interval hardware complications. 2: Flexion extension views of the spine shows no significant motion. 3: Severe degenerative changes at the thoracolumbar region is again seen. There appears to be grade 1 retrolisthesis of L2 on L3. Dictated by: Dictated on workstation # [id number]
== END ==
LOC: RAD 13:28
PROVIDERS: ATTEND Registered Nurse
DX: M48.062 Spinal stenosis, lumbar region with neurogenic claudication (principal); M46.1 Sacroiliitis, not elsewhere classified; M47.815 Spondylosis without myelopathy or radiculopathy, thoracolumbar region; Z98.1 Arthrodesis status
CPT/HCPCS: 72110

== ENCOUNTER → 2019-09-02 | Outpatient (CLI) | payer MEDICARE, OTHER ==
[~2019-09-02] VITALS: Ht 175 cm; Wt 104.0 kg
[~2019-09-02] MED LIST changes: +CATHETER FLUSH 10 ML SYR IV PRN; +REGADENOSON 0.4 MG/5 ML SYR (LEXISCAN) IV ONE
[2019-09-02 18:13] VITALS: BP 117/77
--- NOTE | 2019-09-02 18:13 | Cardiology Stress Test Report ---
Stress Test Report Date of Procedure/Referring: Date of Procedure: Sep 02, 2019 PCP Katya Vincent,[place] Admitting Physician Sami Vincent DO Indications: Dyspnea on exertion Baseline Heart Rate: 58 Baseline Blood Pressure: Blood Pressure Systolic: 117 Blood Pressure Diastolic: 77 Summary: Patient received 10.74 mCi of technetium 99 Myoview and resting images were acquired, with peak stress level 29.7 mCi of technetium 99 were injected on the stress images acquired, images were reviewed and compared. Test was supervised by Dr. Vincent SSS 3 SDS 3 TID 0.99 EF 64% Conclusion: 1. Diaphragmatic attenuation with mild ischemia involving the whole inferior wall. 2. Normal left ventricular size with normal contractibility correctly ejection fraction 64 percent AYDEN LEMUS MD Sep 02, 2019 18:13
== END ==
LOC: CARD 06:50
PROVIDERS: ATTEND Nurse Practitioner Family
DX: I25.89 Other forms of chronic ischemic heart disease (principal); J98.6 Disorders of diaphragm
CPT/HCPCS: 78452; 93017

== ENCOUNTER → 2019-09-21 | Outpatient (CLI) | payer MEDICARE, OTHER ==
[~2019-09-21] MED LIST changes: -CATHETER FLUSH 10 ML SYR IV PRN; -REGADENOSON 0.4 MG/5 ML SYR (LEXISCAN) IV ONE
--- NOTE | 2019-09-21 15:39 | Diagnostic Imaging Report ---
INDICATION: Dyspnea. TIME OF EXAM: 03:30 p.m. COMPARISON: Comparison is made with prior chest from 03/29/2017. FINDINGS: The heart size is normal. The pulmonary vascularity is unremarkable. The lungs are clear. No infiltrate, effusion or pneumothorax is detected. IMPRESSION: No acute cardiopulmonary process is detected. Dictated by: Dictated on workstation # [id number]
--- NOTE | 2019-09-21 20:10 | Diagnostic Imaging Report ---
EXAMINATION: Magnetic resonance imaging of the right shoulder without contrast. DATE: September 21, 2019. COMPARISON: None. HISTORY: 73-year-old male, right shoulder pain. TECHNIQUE: Magnetic Resonance Imaging sequences were performed of the shoulder without contrast. FINDINGS: ROTATOR CUFF, LIGAMENTS, TENDONS, AND MUSCLES: There are full thickness full width tears of the supraspinatus and infraspinatus tendons with tendon retraction near the level of the glenoid, measuring 4.6 cm. There is also a full-thickness tear of the subscapularis tendon with tendon retraction near the level of the glenoid. The teres minor tendon is intact. There is low-level edema-like signal in the infraspinatus muscle which may reflect a low-grade muscle strain or early denervation related signal changes. LONG HEAD OF BICEPS: The long head of the biceps tendon is medially dislocated outside of the bicipital groove. The long head of biceps tendon is intact. GLENOHUMERAL JOINT: The humeral head is superiorly subluxed. The humeral head is not anteriorly or posteriorly subluxed. There is a paralabral cyst adjacent to the posterior inferior labrum, measuring approximately 5 x 3 x 6 mm in size compatible with an adjacent tear of the posterior inferior labrum. There is an irregular appearance of the inferior labrum as well. There is no clearly identified cartilage defect. There is no large glenohumeral joint effusion. ACROMIOCLAVICULAR JOINT: The acromioclavicular joint is normally aligned. The coracoclavicular and coracoacromial ligaments are intact. There are moderate acromioclavicular degenerative changes with a bulbous lateral clavicle projecting 3 mm below the expected joint margin. BONE: There is no os acromiale. There is no acute fracture, bone contusion, or evidence of osteonecrosis. BURSAE AND SOFT TISSUES: There is fluid in the subacromial subdeltoid bursae consistent with the full-thickness rotator cuff tendon tears, bursitis, and/or recent injection. There is low level edema in portions of the anterior aspect of the deltoid muscle which may relate to a low-grade muscle contusion or muscle strain. IMPRESSION: 1. Massive full-thickness rotator cuff tendon tear involving the supraspinatus, infraspinatus, and subscapularis tendons with tendon retraction near the level of the clinoid. The level edema in the infraspinatus muscle may reflect a low-grade muscle strain and/or early denervation related signal changes. No current fatty muscle atrophy. 2. Moderate acromioclavicular degenerative changes with bulbous lateral clavicle projecting 3 mm below the expected joint margin. 3. Tear of the posterior inferior labrum with adjacent paralabral cyst measuring 5 x 3 x 6 mm in size. 4. No acute fracture, bone contusion, or evidence of osteonecrosis. 5. Fluid in the subacromial subdeltoid bursa consistent with the full-thickness rotator cuff tendon tears, bursitis, and/or recent injection. Dictated by: Dictated on workstation # [id number]
== END ==
LOC: RAD 14:25
PROVIDERS: ATTEND Nurse Practitioner Family
DX: S46.011A Strain of muscle(s) and tendon(s) of the rotator cuff of right shoulder, initial encounter (principal); M19.011 Primary osteoarthritis, right shoulder; S43.401A Unspecified sprain of right shoulder joint, initial encounter; S43.431A Superior glenoid labrum lesion of right shoulder, initial encounter; R06.00 Dyspnea, unspecified; X58.XXXA Exposure to other specified factors, initial encounter
CPT/HCPCS: 71046; 73221

== ENCOUNTER → 2019-10-28 | Outpatient (CLI) | payer MEDICARE, OTHER ==
--- NOTE | 2019-10-28 10:16 | Diagnostic Imaging Report ---
INDICATION: Increased falls. History of Parkinson's. Short-term memory loss TECHNIQUE: Routine non contrast-enhanced axial images were obtained from the skull base to the vertex. Auto Exposure Controls were utilized during the CT exam to meet ALARA standards for radiation dose reduction COMPARISON: 09/17/2018 FINDINGS: The ventricles and cortical sulci are diffusely prominent, compatible with age-related volume loss. There are confluent areas of abnormal, low attenuation in the periventricular white matter. This is consistent with chronic small vessel ischemic changes. There is no midline shift or mass-effect. No acute intra-axial hemorrhage is seen. There are no abnormal areas of increased or decreased density to suggest acute hemorrhage or edema. No extra-axial masses or collections are present. The bony calvarium is intact. The visualized paranasal sinuses show minimal scattered mucosal thickening. The mastoid air cells are clear. IMPRESSION: 1. No acute intracranial abnormality. No CT evidence of mass, acute infarct or intracranial hemorrhage. 2. Chronic small vessel ischemic changes in deep white matter Dictated by: Dictated on workstation # [id number]
== END ==
LOC: RAD 09:15
PROVIDERS: ATTEND Nurse Practitioner Family
DX: R41.3 Other amnesia (principal); R29.6 Repeated falls
CPT/HCPCS: 70450

== ENCOUNTER 2019-11-02 15:43 | Outpatient (RCR) | payer MEDICARE, OTHER | END 2019-11-08 | disposition home or self-care (01) | PROVIDERS: ATTEND Internal Medicine | DX: G20 Parkinson's disease (principal); I10 Essential (primary) hypertension; Z72.0 Tobacco use ==

== ENCOUNTER → 2019-12-19 | Outpatient (CLI) | payer MEDICARE, OTHER | LOC: CARD 11:30 | PROVIDERS: ATTEND Nurse Practitioner Family | DX: I51.7 Cardiomegaly (principal); R01.1 Cardiac murmur, unspecified; R60.0 Localized edema | CPT/HCPCS: 93306 ==

== ENCOUNTER 2020-01-12 12:54 | Outpatient (RCR) | payer MEDICARE, OTHER | END 2020-02-08 | disposition home or self-care (01) | PROVIDERS: ATTEND Internal Medicine | DX: G20 Parkinson's disease (principal) ==

== ENCOUNTER → 2020-02-17 | Outpatient (CLI) | payer MEDICARE, OTHER ==
--- NOTE | 2020-02-17 11:55 | Diagnostic Imaging Report ---
INDICATION: Pneumonia. COMPARISON: 09/21/2019. FINDINGS: Frontal and lateral views of the chest demonstrate normal heart size and pulmonary vascularity. The lungs are clear. There are no signs of infiltrate, pleural effusions, or pneumothoraces. The visualized osseous structures show no acute abnormalities. IMPRESSION: No acute process. No signs of infiltrates, effusions, or pneumothoraces. Dictated by: Dictated on workstation # [id number]
== END ==
LOC: RAD 10:49
PROVIDERS: ATTEND Nurse Practitioner Family
DX: J18.9 Pneumonia, unspecified organism (principal)
CPT/HCPCS: 71046

== ENCOUNTER → 2020-02-25 | Outpatient (CLI) | payer MEDICARE, OTHER ==
--- NOTE | 2020-02-25 16:15 | Diagnostic Imaging Report ---
EXAMINATION: Right knee, 3 views. HISTORY: Knee pain, right, acute. COMPARISON: None available. FINDINGS: Alignment is normal. No fracture is seen. No joint effusion is present. There is soft tissue swelling overlying the patella. IMPRESSION: Soft tissue swelling overlying the right patella without acute fracture of the right knee. Dictated by: Dictated on workstation # [id number]
== END ==
LOC: RAD 15:37
PROVIDERS: ATTEND Internal Medicine
DX: M25.461 Effusion, right knee (principal)
CPT/HCPCS: 73562

== ENCOUNTER 2020-03-16 16:50 | Emergency (ER) | payer MEDICARE, OTHER ==
[~2020-03-16] VITALS: Ht 175.3 cm; Wt 109.7 kg
[2020-03-16] MEDS ORDERED: fentaNYL INJECTION 100 MCG/2 ML AMP ONE (17:24)
[2020-03-16] MEDS ORDERED: fentaNYL INJECTION 100 MCG/2 ML AMP IVP ONE (17:30)
[2020-03-16 17:32] LABS: ABG BASE EXCESS 2.3 MMOL/L (-2.5-2.5); ABG OXYGEN SATURATION 93 % (94-100); ABG PCO2 49 MMHG (35-45); ABG PH 7.36 (7.37-7.43); ABG PO2 71 MMHG (79-93); ABG TCO2 28.7 MMOL/L (21.0-31.0); ALLENS TEST YES-POS
[2020-03-16 17:33] LABS: INSPIRED O2 ROOM AIR; PATIENT TEMP 36.7; VENTILATOR NO
--- NOTE | 2020-03-16 17:33 | ED Fall/Injury ---
General Chief Complaint: Trauma-Non Activation Stated Complaint: FALL Nursing Triage Note: PT TO RM 7 BY WHEELCHAIR WITH COMPLAINT OF FALL. STATES HE FELL LAST NIGHT AND LANDED ON HEATER HITTING RIGHT SIDE OF BACK. Source: patient Exam Limitations: no limitations (AMRIK MEDINA) History of Present Illness Date Seen by Provider: Mar 16, 2020 Time Seen by Provider: 17:11 Initial Comments The patient presents to the ER by private conveyance from home with chief complaint he had a fall last night while trying to get undressed. He lost his balance. He struck the top of his occipital scalp and did not have any bleeding just a small bruise and hematoma. He is not on a blood thinner. He does have Parkinson's and follows with Dr. Vincent. He has had a cough and mild shortness of air for the past week. No fevers or chills that he is aware of. No sweats nausea vomiting diarrhea constipation or loss of taste or sense of smell. No sick contacts. He was tested for Covid in June which was negative. He denies a history of lung disease, asthma, COPD but does smoke cigarettes, approximately 6/day. Patient states he uses hydrocodone 7.5 about 3 times a day as necessary for chronic back pain. He has a history of back surgery. His last dose was this morning. He rates his pain in his low back is a 7 out of 10 and would like something for pain. (AMRIK MEDINA) Allergies and Home Medications Allergies Coded Allergies: No Known Drug Allergies (Unverified , 10/15/12) Home Medications Acetaminophen 500 Mg Tablet, 1,000 MG PO HS, (Reported) TAKES 2 (500MG) TABLETS Amlodipine Besylate/Benazepril 1 Each Capsule, 1 CAP PO DAILY, (Reported) Escitalopram Oxalate 10 Mg Tablet, 10 MG PO DAILY, (Reported) Furosemide 40 Mg Tablet, 40 MG PO HS, (Reported) Gabapentin 300 Mg Capsule, 300 MG PO HS, (Reported) Levofloxacin 500 Mg Tablet, 500 MG PO DAILY Prescribed by: MARK INGRAM on 03/16/201847 Naproxen Sodium 220 Mg Tablet, 220 MG PO DAILY, (Reported) Omeprazole 40 Mg Capsule.dr, 40 MG PO DAILY, (Reported) Prednisone 20 Mg Tab, 40 MG PO DAILY Prescribed by: MARK INGRAM on 03/16/201847 Patient Home Medication List Home Medication List Reviewed: Yes (AMRIK MEDINA) Review of Systems Review of Systems Constitutional: No chills, No diaphoresis Eyes: Denies Blindness, Denies Blurred Vision Ears, Nose, Mouth, Throat: denies ear pain, denies ear discharge Respiratory: No cough, No short of breath Cardiovascular: No chest pain, No palpitations Gastrointestinal: No abdominal pain, No nausea Genitourinary: No discharge, No dysuria Musculoskeletal: see HPI, back pain; No joint pain (AMRIK MEDINA) All Other Systems Reviewed Negative Unless Noted: Yes (AMRIK MEDINA) Past Ejnnxfu-Nkwrok-Wldbpj Hx Patient Social History Alcohol Use: Denies Use Recreational Drug Use: No Smoking Status: Current Everyday Smoker Type Used: Cigarettes Recent Foreign Travel: No Contact w/Someone Who Travel: No Recent Infectious Disease Expo: No Recent Hopitalizations: No (AMRIK MEDINA) Immunizations Up To Date Tetanus Booster (TDap): Unknown Date of Influenza Vaccine: Jan 23, 2017 (AMRIK MEDINA) Seasonal Allergies Seasonal Allergies: No (AMRIK MEDINA) Past Medical History Surgeries: Yes (L ROTATOR CUFF REPAIR ) Abdominal, Orthopedic Respiratory: Yes Chronic Bronchitis Currently Using CPAP: No Currently Using BIPAP: No Cardiac: Yes Hypertension Neurological: Yes Parkinson's Disease Reproductive Disorders: No Genitourinary: No Gastrointestinal: Yes Abdominal Hernia, Obstructive Bowel Musculoskeletal: Yes (ARTHRITIS, BACK PROBLEMS) Arthritis, Chronic Back Pain Endocrine: No HEENT: Yes Cataract Loss of Vision: Denies Hearing Impairment: Denies Cancer: No Psychosocial: Yes Depression Integumentary: No Blood Disorders: No (AMRIK MEDINA) Family Medical History No Pertinent Family Hx, CAD Over 55 Years Old, Diabetes (AMRIK MEDINA) Physical Exam Vital Signs Vital Signs - First Documented 03/16/20 16:53 Temp 36.7 Pulse 70 Resp 22 B/P (MAP) 109/69 (82) Pulse Ox 91 O2 Delivery Nasal Cannula O2 Flow Rate 2.00 (MARK INGRAM APRN) Vital Signs Capillary Refill : Less Than 3 Seconds (AMRIK MEDINA) Height, Weight, BMI Height: 5'9.00" Weight: 240lbs. 0.0oz. [id number]; 35.00 BMI Method:Stated General Appearance: WD/WN, mild distress HEENT: PERRL/EOMI, TMs normal, pharynx normal Neck: non-tender, full range of motion, supple, normal inspection Cardiovascular: normal peripheral pulses, regular rate, rhythm, no edema Respiratory: chest non-tender, lungs clear, normal breath sounds, no respiratory distress, no accessory muscle use Peripheral Pulses: 2+ Radial Pulses (R), 2+ Radial Pulses (L) Gastrointestinal: normal bowel sounds, non tender, soft Back: normal inspection, vertebral tenderness (Low thoracic, upper lumbar midline tenderness and tenderness bilateral soft tissue upper lumbar spine) Extremities: non-tender, normal capillary refill Neurologic/Psychiatric: no motor/sensory deficits, alert, normal mood/affect, oriented x 3 Skin: normal color, warm/dry, ecchymosis (1 x 3 cm ecchymoses with intact skin on the right occiput scalp) (AMRIK MEDINA) [place] Coma Score Best Eye Response: (4) Open Spontaneously Best Verbal Response: (5) Oriented Best Motor Response: (6) Obeys Commands [place] Total: 15 (AMRIK MEDINA) Progress/Results/Core Measures Results/Orders Lab Results Laboratory Tests Test 03/16/20 17:05 03/16/20 17:20 Range/Units Coronavirus 2019 (KIMBERLY) Negative Negative White Blood Count 7.4 4.3-11.0 10^3/uL Red Blood Count 4.72 4.30-5.52 10^6/uL Hemoglobin 12.5 L 13.3-17.7 g/dL Hematocrit 41 40-54 % Mean Corpuscular Volume 86 80-99 fL Mean Corpuscular Hemoglobin 27 25-34 pg Mean Corpuscular Hemoglobin Concent 31 L 32-36 g/dL Red Cell Distribution Width 14.4 10.0-14.5 % Platelet Count 246 130-400 10^3/uL Mean Platelet Volume 10.6 9.0-12.2 fL Immature Granulocyte % (Auto) 0 % Neutrophils (%) (Auto) 71 42-75 % Lymphocytes (%) (Auto) 17 12-44 % Monocytes (%) (Auto) 10 0-12 % Eosinophils (%) (Auto) 2 0-10 % Basophils (%) (Auto) 1 0-10 % Neutrophils # (Auto) 5.2 1.8-7.8 10^3/uL Lymphocytes # (Auto) 1.3 1.0-4.0 10^3/uL Monocytes # (Auto) 0.7 0.0-1.0 10^3/uL Eosinophils # (Auto) 0.1 0.0-0.3 10^3/uL Basophils # (Auto) 0.0 0.0-0.1 10^3/uL Immature Granulocyte # (Auto) 0.0 0.0-0.1 10^3/uL Blood Gas Puncture Site R RAD Blood Gas Patient Temperature 36.7 Arterial Blood pH 7.36 L 7.37-7.43 Arterial Blood Partial Pressure CO2 49 H 35-45 MMHG Arterial Blood Partial Pressure O2 71 L 79-93 MMHG Arterial Blood HCO3 27 23-27 MMOL/L Arterial Blood Total CO2 28.7 21.0-31.0 MMOL/L Arterial Blood Oxygen Saturation 93 L 94-100 % Arterial Blood Base Excess 2.3 -2.5-2.5 MMOL/L Uriah Test YES-POS Blood Gas Ventilator Setting NO Blood Gas Inspired Oxygen ROOM AIR Sodium Level 140 135-145 MMOL/L Potassium Level 4.5 3.6-5.0 MMOL/L Chloride Level 104 98-107 MMOL/L Carbon Dioxide Level 27 21-32 MMOL/L Anion Gap 9 5-14 MMOL/L Blood Urea Nitrogen 29 H 7-18 MG/DL Creatinine 0.97 0.60-1.30 MG/DL Estimat Glomerular Filtration Rate > 60 BUN/Creatinine Ratio 30 Glucose Level 102 70-105 MG/DL Calcium Level 8.7 8.5-10.1 MG/DL Corrected Calcium 8.6 8.5-10.1 MG/DL Total Bilirubin 0.5 0.1-1.0 MG/DL Aspartate Amino Transf (AST/SGOT) 11 5-34 U/L Alanine Aminotransferase (ALT/SGPT) < 6 0-55 U/L Alkaline Phosphatase 98 40-136 U/L Total Protein 7.0 6.4-8.2 GM/DL Albumin 4.1 3.2-4.5 GM/DL (MARK INGRAM APRN) Micro Results Microbiology 03/16/20 Influenza Types A,B Antigen (FELICE) - Final, Complete (MARK INGRAM APRN) My Orders Orders - MARK INGRAM APRN Procalcitonin (Pct) (03/16/20 18:35) Levofloxacin Tablet (Levaquin Tablet) (03/16/20 19:00) Prednisone Tablet (Deltasone Tablet) (03/16/20 19:00) (MARK INGRAM APRN) Medications Given in ED Current Medications Medications Dose Ordered Sig/[place] Route Start Time Stop Time Status Last Admin Dose Admin Fentanyl Citrate 75 mcg ONCE ONCE IVP 03/16/20 17:30 03/16/20 17:31 DC 03/16/20 17:33 75 MCG Levofloxacin 500 mg ONCE ONCE PO 03/16/20 19:00 03/16/20 19:01 03/16/20 18:55 500 MG Prednisone 40 mg ONCE ONCE PO 03/16/20 19:00 03/16/20 19:01 03/16/20 18:55 40 MG (MARK INGRAM APRN) Vital Signs/I&O 03/16/20 16:53 Temp 36.7 Pulse 70 Resp 22 B/P (MAP) 109/69 (82) Pulse Ox 91 O2 Delivery Nasal Cannula O2 Flow Rate 2.00 (MARK INGRAM APRN) Blood Pressure Mean: 82 Progress Progress Note #1: Time: 17:35 Progress Note Plan to get a CT of his head, C-spine, thoracic and lumbar spine without IV contrast to evaluate for fracture or hemorrhage. He wants something for pains were going to give him fentanyl 75 mcg IV x1. His oxygen sats are 93 to 94% and he has clear lungs on auscultation but cough that he says is sometimes productive so the differential includes pneumonia, Covid etc. No fever. Plan to swab him and get lab and x-ray. ABG. Progress Note #2: Time: 17:51 Progress Note Patient's ABG demonstrates some CO2 retention and hypoxia. The rapid Covid and influenza were negative. Imaging is pending and the case has been turned over at shift change to Mark Ingram. Will recommend BiPAP or Vapotherm inpatient for COPD exacerbation. (AMRIK MEDINA) Diagnostic Imaging Diagonstic Imaging: Xray Plain Films/CT/US/NM/MRI: chest Reviewed: Reviewed by Me Diagonstic Imaging: CT Plain Films/CT/US/NM/MRI: c-spine, head Reviewed: Reviewed by Me Diagonstic Imaging: CT Plain Films/CT/US/NM/MRI: other Reviewed: Reviewed by Me (AMRIK MEDINA) Departure Communication (Admissions) 1838 patient's oxygen saturation was a little low at about 86% on room air on arrival. Increase to 93% on [address] head cervical spine is back and unremarkable. I added a pro-calcitonin to labs. Lumbar spine pending. 184-I discussed with him the need for hospitalization given the ABG results as well as the hypoxia. He states he is not going to stay. I discussed with him the risks of leaving which would include respiratory failure,permanent disability or and benefits of staying would be respiratory support with BiPAP or Vapotherm but he states he is going to go on home. He agrees to sign out AGAINST MEDICAL ADVICE. I will prescribe some steroids and antibiotics. I spoke with his and discussed the plan with her. She understands and agrees with the plan. Patient is alert and oriented no stories that knows the month day and the year. He understands the risks of leaving. (MARK INGRAM APRN) Impression Primary Impression: COPD with exacerbation Additional Impressions: Fall Qualified Codes: W19.XXXA - Unspecified fall, initial encounter Right 10th rib fracture left 12th rib fracture right t12 l1 transverse process fracture Disposition: 07 AGAINST MEDICAL ADVICE Condition: Against Medical Advice Departure-Patient Inst. Decision time for Depature: 18:47 (MARK INGRAM APRN) Referrals: ALLYSON VINCENT DO (PCP/Family) Primary Care Physician Patient Instructions: COPD Exacerbation, Adult ED Add. Discharge Instructions: 1. Take steroids and antibiotics as directed. Return to ER for any worsening. All discharge instructions reviewed with patient and/or family. Voiced understanding. Scripts Prednisone (Prednisone) 20 Mg Tab 40 MG PO DAILY, #6 TAB 0 Refills Prov: MARK INGRAM APRN 03/16/20 Levofloxacin (Levofloxacin) 500 Mg Tablet 500 MG PO DAILY, #6 TAB 0 Refills Prov: MARK INGRAM APRN 03/16/20 Copy Copies To 1: ALLYSON VINCENT TITUS J Mar 16, 2020 17:33 MARK INGRAM APRN Mar 16, 2020 18:34
[2020-03-16 17:36] LABS: BASOPHILS % (AUTO) 1 % (0-10); EOSINOPHILS # (AUTO) 0.1 10^3/uL (0.0-0.3); EOSINOPHILS % (AUTO) 2 % (0-10); HEMATOCRIT 41 % (40-54); HEMOGLOBIN 12.5 g/dL (13.3-17.7); LYMPHOCYTES # (AUTO) 1.3 10^3/uL (1.0-4.0); LYMPHOCYTES % (AUTO) 17 % (12-44); MEAN CORPUSCULAR HEMOGLOBIN 27 pg (25-34); MEAN CORPUSCULAR HGB CONC 31 g/dL (32-36); MEAN CORPUSCULAR VOLUME 86 fL (80-99); MEAN PLATELET VOLUME 10.6 fL (9.0-12.2); MONOCYTES # (AUTO) 0.7 10^3/uL (0.0-1.0); MONOCYTES % (AUTO) 10 % (0-12); NEUTROPHILS # (AUTO) 5.2 10^3/uL (1.8-7.8); NEUTROPHILS % (AUTO) 71 % (42-75); PLATELET COUNT 246 10^3/uL (130-400); WHITE BLOOD COUNT 7.4 10^3/uL (4.3-11.0)
[2020-03-16 17:42] LABS: ALBUMIN 4.1 GM/DL (3.2-4.5); CHLORIDE 104 MMOL/L (98-107); POTASSIUM 4.5 MMOL/L (3.6-5.0); SODIUM 140 MMOL/L (135-145)
[2020-03-16 17:43] LABS: CALCIUM 8.7 MG/DL (8.5-10.1)
[2020-03-16 17:44] LABS: GLUCOSE 102 MG/DL (70-105)
[2020-03-16 17:45] LABS: CARBON DIOXIDE 27 MMOL/L (21-32)
[2020-03-16 17:46] LABS: BILIRUBIN,TOTAL 0.5 MG/DL (0.1-1.0)
[2020-03-16 17:47] LABS: ALKALINE PHOSPHATASE 98 U/L (40-136)
[2020-03-16 17:48] LABS: CREATININE SERUM 0.97 MG/DL (0.60-1.30); GFR ESTIMATED > 60
[2020-03-16 17:49] LABS: BUN/CREATININE RATIO 30
[2020-03-16 17:51] LABS: ALANINE AMINOTRANSFERASE < 6 U/L (0-55)
--- NOTE | 2020-03-16 18:00 | Diagnostic Imaging Report ---
INDICATION: Pneumonia. FINDINGS: There is cardiomegaly and mild venous congestion. There are patchy right basilar infiltrates. There is no pneumothorax. Mediastinum is unremarkable. IMPRESSION: Patchy right basilar infiltrate. Early pneumonia cannot be excluded. Cardiomegaly and mild central pulmonary venous congestion. Dictated by: Dictated on workstation # [id number]
--- NOTE | 2020-03-16 18:32 | Diagnostic Imaging Report ---
PROCEDURE: CT head and CT cervical spine without contrast. TECHNIQUE: Multiple contiguous axial images were obtained through the brain and cervical spine without the use of intravenous contrast. Sagittal and coronal reformations through the cervical spine were then performed. Auto Exposure Controls were utilized during the CT exam to meet ALARA standards for radiation dose reduction. INDICATION: Head and neck pain after fall. COMPARISON: Prior examination from 10/28/2019. FINDINGS: There is prominence of the ventricles and sulci. There is no hydrocephalus. There is no midline shift. There is no mass, hemorrhage or extra-axial fluid collection. Calvarium is intact. Sinuses and mastoid air cells are clear. There is straightening of the normal cervical lordosis. There is multilevel degenerative disc disease and posterior facet arthropathy. There is no fracture or traumatic subluxation. Odontoids intact and lateral masses are well aligned. Prevertebral soft tissues are within normal limits. The lung apices are clear. IMPRESSION: 1. No acute intracranial abnormality 2. Moderate cervical spondylosis and multilevel degenerative disc disease without acute fracture or traumatic subluxation. Dictated by: Dictated on workstation # [id number]
--- NOTE | 2020-03-16 18:43 | Diagnostic Imaging Report ---
PROCEDURE: CT thoracic and lumbar spine without contrast. TECHNIQUE: Multiple contiguous axial images were obtained through the thoracic and lumbar spine without the use of intravenous contrast. Sagittal and coronal reformations were then performed.All CT scans use one or more of the following dose optimizing techniques: automated exposure control, MA and/or KvP adjustment based on a patient size and exam type, or iterative reconstruction. INDICATION: Trauma, fall COMPARISON: Imaging from the same date as well as MRI of the lumbar spine dated 07/18/2019 FINDINGS: Minimal reverse S-shaped curvature of the thoracolumbar spine. No significant anterolisthesis or retrolisthesis. Postsurgical changes are noted within the lumbar spine with posterior fusion with bilateral posterior pedicle screws of L3-S1 without evidence of hardware complication. Mild superior endplate deformity of T3 is present, appearing similar to prior CT from 09/17/2018. Chronic anterior wedging of L1 is also present. Vertebral body heights are otherwise well-maintained. Multilevel prominent anterior osteophytes are noted throughout the thoracic spine. Recent appearing nondisplaced fracturing involving the right T12 transverse process. Mildly displaced acute appearing fracturing involving the medial aspect of the right 10th rib. Nondisplaced recent appearing fracture involving the right L1 transverse process. Recent appearing nondisplaced fracture of the left L2 transverse process. Recent appearing fracturing of the medial aspect of the left 12th rib. Age-indeterminate nondisplaced fracturing of the right L3 transverse process. The sacroiliac joints are intact. Small right pleural effusion with adjacent atelectasis or less likely infiltrate. Scattered vascular calcifications. IMPRESSION: Recent appearing fracturing of bilateral transverse processes about the thoracolumbar junction as described above. Recent mildly displaced medial right 10th rib fracture. Recent essentially nondisplaced medial left 12th rib fracture. Scattered degenerative changes and postsurgical changes throughout the thoracolumbar spine. Small right pleural effusion with adjacent atelectasis or less likely infiltrate. Dictated by: Dictated on workstation # [id number]
[2020-03-16] MEDS ORDERED: PRD20T PO (18:48)
[2020-03-16] MEDS ORDERED: LEVO500T80 PO (18:48)
[2020-03-16] MEDS ORDERED: predniSONE 20 MG TAB PO ONE (19:00)
[2020-03-16] MEDS ORDERED: LEVOFLOXACIN 500 MG TAB (LEVAQUIN) PO ONE (19:00)
[2020-03-16 19:05] VITALS: BP 107/68
[2020-03-20] MEDS ORDERED: PRED10TA22 PO (11:10)
[2020-03-20] MEDS ORDERED: CEFD300C3 PO (11:10)
[2020-03-20] MEDS ORDERED: DIVA125C10 PO (11:17)
== END 2020-03-16 19:05 | disposition left against medical advice (07) ==
LOC: EDUNIT# 16:50 → ER 16:51
DX: S22.43XA Multiple fractures of ribs, bilateral, initial encounter for closed fracture (principal); S32.010A Wedge compression fracture of first lumbar vertebra, initial encounter for closed fracture; S32.020A Wedge compression fracture of second lumbar vertebra, initial encounter for closed fracture; S32.030A Wedge compression fracture of third lumbar vertebra, initial encounter for closed fracture; S22.081A Stable burst fracture of T11-T12 vertebra, initial encounter for closed fracture; S00.03XA Contusion of scalp, initial encounter; J44.9 Chronic obstructive pulmonary disease, unspecified; I10 Essential (primary) hypertension; F32.9 Major depressive disorder, single episode, unspecified; R40.2410 Glasgow coma scale score 13-15, unspecified time; F17.210 Nicotine dependence, cigarettes, uncomplicated; Z20.828 Contact with and (suspected) exposure to other viral communicable diseases; Z82.49 Family history of ischemic heart disease and other diseases of the circulatory system; Z83.3 Family history of diabetes mellitus; Z79.52 Long term (current) use of systemic steroids; W18.39XA Other fall on same level, initial encounter; W22.8XXA Striking against or struck by other objects, initial encounter
CPT/HCPCS: 70450; 71045; 72125; 72128; 72131; 80053; 82805; 84145; 85025; 87804; 96374; 99285; U0002; 36415; 87635

== ENCOUNTER 2020-03-16 22:06 | Inpatient (IN) | payer MEDICARE, OTHER ==
[~2020-03-16] VITALS: Ht 175.3 cm; Wt 108.9 kg
[~2020-03-16 22:06] MED LIST changes: +LEVO500T80 PO; +PRD20T PO
[2020-03-16] MEDS ORDERED: ALBUTEROL/IPRATROP (COMBIVENT RESPIMAT) 4 GM INHALER ONE (23:14)
[2020-03-16] MEDS ORDERED: ADVAIR HFA 115/21 MCG INHALER 8 GM IH ONE (23:14)
[2020-03-16] MEDS ORDERED: fentaNYL INJECTION 100 MCG/2 ML AMP IVP ONE (23:15)
[2020-03-16] MEDS ORDERED: methylPREDNISolone 125 MG (Solu-MEDROL) VIAL IVP ONE (23:15)
[2020-03-16 23:21] LABS: ABG BASE EXCESS 1.8 MMOL/L (-2.5-2.5); ABG OXYGEN SATURATION 90 % (94-100); ABG PCO2 46 MMHG (35-45); ABG PH 7.38 (7.37-7.43); ABG PO2 62 MMHG (79-93); ABG TCO2 27.9 MMOL/L (21.0-31.0)
[2020-03-16 23:22] LABS: ALLENS TEST YES-POS; INSPIRED O2 2 L; VENTILATOR NO
[2020-03-16 23:23] LABS: PATIENT TEMP 36.7
--- NOTE | 2020-03-16 23:33 | ED General ---
General Chief Complaint: General Problems/Pain Stated Complaint: SOB;GEN BODY PAIN Source of Information: Patient (VERY LIMITED HISTORIAN--STATES "MY KNOWS ALL THAT"), Old Records History of Present Illness Date Seen by Provider: Mar 16, 2020 Time Seen by Provider: 23:00 Initial Comments PT ARRIVES VIA POV FROM HOME PT SEEN HERE IN ER EARLIER THIS EVENING, AND LEFT AGAINST MEDICAL ADVICE--IT WAS FELT THAT PT NEEDED TO BE ADMITTED AND HE REFUSED PT NOW STATES HE IS WILLING TO BE ADMITTED--STATES HIS MADE HIM COME BACK. PT HAD A FALL LAST NIGHT, LOST HIS BALANCE WHILE GETTING UNDRESSED, AND HIT THE BACK OF HIS HEAD, AND LANDED ON HIS BACK PT HAD CT OF HEAD, CERVICAL/THORACIC/LUMBAR SPINE, WHICH SHOWED RIGHT T12, L1 AND L2 TRANSVERSE PROCESS FRACTURES, AGE INDETERMINATE RIGHT L3 TRANSVERSE PROCESS FRACTURE, RIGHT 10TH RIB FRACTURE AND LEFT 12TH RIB FRACTURE. SMALL RIGHT PLEURAL EFFUSION AND ATELECTASIS OR POSSIBLE INFILTRATE. CXR REPORTED AT [facility] RIGHT BASILAR INFILTRATE. PT ALSO WITH COPD, AND CONTINUES TO SMOKE ( AND SMOKED JUST BEFORE HE ENTERED ER A FEW MINUTES AGO). HIS O2 SATS EARLIER WERE 86% AND WAS PLACED ON O2 AND FELT HE WOULD BENEFIT FROM BIPAP OR VAPOTHERM. HE DOES NOT HAVE HOME O2, ONLY WEARS CPAP AT HS. STATES HE HAS NOT USED HIS INHALER TONIGHT. PT HAD A NEGATIVE RAPID COVID-19 AND NEGATIVE FLU TESTS TONIGHT. PT WAS GIVEN RX'S FOR PREDNISONE AND LEVAQUIN, AND GIVEN A DOSE OF EACH PRIOR TO PT LEAVING. PT IS NOT ON BLOOD THINNERS SEE CHART FROM EARLIER THIS EVENING FOR FURTHER DETAILS PCP: DR. DIALLO Allergies and Home Medications Allergies Coded Allergies: No Known Drug Allergies (Unverified , 10/15/12) Home Medications Acetaminophen 500 Mg Tablet, 1,000 MG PO HS, (Reported) TAKES 2 (500MG) TABLETS Amlodipine Besylate/Benazepril 1 Each Capsule, 1 CAP PO DAILY, (Reported) Escitalopram Oxalate 10 Mg Tablet, 10 MG PO DAILY, (Reported) Furosemide 40 Mg Tablet, 40 MG PO HS, (Reported) Gabapentin 300 Mg Capsule, 300 MG PO HS, (Reported) Levofloxacin 500 Mg Tablet, 500 MG PO DAILY Prescribed by: MARK MANCERA on 03/16/20 8916 Naproxen Sodium 220 Mg Tablet, 220 MG PO DAILY, (Reported) Omeprazole 40 Mg Capsule.dr, 40 MG PO DAILY, (Reported) Prednisone 20 Mg Tab, 40 MG PO DAILY Prescribed by: MARK MANCERA on 03/16/20 0203 Patient Home Medication List Home Medication List Reviewed: Yes Review of Systems Review of Systems Constitutional: no symptoms reported; No fever Respiratory: see HPI, cough; No phlegm; short of breath Cardiovascular: No chest pain; edema; No palpitations Gastrointestinal: No abdominal pain, No nausea, No vomiting Musculoskeletal: see HPI, back pain Skin: no symptoms reported Psychiatric/Neurological: No Symptoms Reported; Denies Headache, Denies Numbness, Denies Paresthesia, Denies Weakness Hematologic/Lymphatic: No Symptoms Reported Immunological/Allergic: no symptoms reported Past Ltxlukk-Ikbben-Xrexkl Hx Past Med/Social Hx: Reviewed and Corrections made Patient Social History Smoking Status: Current Everyday Smoker Type Used: Cigarettes Recent Foreign Travel: No Contact w/Someone Who Travel: No Recent Hopitalizations: No Immunizations Up To Date Tetanus Booster (TDap): Unknown Date of Influenza Vaccine: Jan 23, 2017 Seasonal Allergies Seasonal Allergies: No Past Medical History Surgeries: Yes (L ROTATOR CUFF REPAIR;BACK SURGERY X 2;L FOOT SURGERY;VENTRAL HERNIA ) Abdominal, Orthopedic, Tonsillectomy Respiratory: Yes Chronic Bronchitis Currently Using CPAP: Yes Currently Using BIPAP: No Cardiac: Yes Chronic Edema/Swelling, Hypertension Neurological: Yes Parkinson's Disease Reproductive Disorders: No Genitourinary: No Gastrointestinal: Yes (VENTRAL HERNIA REPAIR) Abdominal Hernia, Obstructive Bowel Musculoskeletal: Yes (R ROTATOR CUFF INJ--NO SURGERY;L ROTATOR CUFF SX;BACK SX X2;L FOOT SX AGE 4) Degenerate Disk Disease, Arthritis, Chronic Back Pain Endocrine: No HEENT: Yes (TONSILLECTOMY) Cataract Loss of Vision: Denies Hearing Impairment: Denies Cancer: No Psychosocial: Yes Sleep Difficulties, Depression Integumentary: No Blood Disorders: No Family Medical History No Pertinent Family Hx, CAD Over 55 Years Old, Diabetes Physical Exam Vital Signs Vital Signs - First Documented 03/16/20 03/16/20 03/17/20 23:05 23:08 01:03 Temp 36.8 Pulse 76 Resp 20 B/P (MAP) 107/75 (86) Pulse Ox 89 O2 Delivery Room Air O2 Flow Rate 2.00 Capillary Refill : Height, Weight, BMI Height: 5'9.00" Weight: 240lbs. 0.0oz. 108.116136at; 35.00 BMI Method:Stated General Appearance: Obese, Other (MOVES EXTREMELY SLOW AND NEEDS 2 PERSON ASSIST FOR TRANSFER FROM WHEELCHAIR TO BED. MILDLY DYSPNEIC WITH AUDIBLE RHONCHI) HEENT: PERRL/EOMI Neck: Normal Inspection Respiratory: Chest Non Tender, Other (MILDLY DYSPNEIC, WITH AUDIBLE RHONCHI. D ECREASED AERATION BILATERAL BASES) Cardiovascular: Regular Rate, Rhythm, No Murmur Gastrointestinal: Soft, Tenderness (RIGHT UPPER QUADRANT, RIGHT MID ABDOMEN AND RIGHT FLANK TENDERNESS. ) Back: CVA Tenderness (L), CVA Tenderness (R), Decreased Range of Motion, Vertebral Tenderness, Other (DIFFUSE MID AND LOWER BACK TENDERNESS, RIGHT > LEFT CVA TENDERNESS. ) Extremity: Normal Range of Motion, Non Tender, Pedal Edema (2+ EDEMA BILATERALLY WITH CHRONIC VENOUS STASIS CHANGES BILATERALLY) Neurologic/Psychiatric: Alert, Oriented x3, No Motor/Sensory Deficits, Other (FLAT AFFECT) Skin: Normal Color, Warm/Dry, Ecchymosis (MULTIPLE BRUISES OF VARIOUS AGES ON ARMS AND LEGS) Progress/Results/Core Measures Suspected Sepsis SIRS Temperature: Pulse: Respiratory Rate: Blood Pressure / Mean: Results/Orders Lab Results Laboratory Tests Test 03/16/20 23:08 03/16/20 23:12 Range/Units Magnesium Level 2.1 1.6-2.4 MG/DL Total Creatine Kinase 144 30-200 U/L Creatine Kinase MB 2.0 <6.6 NG/ML Myoglobin 78.7 10.0-92.0 NG/ML Troponin I < 0.028 <0.028 NG/ML B-Type Natriuretic Peptide 31.3 <100.0 PG/ML Blood Gas Puncture Site L RAD Blood Gas Patient Temperature 36.7 Arterial Blood pH 7.38 7.37-7.43 Arterial Blood Partial Pressure CO2 46 H 35-45 MMHG Arterial Blood Partial Pressure O2 62 L 79-93 MMHG Arterial Blood HCO3 27 23-27 MMOL/L Arterial Blood Total CO2 27.9 21.0-31.0 MMOL/L Arterial Blood Oxygen Saturation 90 L 94-100 % Arterial Blood Base Excess 1.8 -2.5-2.5 MMOL/L Uriah Test YES-POS Blood Gas Ventilator Setting NO Blood Gas Inspired Oxygen 2 L Valproic Acid (Depakene) Level 2.2 L 50.0-100.0 UG/ML My Orders Orders - STEVEN LÓPEZ DO Ed Iv/Invasive Line Start (03/16/20 23:00) Ekg Tracing (03/16/20 23:00) O2 (03/16/20 23:00) Monitor-Rhythm Ecg Trace Only (03/16/20 23:00) Arterial Blood Gas (03/16/20 23:00) Ua Culture If Indicated (03/16/20 23:00) Ct Chest/Abdomen/Pelvis W (03/16/20 23:02) BNP (03/16/20 23:09) Creatine Kinase (03/16/20 23:09) Creatine Kinase Mb (03/16/20 23:09) Magnesium (03/16/20 23:09) Myoglobin Serum (03/16/20 23:09) Troponin I (03/16/20 23:09) Albuterol/Ipratropium Inhaler (Combivent (03/17/20 09:00) Fluticasone/Salmeterol 115/21 (Advair Hf (03/17/20 08:00) Rt Request For Service (03/16/20 23:09) Methylprednisolone Sod Succ (Solu-Medrol (03/16/20 23:15) Fentanyl Injection (Sublimaze Injection (03/16/20 23:15) Valproic Acid (03/16/20 23:17) Fluticasone/Salmeterol 115/21 (Advair Hf (03/16/20 23:14) Albuterol/Ipratropium Inhaler (Combivent (03/16/20 23:14) Iohexol Injection (Omnipaque 350 Mg/Ml 1 (03/17/20 00:00) Received Contrast (Hold Metformin- Contr (03/17/20 00:00) Sodium Chloride Flush (Catheter Flush Sy (03/17/20 00:00) Ns (Ivpb) (Sodium Chloride 0.9% Ivpb Bag (03/17/20 00:00) Levofloxacin Tablet (Levaquin Tablet) (03/17/20 00:45) Medications Given in ED Current Medications Medications Dose Ordered Sig/[place] Route Start Time Stop Time Status Last Admin Dose Admin Fentanyl Citrate 50 mcg ONCE ONCE IVP 03/16/20 23:15 03/16/20 23:16 DC 03/16/20 23:18 50 MCG Iohexol 100 ml ONCE ONCE IV 03/17/20 00:00 03/17/20 00:01 DC 03/16/20 23:59 100 ML Methylprednisolone Sodium Succinate 125 mg ONCE ONCE IVP 03/16/20 23:15 03/16/20 23:16 DC 03/16/20 23:17 125 MG Sodium Chloride 10 ml NEEDED PRN IV 03/17/20 00:00 03/16/20 23:59 10 ML Sodium Chloride 100 ml ONCE ONCE IV 03/17/20 00:00 03/17/20 00:01 DC 03/16/20 23:59 80 ML Vital Signs/I&O 03/16/20 03/16/20 03/17/20 23:05 23:08 01:03 Temp 36.8 36.8 Pulse 76 112 Resp 20 18 B/P (MAP) 107/75 (86) 105/67 (86) Pulse Ox 89 94 O2 Delivery Room Air Room Air Nasal Cannula O2 Flow Rate 2.00 Capillary Refill : Progress Note : Progress Note 88-89% ON ROOM AIR ON ARRIVAL. PLACED ON O2 AT 2L/NC WITH O2 SATS UP TO 93%. GIVEN COMBIVENT AND ADVAIR INHALER TREATMENTS, WELL SOLU-MEDROL--INCREASED AERATION, DECREASED RHONCHI STATES HE IS BREATHING A LOT BETTER GIVEN FENTANYL FOR PAIN WITH MUCH IMPROVEMENT ECG Initial ECG Impression Date: Mar 16, 2020 Initial ECG Impression Time: 23:11 Initial ECG Rate: 76 Initial ECG Rhythm: Normal Sinus Diagnostic Imaging Comments CT CHEST/ABDOMEN/PELVIS--BIBASILAR ATELECTASIS, SMALL RIGHT PLEURAL EFFUSION, TR DESIREE LEFT PLEURAL EFFUSIONS. NO OTHER ACUTE FINDINGS IN CHEST. NO ACUTE INTRA- ABDOMINAL OR PELVIC PROCESS, STABLE FINDINGS OF LEFT ADRENAL ADENOMA AND MULTIPLE BILATERAL RENAL CYSTS. PER [facility] VIA FAX AT [phone] Reviewed: Reviewed by Me Departure Communication (Admissions) Family Conversation RN HAS TALKED WITH AND UPDATE GIVEN. REPORTS THAT PT ACTUALLY FELL ON Thursday03/14/20--NOT YESTERDAY 03/15/20, PT HAD STATED. 001--SPOKE WITH DR. OSEGUERA, TRAUMA SURGEON, ADVISES TO ADMIT TO MEDICINE, AND HE WILL SEE PT IN CONSULT 21--SPOKE WITH DR. BULLARD, HOSPITALIST, ACCEPTS PT FOR ADMIT. Impression Primary Impression: Status post fall Additional Impressions: Multiple rib fractures Multiple transverse process fractures COPD with exacerbation Respiratory failure with hypoxia and hypercapnia Parkinson disease Disposition: ADMITTED INPATIENT Condition: Improved Admissions Decision to Admit Reason: Admit from ER (Trauma) Decision to Admit/Date: Mar 17, 2020 Time/Decision to Admit Time: 00:20 Departure-Patient Inst. Referrals: ALLYSON DIALLO DO (PCP/Family) Primary Care Physician STEVEN LÓPEZ DO Mar 16, 2020 23:33
[2020-03-16 23:38] LABS: CREATINE KINASE 144 U/L (30-200); MAGNESIUM 2.1 MG/DL (1.6-2.4)
[2020-03-16] MEDS: CATHETER FLUSH 10 ML SYR IV PRN (23:59)
[2020-03-17] VITALS (7 sets, daily range): BP systolic 107–132; BP diastolic 56–76
[2020-03-17] MEDS ORDERED: IOHEXOL 350 MG/ML 100 ML (OMNIPAQUE 350) VIAL IV ONE
[2020-03-17] MEDS ORDERED: HOLD METFORMIN - RECEIVED CONTRAST 20 ML VIAL IV SCH
[2020-03-17] MEDS ORDERED: NS 100 ML (IVPB) BAG IV ONE
--- NOTE | 2020-03-17 00:34 | NUR ---
PT , HEBERT, NOTIFIED OF PT IMPROVING CONDITION AND TO BE ADMITTED TO MEDICAL FLOOR. PASSWORD OF "KALI" ESTABLISHED AT THIS TIME. WILL REPORT TO ADMITTING RN.
[2020-03-17] MEDS ORDERED: LEVOFLOXACIN 250 MG TAB (LEVAQUIN) PO ONE (00:45)
[2020-03-17] MEDS ORDERED: LEVOFLOXACIN 250 MG/50 ML IVPB 50 ML IV ONE (00:45)
--- NOTE | 2020-03-17 01:00 | NUR ---
LEVAQUIN 250MG PO ORDERED. MEDICATION ONLY AVAILABLE ON MEDICAL FLOOR. REPORTED TO MANNY RODRIGUEZ WHO WILL GIVE UPON ADMIT.
[2020-03-17] MEDS ORDERED: fentaNYL INJECTION 100 MCG/2 ML AMP IVP PRN (01:30)
--- NOTE | 2020-03-17 01:30 | NUR ---
DARRIUS ABRAHAM admitted to room 416-1, with an admitting diagnosis of FALLS, on 03/17/20 from ED via CART, accompanied by STAFF.DARRIUS ABRAHAM introduced to surroundings, call light, bed controls, phone, TV, temperature control, lights, meal times, smoking policy, visitor policy, side rail policy, bathrooms and showers. Patient Rights given to patient in the handbook. DARRIUS ABRAHAM verbalizes understanding that [facility] is not responsible for the loss or damage to any personal effects or valuables that are kept in the patients posession during their hospitalization. DARRISU ABRAHAM verbalizes understanding of Interdisciplinary Patient Education. Patient and/or family were informed about the Rapid Response Team and its purpose.
--- NOTE | 2020-03-17 04:26 | NUR ---
NEGRO Q4 AND Q2 PRN. IS AND SADIE QID. INITIATE 02 TO KEEP SATS GREATER THAN 90%. RT TO REASSESS OR REEVALUATE IN 72 HOURS OR NEEDED. Addendum: 03/17/20 at 0426 by KATHI SEGURA RT Amended: Links added.
[2020-03-17] MEDS ORDERED: RT-ALBUTEROL/IPRATROPIUM 3 ML (DUONEB) VIAL INH PRN (04:30)
[2020-03-17] MEDS: methylPREDNISolone 125 MG (Solu-MEDROL) VIAL IVP SCH ×4 (06:13→23:22)
[2020-03-17 06:25] LABS: BASOPHILS % (AUTO) 0 % (0-10); EOSINOPHILS % (AUTO) 0 % (0-10); HEMATOCRIT 39 % (40-54); HEMOGLOBIN 12.3 g/dL (13.3-17.7); LYMPHOCYTES # (AUTO) 0.3 10^3/uL (1.0-4.0); LYMPHOCYTES % (AUTO) 6 % (12-44); MEAN CORPUSCULAR HEMOGLOBIN 27 pg (25-34); MEAN CORPUSCULAR HGB CONC 31 g/dL (32-36); MEAN CORPUSCULAR VOLUME 85 fL (80-99); MEAN PLATELET VOLUME 10.9 fL (9.0-12.2); MONOCYTES % (AUTO) 1 % (0-12); NEUTROPHILS # (AUTO) 4.8 10^3/uL (1.8-7.8); NEUTROPHILS % (AUTO) 93 % (42-75); PLATELET COUNT 254 10^3/uL (130-400); WHITE BLOOD COUNT 5.1 10^3/uL (4.3-11.0)
--- NOTE | 2020-03-17 06:39 | Diagnostic Imaging Report ---
PROCEDURE: CT chest, abdomen, and pelvis with contrast. TECHNIQUE: Multiple contiguous axial images were obtained through the chest, abdomen, and pelvis after the administration of intravenous contrast. Auto Exposure Controls were utilized during the CT exam to meet ALARA standards for radiation dose reduction. INDICATION: Fell. Chest, abdomen and pelvis pain. The CT thoracic and lumbar spine exam performed earlier today suggested fractures of the transverse processes of T12, L1, L3 on the right and of L2 on the left, are again noted. There is also a slightly displaced fracture of the proximal right 10th rib and a nondisplaced fracture of the proximal left 12th rib. These findings seem similar to the prior exam. The severe degenerative disc and bone disease throughout the lumbar spine and the postsurgical changes consistent with fusion of L3-S1 seen on the prior study are also unchanged. The long-standing compression fracture of T3 is also stable. There is no acute bony abnormality appreciated. The images through the thorax show the heart to be borderline enlarged but similar in size to the prior exam of 03/12/2016. There are extensive coronary artery calcifications evident. There is no significant pleural effusion identified. The aorta is not abnormally dilated and there is no sign of a dissection. The pulmonary arteries were not well opacified and consequently difficult to assess for a pulmonary embolus. There is no definite evidence for a pulmonary embolus. There is a small amount of atelectasis/infiltrate and fluid in both lung bases, particularly on the right. The lungs are otherwise generally clear. There is no mediastinal or hilar adenopathy. The thyroid gland is generally unremarkable. The images through the abdomen and pelvis show a small 15 mm nodule associated with the left adrenal gland. This seems similar to the prior exam of 03/25/2017. Consequently, I suspect this is a benign process. The right adrenal gland is unchanged in appearance. The liver, spleen, pancreas, gallbladder, aorta and inferior vena cava and portal vein show no definite abnormality. As noted on the previous study, there are cysts associated with both kidneys. There is no evidence for a solid renal mass and both kidneys do show excretion of the contrast. There is no pelvic mass or free fluid collection noted. The urinary bladder and prostate gland are grossly unremarkable. The appendix was not well-visualized. IMPRESSION: 1. The fractures involving the transverse processes of the thoracolumbar junction, the right 10th rib and the left 12th rib seen previously are again evident and not significantly changed. There is no acute bony abnormality identified otherwise. 2. There is borderline cardiomegaly and coronary artery disease with mild bibasilar atelectasis/infiltrate and a small amount of fluid. 3. There is no acute cardiopulmonary abnormality noted otherwise although the pulmonary arteries were not well evaluated. 4. There is no acute abnormality of the abdomen or pelvis. 5. The left adrenal nodule seen previously appears stable. 6. I agree with the [facility] interpretation of this exam. Dictated by: Dictated on workstation # [id number]
[2020-03-17 06:44] LABS: ALBUMIN 4.2 GM/DL (3.2-4.5); CHLORIDE 104 MMOL/L (98-107); POTASSIUM 4.2 MMOL/L (3.6-5.0); SODIUM 138 MMOL/L (135-145)
[2020-03-17 06:45] LABS: CALCIUM 8.9 MG/DL (8.5-10.1)
[2020-03-17 06:47] LABS: GLUCOSE 168 MG/DL (70-105); TOTAL PROTEIN 7.1 GM/DL (6.4-8.2)
[2020-03-17 06:48] LABS: CARBON DIOXIDE 23 MMOL/L (21-32)
[2020-03-17 06:49] LABS: BILIRUBIN,TOTAL 0.4 MG/DL (0.1-1.0)
[2020-03-17 06:50] LABS: ALKALINE PHOSPHATASE 97 U/L (40-136); CREATININE SERUM 0.96 MG/DL (0.60-1.30); GFR ESTIMATED > 60
[2020-03-17 06:51] LABS: BUN/CREATININE RATIO 30
[2020-03-17 06:53] LABS: ALANINE AMINOTRANSFERASE < 6 U/L (0-55)
[2020-03-17] MEDS ORDERED: ADVAIR HFA 115/21 MCG INHALER 8 GM IH ONE (08:00)
--- NOTE | 2020-03-17 08:49 | Diagnostic Imaging Report ---
EXAMINATION: Portable erect AP chest at 6:37 AM INDICATION: Respiratory distress There is shallow inspiration. Allowing for this technical factor, the heart is stable in size when compared to the prior exam of 03/16/2020. The mild central pulmonary congestion noted on the prior study is again evident and no different. There may also be some associated atelectasis/infiltrate in the right lung base. This is similar to the prior exam as well. There is no significant pleural effusion identified. The mediastinum is not widened. The osseous structures are intact. IMPRESSION: When compared to the prior exam, there has been no significant change. There is still evidence of mild central pulmonary congestion and probable pneumonia/atelectasis in the right infrahilar region. A followup study would be recommended for continued evaluation. Dictated by: Dictated on workstation # [id number]
[2020-03-17] MEDS ORDERED: ALBUTEROL/IPRATROP (COMBIVENT RESPIMAT) 4 GM INHALER IH ONE (09:00)
[2020-03-17] MEDS: RT-ALBUTEROL/IPRATROPIUM 3 ML (DUONEB) VIAL INH SCH ×5 (09:24→22:02)
--- NOTE | 2020-03-17 10:17 | NUR ---
PT IS WORKING WITH PATIENT AT THIS TIME. IS AND AEROBIKA ARE ON THE PT COUNTER IN THE PTS ROOM
[2020-03-17 11:44] LABS: BILIRUBIN,URINE NEGATIVE (NEGATIVE); CLARITY,URINE CLEAR; COLOR,URINE YELLOW; GLUCOSE, URINE (UA) NEGATIVE (NEGATIVE); KETONES,URINE TRACE (NEGATIVE); LEUKOCYTE ESTERASE ,URINE NEGATIVE (NEGATIVE); NITRITE,URINE NEGATIVE (NEGATIVE); PH,URINE 5.5 (5-9); PROTEIN,URINE NEGATIVE (NEGATIVE)
[2020-03-17 11:52] LABS: BACTERIA,URINE NEGATIVE /HPF
[2020-03-17] MEDS ORDERED: PANTOPRAZOLE 40 MG (PROTONIX) TAB PO ONE (12:00)
--- NOTE | 2020-03-17 12:02 | History & Physical-Hospitalist ---
History of Present Illness HPI/Chief Complaint Pt is a 74yoCM with a PMH of COPD, HTN, and ?parkinson's disease who presented to the ER due to shortness of pain and rib pain. He was seen in the ER earlier last night due to pain from a fall and was diagnosed with multiple rib fractures. He states he fells while his was trying to help him get his pants on and fell into the fireplace hitting his head. His witnessed all of this and he suffered no LOC. It started to become difficult to take deep breaths so he was seen in the ER and admission was recommended but he declined and left AMA. He continued to worsen and decided to return to the ER for admission. He required IV fentanyl for pain control and oxygen supplementation to maintain sats. This morning he reports he's feeling better but still quite sore. Source: patient Date Seen 03/17/20 Time Seen by a Provider: 11:53 Attending Physician Josue Aldana MD PCP Sami Vincent DO Referring Physician Date of Admission Mar 17, 2020 at 00:22 Home Medications & Allergies Home Medications Reviewed patient Home Medication Reconciliation performed by pharmacy medication reconciliations sales technician home theater and/or nursing. Patients Allergies have been reviewed. Allergies Allergies Coded Allergies No Known Drug Allergies (Unverified10/15/12) Past Htabsxx-Amegee-Glzxqr Hx Past Med/Social Hx: Reviewed and Corrections made Patient Social History Alcohol Use: Denies Use Recreational Drug Use: No Smoking Status: Current Everyday Smoker Type Used: Cigarettes Recent Foreign Travel: No Contact w/other who traveled: No Recent Hopitalizations: No Recent Infectious Disease Expo: No Immunizations Up To Date Tetanus Booster (TDap): Unknown Date of Influenza Vaccine: Jan 23, 2017 Seasonal Allergies Seasonal Allergies: No Past Medical History Surgeries: Abdominal, Orthopedic, Tonsillectomy Respiratory: COPD Currently Using CPAP: Yes Currently Using BIPAP: No Cardiac: Chronic Edema/Swelling, Hypertension Neurological: Parkinson's Disease Reproductive: No Gastrointestinal: Abdominal Hernia, Obstructive Bowel Musculoskeletal: Degenerate Disk Disease, Arthritis, Chronic Back Pain HEENT: Cataract Loss of Vision: Denies Hearing Impairment: Denies Psychosocial: Sleep Difficulties, Depression History of Blood Disorders: No Family History No Pertinent Family Hx, CAD Over 55 Years Old, Diabetes Review of Systems Constitutional: No chills, No fever; weakness EENTM: no symptoms reported Respiratory: see HPI, short of breath Cardiovascular: see HPI Gastrointestinal: No abdominal pain, No nausea, No vomiting Genitourinary: no symptoms reported Musculoskeletal: see HPI Skin: no symptoms reported Psychiatric/Neurological: No Symptoms Reported Physical Exam Physical Exam Vital Signs Vital Signs - First Documented 03/16/20 03/16/20 03/17/20 03/17/20 23:05 23:08 01:03 04:07 Temp 36.8 Pulse 76 Resp 20 B/P (MAP) 107/75 (86) Pulse Ox 89 O2 Delivery Room Air O2 Flow Rate 2.00 FiO2 21 Capillary Refill : Less Than 3 Seconds Height, Weight, BMI Height: 5'9.00" Weight: 240lbs. 0.0oz. 108.969290ew; 36.74 BMI Method:Stated General Appearance: No Apparent Distress, Chronically ill, Obese HEENT: PERRL/EOMI, Moist Mucous Membranes; No Scleral Icterus (L), No Scleral Icterus (R) Neck: Normal Inspection, Supple Respiratory: Lungs Clear, No Accessory Muscle Use, No Respiratory Distress Cardiovascular: Regular Rate, Rhythm, No JVD, No Murmur Gastrointestinal: Normal Bowel Sounds, Non Tender, Soft Extremity: Normal Capillary Refill, No Calf Tenderness, No Pedal Edema Neurologic/Psychiatric: Alert, Oriented x3, Normal Mood/Affect Results Results/Procedures Labs Laboratory Tests 03/17/20 05:55 03/18/20 05:55 Patient resulted labs reviewed. Imaging [facility], [place] NAME: JARADDARRIUS Ayala [facility] REC#: [id number] PT STATUS: ADM IN : 1945 PHYSICIAN: STEVEN LÓPEZ DO ADMIT DATE: 03/17/20 Signed Date of Exam:03/16/20 CT CHEST/ABDOMEN/PELVIS W PROCEDURE: CT chest, abdomen, and pelvis with contrast. TECHNIQUE: Multiple contiguous axial images were obtained through the chest, abdomen, and pelvis after the administration of intravenous contrast. Auto Exposure Controls were utilized during the CT exam to meet ALARA standards for radiation dose reduction. INDICATION: Fell. Chest, abdomen and pelvis pain. The CT thoracic and lumbar spine exam performed earlier today suggested fractures of the transverse processes of T12, L1, L3 on the right and of L2 on the left, are again noted. There is also a slightly displaced fracture of the proximal right 10th rib and a nondisplaced fracture of the proximal left 12th rib. These findings seem similar to the prior exam. The severe degenerative disc and bone disease throughout the lumbar spine and the postsurgical changes consistent with fusion of L3-S1 seen on the prior study are also unchanged. The long-standing compression fracture of T3 is also stable. There is no acute bony abnormality appreciated. The images through the thorax show the heart to be borderline enlarged but similar in size to the prior exam of 03/12/2016. There are extensive coronary artery calcifications evident. There is no significant pleural effusion identified. The aorta is not abnormally dilated and there is no sign of a dissection. The pulmonary arteries were not well opacified and consequently difficult to assess for a pulmonary embolus. There is no definite evidence for a pulmonary embolus. There is a small amount of atelectasis/infiltrate and fluid in both lung bases, particularly on the right. The lungs are otherwise generally clear. There is no mediastinal or hilar adenopathy. The thyroid gland is generally unremarkable. The images through the abdomen and pelvis show a small 15 mm nodule associated with the left adrenal gland. This seems similar to the prior exam of 03/25/2017. Consequently, I suspect this is a benign process. The right adrenal gland is unchanged in appearance. The liver, spleen, pancreas, gallbladder, aorta and inferior vena cava and portal vein show no definite abnormality. As noted on the previous study, there are cysts associated with both kidneys. There is no evidence for a solid renal mass and both kidneys do show excretion of the contrast. There is no pelvic mass or free fluid collection noted. The urinary bladder and prostate gland are grossly unremarkable. The appendix was not well-visualized. IMPRESSION: 1. The fractures involving the transverse processes of the thoracolumbar junction, the right 10th rib and the left 12th rib seen previously are again evident and not significantly changed. There is no acute bony abnormality identified otherwise. 2. There is borderline cardiomegaly and coronary artery disease with mild bibasilar atelectasis/infiltrate and a small amount of fluid. 3. There is no acute cardiopulmonary abnormality noted otherwise although the pulmonary arteries were not well evaluated. 4. There is no acute abnormality of the abdomen or pelvis. 5. The left adrenal nodule seen previously appears stable. 6. I agree with the [facility] interpretation of this exam. Dictated by: Dictated on workstation # [id number] Dict: 03/17/20 0615 Trans: 03/17/20 1013 [facility] [id number] Interpreted by: JENNIFER CHINCHILLA MD Electronically signed by: JENNIFER CHINCHILLA MD 03/17/20 1013 [facility] [place], [place] NAME: DARRIUS ABRAHAM [facility] REC#: [id number] PT STATUS: ADM IN : 1945 PHYSICIAN: JOSUE ALDANA MD ADMIT DATE: 03/17/20 Signed Date of Exam:03/17/20 CHEST 1 VIEW, AP/PA ONLY EXAMINATION: Portable erect AP chest at 6:37 AM INDICATION: Respiratory distress There is shallow inspiration. Allowing for this technical factor, the heart is stable in size when compared to the prior exam of 03/16/2020. The mild central pulmonary congestion noted on the prior study is again evident and no different. There may also be some associated atelectasis/infiltrate in the right lung base. This is similar to the prior exam as well. There is no significant pleural effusion identified. The mediastinum is not widened. The osseous structures are intact. IMPRESSION: When compared to the prior exam, there has been no significant change. There is still evidence of mild central pulmonary congestion and probable pneumonia/atelectasis in the right infrahilar region. A followup study would be recommended for continued evaluation. Dictated by: Dictated on workstation # [id number] Dict: 03/17/20 0803 Trans: 03/17/20 1010 [facility] [id number] Interpreted by: JENNIFER CHINCHILLA MD Electronically signed by: JENNIFER CHINCHILLA MD 03/17/20 1010 Assessment/Plan Admission Diagnosis COPD Exacerbation Admission Status: Inpatient Order (span 2 midnights) Reason for Inpatient Admission: see below Assessment and Plan COPD Exacerbation with LRTI Acute hypoxic respiratory failure Attempted outpatient management but failed Continue steroids COntinue IV abx Maintain sats >90, wean oxygen as able MAT protocol IS Multiple rib fractures s/p fall Trauma surgery consulted, appreciate recs PT consulted IV fentanyl available Oral meds added Potential for anesthesia to provide nerve block if needed, defer to surgery Parkinson's disease Last filled Sinemet months ago and I don't see another refill Will await official med rec to resume Hyperglycemia FSBS 168 this AM but non fasting was 102 on arrival to ER Trend, likely due to steroids HTN BP well controlled, trend Resume amlodipine in the with hold precautions DVT ppx: SCDs for now Clinical Quality Measures DVT/VTE Risk/Contraindication: Risk Factor Score Per Nursin RFS Level Per Nursing on Admit: 4+=Very High JOSUE ALDANA MD Mar 17, 2020 12:02
--- NOTE | 2020-03-17 12:03 | Physical Therapy Evaluation ---
PT Evaluation-General Medical Diagnosis Admission Date Mar 17, 2020 at 00:22 Medical Diagnosis: fall with multiple Fx Onset Date: Mar 15, 2020 Therapy Diagnosis Therapy Diagnosis: weakness, decreased functional mobility Height/Weight Height (Feet): 5 Height (Inches): 9.00 Weight (Pounds): 240 Weight (Ounces): 0.0 Precautions Precautions/Isolations: Fall Prevention, Standard Precautions Weight Bear Status Right Lower Extremity: Right Full Weight Bearing Left Lower Extremity: Left Full Weight Bearing Referral Physician: Jovan Reason for Referral: Evaluation/Treatment Medical History Pertinent Medical History: COPD, HTN, Parkinson's, Smoking Additional Medical History (L) RTC repair, back Sx x 2, (L) foot Sx, ventral hernia, chronic edema, DDD, chronic back pain, arthritis, depression Current History 03/15/2020, Pt lost balance while getting dressed. Fell backwards striking head and back on fireplace in room. Presented to ER on 03/16/2020, early evening but left AMA. Returned to ER later that evening for admission. Scans in ER revealed: (R) T12, L1, L2 transverse process Fx, indeterminate age L3 transverse process Fx, (R) 10th rib Fx, (L) 12th rib Fx Reviewed History: Yes Social History Home: Single Level Current Living Status: Spouse Entry Into Home: Ramp Prior Prior Level of Function SCALE: Activities may be completed with or without assistive devices. 3-Ienmvbqogd-vpwxjmr completes the activity by him/herself with no assistance from a helper. 5-Set-up or Clean-up Assistance-helper sets up or cleans up; patient completes activity. [place] assists only prior to or following the activity. 4-Supervision or Touching Assistance-helper provides verbal cues and/or touching/steadying and/or contact guard assistance as patient completes activity. Assistance may be provided throughout the activity or intermittently. 3-Partial/Moderate Assistance-helper does LESS THAN HALF the effort. [place] lifts, holds or supports trunk or limbs, but provides less than half the effort. 2-Substantial/Maximal Assistance-helper does MORE THAN HALF the effort. [place] lifts or holds trunk or limbs and provides more than half the effort. 5-Zrasoobcf-dqyrps does ALL the effort. Patient does none of the effort to complete the activity. Or, the assistance of 2 or more helpers is required for the patient to complete the activity. If activity was not attempted, code reason: 7-Patient Refused. 9-Not Applicable-not attempted and the patient did not perform the activity before the current illness, exacerbation or injury. 10-Not Attempted due to Environmental Limitations-(lack of equipment, weather restraints, etc.). 88-Not Attempted due to Medical Conditions or Safety Concerns. Bed Mobility: 4 Transfers (B,C,W/C): 4 Gait: 6 Indoor Mobility (Ambulation): Independent Stairs: Unknown Prior Devices Use: Walker Prior Device Use: FWW FWW with mod (I) but history of frequent falls in the home. Assist at times for transfers. (+) Driving PT Evaluation-Current Subjective Pt very well known to this therapist. In bed, agreeable to participate. Extensive education on risk of pneumonia with rib Fx; "You're the 3rd person to say that! I just can't breath as deep as I used to" Pain not rated but wincing with movement, coughing and laughing. Pt/Family Goals Home Objective Patient Orientation: Person, Place, Time, Situation Attachments: Oxygen ROM/Strength ROM Upper Extremities Grossly WFL for functional mobility ROM Lower Extremities Grossly WFL for transfers and gait; edematous this date Strength Upper Extremities Grossly WFL for ADLS Strength Lower Extremities Grossly 3+/5 Integumentary/Posture Integumentary See nurses' notes Posture Kyphotic, flattening of lumbar spine Neuromuscular (Tone, Coordination, Reflexes) Impaired (Pt has PD) Sensory Vision: Wears Glasses (reading only) Hearing: Functional Transfers Roll Left to Right (QC): 4 Lying to Sitting/Side of Bed(Q: 3 Sit to Stand (QC): 3 Chair/Coj-sr-Xlihv Xfer(QC): 1 Educated on log-rolling to protect low back, decrease pain with transfers. Completed with min A x 1 and max skilled VCS. Sit<->stand with mod A x 1-2 with Pt initially retropulsive, extended time with assist for balance to correct. Bed->chair with FWW with min-mod A x 2. Small, shuffling steps; when stepping backwards to chair, Pt again becomes retropulsive, max A x 1-2 to sit safely. Up in chair with O2 in situ, needs met. Nursing notified of level of assist required. Gait Does the Patient Walk?: No and Walking Goal IS indicated Mode of Locomotion: Walk Anticipated Mode of Locomotion: Walk Walk 10 feet (QC): 88 Walk 50 ft with 2 Turns(QC): 88 Walk 150 ft (QC): 88 Walking 10ft/uneven surface-QC: 88 Comments/Gait Description Bed->chair only this date. Short, shuffling steps, retropulsive. Wheelchair Training Does the Pt Use a Wheelchair?: No Balance Sitting Static: Good Sitting Dynamic: Good Standing Static: Poor Standing Dynamic: Poor Picking up an Object (QC): 88 Treatment Eval. Transfer training with current rib fractures. Assessment/Needs Pt would benefit from skilled PT to improve functional (I) to restore PLOF to allow return home with spouse. Rehab Potential: Fair PT Short Term Goals Short Term Goals Time Frame: Mar 21, 2020 Roll Left & Right: 4 Sit to lyin Lying to sitting on side of be: 4 Sit to stand: 4 PT Custodial Goals Custodial Goals PT Custodial Goals Time Frame: Mar 24, 2020 Roll Left & Right (QC): 5 Sit to Lying (QC): 5 Lying-Sitting on Side/Bed(QC): 5 Sit to Stand (QC): 5 Chair/Izo-sy-Iidtn Xfer(QC): 5 Toilet Transfer (QC): 5 Car Transfer (QC): 4 Does the Patient Walk: Yes Walk 10 feet (QC): 5 Walk 50ft with 2 Turns (QC): 5 Walk 150 ft (QC): 5 Walking 10ft on Uneven Surface: 9 1 Step (curb) (QC): 4 4 Steps (QC): 9 12 Steps (QC): 9 Picking up an Object (QC): 9 Does the Pt use WC or Scooter?: No Type: N/A Type: N/A PT goals established to allow return home with spouse at PLOF. PT Plan Problem List Problem List: Activity Tolerance, Functional Strength, Safety, Balance, Gait, Transfer, Bed Mobility Treatment/Plan Treatment Plan: Continue Plan of Care Treatment Plan: Bed Mobility, Education, Functional Activity Gigi, Functional Strength, Gait, Safety, Therapeutic Exercise, Transfers Treatment Duration: Mar 24, 2020 Frequency: 6 times per week Estimated Hrs Per Day: .5 hour per day Patient and/or Family Agrees t: Yes Safety Risks/Education Patient Education: Transfer Techniques, Disease Process Teaching Recipient: Patient Teaching Methods: Discussion Response to Teaching: Verbalize Understanding, Reinforcement Needed Extensive education on PT POC, importance of breathing deep and OOB activity Discharge Recommendations Barriers to Progress pain Time/GCodes Time In: 0944 Time Out: 1018 Total Billed Treatment Time: 34 Total Billed Treatment 1, EVHIGH x 20', FA x 14' DOMINIQUE CURTIS DPT Mar 17, 2020 12:03
--- NOTE | 2020-03-17 13:02 | Consultation - Surgery ---
JHOANA ADAMSON MED STUDENT 03/17/20 1302: History of Present Illness History of Present Illness Patient Consulted On(yasmeen/time) 03/17/20 01:40 Date Seen by Provider: Mar 17, 2020 Time Seen by Provider: 08:45 Reason for Visit: s/p fall, vertebral/rib fracture History of Present Illness Pt is a 74yo male being consulted s/p fall 2 days ago. He says that he was at home when he lost balance and fell, hitting his back/ribs on his fireplace. He presenting to the ED night, but ended up leaving AMA because he didn't want to be there. On Thursday, his and son convinced him to go back to the hospital for treatment due to his discomfort pain. He complains of 8/10 back to his R flank that is tender to touch and movement, no radiation, and exacerbated by deep breathing. Denies complaints of abd pain, N/V. Allergies and Home Medications Allergies Coded Allergies: No Known Drug Allergies (Unverified , 10/15/12) Home Medications Acetaminophen 500 Mg Tablet, 1,000 MG PO HS, (Reported) TAKES 2 (500MG) TABLETS Amlodipine Besylate/Benazepril 1 Each Capsule, 1 CAP PO DAILY, (Reported) Escitalopram Oxalate 10 Mg Tablet, 10 MG PO DAILY, (Reported) Furosemide 40 Mg Tablet, 40 MG PO HS, (Reported) Gabapentin 300 Mg Capsule, 300 MG PO HS, (Reported) Levofloxacin 500 Mg Tablet, 500 MG PO DAILY Prescribed by: MARK MANCERA on 03/16/201847 Naproxen Sodium 220 Mg Tablet, 220 MG PO DAILY, (Reported) Omeprazole 40 Mg Capsule.dr, 40 MG PO DAILY, (Reported) Prednisone 20 Mg Tab, 40 MG PO DAILY Prescribed by: MARK MANCERA on 03/16/201847 Patient Home Medication List Home Medication List Reviewed: Yes Past Vsnwyrp-Jmppnq-Mfifqa Hx Patient Social History Alcohol Use: Denies Use Recreational Drug Use: No Smoking Status: Current Everyday Smoker Type Used: Cigarettes Recent Foreign Travel: No Contact w/Someone Who Travel: No Recent Infectious Disease Expo: No Recent Hopitalizations: No Immunizations Up To Date Tetanus Booster (TDap): Unknown Date of Influenza Vaccine: Jan 23, 2017 Seasonal Allergies Seasonal Allergies: No Surgeries History of Surgeries: Yes (L ROTATOR CUFF REPAIR;BACK SURGERY X 2;L FOOT SURGERY;VENTRAL HERNIA ) Surgeries: Abdominal, Orthopedic, Tonsillectomy Respiratory History of Respiratory Disorde: Yes Respiratory Disorders: Chronic Bronchitis Cardiovascular History of Cardiac Disorders: Yes Cardiac Disorders: Chronic Edema/Swelling, Hypertension Neurological History of Neurological Disord: Yes Neurological Disorders: Parkinson's Disease Reproductive System Hx Reproductive Disorders: No Genitourinary History of Genitourinary Disor: No Gastrointestinal History of Gastrointestinal Di: Yes (VENTRAL HERNIA REPAIR) Gastrointestinal Disorders: Abdominal Hernia, Obstructive Bowel Musculoskeletal History of Musculoskeletal Dis: Yes (R ROTATOR CUFF INJ--NO SURGERY;L ROTATOR CUFF SX;BACK SX X2;L FOOT SX AGE 4) Musculoskeletal Disorders: Degenerate Disk Disease, Arthritis, Chronic Back Pain Endocrine History of Endocrine Disorders: No HEENT History of HEENT Disorders: Yes (TONSILLECTOMY) HEENT Disorders: Cataract Loss of Vision: Denies Hearing Impairment: Denies Cancer History of Cancer: No Psychosocial History of Psychiatric Problem: Yes Behavioral Health Disorders: Sleep Difficulties, Depression Integumentary History of Skin or Integumenta: No Blood Transfusions History of Blood Disorders: No Family Medical History Significant Family History: No Pertinent Family Hx, CAD Over 55 Years Old, Di abetes Review of Systems-General Constitutional: No chills, No fever EENTM: No hearing loss, No vision loss Respiratory: see HPI Cardiovascular: No chest pain, No palpitations Gastrointestinal: No abdominal pain, No constipation, No diarrhea, No nausea, No vomiting Genitourinary: No dysuria Musculoskeletal: other Skin: No change in color, No rash Psychiatric/Neurological: Denies Headache, Denies Numbness Other R flank/rib pain and tenderness Physical Exam-General Problems Physical Exam Vital Signs Vital Signs - First Documented 03/16/20 03/16/20 03/17/20 03/17/20 23:05 23:08 01:03 04:07 Temp 36.8 Pulse 76 Resp 20 B/P (MAP) 107/75 (86) Pulse Ox 89 O2 Delivery Room Air O2 Flow Rate 2.00 FiO2 21 Capillary Refill : Less Than 3 Seconds General Appearance: WD/WN, no apparent distress HEENT: PERRL/EOMI Neck: non-tender, full range of motion, supple, normal inspection Respiratory: lungs clear, no respiratory distress, no accessory muscle use, decreased breath sounds (r/t guarding/pain from deep inhalation) Cardiovascular: normal peripheral pulses, regular rate, rhythm, no gallop, no JVD, no murmur Gastrointestinal: normal bowel sounds, non tender, soft Rectal: deferred Back: normal inspection, other (R lower rib pain/tenderness) Extremities: normal range of motion, non-tender, normal inspection Neurologic/Psychiatric: no motor/sensory deficits, alert, normal mood/affect, oriented x 3 Skin: normal color, warm/dry Lymphatic: no adenopathy Data Review Labs Laboratory Tests 03/16/20 23:08: Magnesium Level 2.1, Total Creatine Kinase 144, Creatine Kinase MB 2.0, Myoglobin 78.7, Troponin I < 0.028, B-Type Natriuretic Peptide 31.3 03/16/20 23:12: Blood Gas Puncture Site L RAD, Blood Gas Patient Temperature 36.7, Arterial Blood pH 7.38, Arterial Blood Partial Pressure CO2 46H, Arterial Blood Partial Pressure O2 62L, Arterial Blood HCO3 27, Arterial Blood Total CO2 27.9, Arterial Blood Oxygen Saturation 90L, Arterial Blood Base Excess 1.8, Uriah Test YES-POS, Blood Gas Ventilator Setting NO, Blood Gas Inspired Oxygen 2 L, Valproic Acid (Depakene) Level 2.2L 03/17/20 05:55: White Blood Count 5.1, Red Blood Count 4.64, Hemoglobin 12.3L, Hematocrit 39L, Mean Corpuscular Volume 85, Mean Corpuscular Hemoglobin 27, Mean Corpuscular Hemoglobin Concent 31L, Red Cell Distribution Width 14.1, Platelet Count 254, Mean Platelet Volume 10.9, Immature Granulocyte % (Auto) 0, Neutrophils (%) (Auto) 93H, Lymphocytes (%) (Auto) 6L, Monocytes (%) (Auto) 1, Eosinophils (%) (Auto) 0, Basophils (%) (Auto) 0, Neutrophils # (Auto) 4.8, Lymphocytes # (Auto) 0.3L, Monocytes # (Auto) 0.0, Eosinophils # (Auto) 0.0, Basophils # (Auto) 0.0, Immature Granulocyte # (Auto) 0.0, Sodium Level 138, Potassium Level 4.2, Chloride Level 104, Carbon Dioxide Level 23, Anion Gap 11, Blood Urea Nitrogen 29H, Creatinine 0.96, Estimat Glomerular Filtration Rate > 60, BUN/Creatinine Ratio 30, Glucose Level 168H, Calcium Level 8.9, Corrected Calcium 8.7, Total Bilirubin 0.4, Aspartate Amino Transf (AST/SGOT) 10, Alanine Aminotransferase (ALT/SGPT) < 6, Alkaline Phosphatase 97, Total Protein 7.1, Albumin 4.2 03/17/20 11:25: Urine Color YELLOW, Urine Clarity CLEAR, Urine pH 5.5, Urine Specific [place] 1.020, Urine Protein NEGATIVE, Urine Glucose (UA) NEGATIVE, Urine Ketones TRACEH , Urine Nitrite NEGATIVE, Urine Bilirubin NEGATIVE, Urine Urobilinogen 0.2, Urine Leukocyte Esterase NEGATIVE, Urine RBC (Auto) NEGATIVE, Urine RBC NONE, Urine WBC NONE, Urine Crystals NONE, Urine Bacteria NEGATIVE, Urine Casts NONE, Urine Mucus SMALLH, Urine Culture Indicated NO Assessment/Plan Assessment/Plan Assessment/Plan COPD exacerbation s/p recent fall with Thoracolumbar TP fracture, R rib 10 and L rib [address] abd/pelvis showed no s/s bleeding or pulmonary compromise, continue to monitor Provide/promote IS use, pain management Continue to monitor VS/labs Clinical Quality Measures DVT/VTE Risk/Contraindication: Risk Factor Score Per Nursin RFS Level Per Nursing on Admit: 4+=Very High KRISTIAN CHAVEZ DO 03/17/20 2016: History of Present Illness History of Present Illness History of Present Illness Patient is a 74-year-old male who fell 2 days ago. Patient lost his balance and then fell hitting his back on his fireplace. He was in the emergency department at that time being evaluated and patient left AMA. His family convinced him to go back to emergency department to be reevaluated. Patient having significant pain to his right flank and slightly on his left mid back. Feels that his breathing is slightly more difficult. With increased breathing it is causing more pain as well. Nothing he has tried is really made things better except for shallow breathing. Patient had a CT of the chest abdomen pelvis which demonstrated transverse process fractures of the thoracolumbar junctions right 10th and left 12th, no other acute abnormality. Patient has no other complaints at this time. Denies any nausea vomiting fever sweats chills. Allergies and Home Medications Allergies Coded Allergies: No Known Drug Allergies (Unverified , 10/15/12) Home Medications Acetaminophen 500 Mg Tablet, 1,000 MG PO HS, (Reported) TAKES 2 (500MG) TABLETS Amlodipine Besylate/Benazepril 1 Each Capsule, 1 CAP PO DAILY, (Reported) Escitalopram Oxalate 10 Mg Tablet, 10 MG PO DAILY, (Reported) Furosemide 40 Mg Tablet, 40 MG PO HS, (Reported) Gabapentin 300 Mg Capsule, 300 MG PO HS, (Reported) Levofloxacin 500 Mg Tablet, 500 MG PO DAILY Prescribed by: MARK MANCERA on 03/16/201847 Naproxen Sodium 220 Mg Tablet, 220 MG PO DAILY, (Reported) Omeprazole 40 Mg Capsule.dr, 40 MG PO DAILY, (Reported) Prednisone 20 Mg Tab, 40 MG PO DAILY Prescribed by: MARK MANCERA on 03/16/201847 Patient Home Medication List Home Medication List Reviewed: Yes Past Mptblbr-Zpcalq-Tvnclk Hx Reviewed Nursing Assessment Reviewed/Agree w Nursing PMH: Yes Family Medical History Significant Family History: No Pertinent Family Hx Review of Systems-General Constitutional: No chills, No fever EENTM: No hearing loss, No vision loss Respiratory: dyspnea on exertion, short of breath Cardiovascular: No chest pain, No palpitations Gastrointestinal: No abdominal pain, No constipation, No diarrhea, No nausea, No vomiting Genitourinary: No decreased output, No dysuria Musculoskeletal: back pain, muscle pain Skin: No change in color, No rash Psychiatric/Neurological: Denies Headache, Denies Numbness All Other Systems Reviewed Negative Unless Noted: Yes (Negative excepted noted.) Physical Exam-General Problems Physical Exam General Appearance: WD/WN, mild distress HEENT: PERRL/EOMI, normal ENT inspection Neck: non-tender, full range of motion, supple Respiratory: chest non-tender, no respiratory distress, no accessory muscle use, decreased breath sounds (Slightly shallow breathing secondary to pain) Cardiovascular: normal peripheral pulses, regular rate, rhythm Gastrointestinal: non tender, soft Rectal: deferred Back: No no CVA tenderness; other (Tenderness in the lower thoracic both right and left) Extremities: normal range of motion, non-tender, normal inspection Neurologic/Psychiatric: no motor/sensory deficits, alert, normal mood/affect, oriented x 3 Skin: normal color, warm/dry Lymphatic: no adenopathy Assessment/Plan Assessment/Plan Assessment/Plan COPD exacerbation s/p recent fall 2 days ago with Thoracolumbar TP fracture, R rib 10 and L rib [address] chest/abd/pelvis showed no s/s bleeding or pulmonary compromise, continue to monitor Provide/promote IS use, pain management, added Robaxin Continue to monitor VS/labs PT Supervisory-Addendum Brief Verification & Attestation Participated in pt care: history, MDM, physical Personally performed: exam, history, MDM, supervision of care Care discussed with: Medical Student Procedures: n/a Results interpretation: Verified all documentation Verification and Attestation of Medical Student E/M Service A medical student performed and documented this service in my presence. I reviewed and verified all information documented by the medical student and made modifications to such information, when appropriate. I personally performed the physical exam and medical decision making. Kristian Chavez, Mar 17, 2020,10:19 JHOANA ADAMSON MED STUDENT Mar 17, 2020 13:02 KRISTIAN CHAVEZ DO Mar 17, 2020 20:16
[2020-03-17] MEDS: METHOCARBAMOL 500 MG (ROBAXIN) TABLET PO SCH ×2 (14:23→19:55)
[2020-03-17] MEDS: ALPRAZolam 0.25 MG (XANAX) TAB PO PRN (17:13)
[2020-03-17] MEDS: LEVOFLOXACIN 750 MG/D5W 150 ML PRE-MIX IV SCH (18:24)
[2020-03-17] MEDS: HYDROcodone/APAP 5 MG/325 MG (LORTAB) TAB PO PRN ×2 (18:29→23:22)
[2020-03-17] MEDS: DIVALPROX SPRINKLE 125 MG (DEPAKOTE) CAP PO SCH (19:55)
[2020-03-17] MEDS: GABAPENTIN 300 MG (NEURONTIN) CAP PO SCH (19:55)
[2020-03-17] MEDS: SERTRALINE 100 MG (ZOLOFT) TAB PO SCH (19:55)
[2020-03-18] VITALS (7 sets, daily range): BP systolic 113–132; BP diastolic 59–84
[2020-03-18] MEDS: RT-ALBUTEROL/IPRATROPIUM 3 ML (DUONEB) VIAL INH SCH ×5 (02:38→21:07)
[2020-03-18 06:24] LABS: HEMOGLOBIN 12.1 g/dL (13.3-17.7); MEAN PLATELET VOLUME 10.7 fL (9.0-12.2); WHITE BLOOD COUNT 13.7 10^3/uL (4.3-11.0)
[2020-03-18 06:41] LABS: CHLORIDE 103 MMOL/L (98-107); SODIUM 138 MMOL/L (135-145)
[2020-03-18 06:43] LABS: GLUCOSE 150 MG/DL (70-105)
[2020-03-18 06:44] LABS: CARBON DIOXIDE 25 MMOL/L (21-32)
[2020-03-18 06:47] LABS: CREATININE SERUM 0.78 MG/DL (0.60-1.30); GFR ESTIMATED > 60
[2020-03-18 06:48] LABS: BUN/CREATININE RATIO 29
[2020-03-18] MEDS: METHOCARBAMOL 500 MG (ROBAXIN) TABLET PO SCH ×3 (08:00→19:59)
[2020-03-18] MEDS: HYDROcodone/APAP 5 MG/325 MG (LORTAB) TAB PO PRN ×2 (08:00→12:05)
[2020-03-18] MEDS: DIVALPROX SPRINKLE 125 MG (DEPAKOTE) CAP PO SCH ×2 (08:00→20:02)
[2020-03-18] MEDS: amLODIPine 10 MG (NORVASC) TAB PO SCH (08:00)
[2020-03-18] MEDS: PANTOPRAZOLE 40 MG (PROTONIX) TAB PO SCH (08:00)
--- NOTE | 2020-03-18 08:46 | Progress Note - Surgery ---
JHOANA ADAMSON MED STUDENT 03/18/20 0846: Subjective Date Seen by a Provider: Mar 18, 2020 Time Seen by a Provider: 08:10 Subjective/Events-last exam Pt seen and examined. He was sitting up in bed talking with his nurse, RAINER. He continues to have 8/10 pain to his R flank/ribs that he says improved slightly since yesterday. He has been using the IS well on his own. Denies chest pain, SOB, N/V. He would like to know when he'll be able to go home Review of Systems General: No Chills HEENT: No Head Aches Pulmonary: Other (shallow breaths r/t pain with deep breaths) Cardiovascular: No: Chest Pain, Palpitations, Lt Headedness Gastrointestinal: No: Nausea, Vomiting, Abdominal Pain Genitourinary: No Dysuria Musculoskeletal: other (R flank/rib pain) Neurological: No: Weakness Objective Exam Vital Signs Date Time Temp Pulse Resp B/P (MAP) Pulse Ox O2 Delivery O2 Flow Rate FiO2 03/18/20 08:00 36.6 87 16 126/67 (86) 91 Nasal Cannula 5.00 03/18/20 07:44 Nasal Cannula 4.00 03/18/20 07:00 90 03/18/20 04:00 36.7 85 20 127/68 (87) 90 Nasal Cannula 5.00 03/18/20 01:00 93 03/18/20 00:00 36.9 90 18 116/60 (78) 90 Nasal Cannula 4.00 03/17/20 22:03 93 Nasal Cannula 5.00 03/17/20 20:00 Nasal Cannula 4.00 03/17/20 20:00 37.5 107 18 117/59 (78) 92 Nasal Cannula 4.00 03/17/20 19:00 100 03/17/20 18:07 92 Nasal Cannula 5.00 03/17/20 16:00 37.5 104 18 132/63 (86) 91 Nasal Cannula 4.00 03/17/20 14:19 92 Nasal Cannula 4.00 03/17/20 12:32 96 03/17/20 11:55 37.0 102 18 132/76 (94) 92 Nasal Cannula 4.00 I & O 03/18/20 07:00 Intake Total 1070 ml Output Total 1175 ml Balance -105 ml Capillary Refill : Less Than 3 Seconds General Appearance: No Apparent Distress, Chronically ill, Obese HEENT: PERRL/EOMI; No Scleral Icterus (L), No Scleral Icterus (R) Neck: Normal Inspection, Non Tender, Supple Respiratory: Chest Non Tender, Lungs Clear, No Accessory Muscle Use, No Resp iratory Distress Cardiovascular: Regular Rate, Rhythm, No Gallop, No JVD, No Murmur Gastrointestinal: normal bowel sounds, non tender, soft Extremity: Normal Capillary Refill, Normal Inspection, Normal Range of Motion, Non Tender Neurologic/Psychiatric: Alert, Oriented x3, Normal Mood/Affect Skin: Normal Color, Warm/Dry Results Lab Laboratory Tests 03/17/20 11:25: Urine Color YELLOW, Urine Clarity CLEAR, Urine pH 5.5, Urine Specific [place] 1.020, Urine Protein NEGATIVE, Urine Glucose (UA) NEGATIVE, Urine Ketones TRACEH , Urine Nitrite NEGATIVE, Urine Bilirubin NEGATIVE, Urine Urobilinogen 0.2, Ur ine Leukocyte Esterase NEGATIVE, Urine RBC (Auto) NEGATIVE, Urine RBC NONE, Urine WBC NONE, Urine Crystals NONE, Urine Bacteria NEGATIVE, Urine Casts NONE, Urine Mucus SMALLH, Urine Culture Indicated NO 03/18/20 05:55: White Blood Count 13.7H, Red Blood Count 4.64, Hemoglobin 12.1L, Hematocrit 39L, Mean Corpuscular Volume 84, Mean Corpuscular Hemoglobin 26, Mean Corpuscular Hemoglobin Concent 31L, Red Cell Distribution Width 14.4, Platelet Count 273, Mean Platelet Volume 10.7, Sodium Level 138, Potassium Level 4.0, Chloride Level 103, Carbon Dioxide Level 25, Anion Gap 10, Blood Urea Nitrogen 23H, Creatinine 0.78, Estimat Glomerular Filtration Rate > 60, BUN/Creatinine Ratio 29, Glucose Level 150H, Calcium Level 9.0 Assessment/Plan Assessment/Plan Assessment/Plan COPD exacerbation s/p recent fall 3 days ago with Thoracolumbar TP fracture, R rib 10 and L rib [address] chest/abd/pelvis showed no s/s bleeding or pulmonary compromise, continue to monitor Provide/promote IS use, pain management, added Robaxin Continue to monitor VS/labs PT Clinical Quality Measures DVT/VTE Risk/Contraindication: Risk Factor Score Per Nursin RFS Level Per Nursing on Admit: 4+=Very High KRISTIAN CHAVEZ DO 03/18/20 1429: Subjective Subjective/Events-last exam Patient feeling better today. Patient still with pain but slightly better under control. Able to breathe easier he states. He has been using incentive spirometer but difficult. Having difficulty with having bowel movement states he usually takes MiraLAX. No other complaints at this time. Denies nausea vomiting fever. Objective Exam General Appearance: Chronically ill, Obese, Other (Appears slightly uncomfortable) HEENT: PERRL/EOMI, Normal ENT Inspection Neck: Normal Inspection, Non Tender, Supple Respiratory: Chest Non Tender, No Accessory Muscle Use, No Respiratory Distress Cardiovascular: Regular Rate, Rhythm, No JVD Gastrointestinal: normal bowel sounds, non tender, soft Extremity: Normal Inspection, Non Tender Neurologic/Psychiatric: Alert, Oriented x3, Normal Mood/Affect Skin: Normal Color, Warm/Dry Lymphatic: No Adenopathy Assessment/Plan Assessment/Plan Assessment/Plan COPD exacerbation s/p recent fall 3 days ago with Thoracolumbar TP fracture, R rib 10 and L rib [address] chest/abd/pelvis showed no s/s bleeding or pulmonary compromise, continue to monitor Provide/promote IS use, pain management, added Robaxin Continue to monitor VS/labs PT Add MiraLAX as needed constipation Supervisory-Addendum Brief Verification & Attestation Participated in pt care: history, MDM, physical Personally performed: exam, history, MDM, supervision of care Care discussed with: Medical Student Procedures: n/a Results interpretation: Verified all documentation Verification and Attestation of Medical Student E/M Service A medical student performed and documented this service in my presence. I reviewed and verified all information documented by the medical student and made modifications to such information, when appropriate. I personally performed the physical exam and medical decision making. Kristian Chavez, Mar 18, 2020,14:28 JHOANA ADAMSON MED STUDENT Mar 18, 2020 08:46 KRISTIAN CHAVEZ DO Mar 18, 2020 14:29
[2020-03-18] MEDS ORDERED: POLY17PO6 PO (10:51)
--- NOTE | 2020-03-18 10:52 | NUR ---
DR OSEGUERA HERE. NEW ORDERS FOR MIRALAX.
--- NOTE | 2020-03-18 11:06 | Progress Note - Hospitalist ---
Subjective HPI/CC On Admission Date Seen by Provider: Mar 18, 2020 Time Seen by Provider: 11:02 Pt is a 74yoCM with a PMH of COPD, HTN, and ?parkinson's disease who presented to the ER due to shortness of pain and rib pain. He was seen in the ER earlier last night due to pain from a fall and was diagnosed with multiple rib fracture s. He states he fells while his was trying to help him get his pants on and fell into the fireplace hitting his head. His witnessed all of this and he suffered no LOC. It started to become difficult to take deep breaths so he was seen in the ER and admission was recommended but he declined and left AMA. He continued to worsen and decided to return to the ER for admission. He required IV fentanyl for pain control and oxygen supplementation to maintain sats. This morning he reports he's feeling better but still quite sore. Subjective/Events-last exam Pt repors doing well. Pain improved. Working on IX but not able to get up to 500 even right now. Requesting melatonin to help with sleep. Objective Exam Vital Signs Vital Signs Date Time Temp Pulse Resp B/P (MAP) Pulse Ox O2 Delivery O2 Flow Rate FiO2 03/18/20 09:50 92 Nasal Cannula 5.00 03/18/20 08:00 36.6 87 16 126/67 (86) 03/17/20 04:07 21 Capillary Refill : Less Than 3 Seconds General Appearance: No Apparent Distress, Chronically ill, Obese Respiratory: No Accessory Muscle Use, Decreased Breath Sounds, Other (on NC) Cardiovascular: Regular Rate, Rhythm, No Murmur Gastrointestinal: Normal Bowel Sounds, Non Tender, Soft Neurologic/Psychiatric: Alert, Oriented x3 Results/Procedures Lab Laboratory Tests 03/18/20 05:55 Patient resulted labs reviewed. Assessment/Plan Assessment and Plan Assess & Plan/Chief Complaint COPD Exacerbation with LRTI Acute hypoxic respiratory failure Attempted outpatient management but failed Continue steroids COntinue IV abx Maintain sats >90, wean oxygen as able MAT protocol IS Multiple rib fractures s/p fall Trauma surgery consulted, appreciate recs PT consulted IV fentanyl available Oral meds added Potential for anesthesia to provide nerve block if needed, defer to surgery Parkinson's disease Last filled Sinemet months ago and I don't see another refill Will await official med rec to resume Hyperglycemia FSBS 168 this AM but non fasting was 102 on arrival to ER Trend, likely due to steroids HTN BP well controlled, trend Resume amlodipine in the with hold precautions DVT ppx: SCDs for now Clinical Quality Measures DVT/VTE Risk/Contraindication: Risk Factor Score Per Nursin RFS Level Per Nursing on Admit: 4+=Very High JOSUE BULLARD MD Mar 18, 2020 11:06
[2020-03-18] MEDS: predniSONE 20 MG TAB PO SCH (12:01)
[2020-03-18] MEDS ORDERED: NAPROXEN 250 MG (NAPROSYN) TABLET PO ONE (18:07)
[2020-03-18] MEDS: NAPROXEN 250 MG (NAPROSYN) TABLET PO PRN (18:14)
[2020-03-18] MEDS: CATHETER FLUSH 10 ML SYR IV PRN (18:15)
[2020-03-18] MEDS: LEVOFLOXACIN 750 MG/D5W 150 ML PRE-MIX IV SCH (18:15)
[2020-03-18] MEDS: polyethylene glycoL POWDER 17 GM (MIRALAX) PACK PO SCH (19:58)
[2020-03-18] MEDS: SERTRALINE 100 MG (ZOLOFT) TAB PO SCH (19:59)
[2020-03-18] MEDS: MELATONIN 3 MG TABLET PO SCH (19:59)
[2020-03-18] MEDS: GABAPENTIN 300 MG (NEURONTIN) CAP PO SCH (19:59)
[2020-03-18] MEDS: ALPRAZolam 0.25 MG (XANAX) TAB PO PRN (20:02)
[2020-03-19] MEDS: RT-ALBUTEROL/IPRATROPIUM 3 ML (DUONEB) VIAL INH SCH ×3 (02:55→10:08)
[2020-03-19 04:23] VITALS: BP 105/55
[2020-03-19] MEDS: NAPROXEN 250 MG (NAPROSYN) TABLET PO PRN (05:30)
[2020-03-19] MEDS: predniSONE 20 MG TAB PO SCH (05:31)
--- NOTE | 2020-03-19 07:22 | Progress Note - Surgery ---
SNOWJHOANA SKAGGS MED STUDENT 03/19/20 0722: Subjective Date Seen by a Provider: Mar 19, 2020 Time Seen by a Provider: 06:50 Subjective/Events-last exam Pt seen and examined. He was awake, watching tv, in NAD. He would like to know when he can go home. Rates pain to R flank at 7/10; continuing to improve since admission. Denies chest pain, abd pain, N/V, SOB. Review of Systems General: No Chills HEENT: No Head Aches Pulmonary: No Dyspnea Cardiovascular: No: Chest Pain, Palpitations, Lt Headedness Gastrointestinal: No: Nausea, Vomiting, Abdominal Pain Genitourinary: No Dysuria Musculoskeletal: other (R ribs/flank pain) Objective Exam Vital Signs Date Time Temp Pulse Resp B/P (MAP) Pulse Ox O2 Delivery O2 Flow Rate FiO2 03/19/20 06:46 91 Nasal Cannula 5.00 03/19/20 04:23 36.0 79 18 105/55 (72) 94 Nasal Cannula 5.00 03/19/20 02:55 90 Nasal Cannula 5.00 03/19/20 01:00 73 03/18/20 23:51 36.0 94 14 129/74 (92) 94 Nasal Cannula 5.00 03/18/20 21:09 90 Nasal Cannula 5.00 03/18/20 20:00 35.9 91 16 132/84 (100) 93 Nasal Cannula 5.00 03/18/20 20:00 Nasal Cannula 4.00 03/18/20 19:00 100 03/18/20 16:50 36.7 92 20 116/63 (80) 92 Nasal Cannula 5.00 5.00 03/18/20 15:47 90 Nasal Cannula 5.00 03/18/20 12:39 91 03/18/20 12:00 36.7 97 20 113/59 (77) 91 Nasal Cannula 5.00 03/18/20 09:50 92 Nasal Cannula 5.00 03/18/20 08:00 36.6 87 16 126/67 (86) 91 Nasal Cannula 5.00 03/18/20 07:44 Nasal Cannula 4.00 I & O 03/19/20 07:00 Intake Total 1290 ml Output Total 900 ml Balance 390 ml Capillary Refill : Less Than 3 Seconds General Appearance: No Apparent Distress, Chronically ill, Obese HEENT: PERRL/EOMI Neck: Full Range of Motion, Normal Inspection, Non Tender, Supple Respiratory: Chest Non Tender, No Accessory Muscle Use, No Respiratory Distress Cardiovascular: Regular Rate, Rhythm, No Gallop, No JVD, No Murmur, Normal Peripheral Pulses Gastrointestinal: normal bowel sounds, non tender, soft Extremity: Normal Inspection, Non Tender, Other (tenderness to R flank/ribs) Neurologic/Psychiatric: Alert, Oriented x3, Normal Mood/Affect Skin: Normal Color, Warm/Dry Lymphatic: No Adenopathy Assessment/Plan Assessment/Plan Assessment/Plan COPD exacerbation s/p recent fall 4 days ago with Thoracolumbar TP fracture, R rib 10 and L rib [address] chest/abd/pelvis showed no s/s bleeding or pulmonary compromise, continue to monitor Provide/promote IS use, pain management Continue to monitor VS/labs PT Clinical Quality Measures DVT/VTE Risk/Contraindication: Risk Factor Score Per Nursin RFS Level Per Nursing on Admit: 4+=Very High KRISTIAN CHAVEZ DO 03/19/20 1525: Subjective Subjective/Events-last exam Patient breathing easier with pain medication. Using IS better. Wanting to go home. Still requiring O2 supplementation. Does not use at home. Denies fever sweats chills. Rib/back pain getting better. Objective Exam General Appearance: No Apparent Distress, Chronically ill, Obese HEENT: PERRL/EOMI Neck: Full Range of Motion, Non Tender, Supple Respiratory: No Accessory Muscle Use, No Respiratory Distress, Other (chest) Cardiovascular: No JVD, Tachycardia Gastrointestinal: normal bowel sounds, non tender, soft Extremity: Normal Inspection, Non Tender Neurologic/Psychiatric: Alert, Oriented x3, Normal Mood/Affect Skin: Normal Color, Warm/Dry Lymphatic: No Adenopathy Assessment/Plan Assessment/Plan Assessment/Plan COPD exacerbation s/p recent fall 4 days ago with Thoracolumbar TP fracture, R rib 10 and L rib [address] chest/abd/pelvis showed no s/s bleeding or pulmonary compromise, continue to monitor Provide/promote IS use, pain management Continue to monitor VS/labs PT Still requiring o2 supplementatoin agree with CTA Chest Supervisory-Addendum Brief Verification & Attestation Participated in pt care: history, MDM, physical Personally performed: exam, history, MDM, supervision of care Care discussed with: Medical Student Procedures: n/a Results interpretation: Verified all documentation Verification and Attestation of Medical Student E/M Service A medical student performed and documented this service in my presence. I reviewed and verified all information documented by the medical student and made modifications to such information, when appropriate. I personally performed the physical exam and medical decision making. Kristian Chavez, Mar 19, 2020,15:27 JHOANA ADAMSON MED STUDENT Mar 19, 2020 07:22 KRISTIAN CHAVEZ DO Mar 19, 2020 15:25
[2020-03-19 08:00] VITALS: BP 125/72
[2020-03-19] MEDS: amLODIPine 10 MG (NORVASC) TAB PO SCH (09:48)
[2020-03-19] MEDS: PANTOPRAZOLE 40 MG (PROTONIX) TAB PO SCH (09:48)
[2020-03-19] MEDS: METHOCARBAMOL 500 MG (ROBAXIN) TABLET PO SCH ×3 (09:48→20:14)
[2020-03-19] MEDS: HYDROcodone/APAP 5 MG/325 MG (LORTAB) TAB PO PRN (09:49)
[2020-03-19] MEDS: DIVALPROX SPRINKLE 125 MG (DEPAKOTE) CAP PO SCH ×2 (09:53→20:14)
--- NOTE | 2020-03-19 11:21 | Physical Therapy Daily Note ---
PT Daily Note-Current Subjective Patient agrees to PT. He voices disappointment in not being able to go home today. Pain Numeric Pain Scale: 5-Moderate Pain Location: Lower Location Body Site: Back Pain Description: Acute Mental Status Patient Orientation: Normal For Age Attachments: Oxygen (5L NC) Transfers SCALE: Activities may be completed with or without assistive devices. 3-Tbauizcxdv-tekwjie completes the activity by him/herself with no assistance from a helper. 5-Set-up or Clean-up Assistance-helper sets up or cleans up; patient completes activity. [place] assists only prior to or following the activity. 4-Supervision or Touching Assistance-helper provides verbal cues and/or touching/steadying and/or contact guard assistance as patient completes activity. Assistance may be provided throughout the activity or intermittently. 3-Partial/Moderate Assistance-helper does LESS THAN HALF the effort. [place] lifts, holds or supports trunk or limbs, but provides less than half the effort. 2-Substantial/Maximal Assistance-helper does MORE THAN HALF the effort. [place] lifts or holds trunk or limbs and provides more than half the effort. 8-Owsgcxmhz-bihszj does ALL the effort. Patient does none of the effort to complete the activity. Or, the assistance of 2 or more helpers is required for the patient to complete the activity. If activity was not attempted, code reason: 7-Patient Refused. 9-Not Applicable-not attempted and the patient did not perform the activity before the current illness, exacerbation or injury. 10-Not Attempted due to Environmental Limitations-(lack of equipment, weather restraints, etc.). 88-Not Attempted due to Medical Conditions or Safety Concerns. Roll Left & Right (QC): 5 Lying to Sitting/Side of Bed(Q: 4 Sit to Stand (QC): 4 Chair/Arh-ca-Eetlg Xfer(QC): 4 CGA for safety Weight Bearing Right Lower Extremity: Right Full Weight Bearing Left Lower Extremity: Left Full Weight Bearing Gait Training Does the Patient Walk?: Yes Distance: 300' Walk 10 feet (QC): 4 Walk 50 ft with 2 Turns(QC): 4 Walk 150 ft (QC): 4 Gait Assistive Device: FWW VC's for body placement in FWW and gait sequence secondary to Parkinson's. Patient displayed step to gait sequence when not concentrating. Reciprocal pattern when concentrating. Exercises Supine Ex: Ankle pumps, Heel Slides, Straight leg raise Supine Reps: 12 Seated Therapy Exercises: Long arc quads Seated Reps: 12 Assessment Patient tolerated treatment well and is up in recliner with needs met. Increase activity as tolerated. PT Short Term Goals Short Term Goals Time Frame: Mar 21, 2020 Roll Left & Right: 4 Sit to lyin Lying to sitting on side of be: 4 Sit to stand: 4 PT Chargemaster Specialist Goals Chargemaster Specialist Goals PT Chargemaster Specialist Goals Time Frame: Mar 24, 2020 Roll Left & Right (QC): 5 Sit to Lying (QC): 5 Lying-Sitting on Side/Bed(QC): 5 Sit to Stand (QC): 5 Chair/Vyk-gq-Aetir Xfer(QC): 5 Toilet Transfer (QC): 5 Car Transfer (QC): 4 Does the Patient Walk: Yes Walk 10 feet (QC): 5 Walk 50ft with 2 Turns (QC): 5 Walk 150 ft (QC): 5 Walking 10ft on Uneven Surface: 9 1 Step (curb) (QC): 4 4 Steps (QC): 9 12 Steps (QC): 9 Picking up an Object (QC): 9 Does the Pt use WC or Scooter?: No Type: N/A Type: N/A PT Plan Treatment/Plan Treatment Plan: Continue Plan of Care Treatment Plan: Bed Mobility, Education, Functional Activity Gigi, Functional Strength, Gait, Safety, Therapeutic Exercise, Transfers Treatment Duration: Mar 24, 2020 Frequency: 6 times per week Estimated Hrs Per Day: .5 hour per day Patient and/or Family Agrees t: Yes Time/GCodes Time In: 1025 Time Out: 1049 Total Billed Treatment Time: 24 Total Billed Treatment 1 visit GT 15 min EX 9 min CRISTI JARRETT PT Mar 19, 2020 11:21
--- NOTE | 2020-03-19 11:57 | NUR ---
THIS RN HAS SPOKEN TO PATIENT'S , HEBER TWICE TODAY. LAST 6 MINUTE CONVO PATIENT'S STATES CONCERN OF COVID. PATIENT HAS NOT HAD ANY COVID CONTACCT AND IS NOT ILL. SHE STATES THEY HAVE KEPT IN A 'BUBBLE' ANSWERED ALL OF 'S QUESTIONS AND NO FURTHER. REQUESTING DR DE LA VEGA TO REACH OUT TO HER DIRECTLY. DR DE LA VEGA NOTIFIED OF 'S REQUEST. PATIENT DENIES ANY NEEDS OR C/O AT THIS TIME. CONT TO MONITOR.
[2020-03-19 12:00] VITALS: BP 114/61
--- NOTE | 2020-03-19 12:06 | NUR ---
Pt is Rastafari. visited and delmyd w/ pt.
[2020-03-19] MEDS ORDERED: IOHEXOL 350 MG/ML 100 ML (OMNIPAQUE 350) VIAL IV ONE (14:45)
[2020-03-19] MEDS ORDERED: HOLD METFORMIN - RECEIVED CONTRAST 20 ML VIAL IV SCH (14:45)
[2020-03-19] MEDS ORDERED: CATHETER FLUSH 10 ML SYR IV PRN (14:45)
[2020-03-19] MEDS ORDERED: NS 100 ML (IVPB) BAG IV ONE (14:45)
--- NOTE | 2020-03-19 14:47 | Progress Note - Hospitalist ---
Subjective HPI/CC On Admission Date Seen by Provider: Mar 19, 2020 Time Seen by Provider: 09:35 Pt is a 74yoCM with a PMH of COPD, HTN, and ?parkinson's disease who presented to the ER due to shortness of pain and rib pain. He was seen in the ER earlier last night due to pain from a fall and was diagnosed with multiple rib fractures. He states he fells while his was trying to help him get his pants on and fell into the fireplace hitting his head. His witnessed all of this and he suffered no LOC. It started to become difficult to take deep breaths so he was seen in the ER and admission was recommended but he declined and left AMA. He continued to worsen and decided to return to the ER for admission. He required IV fentanyl for pain control and oxygen supplementation to maintain sats. This morning he reports he's feeling better but still quite sore. Subjective/Events-last exam He reports feeling well. He denies shortness of breath. He does have some rib pain. He has been eating and drinking. He has been up and moving around with his walker. He wants to go home. Objective Exam Vital Signs Vital Signs Date Time Temp Pulse Resp B/P (MAP) Pulse Ox O2 Delivery O2 Flow Rate FiO2 03/19/20 13:17 92 03/19/20 12:00 35.6 20 114/61 (78) 92 Nasal Cannula 5.00 03/17/20 04:07 21 Capillary Refill : Less Than 3 Seconds General Appearance: No Apparent Distress, Obese Respiratory: Lungs Clear, Normal Breath Sounds, No Respiratory Distress Cardiovascular: Regular Rate, Rhythm, No Edema, No Murmur Gastrointestinal: Normal Bowel Sounds, Non Tender, Soft Extremity: Normal Inspection, Non Tender, No Pedal Edema Neurologic/Psychiatric: Alert, Oriented x3, Normal Mood/Affect Skin: Normal Color, Warm/Dry Results/Procedures Lab Patient resulted labs reviewed. Imaging: Reviewed Imaging Report Assessment/Plan Assessment and Plan Assess & Plan/Chief Complaint Acute respiratory failure with hypoxia No oxygen requirement at home Procalcitonin normal BNP within normal limits D-dimer elevated CT Chest without evidence of PE, suboptimal study Obtain CT Angio Chest to rule out PE COVID KIMBERLY negative, PCR pending COPD with acute lower respiratory infection Continue steroids Continue Levaquin MAT protocol Multiple rib fractures s/p fall Trauma surgery consulted, appreciate recs PT/OT Pain regimen Incentive spirometer Parkinson's disease Last filled Sinemet months ago and I don't see another refill Will await official med rec to resume Steroid-induced hyperglycemia Mild, monitor Check A1C HTN Continue amlodipine DVT ppx: Lovenox Diagnosis/Problems Diagnosis/Problems (1) COPD with acute lower respiratory infection Status: Acute (2) Multiple rib fractures Status: Acute (3) Multiple transverse process fractures Status: Acute (4) Status post fall Status: Acute (5) Acute respiratory failure Status: Acute Qualifiers: Respiratory failure complication: hypoxia Qualified Codes: J96.01 - Acute respiratory failure with hypoxia Clinical Quality Measures DVT/VTE Risk/Contraindication: Risk Factor Score Per Nursin RFS Level Per Nursing on Admit: 4+=Very High RO DE LA VEGA MD Mar 19, 2020 14:47
--- NOTE | 2020-03-19 15:00 | NUR ---
"RD ASSESSMENT PMHx: COPD; HTN; Parkinson's disease; obstructive bowel; PT INTERACTION: Note pt is currently COVID PUI, per chart review. Note all diet information for nutrition assessment is per Haily RN or per chart review. Haily states pt is not eating. Note pt has been refusing trays and avg PO intake 55% x1d, per chart review. Haily states no issues with nausea, vomiting, constipation, or diarrhea that she is aware of. Note last BM was 03/18, and pt currently on bowel regimen of miralax BID, per chart review. ABNORMAL NUTRITION-RELATED LAB VALUES LOW: HIGH: BUN 23; glu 150; Est. kcal needs: 2417-3650 kcal | 15-18 kcal/kg Est. Pro needs: 88-110 g Pro | 0.8-1.0 g Pro/kg PES STATEMENT: Inadequate oral intake (NI-2.1) related to loss of appetite as evidenced by chart review, pt refusing trays, and avg PO intake 55% x1d. INTERVENTION: Continue with current diet order of 2000mg Na diet. Add Ensure Enlive to meals TID, for increased kcal intake. Provides 350 kcal and 20 g Pro per serving. Would encourage pt to eat when able. Will continue to follow and reassess as pt needs, intake, and status change. Nikky POOLE, MS RD LD [phone] cell"
--- NOTE | 2020-03-19 16:44 | Diagnostic Imaging Report ---
EXAMINATION: CT angiography of the chest. TECHNIQUE: Contrast enhanced thin section helical images were obtained through the chest with intravenous contrast timed for the optimal opacification of the arterial structures per CTA protocol. Post-processing, reconstructions and interpretation of angiographic images of the vessels was performed. 3D MIP reconstructions were performed and reviewed. All CT scans use one or more of the following dose optimizing techniques: automated exposure control, MA and/or KvP adjustment based on a patient size and exam type, or iterative reconstruction. HISTORY: Hypoxia COMPARISON: 03/16/2020. FINDINGS: There is no pulmonary embolism. There is a new area of groundglass in the right upper lobe. There is septal line thickening, suggestive of pulmonary edema. There is a tiny right pleural effusion. No pneumothorax. No suspicious nodules. There is no axillary or supraclavicular lymphadenopathy. There is no mediastinal lymphadenopathy. Heart size is normal. There are mild coronary artery calcifications. No pericardial effusion. Aorta is normal in caliber. Limited views of the upper abdomen are unremarkable. There are no suspicious osseous lesions. IMPRESSION: 1. New area of groundglass in the right upper lobe, concerning for an infection such as COVID-19. 2. Mild groundglass and small right pleural effusion, consistent with pulmonary edema. Dictated by: Dictated on workstation # [id number]
[2020-03-19 16:55] VITALS: BP 134/79
[2020-03-19] MEDS ORDERED: LEVOFLOXACIN 750 MG TAB (LEVAQUIN) PO SCH (19:00)
[2020-03-19] MEDS: RT-ALBUTEROL INHALER HFA (VENTOLIN HFA) 18 GM IH SCH ×2 (19:20→21:51)
[2020-03-19] MEDS: IPRATROPIUM INHALER (ATROVENT) 12.9 GM INH SCH ×2 (19:20→21:51)
[2020-03-19 20:00] VITALS: BP 120/64
[2020-03-19] MEDS: MELATONIN 3 MG TABLET PO SCH (20:14)
[2020-03-19] MEDS: SERTRALINE 100 MG (ZOLOFT) TAB PO SCH (20:14)
[2020-03-19] MEDS: GABAPENTIN 300 MG (NEURONTIN) CAP PO SCH (20:14)
[2020-03-19] MEDS: polyethylene glycoL POWDER 17 GM (MIRALAX) PACK PO SCH (20:15)
[2020-03-19] MEDS ORDERED: ENOXAPARIN 40 MG/0.4 ML (LOVENOX) SYR SC SCH (21:00)
[2020-03-20] VITALS: BP 130/70
[2020-03-20] MEDS: RT-ALBUTEROL INHALER HFA (VENTOLIN HFA) 18 GM IH SCH ×5 (02:06→14:33)
[2020-03-20] MEDS: IPRATROPIUM INHALER (ATROVENT) 12.9 GM INH SCH ×5 (02:07→14:32)
--- NOTE | 2020-03-20 03:15 | NUR ---
PATIENT'S COVID PCR RESULT IS NEGATIVE. DR BUITRAGO NOTIFIED, GAVE ORDER TO DISCONTINUE AIRBORNE PRECAUTIONS.
[2020-03-20 03:34] VITALS: BP 125/70
[2020-03-20 06:01] LABS: BASOPHILS % (AUTO) 0 % (0-10); EOSINOPHILS % (AUTO) 0 % (0-10); HEMATOCRIT 43 % (40-54); HEMOGLOBIN 13.3 g/dL (13.3-17.7); LYMPHOCYTES # (AUTO) 1.2 10^3/uL (1.0-4.0); LYMPHOCYTES % (AUTO) 12 % (12-44); MEAN CORPUSCULAR HEMOGLOBIN 26 pg (25-34); MEAN CORPUSCULAR HGB CONC 31 g/dL (32-36); MEAN CORPUSCULAR VOLUME 83 fL (80-99); MEAN PLATELET VOLUME 10.9 fL (9.0-12.2); MONOCYTES # (AUTO) 1.1 10^3/uL (0.0-1.0); MONOCYTES % (AUTO) 10 % (0-12); NEUTROPHILS % (AUTO) 78 % (42-75); PLATELET COUNT 285 10^3/uL (130-400); WHITE BLOOD COUNT 10.4 10^3/uL (4.3-11.0)
[2020-03-20] MEDS: predniSONE 20 MG TAB PO SCH (06:08)
[2020-03-20 06:09] LABS: CHLORIDE 102 MMOL/L (98-107); SODIUM 138 MMOL/L (135-145)
[2020-03-20 06:10] LABS: CALCIUM 8.6 MG/DL (8.5-10.1)
[2020-03-20 06:11] LABS: GLUCOSE 92 MG/DL (70-105)
[2020-03-20 06:12] LABS: CARBON DIOXIDE 26 MMOL/L (21-32)
[2020-03-20 06:15] LABS: BUN/CREATININE RATIO 35; CREATININE SERUM 0.74 MG/DL (0.60-1.30); GFR ESTIMATED > 60
--- NOTE | 2020-03-20 07:28 | Progress Note - Surgery ---
JHOANA ADAMSON MED STUDENT 03/20/20 0728: Subjective Date Seen by a Provider: Mar 20, 2020 Time Seen by a Provider: 06:35 Subjective/Events-last exam Pt seen and examined. Awake in bed, NAD. R rib pain continues to improve slightly. Still required 5L NC to maintain O2sat. Denies chest pain, N/V, abd pain. Continues to express need to go home and was informed that we would like to get his O2sat under control without supplemental O2. He says that he had multiple loose BM's yesterday after taking Miralax. Review of Systems General: No Chills HEENT: No Head Aches Pulmonary: Dyspnea Cardiovascular: No: Chest Pain, Palpitations, Lt Headedness Gastrointestinal: No: Nausea, Vomiting, Abdominal Pain Genitourinary: No Dysuria Objective Exam Vital Signs Date Time Temp Pulse Resp B/P (MAP) Pulse Ox O2 Delivery O2 Flow Rate FiO2 03/20/20 07:04 90 Nasal Cannula 6.00 03/20/20 03:34 36.4 83 22 125/70 (88) 92 Nasal Cannula 5.00 03/20/20 02:11 93 Nasal Cannula 5.00 03/20/20 02:07 93 Nasal Cannula 5.00 03/20/20 01:00 67 03/20/20 00:00 36.0 82 18 130/70 (90) 93 Nasal Cannula 5.00 03/19/20 21:59 94 Nasal Cannula 5.00 03/19/20 21:52 92 Nasal Cannula 5.00 03/19/20 20:00 Nasal Cannula 4.00 03/19/20 20:00 36.4 85 18 120/64 (82) 94 Nasal Cannula 5.00 03/19/20 19:00 129 03/19/20 16:55 36.0 83 18 134/79 (97) 92 Nasal Cannula 5.00 03/19/20 13:17 92 03/19/20 12:00 35.6 91 20 114/61 (78) 92 Nasal Cannula 5.00 03/19/20 10:09 91 Nasal Cannula 5.00 03/19/20 08:00 35.4 122 20 125/72 (89) 96 Nasal Cannula 5.00 03/19/20 07:41 Nasal Cannula 4.00 I & O 03/20/20 06:59 Intake Total 2310 ml Output Total 600 ml Balance 1710 ml Capillary Refill : Less Than 3 Seconds General Appearance: No Apparent Distress, Chronically ill, Obese HEENT: PERRL/EOMI Neck: Full Range of Motion, Non Tender, Supple Respiratory: No Accessory Muscle Use, No Respiratory Distress, Other (chest) Cardiovascular: No JVD, Tachycardia Gastrointestinal: normal bowel sounds, non tender, soft Extremity: Normal Inspection, Non Tender Neurologic/Psychiatric: Alert, Oriented x3, Normal Mood/Affect Skin: Normal Color, Warm/Dry Lymphatic: No Adenopathy Results Lab Laboratory Tests 03/19/20 12:01: D-Dimer 1.11H, Mean Blood Glucose 103, Hemoglobin A1c 5.2, C-Reactive Protein High Sensitivity 0.54H, Procalcitonin 0.03 03/19/20 12:14: Coronavirus 2019 (KIMBERLY) Negative 03/19/20 12:43: Coronavirus (COVID-19)(PCR) Negative 03/20/20 05:30: White Blood Count 10.4, Red Blood Count 5.12, Hemoglobin 13.3, Hematocrit 43, Mean Corpuscular Volume 83, Mean Corpuscular Hemoglobin 26, Mean Corpuscular Hemoglobin Concent 31L, Red Cell Distribution Width 14.3, Platelet Count 285, Mean Platelet Volume 10.9, Immature Granulocyte % (Auto) 1, Neutrophils (%) (Auto) 78H, Lymphocytes (%) (Auto) 12, Monocytes (%) (Auto) 10, Eosinophils (%) (Auto) 0, Basophils (%) (Auto) 0, Neutrophils # (Auto) 8.0H, Lymphocytes # (Auto) 1.2, Monocytes # (Auto) 1.1H, Eosinophils # (Auto) 0.0, Basophils # (Auto) 0.0, Immature Granulocyte # (Auto) 0.1, Sodium Level 138, Potassium Level 4.0, Chloride Level 102, Carbon Dioxide Level 26, Anion Gap 10, Blood Urea Nitrogen 26H, Creatinine 0.74, Estimat Glomerular Filtration Rate > 60, BUN/Creatinine Ratio 35, Glucose Level 92, Calcium Level 8.6 Assessment/Plan Assessment/Plan Assessment/Plan COPD exacerbation s/p recent fall 5 days ago with Thoracolumbar TP fracture, R rib 10 and L rib [address] chest/abd/pelvis showed no s/s bleeding or pulmonary compromise, continue to monitor Provide/promote IS use, pain management Continue to monitor VS/labs PT Still requiring o2 supplementatoin agree with CTA Chest Clinical Quality Measures DVT/VTE Risk/Contraindication: Risk Factor Score Per Nursin RFS Level Per Nursing on Admit: 4+=Very High KRISTIAN CHAVEZ DO 03/20/20 2202: Subjective Subjective/Events-last exam Patient wanting to go home. Patient states his pain is better controlled. Patient breathing a little bit easier. Patient is using incentive spirometer. Patient still requiring 5 L O2 saturation. Denies nausea vomiting fever sweats chills Objective Exam General Appearance: No Apparent Distress, Chronically ill, Obese HEENT: PERRL/EOMI Neck: Full Range of Motion, Non Tender, Supple Respiratory: No Accessory Muscle Use, No Respiratory Distress Cardiovascular: Regular Rate, Rhythm, No JVD Gastrointestinal: non tender, soft, no organomegaly Extremity: Normal Inspection, Non Tender Neurologic/Psychiatric: Alert, Oriented x3, Normal Mood/Affect Skin: Normal Color, Warm/Dry Lymphatic: No Adenopathy Assessment/Plan Assessment/Plan Assessment/Plan COPD exacerbation s/p recent fall 5 days ago with Thoracolumbar TP fracture, R rib 10 and L rib [address] chest/abd/pelvis showed no s/s bleeding or pulmonary compromise, continue to monitor Provide/promote IS use, pain management Continue to monitor VS/labs PT Still requiring o2 supplementation Try to wean oxygen if unable to could go home with oxygen Pain control Supervisory-Addendum Brief Verification & Attestation Participated in pt care: history, MDM, physical Personally performed: exam, history, MDM, supervision of care Care discussed with: Medical Student Procedures: n/a Results interpretation: Verified all documentation Verification and Attestation of Medical Student E/M Service A medical student performed and documented this service in my presence. I reviewed and verified all information documented by the medical student and made modifications to such information, when appropriate. I personally performed the physical exam and medical decision making. Kristian Chavez, Mar 20, 2020,22:01 JHOANA ADAMSON MED STUDENT Mar 20, 2020 07:28 KRISTIAN CHAVEZ DO Mar 20, 2020 22:02
[2020-03-20 08:00] VITALS: BP 126/62
[2020-03-20] MEDS: amLODIPine 10 MG (NORVASC) TAB PO SCH (08:51)
[2020-03-20] MEDS: METHOCARBAMOL 500 MG (ROBAXIN) TABLET PO SCH ×2 (08:51→13:17)
[2020-03-20] MEDS: DIVALPROX SPRINKLE 125 MG (DEPAKOTE) CAP PO SCH (08:51)
[2020-03-20] MEDS: PANTOPRAZOLE 40 MG (PROTONIX) TAB PO SCH (08:51)
--- NOTE | 2020-03-20 10:52 | NUR ---
SPO2 OF 93% ON 6L NC. REMOVED O2 SPO2 DROPPED TO 88% ON RA AT REST. REPLACED O2 AT 3L nc SPO2 INCREASED TO 90% Addendum: 03/20/20 at 1107 by MOIZ FARIA RT Amended: Links added.
[2020-03-20] MEDS ORDERED: PRED10TA22 PO (11:10)
[2020-03-20] MEDS ORDERED: CEFD300C3 PO (11:10)
[2020-03-20] MEDS ORDERED: DIVA125C10 PO (11:17)
--- NOTE | 2020-03-20 11:55 | NUR ---
CM FINALIZED DISCHARGE PLAN: Patient is dismissing to home today with Home Health Care and new continuous oxygen. Visited with the patient and about choices for HHC and DME. He has used [facility] in [place], [place] for a CPAP and would like to continue with them for his oxygen needs. He selected [facility] for his provider. Referral faxed to both agencies. Contacted [facility] so that they can deliver the needed o2 for discharge home. Side Note: Pt and report that he has [facility] 20 hrs/wk with [facility] and wanted me to also talk with [facility] [phone] to ask if she would be able to deliver his needed home health care. Attempted to call and visit but was unable to reach her. Updated pt's and let her know that I was pretty sure that HHC is a different service that [facility] would be unable to deliver. They would like me to set up [facility] but they are also leaving a message with [facility] to call and talk with me. Will proceed with set up and they can cancel if this is something that this other entity will be able to deliver. Addendum: 03/20/20 at 1241 by PEEWEE COONEY RN [facility] will not be able to see the patient until the . Patient would like me to send a referral to [facility]. Contacted [facility] and they will review to see if they can accept.
[2020-03-20 12:00] VITALS: BP 134/74
--- NOTE | 2020-03-20 12:10 | Discharge Summary ---
Discharge Summary Reconcile Patient Problems Problems Reviewed?: Yes Instructions for Patient Via [facility], Assessment/Instructions Take medications as prescribed. Complete your course of antibiotics even if you are feeling better. Complete your steroid taper. You are being set up with home oxygen. Follow up with your PCP in about a week. Physician to follow Patient: Carlton Discharge Diet for Home: No Restrictions Hospital Course Date of Admission: Mar 17, 2020 at 00:22 Admission Diagnosis : COPD with acute exacerbation Family Physician/Provider: Sami Vincent DO Date of Discharge: 03/20/20 Discharge Diagnosis: Acute respiratory failure with hypoxia, COPD exacerbation, rib fractures, pneumonia Hospital Course: Jeff Ellis is a 74 year old male who presented after a fall with multiple rib fractures. He was short of breath and requiring oxygen. General surgery was consulted and assisted with his care. He was treated for a COPD exacerbation with steroids and inhalers. He was treated for pneumonia with IV antibiotics and was given a short course of oral antibiotics to complete as an outpatient. He was set up with home oxygen 3 L continuously at the time of discharge. He was tested for COVID and was negative with rapid and PCR testing. He was negative for PE on CT chest. He was discharged home in stable condition. He was set up with home health care. He should follow up with Dr. Vincent in about a week. He should follow up with Dr. Farfan in a couple weeks for COPD. Labs and Pending Lab Test: Laboratory Tests 03/19/20 12:01: D-Dimer 1.11H, Mean Blood Glucose 103, Hemoglobin A1c 5.2, C-Reactive Protein High Sensitivity 0.54H, Procalcitonin 0.03 03/19/20 12:14: Coronavirus 2019 (KIMBERLY) Negative 03/19/20 12:43: Coronavirus (COVID-19)(PCR) Negative 03/20/20 05:30: White Blood Count 10.4, Red Blood Count 5.12, Hemoglobin 13.3, Hematocrit 43, Mean Corpuscular Volume 83, Mean Corpuscular Hemoglobin 26, Mean Corpuscular Hemoglobin Concent 31L, Red Cell Distribution Width 14.3, Platelet Count 285, Mean Platelet Volume 10.9, Immature Granulocyte % (Auto) 1, Neutrophils (%) (Auto) 78H, Lymphocytes (%) (Auto) 12, Monocytes (%) (Auto) 10, Eosinophils (%) (Auto) 0, Basophils (%) (Auto) 0, Neutrophils # (Auto) 8.0H, Lymphocytes # (Auto) 1.2, Monocytes # (Auto) 1.1H, Eosinophils # (Auto) 0.0, Basophils # (Auto) 0.0, Immature Granulocyte # (Auto) 0.1, Sodium Level 138, Potassium Level 4.0, Chloride Level 102, Carbon Dioxide Level 26, Anion Gap 10, Blood Urea Nitrogen 26H, Creatinine 0.74, Estimat Glomerular Filtration Rate > 60, BUN/Creatinine Ratio 35, Glucose Level 92, Calcium Level 8.6 Home Meds Active Divalproex Sodium 125 Mg Cap.sprink 125 Mg PO BID 30 Days Cefdinir 300 Mg Capsule 300 Mg PO BID 5 Days Prednisone 10 Mg Tab.ds.pk 10 Mg PO DAILY Take 6 tabs(60mg)daily,decrease by 1 tab(10MG)daily. Reported Miralax (Polyethylene Glycol 3350) 17 Gm Powd.pack 17 Gm PO HS Tylenol Extra Strength (Acetaminophen) 500 Mg Tablet 1,000 Mg PO HS TAKES 2 (500MG) TABLETS Aleve (Naproxen Sodium) 220 Mg Tablet 220 Mg PO DAILY Omeprazole 40 Mg Capsule.dr 40 Mg PO DAILY Escitalopram Oxalate 10 Mg Tablet 10 Mg PO DAILY Furosemide 40 Mg Tablet 40 Mg PO HS Gabapentin 300 Mg Capsule 300 Mg PO HS Amlodipine-Benazepril 10-20 mg (Amlodipine Besylate/Benazepril) 1 Each Capsule 1 Cap PO DAILY Consulations General surgery Patient Allergies: Coded Allergies: No Known Drug Allergies (Unverified , 10/15/12) Height (Feet): 5 Height (Inches): 9.00 Weight (Pounds): 240 Weight (Ounces): 0.0 Home Health Need/Face to Face Date of Face to Face: Mar 20, 2020 Clinical Findings: Shortness of breath I have seen Pt [id number]: Yes Discharged To: Home Diagnosis/Conditions: Acute respiratory failure Problems/Diagnosis/Condition: (1) Acute respiratory failure Patient is Homebound due to: Shortness of breath/distress Homebound Status Due to the above stated illness, injury or surgical procedure (medical condition or diagnosis) and associated clinical findings, the patient is homebound because of his/her inability to leave home except with aid of a supportive device and/or person AND leaving the home requires a considerable and taxing effort or is medically contraindicated. Pt req the following assistanc: Aid of another person, [facility] Health Nursing Orders Home Health Services Order: Nursing Services, Brush Machine Setter-Evaluate & Treat, Physical Therapy-Evaluate & Treat Home Health Infusion Therapy Line Start Date: Mar 16, 2020 Therapy Orders Therapy Orders: OT (must have SN or PT order), Physical Therapy Therapy Specific Orders: Eval assistive deivces, Teach enviro modifications/safety, Gait training, Increase strength/endurance Certify Stmt I certify that this patient is under my care and that I, a nurse practitioner or a physician; a dental front office assistant working with me, had a face to face encounter that - meets the physician face to face encounter requirements with this patient as dated. Discharge Physical Exam General: Alert, Oriented X3, Cooperative, No Acute Distress HEENT: Atraumatic, PERRLA, EOMI, Mucous Memb Moist/[place] Lungs: Clear to Auscultation, Normal Air Movement Heart: Regular Rate, Normal S1, Normal S2, No Murmurs Abdomen: Normal Bowel Sounds, Soft, No Tenderness Extremities: No Edema, No Tenderness/Swelling Skin: No Rashes, No Significant Lesion Neuro: Normal Speech, Normal Tone Psych/Mental Status: Mental Status NL, Mood NL RO DE LA VEGA MD Mar 20, 2020 12:01
== END 2020-03-20 15:40 | disposition home health service (06) | DRG 193 ==
LOC: EDUNIT# 22:06 → ER 22:09 → 4TH 03-17 00:22
PROVIDERS: ADMIT Family Medicine; ATTEND Internal Medicine
DX: J18.9 Pneumonia, unspecified organism (principal); J96.01 Acute respiratory failure with hypoxia; J96.02 Acute respiratory failure with hypercapnia; J44.0 Chronic obstructive pulmonary disease with (acute) lower respiratory infection; J44.1 Chronic obstructive pulmonary disease with (acute) exacerbation; S22.089A Unspecified fracture of T11-T12 vertebra, initial encounter for closed fracture; S32.019A Unspecified fracture of first lumbar vertebra, initial encounter for closed fracture; S32.029A Unspecified fracture of second lumbar vertebra, initial encounter for closed fracture; S22.43XA Multiple fractures of ribs, bilateral, initial encounter for closed fracture; Z20.828 Contact with and (suspected) exposure to other viral communicable diseases; F17.210 Nicotine dependence, cigarettes, uncomplicated; I10 Essential (primary) hypertension; G20 Parkinson's disease; I87.8 Other specified disorders of veins; F32.9 Major depressive disorder, single episode, unspecified; M19.91 Primary osteoarthritis, unspecified site; Z79.899 Other long term (current) drug therapy; W18.30XA Fall on same level, unspecified, initial encounter; Y93.89 Activity, other specified; Y92.009 Unspecified place in unspecified non-institutional (private) residence as the place of occurrence of the external cause; R73.9 Hyperglycemia, unspecified; T38.0X5A Adverse effect of glucocorticoids and synthetic analogues, initial encounter
CPT/HCPCS: 36415; 71045; 71260; 71275; 74177; 80048; 80053; 80164; 81000; 82550; 82553; 82805; 83036; 83735; 83874; 83880; 84145; 84484; 85025; 85027; 85379; 86141; 87635; 93005; 93041; 94640; 94664; 94760; 94761; 96374; 96375

== ENCOUNTER → 2020-04-02 | Outpatient (CLI) | payer OTHER, MEDICARE ==
[~2020-04-02] MED LIST changes: +CEFD300C3 PO; +DIVA125C10 PO; +POLY17PO6 PO; +PRED10TA22 PO
== END ==
LOC: GIR 10:26
PROVIDERS: ATTEND Nurse Practitioner Family
DX: Z20.822 Contact with and (suspected) exposure to COVID-19 (principal)
CPT/HCPCS: 87635

== ENCOUNTER → 2020-04-10 | Outpatient (CLI) | payer MEDICARE, OTHER ==
[~2020-04-10] VITALS: Ht 172.7 cm; Wt 106.2 kg
[~2020-04-10] MED LIST changes: +BAMLANIVIMAB 700 MG in NS 200 ML IV ONE; +EPINEPHrine INJECTION 1 MG/ML AMP IM PRN; +diphenhydrAMINE 50 MG/ML INJ (BENADRYL) IV PRN
[2020-04-10 14:14] VITALS: BP 91/57
[2020-04-10 16:00] VITALS: BP 96/66
== END ==
LOC: INFUSION 14:09
PROVIDERS: ATTEND Nurse Practitioner Family
DX: U07.1 COVID-19 (principal); J44.9 Chronic obstructive pulmonary disease, unspecified; G20 Parkinson's disease; F17.210 Nicotine dependence, cigarettes, uncomplicated

== ENCOUNTER 2020-11-07 14:12 | Emergency (ER) | payer MEDICARE, OTHER ==
[~2020-11-07] VITALS: Ht 172.7 cm; Wt 111.0 kg
[~2020-11-07 14:12] MED LIST changes: -BAMLANIVIMAB 700 MG in NS 200 ML IV ONE; -EPINEPHrine INJECTION 1 MG/ML AMP IM PRN; +ESCI-2 PO; -ESCI10TA55 PO; -OMEP40CA27 PO; +OMEP40CA6 PO; -PHEN37.53; +PHEN37.58; -diphenhydrAMINE 50 MG/ML INJ (BENADRYL) IV PRN
[2020-11-07 14:29] VITALS: BP 136/76
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
[2020-11-07] MEDS ORDERED: TETANUS,DIPTH,PERTUSS P/F (BOOSTRIX) 0.5 ML VIAL IM ONE (16:00)
== END 2020-11-07 16:14 | disposition home or self-care (01) ==
LOC: EDUNIT# 14:12 → ER 14:13
DX: S50.811A Abrasion of right forearm, initial encounter (principal); G20 Parkinson's disease; I10 Essential (primary) hypertension; G89.29 Other chronic pain; M54.9 Dorsalgia, unspecified; F32.9 Major depressive disorder, single episode, unspecified; Z79.1 Long term (current) use of non-steroidal anti-inflammatories (NSAID); Z79.899 Other long term (current) drug therapy; W18.30XA Fall on same level, unspecified, initial encounter
CPT/HCPCS: 90471; 90715; 99284

== ENCOUNTER 2021-08-28 11:42 | Inpatient (IN) | payer MEDICARE, OTHER ==
[~2021-08-28] VITALS: Ht 175.2 cm; Wt 124.0 kg
[~2021-08-28 11:42] MED LIST changes: -LEVO500T80 PO; +LEVO500T81 PO
[2021-08-28] MEDS ORDERED: NS IV 1000 ML 1,000 ML ONE (11:55)
[2021-08-28 12:10] LABS: BASOPHILS % (AUTO) 0 % (0-10); EOSINOPHILS # (AUTO) 0.1 10^3/uL (0.0-0.3); EOSINOPHILS % (AUTO) 1 % (0-10); HEMATOCRIT 45 % (40-54); HEMOGLOBIN 13.8 g/dL (13.3-17.7); LYMPHOCYTES # (AUTO) 1.1 10^3/uL (1.0-4.0); LYMPHOCYTES % (AUTO) 10 % (12-44); MEAN CORPUSCULAR HEMOGLOBIN 27 pg (25-34); MEAN CORPUSCULAR HGB CONC 31 g/dL (32-36); MEAN CORPUSCULAR VOLUME 87 fL (80-99); MEAN PLATELET VOLUME 10.5 fL (9.0-12.2); MONOCYTES # (AUTO) 0.6 10^3/uL (0.0-1.0); MONOCYTES % (AUTO) 5 % (0-12); NEUTROPHILS # (AUTO) 9.3 10^3/uL (1.8-7.8); NEUTROPHILS % (AUTO) 83 % (42-75); PLATELET COUNT 242 10^3/uL (130-400); WHITE BLOOD COUNT 11.2 10^3/uL (4.3-11.0)
[2021-08-28] MEDS ORDERED: LIDOCAINE UROJET 2% GEL 10 ML PKG ONE (12:15)
[2021-08-28] MEDS ORDERED: LIDOCAINE UROJET 2% GEL 10 ML PKG TOP ONE (12:15)
[2021-08-28] MEDS: NS IV 1000 ML 1,000 ML IV SCH ×4 (12:16→23:00)
[2021-08-28] MEDS ORDERED: CEFEPIME INJECTION 1,000 MG in NS (IVPB) 50 ML IV ONE (12:30)
[2021-08-28 12:38] LABS: ALBUMIN 3.9 GM/DL (3.2-4.5); POTASSIUM 4.6 MMOL/L (3.6-5.0)
[2021-08-28 12:39] LABS: CALCIUM 8.9 MG/DL (8.5-10.1)
[2021-08-28 12:40] LABS: TOTAL PROTEIN 6.7 GM/DL (6.4-8.2)
[2021-08-28 12:42] LABS: BILIRUBIN,TOTAL 0.6 MG/DL (0.1-1.0)
[2021-08-28 12:44] LABS: CREATININE SERUM 1.17 MG/DL (0.60-1.30)
[2021-08-28 12:54] LABS: INR 1.6 (0.8-1.4); PROTHROMBIN TIME PATIENT 19.5 SEC (12.2-14.7)
--- NOTE | 2021-08-28 13:27 | ED General ---
General Chief Complaint: General Problems/Pain Stated Complaint: WEAKNESS Nursing Triage Note: pt to room by wheelchair with pt . pt states that pt had diarrhea yesterday and has had increasing weakness over the past couple of weeks. pt states that the pt has had 3 falls in the last 24 hours and denies any head injury or LOC. pt has multiple skin tears from recent falls. Source of Information: Patient Exam Limitations: No Limitations (TIM NORMAN APRN) History of Present Illness Date Seen by Provider: Aug 28, 2021 Time Seen by Provider: 11:46 Initial Comments This is a 75-year-old male with a history of A-typical Parkinson's and frequent falls who presented to the ER via POV with his spouse for concerns of increasing weakness over the past several weeks. His spouse states that yesterday he also had diarrhea and fell 3 times in the last 24 hours and has fallen several times last week. He does have bruise to his right knee, but states this is no painful and he is able to walk. States did not injure himself during falls and he denies any trauma to head or neck. At this time his only complaint is fatigue. He has chronic non-productive cough, which he reports is unchanged from his baseline. Denies abdominal pain, dysuria, or hematuria. He does have multiple open skin tears on his bilateral upper and lower extremities. Denies fever, chills, shortness of breath, chest pain, nausea, vomiting, symptoms. (TIM NORMAN APRN) Allergies and Home Medications Allergies Coded Allergies: No Known Drug Allergies (Unverified , 10/15/12) Patient Home Medication List Home Medication List Reviewed: Yes (TIM NORMAN APRN) Acetaminophen (Tylenol Extra Strength) 500 Mg Tablet, 1,000 MG PO HS, (Reported) Entered as Reported by: NO FELICIANO on 03/25/17 1158 Last Action: Reviewed Benazepril HCl (Benazepril HCl) 20 Mg Tablet, 20 MG PO 0800, (Reported) Entered as Reported by: MELANY RAMIREZ on 08/29/21 1123 Last Action: Reviewed Carbidopa/Levodopa (Carbidopa-Levo ER 50-200 Tab) 50 Mg-200 Mg Tablet.er, 2 EACH PO BID, (Reported) Entered as Reported by: MELANY RAMIREZ on 08/29/21 112 Last Action: Reviewed Carbidopa/Levodopa (Carbidopa-Levo ER 50-200 Tab) 50 Mg-200 Mg Tablet.er, 1 EACH PO 2000, (Reported) Entered as Reported by: MELANY RAMIREZ on 08/29/21 112 Last Action: Reviewed Cetirizine HCl (Zyrtec) 10 Mg Tablet, 10 MG PO DAILY PRN for ALLERGIES, (Reported) Entered as Reported by: MELANY RAMIREZ on 08/29/21 113 Last Action: Reviewed Cranberry Extract (Cranberry) 200 Mg Capsule, 200 MG PO DAILY, (Reported) Entered as Reported by: MELANY RAMIREZ on 08/29/21 114 Last Action: Reviewed Dextromethorphan Hb/Doxylamine (Night Time Cough Liquid) 15 Mg-6.25 Mg/15 Ml Solution, 30 ML PO HS PRN for COUGH, (Reported) Entered as Reported by: MLEANY RAMIREZ on 08/29/21 1142 Last Action: Reviewed Docusate Sodium (Stool Softener) 100 Mg Capsule, 100 MG PO DAILY PRN for CONSTIPATION-1ST LINE, (Reported) Entered as Reported by: MELANY RAMIREZ on 08/29/21 113 Last Action: Reviewed Finasteride (Finasteride) 5 Mg Tablet, 5 MG PO HS, (Reported) Entered as Reported by: MELANY RAMIREZ on 08/29/21 113 Last Action: Reviewed Gabapentin (Neurontin) 300 Mg Capsule, 300 MG PO HS, (Reported) Entered as Reported by: MELANY RAMIREZ on 08/29/21 113 Last Action: Reviewed Guaifenesin (Mucinex) 600 Mg Tab.er.12h, 600 MG PO DAILY PRN for CONGESTION, (Reported) Entered as Reported by: MELANY RAMIREZ on 08/29/21 113 Last Action: Reviewed Melatonin (Melatonin) 10 Mg Tab.rapdis, 20 MG PO HS, (Reported) Entered as Reported by: MELANY RAMIREZ on 08/29/21 113 Last Action: Reviewed Naproxen Sodium (Aleve) 220 Mg Tablet, 220 MG PO DAILY, (Reported) Entered as Reported by: NO FELICIANO on 03/25/17 1158 Last Action: Reviewed Omeprazole (Omeprazole) 40 Mg Capsule.dr, 40 MG PO 0800, (Reported) Entered as Reported by: NO FELICIANO on 03/25/17 1044 Last Action: Reviewed Polyethylene Glycol 3350 (Miralax) 17 Gm Powd.pack, 17 GM PO HS, (Reported) Entered as Reported by: DOMITILA FRANCE on 03/18/20 1051 Last Action: Reviewed Quetiapine Fumarate (Quetiapine Fumarate) 25 Mg Tablet, 25 MG PO HS, (Reported) Entered as Reported by: MELANY RAMIREZ on 08/29/21 113 Last Action: Reviewed Ropinirole HCl (Ropinirole HCl) 0.5 Mg Tablet, 0.5 MG PO TID, (Reported) Entered as Reported by: MELANY RAMIREZ on 08/29/21 112 Last Action: Reviewed Sertraline HCl (Sertraline HCl) 100 Mg Tablet, 100 MG PO DAILY, (Reported) Entered as Reported by: MELANY RAMIREZ on 08/29/21 113 Last Action: Reviewed Tamsulosin HCl (Flomax) 0.4 Mg Cap, 0.4 MG PO 2000, (Reported) Entered as Reported by: MELANY RAMIREZ on 08/29/21 113 Last Action: Reviewed Trazodone HCl (Trazodone HCl) 50 Mg Tablet, 50 MG PO HS, (Reported) Entered as Reported by: MELANY RAMIREZ on 08/29/21 113 Last Action: Reviewed Venlafaxine HCl (Venlafaxine HCl ER) 75 Mg Cap.er.24h, 75 MG PO DAILY, (Reported) Entered as Reported by: MELANY RAMIREZ on 08/29/21 113 Last Action: Reviewed Discontinued Medications Melatonin/Pyridoxine HCl (B6) (Melatonin 10 mg Tablet) 10 Mg-10 Mg Tab.mphase, 1 EACH PO HS, (Reported) Discontinued Reason: Prescription changed Entered as Reported by: MELANY RAMIREZ on 08/29/21 113 Last Action: New Order Review of Systems Review of Systems Constitutional: see HPI EENTM: no symptoms reported Respiratory: see HPI Cardiovascular: no symptoms reported Gastrointestinal: no symptoms reported (TIM NORMAN APRN) Past Sbyivxu-Hckyax-Yigajr Hx Patient Social History Tobacco Use?: Yes Tobacco type used: Cigarettes Smoking Status: Current Everyday Smoker Substance use?: No Alcohol Use?: No (TIM NORMAN APRN) Immunizations Up To Date Tetanus Booster (TDap): Unknown Influenza Vaccine Up-to-Date: Yes; Up-to-Date (TIM NORMAN APRN) Seasonal Allergies Seasonal Allergies: No (TIM NORMAN APRN) Past Medical History Surgeries: Yes (L ROTATOR CUFF REPAIR;BACK SURGERY X 2;L FOOT SURGERY;VENTRAL HERNIA ) Abdominal, Orthopedic, Tonsillectomy Respiratory: Yes Chronic Bronchitis Currently Using CPAP: Yes Currently Using BIPAP: No Cardiac: Yes Chronic Edema/Swelling, Hypertension Neurological: Yes Parkinson's Disease Reproductive Disorders: No Genitourinary: No Gastrointestinal: Yes (VENTRAL HERNIA REPAIR) Abdominal Hernia, Obstructive Bowel Musculoskeletal: Yes (R ROTATOR CUFF INJ--NO SURGERY;L ROTATOR CUFF SX;BACK SX X2;L FOOT SX AGE 4) Degenerate Disk Disease, Arthritis, Chronic Back Pain Endocrine: No HEENT: Yes (TONSILLECTOMY) Cataract Loss of Vision: Denies Hearing Impairment: Denies Cancer: No Psychosocial: Yes Sleep Difficulties, Depression Integumentary: No Blood Disorders: No (TIM NORMAN APRN) Family Medical History No Pertinent Family Hx (TIM NORMAN APRN) Physical Exam-Suspected Sepsis Physical Exam Vital Signs Vital Signs - First Documented 08/28/21 11:46 Temp 35.7 Pulse 80 Resp 14 B/P (MAP) 68/46 (53) Pulse Ox 96 O2 Delivery Nasal Cannula O2 Flow Rate 2.00 (NELI RAMIREZ MD) Vital Signs Capillary Refill : (TIM NORMAN APRN) Blood Pressure Mean: 53 Height, Weight, BMI Height: 5'9.00" Weight: 240lbs. 0.0oz. 108.472237nh; 37.00 BMI Method:Stated General Appearance: No Apparent Distress, WD/WN Eyes: Bilateral Eye Normal Inspection, Bilateral Eye PERRL, Bilateral Eye EOMI HEENT: PERRL/EOMI, TMs Normal, Normal ENT Inspection, Pharynx Normal, Moist Mucous Membranes Neck: Full Range of Motion, Normal Inspection, Supple Respiratory: Lungs Clear, No Accessory Muscle Use, No Respiratory Distress, Pleural Rub Cardiovascular: Regular Rate, Rhythm, No Gallop Gastrointestinal: Normal Bowel Sounds, Non Tender, Soft, Distended Extremity: Normal Capillary Refill, Normal Inspection, Normal Range of Motion Neurologic/Psychiatric: Alert, Oriented x3, No Motor/Sensory Deficits, Normal Mood/Affect Skin: normal color, warm/dry, other (multiple skin tears on bilaterall upper and lower extremities) (TIM NORMAN APRN) Focused Exam Sepsis Stage: Septic Shock Possible Source: Unknown (TIM NORMAN APRN) Lactate Level 08/28/21 11:56: Lactic Acid Level 2.49*H (NELI RAMIREZ MD) Time of Focused Exam: 14:50 Respiratory: Chest Non Tender, Lungs Clear, No Accessory Muscle Use, No Respiratory Distress, Rales Cardiovascular: Regular Rate, Rhythm, Normal Peripheral Pulses; No Tachycardia Capillary Refill: Less Than 3 Seconds Skin: normal color, warm/dry, other (Skin tears on bilateral upper and lower ext. ) (TIM NORMAN APRN) Lactic Acid Level Laboratory Tests Test 08/28/21 11:56 Lactic Acid Level 2.49 MMOL/L (0.50-2.00) *H (NELI RAMIREZ MD) Within 3hrs of presentation: Admin fluids (3 liters ), Admin ABX, Blood cultures prior to ABX's, Focus exam, Lactate level (TIM NORMAN APRN) Procedures/Interventions Lumen: triple Central Line Procedure: betadine prep, sterile drapes applied, sterile dressing applied Position: internal jugular (R) Anesthesia: Lidocaine Volume Anesthetic (ccs): 2 Complications: none Post Position: sutured, good blood return, position confirmed w/ CXR (NELI RAMIREZ MD) Progress/Results/Core Measures Suspected Sepsis Recent Fever Within 48 Hours: No Infection Criteria Present: Suspected New Infection New/Unexplained Altered Menta: Yes Within 3hrs of presentation: Admin fluids, Admin ABX, Blood cultures prior to ABX's, Focus exam, Lactate level SIRS Temperature: Pulse: 80 Respiratory Rate: 14 Laboratory Tests 08/28/21 11:56: White Blood Count 11.2H 08/29/21 05:20: White Blood Count 6.8 Blood Pressure 68 /46 Mean: 53 08/28/21 11:56: Lactic Acid Level 2.49*H 08/28/21 15:44: Lactic Acid Level 1.20 Laboratory Tests 08/28/21 11:56: Creatinine 1.17, Platelet Count 242, Total Bilirubin 0.6 08/28/21 12:13: INR Comment 1.6H 08/29/21 05:20: Creatinine 0.72, Platelet Count 189 (TIM NORMAN APRN) Results/Orders Lab Results Laboratory Tests Test 08/28/21 11:56 08/28/21 12:02 08/28/21 12:13 Range/Units White Blood Count 11.2 H 4.3-11.0 10^3/uL Red Blood Count 5.10 4.30-5.52 10^6/uL Hemoglobin 13.8 13.3-17.7 g/dL Hematocrit 45 40-54 % Mean Corpuscular Volume 87 80-99 fL Mean Corpuscular Hemoglobin 27 25-34 pg Mean Corpuscular Hemoglobin Concent 31 L 32-36 g/dL Red Cell Distribution Width 15.4 H 10.0-14.5 % Platelet Count 242 130-400 10^3/uL Mean Platelet Volume 10.5 9.0-12.2 fL Immature Granulocyte % (Auto) 1 % Neutrophils (%) (Auto) 83 H 42-75 % Lymphocytes (%) (Auto) 10 L 12-44 % Monocytes (%) (Auto) 5 0-12 % Eosinophils (%) (Auto) 1 0-10 % Basophils (%) (Auto) 0 0-10 % Neutrophils # (Auto) 9.3 H 1.8-7.8 10^3/uL Lymphocytes # (Auto) 1.1 1.0-4.0 10^3/uL Monocytes # (Auto) 0.6 0.0-1.0 10^3/uL Eosinophils # (Auto) 0.1 0.0-0.3 10^3/uL Basophils # (Auto) 0.0 0.0-0.1 10^3/uL Immature Granulocyte # (Auto) 0.1 0.0-0.1 10^3/uL Sodium Level 138 135-145 MMOL/L Potassium Level 4.6 3.6-5.0 MMOL/L Chloride Level 102 98-107 MMOL/L Carbon Dioxide Level 22 21-32 MMOL/L Anion Gap 14 5-14 MMOL/L Blood Urea Nitrogen 28 H 7-18 MG/DL Creatinine 1.17 0.60-1.30 MG/DL Estimat Glomerular Filtration Rate 65 BUN/Creatinine Ratio 24 Glucose Level 161 H 70-105 MG/DL Lactic Acid Level 2.49 *H 0.50-2.00 MMOL/L Calcium Level 8.9 8.5-10.1 MG/DL Corrected Calcium 9.0 8.5-10.1 MG/DL Total Bilirubin 0.6 0.1-1.0 MG/DL Aspartate Amino Transf (AST/SGOT) 19 5-34 U/L Alanine Aminotransferase (ALT/SGPT) 8 0-55 U/L Alkaline Phosphatase 81 40-136 U/L Total Protein 6.7 6.4-8.2 GM/DL Albumin 3.9 3.2-4.5 GM/DL Influenza Type A (RT-PCR) Not Detected Not Detecte Influenza Type B (RT-PCR) Not Detected Not Detecte SARS-CoV-2 RNA (RT-PCR) Not Detected Not Detecte Prothrombin Time 19.5 H 12.2-14.7 SEC INR Comment 1.6 H 0.8-1.4 Activated Partial Thromboplast Time 45 H 24-35 SEC (NELI RAMIREZ MD) Medications Given in ED Current Medications Medications Dose Ordered Sig/[place] Route Start Time Stop Time Status Last Admin Dose Admin Cefepime HCl 1000 mg/Sodium Chloride 50 ml @ 100 mls/hr ONCE ONCE IV 08/28/21 12:30 08/28/21 12:59 DC 08/28/21 12:51 100 MLS/HR Lidocaine HCl 10 ml ONCE ONCE TOP 08/28/21 12:15 08/28/21 12:16 DC 08/28/21 12:51 10 ML (NELI RAMIREZ MD) Vital Signs/I&O 08/28/21 11:46 Temp 35.7 Pulse 80 Resp 14 B/P (MAP) 68/46 (53) Pulse Ox 96 O2 Delivery Nasal Cannula O2 Flow Rate 2.00 (NELI RAMIREZ MD) Vital Signs/I&O Capillary Refill : (TIM NORMAN APRN) Blood Pressure Mean: 53 Progress Note : Progress Note Upon arrival patient is extremely hypotensive with SBP in the 60's. Rapid initiation of IV access and fluids ordered. Will initiate sepsis workup due to profound hypotension with tachycardia. Patient also had 3 reported falls at home in the last 24 hours, and several others last week, orders placed for CT imaging to evaluate head, C-spine, chest, abdomen, and pelvis. Updated Dr. Jamil ED provider on patient status, requested central line placement. Obtained blood cultures and given Cefepime 1gm IV broad spectrum antibiotics while determining source. Given three liters IVF in ED to get SBP upper 90's-low 110's. CXR neg for acute pathology, UA negative for UTI. CT imaging negative for acute pathology. No source identified at this time. Severe volume loss could be related to diarrheal illness vs skin infection due to multiple open skin tears on bilateral upper and lower extremities. Discussed case with Dr. Aldana, will admit to ICU for Septic shock due to unknown source and frequent falls. (TIM NORMAN [employer] SE[employer] ASSEMBLER) ECG Initial ECG Impression Date: Aug 28, 2021 Initial ECG Impression Time: 12:14 Initial ECG Rate: 102 Initial ECG Rhythm: S.Tach Initial ECG Intervals Incomplete RBBB. No ST elevation or depression. Initial ECG Impression: Nonspecific Changes (TIM NORMAN [employer] SE[employer] ASSEMBLER) Diagnostic Imaging Comments [facility] [place], [place] NAME: DARRIUS ABRAHAM [employer] REC#: [id number] PT STATUS: REG ER : 1945 PHYSICIAN: TIM NORMAN APRN ADMIT DATE: 08/28/21/ER Signed Date of Exam:08/28/21 CHEST 1 VIEW, AP/PA ONLY INDICATION: Sepsis. Comparison is made with prior examination from 03/17/2020. FINDINGS: There is cardiomegaly and mild venous congestion. There is no pleural effusion or pneumothorax. The mediastinum is unremarkable. There is a right internal jugular central venous catheter which has its tip at the junction of the internal jugular vein and subclavian vein. IMPRESSION: Cardiomegaly and mild venous congestion. Dictated by: Dictated on workstation # [id number] Dict: 08/28/21 1354 Trans: 08/28/21 1407 [id number] Interpreted by: ROSA MORALES MD Electronically signed by: ROSA MORALES MD 08/28/21 1407 Comments [facility] [place], [place] NAME: DARRIUS ABRAHAM [facility] REC#: [id number] PT STATUS: REG ER : 1945 PHYSICIAN: TIM NORMAN [employer]SEM[employer] ADMIT DATE: 08/28/21/ER Signed Date of Exam:08/28/21 CHEST 1 VIEW, AP/PA ONLY INDICATION: Line placement. FINDINGS: There is cardiomegaly and mild venous congestion. The right internal jugular central venous catheter has its tip in the superior vena cava. IMPRESSION: Cardiomegaly and some mild central pulmonary venous congestion. Dictated by: Dictated on workstation # [id number] Dict: 08/28/21 1431 Trans: 08/28/21 1445 [id number] Interpreted by: ROSA MORALES MD Electronically signed by: ROSA MORALES MD 08/28/21 1448 Comments [facility] [place] [place] NAME: DARRIUS ABRAHAM [facility] REC#: [id number] PT STATUS: ADM IN : 1945 PHYSICIAN: TIM NORMAN [employer]SEM[employer] ADMIT DATE: 08/28/21/ICU Signed Date of Exam:08/28/21 CT CHEST/ABDOMEN/PELVIS W INDICATION: Fall with chest and abdominal pain. TECHNIQUE: Multiple contiguous axial images were obtained through the chest, abdomen, and pelvis after the administration of intravenous contrast. Auto Exposure Controls were utilized during the CT exam to meet ALARA standards for radiation dose reduction. COMPARISON: Comparison made with 03/16/2020. CT CHEST FINDINGS: There is no evidence of mediastinal hematoma. There are scattered coronary calcifications. There are no enlarged mediastinal or hilar nodes. There is no chest wall hematoma. There is no pleural or pericardial fluid. There is respiratory motion artifact. There is some mild bibasilar atelectasis but no overt contusion or consolidation. There is no focal pulmonary parenchymal mass. There are diffuse degenerative changes throughout the thoracic spine. CT ABDOMEN AND PELVIS FINDINGS: The liver and gallbladder appear unremarkable. The spleen, pancreas, and right adrenal appear normal. There is some slight thickening of the left adrenal superiorly which appears unchanged compared to the prior study. Kidneys bilaterally show a few scattered cysts on both sides but no solid lesion or evidence of renal injury. There is no retroperitoneal mass or adenopathy. There is no ascites. There is diffuse degenerative change in the lumbar spine with evidence of previous lumbar fusion. There is no pelvic hematoma or free fluid. A [place] catheter is in place in the bladder. There is no evidence of pelvic fracture. IMPRESSION: CT chest shows respiratory motion artifact with some mild dependent atelectatic changes in the lung bases. There is no acute traumatic process in the chest. CT abdomen and pelvis demonstrates no solid organ injury or free fluid. There is a stable area of thickening of the left adrenal gland. There is no hemoperitoneum. There is no fracture. There are diffuse degenerative changes and postop changes in the lumbar spine. Dictated by: Dictated on workstation # [id number] Dict: 08/28/21 1456 Trans: 08/28/21 1701 [id number] Interpreted by: CHEKO MALAVE MD Electronically signed by: CHEKO MALAVE MD 08/28/211700 Comments [facility] [place] [place] NAME: DARRIUS ABRAHAM [facility] REC#: [id number] PT STATUS: ADM IN : 1945 PHYSICIAN: TIM NORMAN [employer] ASSEM[employer]ER ADMIT DATE: 08/28/21/ICU Signed Date of Exam:08/28/21 CT HEAD/CERVICAL SPINE WO INDICATION: Fall with head and neck pain. Comparison made to 03/16/2020. TECHNIQUE: Multiple contiguous axial images were obtained through the brain and cervical spine without the use of intravenous contrast. Sagittal and coronal reformations through the cervical spine were then performed. Auto Exposure Controls were utilized during the CT exam to meet ALARA standards for radiation dose reduction. CT brain findings: There are mild diffuse atrophic changes. There are no extra-axial fluid collections. No intracranial hemorrhage. No intracranial mass or mass effect. No midline shift. The ventricles are normal in size and position. There are no acute parenchymal abnormalities in the brain. Calvarial windows show no fracture. CT cervical spine findings: There was no evidence of cervical spine fracture. There is no subluxation or malalignment. There is diffuse facet degenerative change throughout all levels. There is disc space narrowing and osteophyte formation throughout the lumbar spine, most prominent at C5-C6 and C6-C7. IMPRESSION: CT brain shows no acute intracranial abnormality or calvarial fracture. CT cervical spine shows diffuse degenerative findings which appear similar to the prior study with no acute appearing abnormality. Dictated by: Dictated on workstation # [id number] Dict: 08/28/21 1446 Trans: 08/28/21 1701 [facility] [id number] Interpreted by: CHEKO MALAVE MD Electronically signed by: CHEKO MALAVE MD 08/28/211700 (TIM NORMAN APRN) Critical Care Note Critical Care Start Time: 11:46 Stop Time: 12:30 Total Time (minutes) 30 Progress I personally spent this critical care time directly and personally managing the patient. Critical care time included obtaining a history; examining the patient; pulse oximetry; ordering and review of studies; arranging urgent treatment for septic shock of unknown source with profound hypotension, evaluation of patient's response to treatment; frequent reassessment; and discussions with other providers. (TIM NORMAN APRN) Departure Communication (Admissions) Time/Spoke to Admitting Phy: 13:08 Dr. Aldana (TIM NORMAN APRN) Impression Primary Impression: Septic shock due to undetermined organism Additional Impression: Frequent falls Disposition: ADMITTED INPATIENT Condition: Stable Admissions Decision to Admit Reason: Admit from ER (General) Decision to Admit/Date: Aug 28, 2021 Time/Decision to Admit Time: 13:08 (TIM NORMAN APRN) Departure-Patient Inst. Referrals: ALLYSON DIALLO DO (PCP/Family) Primary Care Physician TIM NORMAN APRN Aug 28, 2021 13:27 NELI RAMIREZ MD Aug 28, 2021 13:34
[2021-08-28] MEDS ORDERED: IOHEXOL 350 MG/ML 100 ML (OMNIPAQUE 350) VIAL IV ONE (13:30)
[2021-08-28] MEDS ORDERED: NS 100 ML (IVPB) BAG IV ONE (13:30)
[2021-08-28] MEDS ORDERED: CATHETER FLUSH 10 ML SYR IV PRN (13:30)
[2021-08-28] MEDS ORDERED: HOLD METFORMIN - RECEIVED CONTRAST 20 ML VIAL IV SCH (13:30)
--- NOTE | 2021-08-28 13:54 | History & Physical-Hospitalist ---
History of Present Illness HPI/Chief Complaint Patient is a 75-year-old male past medical history of Parkinson's dementia who presented to the emergency department due to weakness and diarrhea. He is unable to tell me much of his history states he does not feel well. His is at bedside and states he had multiple episodes of very loose diarrhea yesterday and continued to get more more weak throughout today. She called his primary care who recommended that he be seen in the ER. Arrival to the emergency room he was found to be hypotensive with blood pressures of 60/30. He was given fluid resuscitation and central line was started and blood pressures have improved to the 90s over 50s. He states he feels little better with that. He denies any fevers, nausea, vomiting, chest pain, shortness of breath, or new cough. His states he has a chronic cough. He is COVID vaccinated. Source: patient, family Date Seen 08/28/21 Time Seen by a Provider: 13:30 Attending Physician Sami Vincent DO PCP Admitting Physician: Attending Physician: Referring Physician Date of Admission Home Medications & Allergies Home Medications Reviewed patient Home Medication Reconciliation performed by pharmacy medication reconciliations hospital laboratory technician and/or nursing. Patients Allergies have been reviewed. Allergies Allergies Coded Allergies No Known Drug Allergies (Unverified10/15/12) Past Cbnwdvd-Jgxegs-Jwfqdw Hx Patient Social History Tobacco Use?: Yes Tobacco type used: Cigarettes Smoking Status: Current Everyday Smoker Substance use?: No Alcohol Use?: No Immunizations Up To Date Date of Influenza Vaccine: Jan 23, 2017 Tetanus Booster (TDap): Unknown Seasonal Allergies Seasonal Allergies: No Current Status Communicates: Verbally Primary Language: Dutch Preferred Spoken Language: Dutch Past Medical History Surgeries: Abdominal, Orthopedic, Tonsillectomy Chronic Bronchitis Currently Using CPAP: Yes Currently Using BIPAP: No Chronic Edema/Swelling, Hypertension Parkinson's Disease Abdominal Hernia, Obstructive Bowel Degenerate Disk Disease, Arthritis, Chronic Back Pain Cataract Loss of Vision: Denies Hearing Impairment: Denies Sleep Difficulties, Depression Blood Disorders: No Family Medical History No Pertinent Family Hx Review of Systems Constitutional: No chills, No fever; malaise, weakness EENTM: no symptoms reported Respiratory: no symptoms reported Cardiovascular: no symptoms reported Gastrointestinal: see HPI Genitourinary: no symptoms reported Musculoskeletal: see HPI Skin: no symptoms reported Psychiatric/Neurological: No Symptoms Reported Physical Exam Physical Exam Vital Signs Vital Signs - First Documented 08/28/21 08/31/21 11:46 14:00 Temp 35.7 Pulse 80 Resp 14 B/P (MAP) 68/46 (53) Pulse Ox 96 O2 Delivery Nasal Cannula O2 Flow Rate 2.00 FiO2 21 Capillary Refill : Height, Weight, BMI Height: 5'9.00" Weight: 240lbs. 0.0oz. 108.867034kc; 37.00 BMI Method:Stated General Appearance: No Apparent Distress, Chronically ill, Obese HEENT: PERRL/EOMI, Moist Mucous Membranes; No Scleral Icterus (L), No Scleral Icterus (R) Neck: Normal Inspection, Supple Respiratory: Lungs Clear, No Accessory Muscle Use, No Respiratory Distress Cardiovascular: Regular Rate, Rhythm, No JVD, No Murmur Gastrointestinal: Normal Bowel Sounds, Non Tender, Soft Extremity: Normal Capillary Refill, No Calf Tenderness, No Pedal Edema Neurologic/Psychiatric: Alert, Oriented x3, Normal Mood/Affect Skin: Normal Color, Warm/Dry Results Results/Procedures Labs Laboratory Tests 08/31/21 05:13 09/01/21 04:35 Patient resulted labs reviewed. Imaging: Reviewed Imaging Report Imaging [facility], [place] NAME: DARRIUS ABRAHAM Marisol [facility] REC#: [id number] PT STATUS: REG ER : 1945 PHYSICIAN: TIM NORMAN APRN ADMIT DATE: 08/28/21/ER Signed Date of Exam:08/28/21 CHEST 1 VIEW, AP/PA ONLY INDICATION: Sepsis. Comparison is made with prior examination from 03/17/2020. FINDINGS: There is cardiomegaly and mild venous congestion. There is no pleural effusion or pneumothorax. The mediastinum is unremarkable. There is a right internal jugular central venous catheter which has its tip at the junction of the internal jugular vein and subclavian vein. IMPRESSION: Cardiomegaly and mild venous congestion. Dictated by: Dictated on workstation # [id number] Dict: 08/28/21 1354 Trans: 08/28/21 1407 [id number] Interpreted by: ROSA MORALES MD Electronically signed by: ROSA MORALES MD 08/28/21 0120 Assessment/Plan Admission Diagnosis Hypovolemic shock Admission Status: Inpatient Order (span 2 midnights) Reason for Inpatient Admission: see below Assessment and Plan Hypovolemic shock Lactic acidosis Fluid resuscitate aggressively with 30 cc kilo Central line in place and Levophed ordered if needed given diarrhea will check for C. difficile No evidence of sepsis at this time but will follow cultures Parkinson's dementia Falls reports worsening debility PT/OT environmental services lead consulted for likely group home placement COPD No evidence of acute exacerbation Macro call Wean oxygen to keep sats greater than 90 Hypertension Hold home meds due to hypotension DVT prophylaxis: Lovenox Diagnosis/Problems Diagnosis/Problems (1) Parkinson's disease (2) Shock (3) Frequent falls Status: Acute (4) Skin abrasion Status: Acute JOSUE BULLARD MD Aug 28, 2021 13:54
--- NOTE | 2021-08-28 13:57 | Diagnostic Imaging Report ---
INDICATION: Sepsis. Comparison is made with prior examination from 03/17/2020. FINDINGS: There is cardiomegaly and mild venous congestion. There is no pleural effusion or pneumothorax. The mediastinum is unremarkable. There is a right internal jugular central venous catheter which has its tip at the junction of the internal jugular vein and subclavian vein. IMPRESSION: Cardiomegaly and mild venous congestion. Dictated by: Dictated on workstation # [id number]
[2021-08-28 13:58] LABS: BILIRUBIN,URINE NEGATIVE (NEGATIVE); CLARITY,URINE SL CLOUDY; COLOR,URINE YELLOW; GLUCOSE, URINE (UA) NEGATIVE (NEGATIVE); KETONES,URINE NEGATIVE (NEGATIVE); LEUKOCYTE ESTERASE ,URINE NEGATIVE (NEGATIVE); NITRITE,URINE NEGATIVE (NEGATIVE); PH,URINE 5.5 (5-9); PROTEIN,URINE TRACE (NEGATIVE)
[2021-08-28 14:12] LABS: AMORPHOUS SEDIMENT,UR FEW AMOR URATES /LPF; BACTERIA,URINE TRACE /HPF; HYALINE CASTS, URINE 0-2 /LPF; RBC,URINE 0-2 /HPF; WBC,URINE 0-2 /HPF
[2021-08-28] MEDS ORDERED: NS IV 1000 ML 1,000 ML IV ONE (14:30)
[2021-08-28] MEDS ORDERED: ONDANSETRON 4 MG/2 ML (SDV) Z0FRAN IV PRN (14:30)
--- NOTE | 2021-08-28 14:33 | Diagnostic Imaging Report ---
INDICATION: Line placement. FINDINGS: There is cardiomegaly and mild venous congestion. The right internal jugular central venous catheter has its tip in the superior vena cava. IMPRESSION: Cardiomegaly and some mild central pulmonary venous congestion. Dictated by: Dictated on workstation # [id number]
--- NOTE | 2021-08-28 14:46 | Occ Therapy Progress Note ---
Therapy Progress Note OT orders received and chart was reviewed. Pt yet to have transferred to medical floor, still currently in ER. OT to attempt evaluation 08/29/21 if medically appropriate. Maddy Mayorga OT Aug 28, 2021 14:46
--- NOTE | 2021-08-28 14:48 | Physical Therapy Progress Note ---
Therapy Progress Note Orders received for physical therapy eval. Patient is currently still in the ER. Will attempt in the morning. JONNY JORGE PT Aug 28, 2021 14:48
--- NOTE | 2021-08-28 14:51 | Diagnostic Imaging Report ---
INDICATION: Fall with head and neck pain. Comparison made to 03/16/2020. TECHNIQUE: Multiple contiguous axial images were obtained through the brain and cervical spine without the use of intravenous contrast. Sagittal and coronal reformations through the cervical spine were then performed. Auto Exposure Controls were utilized during the CT exam to meet ALARA standards for radiation dose reduction. CT brain findings: There are mild diffuse atrophic changes. There are no extra-axial fluid collections. No intracranial hemorrhage. No intracranial mass or mass effect. No midline shift. The ventricles are normal in size and position. There are no acute parenchymal abnormalities in the brain. Calvarial windows show no fracture. CT cervical spine findings: There was no evidence of cervical spine fracture. There is no subluxation or malalignment. There is diffuse facet degenerative change throughout all levels. There is disc space narrowing and osteophyte formation throughout the lumbar spine, most prominent at C5-C6 and C6-C7. IMPRESSION: CT brain shows no acute intracranial abnormality or calvarial fracture. CT cervical spine shows diffuse degenerative findings which appear similar to the prior study with no acute appearing abnormality. Dictated by: Dictated on workstation # [id number]
--- NOTE | 2021-08-28 15:14 | Diagnostic Imaging Report ---
INDICATION: Fall with chest and abdominal pain. TECHNIQUE: Multiple contiguous axial images were obtained through the chest, abdomen, and pelvis after the administration of intravenous contrast. Auto Exposure Controls were utilized during the CT exam to meet ALARA standards for radiation dose reduction. COMPARISON: Comparison made with 03/16/2020. CT CHEST FINDINGS: There is no evidence of mediastinal hematoma. There are scattered coronary calcifications. There are no enlarged mediastinal or hilar nodes. There is no chest wall hematoma. There is no pleural or pericardial fluid. There is respiratory motion artifact. There is some mild bibasilar atelectasis but no overt contusion or consolidation. There is no focal pulmonary parenchymal mass. There are diffuse degenerative changes throughout the thoracic spine. CT ABDOMEN AND PELVIS FINDINGS: The liver and gallbladder appear unremarkable. The spleen, pancreas, and right adrenal appear normal. There is some slight thickening of the left adrenal superiorly which appears unchanged compared to the prior study. Kidneys bilaterally show a few scattered cysts on both sides but no solid lesion or evidence of renal injury. There is no retroperitoneal mass or adenopathy. There is no ascites. There is diffuse degenerative change in the lumbar spine with evidence of previous lumbar fusion. There is no pelvic hematoma or free fluid. A [place] catheter is in place in the bladder. There is no evidence of pelvic fracture. IMPRESSION: CT chest shows respiratory motion artifact with some mild dependent atelectatic changes in the lung bases. There is no acute traumatic process in the chest. CT abdomen and pelvis demonstrates no solid organ injury or free fluid. There is a stable area of thickening of the left adrenal gland. There is no hemoperitoneum. There is no fracture. There are diffuse degenerative changes and postop changes in the lumbar spine. Dictated by: Dictated on workstation # [id number]
[2021-08-28 16:00] VITALS: BP 114/77
[2021-08-28 16:15] VITALS: BP 118/79
[2021-08-28 16:30] VITALS: BP 122/74
[2021-08-28] MEDS: NOREPINEPHRINE 8 MG/250 ML 250 ML IV SCH (16:34)
[2021-08-28] MEDS: ENOXAPARIN 40 MG/0.4 ML (LOVENOX) SYR SC SCH (16:41)
[2021-08-28] MEDS: inSUlin ASPART (NovoLOG) 1 UNIT/0.01 ML (CHARGE PER UNIT) SC SCH ×2 (17:04→22:00)
--- NOTE | 2021-08-28 17:26 | Tele-ICU Progress Note ---
Subjective Date Seen by a Provider: Aug 28, 2021 Time Seen by a Provider: 17:25 Subjective/Events-last exam (Tele-ICU Physician , consultation) Available chart/ vitals / labs / Images reviewed H&P is from ER notes Patient's information available about PMH, Shx, Fhx allergy reviewed in EMR. ROS as per chart and RN report Now in ICU, hemodynamically stable , 2 L o2 Video assessment done using teleICU camera, rest of exam as per RN Discussed with RN. Hospital course: 08-28: +Septic Shock vs Hypovolemic Shock Neg COVID - ^Weakness/Diarrhea - 3 falls w/in 24hrs. Hypotensive - Central line inserted - Levophed Drip - 3L NS. A/P Septic Shock vs Hypovolemic Shock - responded to 3 L NS - off pressors , vital stable - CT abd pelvis , chest - WNL Diarrhea - discussed with Dr Aldana - she supects viral, off ABX now ( Covid negative , check for C. difficile s/p falls with wekness + Parkinson's dementia - [facility] CT - no acute findings COPD - stable , on 2 l Nc Lines : 08/28 placed in ER (Central Line Necessity Reviewed) [place]: 08/28 OG: Nutrition: Analgesia: Anxiety/ delirium VTE Prophylaxis: renaldo 40 Stress Ulcer Prophylaxis: ppi Plans in collaboration with bedside consultants and IM MDs. Discussed with RN to reach out if any questions or concerns A total of 31 minutes of critical care time was devoted to this patient today, required to treat and/or prevent further deterioration of critical care condition ( as above ) . Sepsis Event Evaluation Height, Weight, BMI Height: 5'9.00" Weight: 240lbs. 0.0oz. 108.207053ir; 37.00 BMI Method:Stated Focused Exam Lactate Level 08/28/21 11:56: Lactic Acid Level 2.49*H 08/28/21 15:44: Lactic Acid Level 1.20 Lactic Acid Level Laboratory Tests Test 08/28/21 15:44 Lactic Acid Level 1.20 MMOL/L (0.50-2.00) Exam Exam Patient acknowledged, consented, and participated in this virtual visit which was conducted using real time audio/video Vital Signs Date Time Temp Pulse Resp B/P (MAP) Pulse Ox O2 Delivery O2 Flow Rate FiO2 08/28/21 17:11 96 Nasal Cannula 3.00 08/28/21 16:34 65 122/74 08/28/21 16:30 65 122/74 (90) 96 Nasal Cannula 3.00 08/28/21 16:20 68 08/28/21 16:15 77 118/79 (92) 99 Nasal Cannula 3.00 08/28/21 16:00 114/77 (89) 08/28/21 16:00 75 16 95/65 96 08/28/21 11:46 35.7 80 14 68/46 (53) 96 Nasal Cannula 2.00 Height & Weight Height: 5'9.00" Weight: 240lbs. 0.0oz. 108.607528lj; 37.00 BMI Method:Stated General Appearance: No Apparent Distress, WD/WN HEENT: PERRL/EOMI, TMs Normal, Normal ENT Inspection, Pharynx Normal, Moist Mucous Membranes Neck: Normal Inspection Respiratory: No Accessory Muscle Use, No Respiratory Distress Cardiovascular: Regular Rate, Rhythm, No Gallop Results Lab Laboratory Tests 08/28/21 11:56 Assessment/Plan Assessment/Plan ` MIGUE FINLEY MD Aug 28, 2021 17:26
[2021-08-28] MEDS ORDERED: guaiFENesin/DM (ROBITUSSIN DM) 10 ML UDC PO PRN (18:45)
[2021-08-28 21:31] VITALS: BP 68/46
[2021-08-28] MEDS: SERTRALINE 100 MG (ZOLOFT) TAB PO SCH (21:42)
[2021-08-28] MEDS: rOPINIRole 0.25 MG (REQUIP) TAB PO SCH (21:42)
[2021-08-28] MEDS: QUEtiapine 25 MG (SEROquel) TAB IMMEDIATE RELEASE PO SCH (21:43)
[2021-08-28] MEDS: GABAPENTIN 300 MG (NEURONTIN) CAP PO SCH (21:43)
[2021-08-28] MEDS ORDERED: RT-ALBUTEROL SULF 2.5 MG/3 ML PRE-MIX VIAL INH PRN (21:45)
[2021-08-28] MEDS: SINEMET CR 50/200 (CARBIDOPA/LEVODOPA SA) TAB PO SCH (21:53)
[2021-08-28] MEDS: traZODone 50 MG (DESYREL) TAB PO SCH (21:53)
[2021-08-29] MEDS: NOREPINEPHRINE 8 MG/250 ML 250 ML IV SCH ×2 (02:11→12:02)
[2021-08-29] MEDS: inSUlin ASPART (NovoLOG) 1 UNIT/0.01 ML (CHARGE PER UNIT) SC SCH ×4 (05:20→20:43)
[2021-08-29] MEDS: NS IV 1000 ML 1,000 ML IV SCH ×3 (05:20→21:01)
[2021-08-29 05:26] LABS: HEMATOCRIT 40 % (40-54); HEMOGLOBIN 11.9 g/dL (13.3-17.7); MEAN CORPUSCULAR HEMOGLOBIN 27 pg (25-34); MEAN CORPUSCULAR HGB CONC 30 g/dL (32-36); MEAN CORPUSCULAR VOLUME 88 fL (80-99); PLATELET COUNT 189 10^3/uL (130-400); WHITE BLOOD COUNT 6.8 10^3/uL (4.3-11.0)
[2021-08-29 05:50] LABS: POTASSIUM 4.3 MMOL/L (3.6-5.0)
[2021-08-29 05:51] LABS: CALCIUM 8.1 MG/DL (8.5-10.1)
[2021-08-29 05:56] LABS: CREATININE SERUM 0.72 MG/DL (0.60-1.30)
[2021-08-29] MEDS: VENlafaxine XR 75 MG (EFFEXOR XR) CAP PO SCH (06:32)
[2021-08-29] MEDS: rOPINIRole 0.25 MG (REQUIP) TAB PO SCH ×3 (06:32→21:01)
[2021-08-29] MEDS: RT-ALBUTEROL SULF 2.5 MG/3 ML PRE-MIX VIAL INH SCH ×2 (07:32→20:18)
--- NOTE | 2021-08-29 08:00 | Progress Note - Hospitalist ---
Subjective HPI/CC On Admission Date Seen by Provider: Aug 29, 2021 Time Seen by Provider: 07:55 Patient is a 75-year-old male past medical history of Parkinson's dementia who presented to the emergency department due to weakness and diarrhea. He is unable to tell me much of his history states he does not feel well. His is at bedside and states he had multiple episodes of very loose diarrhea yesterday and continued to get more more weak throughout today. She called his primary care who recommended that he be seen in the ER. Arrival to the emergency room he was found to be hypotensive with blood pressures of 60/30. He was given fluid resuscitation and central line was started and blood pressures have improved to the 90s over 50s. He states he feels little better with that. He denies any fevers, nausea, vomiting, chest pain, shortness of breath, or new cough. His states he has a chronic cough. He is COVID vaccinated. Subjective/Events-last exam Pt reports feeling better. No complaints. Requesting help ordering breakfast. Focused Exam Lactate Level 08/28/21 11:56: Lactic Acid Level 2.49*H 08/28/21 15:44: Lactic Acid Level 1.20 Objective Exam Vital Signs Vital Signs Date Time Temp Pulse Resp B/P (MAP) Pulse Ox O2 Delivery O2 Flow Rate FiO2 08/29/21 07:33 100 Nasal Cannula 3.00 08/29/21 07:32 35.7 08/29/21 07:00 63 16 114/71 Capillary Refill : General Appearance: No Apparent Distress, Chronically ill, Obese Respiratory: Lungs Clear, No Respiratory Distress Cardiovascular: Regular Rate, Rhythm, No Murmur Neurologic/Psychiatric: Alert, Oriented x3 Results/Procedures Lab Laboratory Tests 08/28/21 11:56 08/29/21 05:20 Patient resulted labs reviewed. Assessment/Plan Assessment and Plan Assess & Plan/Chief Complaint Hypovolemic shock Lactic acidosis BP much improved Not on Levophed If toelrates PT will transfer to the floor today c diff pending Parkinson's dementia Falls reports worsening debility PT/OT library services dean consulted for likely senior living placement Resume home meds COPD No evidence of acute exacerbation MAT protocol Wean oxygen to keep sats greater than 90 Hypertension Hold home meds due to hypotension DVT prophylaxis: Lovenox Diagnosis/Problems Diagnosis/Problems (1) Parkinson's disease (2) Shock (3) Frequent falls Status: Acute (4) Skin abrasion Status: Acute JOSUE BULLARD MD Aug 29, 2021 08:00
[2021-08-29] MEDS: FINASTERIDE (PROSCAR) 5 MG TAB PO SCH (08:17)
[2021-08-29] MEDS: PANTOPRAZOLE 40 MG (PROTONIX) TAB PO SCH (08:17)
[2021-08-29] MEDS: SINEMET CR 50/200 (CARBIDOPA/LEVODOPA SA) TAB PO SCH ×3 (08:17→21:00)
--- NOTE | 2021-08-29 08:55 | Physical Therapy Evaluation ---
PT Evaluation-General Medical Diagnosis Admission Date Aug 28, 2021 at 15:42 Medical Diagnosis: hypovolemic shock, Parkinson's, falls Onset Date: Aug 28, 2021 Therapy Diagnosis Therapy Diagnosis: impaired mobility Height/Weight Height (Feet): 5 Height (Inches): 9.00 Weight (Pounds): 240 Weight (Ounces): 0.0 Precautions Precautions/Isolations: Fall Prevention, Standard Precautions Referral Physician: Jovan Reason for Referral: Evaluation/Treatment Medical History Pertinent Medical History: COPD, HTN, Parkinson's, Smoking Additional Medical History Past Medical History Surgeries: Abdominal, Orthopedic, Tonsillectomy Chronic Bronchitis Currently Using CPAP: Yes Currently Using BIPAP: No Chronic Edema/Swelling, Hypertension Parkinson's Disease Abdominal Hernia, Obstructive Bowel Degenerate Disk Disease, Arthritis, Chronic Back Pain Cataract Loss of Vision: Denies Hearing Impairment: Denies Sleep Difficulties, Depression Blood Disorders: No Reviewed History: Yes Social History Home: Single Level Current Living Status: Spouse Entry Into Home: Stairs With Railing PT Steps Into Home: 4 Prior Prior Level of Function SCALE: Activities may be completed with or without assistive devices. 4-Fbqfchlwzk-ehbwqkb completes the activity by him/herself with no assistance from a helper. 5-Set-up or Clean-up Assistance-helper sets up or cleans up; patient completes activity. [place] assists only prior to or following the activity. 4-Supervision or Touching Assistance-helper provides verbal cues and/or touching/steadying and/or contact guard assistance as patient completes activity. Assistance may be provided throughout the activity or intermittently. 3-Partial/Moderate Assistance-helper does LESS THAN HALF the effort. [place] lifts, holds or supports trunk or limbs, but provides less than half the effort. 2-Substantial/Maximal Assistance-helper does MORE THAN HALF the effort. [place] lifts or holds trunk or limbs and provides more than half the effort. 2-Tahsqoufu-wsqcui does ALL the effort. Patient does none of the effort to complete the activity. Or, the assistance of 2 or more helpers is required for the patient to complete the activity. If activity was not attempted, code reason: 7-Patient Refused. 9-Not Applicable-not attempted and the patient did not perform the activity before the current illness, exacerbation or injury. 10-Not Attempted due to Environmental Limitations-(lack of equipment, weather restraints, etc.). 88-Not Attempted due to Medical Conditions or Safety Concerns. Bed Mobility: 3 Transfers (B,C,W/C): 3 Gait: 3 Indoor Mobility (Ambulation): Needed Some Help Stairs: Needed Some Help Prior Devices Use: Walker PT Evaluation-Current Subjective Patient in bed pre tx, agrees to PT, has no complaints of pain. Pt/Family Goals to be independent at home Objective Patient Orientation: Person, Place, Situation Attachments: [place] Catheter, IV ROM/Strength ROM Lower Extremities very stiff BLE, slight limitations in general ROM Strength Lower Extremities grossly 4+/5 BLE Sensory Hearing: Functional Sensation Right Lower Extremit: Impaired Sensation Left Lower Extremity: Impaired Transfers Roll Left to Right (QC): 3 Lying to Sitting/Side of Bed(Q: 3 Sit to Stand (QC): 3 Chair/Hfd-ws-Urlck Xfer(QC): 3 Patient needed min assist for supine to sit, mod assist for sit to stand and tra nsfer to recliner, patient was able to take several steps to the recliner (about 3') but was slightly retropulsive and had a festinating gait. Balance Sitting Static: Fair Sitting Dynamic: Fair Standing Static: Poor Standing Dynamic: Poor Treatment BLE seated exercises x20 (AP, LAQ) Assessment/Needs Patient in recliner post tx with nurse call, phone, tray, all needs met. Patient has impaired mobility, strength, endurance, balance. He has difficulty getting his feet off the ground during transfers and ambulation Rehab Potential: Fair PT Workplace Trainer And Assessor Goals Skilled Nursing Goals PT Skilled Nursing Goals Time Frame: Sep 05, 2021 Roll Left & Right (QC): 4 Sit to Lying (QC): 4 Lying-Sitting on Side/Bed(QC): 4 Sit to Stand (QC): 4 (CGA) Chair/Evf-qq-Luagp Xfer(QC): 4 (CGA) Walk 10 feet (QC): 4 (CGA) Walk 50ft with 2 Turns (QC): 4 (CGA) PT Plan Problem List Problem List: Activity Tolerance, Functional Strength, Safety, Balance, Gait, Transfer, Bed Mobility, ROM Treatment/Plan Treatment Plan: Continue Plan of Care Treatment Plan: Bed Mobility, Education, Functional Activity Gigi, Functional Strength, Gait, Safety, Therapeutic Exercise, Transfers Treatment Duration: Sep 05, 2021 Frequency: 6 times per week Estimated Hrs Per Day: .25 hour per day Patient and/or Family Agrees t: Yes Safety Risks/Education Patient Education: Gait Training, Transfer Techniques, Correct Positioning, Safety Issues Teaching Recipient: Patient Teaching Methods: Demonstration, Discussion Response to Teaching: Reinforcement Needed Discharge Recommendations Plan Patient will perform bed mobility and transfer training, balance and endurance training, functional strengthening, stair training, gait training, and education, to improve functional mobility and independence at home. Therapy Discharge Recommendati: Scheduled Assistance, Home & Family, Post Acute PT Time/GCodes Time In: 824 Time Out: 839 Total Billed Treatment Time: 15 Total Billed Treatment 1 visit JAQUELINE 15' JONNY JORGE PT Aug 29, 2021 08:55
--- NOTE | 2021-08-29 10:01 | Occupational Therapy Eval ---
OT Evaluation-General/PLF Medical Diagnosis Admission Date Aug 28, 2021 at 15:42 Medical Diagnosis: hypovolemic shock, Parkinson's, falls Onset Date: Aug 28, 2021 Therapy Diagnosis Therapy Diagnosis: reduced adl status Height/Weight Height (Feet): 5 Height (Inches): 9.00 Weight (Pounds): 240 Weight (Ounces): 0.0 Precautions Precautions/Isolations: Fall Prevention, Standard Precautions Referral Physician: Jovan Referral Reason: Evaluation/Treatment Medical History Pertinent Medical History: COPD, HTN, Parkinson's, Smoking Current History Pt presents to ER with c/o weakness and diarrhea. Per patient, he lives with his and son in a single story home. He requires assistance with LB dressing (donning clothing over feet), UB dressing, and bathing. Pt is able to feed self and toileting independently. He uses a walker at baseline. His /son manage all iadls except they have a paint pourer 2x/week for cleaning. Reviewed History: Yes Social History Home: Single Level Current Living Status: Spouse Entry Into Home: Stairs With Railing Steps Into Home: 4 ADL-Prior Level of Function SCALE: Activities may be completed with or without assistive devices. 8-Qasiposmew-ctmezck completes the activity by him/herself with no assistance from a helper. 5-Set-up or Clean-up Assistance-helper sets up or cleans up; patient completes activity. [place] assists only prior to or following the activity. 4-Supervision or Touching Assistance-helper provides verbal cues and/or touching/steadying and/or contact guard assistance as patient completes activity. Assistance may be provided throughout the activity or intermittently. 3-Partial/Moderate Assistance-helper does LESS THAN HALF the effort. [place] lifts, holds or supports trunk or limbs, but provides less than half the effort. 2-Substantial/Maximal Assistance-helper does MORE THAN HALF the effort. [place] lifts or holds trunk or limbs and provides more than half the effort. 3-Vdbhdmoov-rmotaw does ALL the effort. Patient does none of the effort to complete the activity. Or, the assistance of 2 or more helpers is required for the patient to complete the activity. If activity was not attempted, code reason: 7-Patient Refused. 9-Not Applicable-not attempted and the patient did not perform the activity before the current illness, exacerbation or injury. 10-Not Attempted due to Environmental Limitations-(lack of equipment, weather restraints, etc.). 88-Not Attempted due to Medical Conditions or Safety Concerns. Self Care: Needed Some Help Functional Cognition: Needed Some Help DME/Equipment: Tub (walk in tub with seat) Drive Self: No OT Current Status Subjective Pt denies pain, agreeable to evaluation Appearance Pt left sitting in recliner, all needs within reach. Mental Status/Objective Patient Orientation: Person, Place, Situation Attachments: IV, Telemetry Current Hand Dominance: Left Upper Extremity ROM LUE WFL with extra time RUE: impaired. shoulder AROM: ~20 degrees, ~110 degrees PROM Upper Extremity Strength LUE: 3/5 throughout RUE not tested, likely 2/5 ADL-Treatment On/Off Footwear (QC): 1 (baseline) Toileting Hygiene (QC): 1 (elias catheter) Pt sitting in recliner at OT arrival, dependent to don socks (baseline). Last recorded BP: 135/106; asymptomatic. Mod a to stand. Unsteady on feet, slightly retropulsive. Cues to shift weight forward. Pt took 2-3 steps forward and back with mod a and use of walker. Festinating gait. Pt unable to lift single hand from walker due to impaired balance. Thus, pt would be dependent for clothing management (which he reports he was indep with prior to hospitalization) or any functional standing task at this time. Education OT Patient Education: Correct positioning, Disease process, Purpose of tx/functional activities, Reviewed precautions, Rehab process, Safety issues, Transfer techniques Teaching Recipient: Patient Teaching Methods: Demonstration, Discussion Response to Teaching: Verbalize Understanding, Return Demonstration, Reinforcement Needed OT Oxygen Tank Filler Goals Oxygen Tank Filler Goals Time Frame: Sep 12, 2021 Eating (QC): 5 Oral Hygiene (QC): 5 Toileting Hygiene (QC): 4 Shower/Bathe Self (QC): 3 Upper Body Dressing (QC): 3 Lower Body Dressing (QC): 3 1=Demonstrate adherence to instructed precautions during ADL tasks. 2=Patient will verbalize/demonstrate understanding of assistive devices/modifications for ADL. 3=Patient will improve strength/tolerance for activity to enable patient to perform ADL's. OT Education/Plan Problem List/Assessment Assessment: Decreased Activ Tolerance, Decreased Safety Aware, Decreased UE Strength, Impaired Cognition, Impaired Coordination, Impaired Funct Balance, Impaired I ADL's, Restricted Funct UE ROM Discharge Recommendations Plan/Recommendations: Continue POC Therapy Discharge Recommendati: Post Acute OT Treatment Plan/Plan of Care Treatment,Training & Education: Yes Patient would benefit from OT for education, treatment and training to promote independence in ADL's, mobility, safety and/or upper extremity function for ADL's. Plan of Care: ADL Retraining, Caregiver Training, Cognitive Retraining, Functional Mobility, Group Exercise/Act as Ind, UE Funct Exercise/Act Treatment Duration: Sep 12, 2021 Frequency: 3 times per week (3-5x/week) Estimated Hrs Per Day: .25 hour per day Agreement: Yes Rehab Potential: Fair Time/GCodes Start Time: 09:29 Stop Time: 09:42 Total Time Billed (hr/min): 13 Billed Treatment Time 1 visit Maddy Heller OT Aug 29, 2021 10:00
[2021-08-29] MEDS: ACETAMINOPHEN 325 MG TABLET PO PRN (10:13)
--- NOTE | 2021-08-29 10:25 | Speech Therapy Progress Note ---
Therapy Progress Note Speech pathology received a consultation for a clinical bedside swallowing evaluation on this date and the chart was extensively reviewed. ST attempted the evaluation at 1015. At this time, the patient's stated the patient needed to attempt a BM and requested the evaluation be deferred. ST will reattempt the evaluation as able and appropriate. If an aspiration risk is present, place the patient NPO pending a formal oropharyngeal swallowing evaluation by speech pathology. PEEWEE CASTAÑEDA Aug 29, 2021 10:25
--- NOTE | 2021-08-29 10:30 | Tele-ICU Progress Note ---
Subjective Date Seen by a Provider: Aug 29, 2021 Time Seen by a Provider: 10:30 Subjective/Events-last exam (Tele-ICU Physician , Progress Note ) Available chart/ vitals / labs / Images reviewed Video assessment done using teleICU camera, rest of exam as per RN Discussed with RN , EXAM PER RN Events overnight : Afebrile FiO2 - 3l I/O = ++ Drips: ss 125 Pressors: , hemodynamically stable Consultants: Hospital course: 08-28: +Septic Shock vs Hypovolemic Shock Neg COVID - ^Weakness/Diarrhea - 3 falls w/in 24hrs. Hypotensive - Central line inserted - Levophed Drip - 3L NS. A/P Septic Shock vs Hypovolemic Shock - responded to 3 L NS - off pressors , vital stable - CT abd pelvis , chest - WNL -decrease NS rate Diarrhea - discussed with Dr Aldana - she supects viral, off ABX now ( Covid negative , check for C. difficile - NONE IN HOSPITAL s/p falls with wekness + Parkinson's dementia - [facility] CT - no acute findings COPD - stable , on 2 l Nc at night Lines : 08/28 placed in ER (Central Line Necessity Reviewed) [place]: 08/28 OG: Nutrition: Analgesia: Anxiety/ delirium VTE Prophylaxis: renaldo 40 Stress Ulcer Prophylaxis: ppi Plans in collaboration with bedside consultants and IM MDs. Discussed with RN to reach out if any questions or concerns A total of 25 minutes of critical care time was devoted to this patient today, required to treat and/or prevent further deterioration of critical care condition ( as above ) . Sepsis Event Evaluation Height, Weight, BMI Height: 5'9.00" Weight: 240lbs. 0.0oz. [id number]; 37.00 BMI Method:Stated Focused Exam Lactate Level 08/28/21 11:56: Lactic Acid Level 2.49*H 08/28/21 15:44: Lactic Acid Level 1.20 Exam Exam Patient acknowledged, consented, and participated in this virtual visit which was conducted using real time audio/video Vital Signs Date Time Temp Pulse Resp B/P (MAP) Pulse Ox O2 Delivery O2 Flow Rate FiO2 08/29/21 10:00 75 13 118/81 92 Nasal Cannula 2.00 08/29/21 09:00 70 17 135/106 92 Nasal Cannula 3.00 08/29/21 08:00 65 17 127/75 98 Nasal Cannula 3.00 08/29/21 07:33 100 Nasal Cannula 3.00 08/29/21 07:32 35.7 08/29/21 07:00 63 16 114/71 100 Nasal Cannula 3.00 08/29/21 07:00 64 08/29/21 06:00 56 13 118/95 93 Nasal Cannula 3.00 08/29/21 05:00 70 17 111/69 93 Nasal Cannula 3.00 08/29/21 04:09 96 Nasal Cannula 3.00 08/29/21 04:00 78 23 125/91 94 Nasal Cannula 3.00 08/29/21 03:00 62 15 105/75 97 Nasal Cannula 3.00 08/29/21 02:11 64 101/65 08/29/21 02:00 61 14 124/79 96 Nasal Cannula 3.00 08/29/21 01:00 63 16 124/79 98 Nasal Cannula 3.00 08/29/21 01:00 61 08/29/21 00:00 75 21 115/87 97 Nasal Cannula 3.00 08/28/21 23:59 96 Nasal Cannula 3.00 08/28/21 23:00 60 18 111/82 95 Nasal Cannula 3.00 08/28/21 22:00 61 16 128/90 96 Nasal Cannula 3.00 08/28/21 21:31 35.7 80 96 08/28/21 21:00 66 16 136/85 98 Nasal Cannula 3.00 08/28/21 20:00 96 Nasal Cannula 3.00 08/28/21 20:00 63 18 96 Nasal Cannula 3.00 08/28/21 19:45 36.1 08/28/21 19:00 69 13 142/81 94 Nasal Cannula 3.00 08/28/21 19:00 69 08/28/21 18:00 63 27 128/69 96 Nasal Cannula 3.00 08/28/21 17:30 70 22 122/75 97 Nasal Cannula 3.00 08/28/21 17:11 96 Nasal Cannula 3.00 08/28/21 17:00 60 128/77 95 Nasal Cannula 3.00 08/28/21 16:34 65 122/74 08/28/21 16:30 65 122/74 96 Nasal Cannula 3.00 08/28/21 16:30 65 122/74 (90) 96 Nasal Cannula 3.00 08/28/21 16:20 68 08/28/21 16:15 77 118/79 (92) 99 Nasal Cannula 3.00 08/28/21 16:00 114/77 (89) 08/28/21 16:00 75 16 95/65 96 08/28/21 11:46 35.7 80 14 68/46 (53) 96 Nasal Cannula 2.00 I & O 08/29/21 07:00 Intake Total 3850 ml Output Total 3750 ml Balance 100 ml Height & Weight Height: 5'9.00" Weight: 240lbs. 0.0oz. [id number]; 37.00 BMI Method:Stated General Appearance: No Apparent Distress, Chronically ill, Obese HEENT: PERRL/EOMI, TMs Normal, Normal ENT Inspection, Pharynx Normal, Moist Mucous Membranes Neck: Normal Inspection Respiratory: Lungs Clear, No Respiratory Distress Cardiovascular: Regular Rate, Rhythm, No Murmur Neurologic/Psychiatric: Alert, Oriented x3 Results Lab Laboratory Tests 08/28/21 11:56 08/29/21 05:20 Assessment/Plan Assessment/Plan ` MIGUE FINLEY MD Aug 29, 2021 10:30
[2021-08-29] MEDS ORDERED: BENA-3 PO (11:23)
[2021-08-29] MEDS ORDERED: ROPI0.5T4 PO (11:23)
[2021-08-29] MEDS ORDERED: CARB1TAB41 PO ×2 (11:27)
[2021-08-29] MEDS ORDERED: TRZ50T PO (11:30)
[2021-08-29] MEDS ORDERED: SERT-414 PO (11:30)
[2021-08-29] MEDS ORDERED: VENL75CA93 PO (11:30)
[2021-08-29] MEDS ORDERED: FINA5TAB6 PO (11:30)
[2021-08-29] MEDS ORDERED: QUET25TA35 PO (11:30)
[2021-08-29] MEDS ORDERED: GABA300C PO (11:30)
[2021-08-29] MEDS ORDERED: TMSL.4C PO (11:31)
[2021-08-29] MEDS ORDERED: GUAI600T43 PO (11:33)
[2021-08-29] MEDS ORDERED: CETI10TA49 PO (11:33)
[2021-08-29] MEDS ORDERED: DOCU-26 PO (11:34)
[2021-08-29] MEDS ORDERED: MELA1TAB20 PO (11:35)
[2021-08-29] MEDS ORDERED: MELA10TA7 PO (11:37)
[2021-08-29] MEDS ORDERED: [UNRECOGNIZED DRUG - CODE] PO (11:42)
[2021-08-29] MEDS ORDERED: CRAN200C PO (11:44)
--- NOTE | 2021-08-29 12:10 | ST Dysphagia Evaluation ---
Speech Evaluation-General Medical Diagnosis Hypovolemic Shock, Parkinson's, Falls Onset Date: Aug 28, 2021 Therapy Diagnosis Therapy Diagnosis: Oropharyngeal Dysphagia Precautions Precautions: Fall, Aspiration Precautions/Isolations: Aspiration, Fall Prevention, Standard Precautions Referral Referring Physician: Dr. Aldana Reason for Referral: Evaluation/Treatment Medical History Pertinent Medical History: COPD, HTN, Parkinson's, Smoking Current History The patient is a 75 year-old male with a past medical history of Parkinson's dementia, chronic bronchitis, COPD, and HTN, who presented to the emergency department due to weakness and diarrhea. The patient was found to be hypotensive and admitted to the ICU. 08/28/21: CXR: IMPRESSION: Cardiomegaly and some mild central pulmonary venous congestion. Reviewed History: Yes Social History Current Living Status: Spouse Speech PLF/Current-Dysphagia Prior Level of Function The patient stated he "coughs" on "cold water and hot water." The patient's family is present who states the patient has consistently "coughed" on water (any temperature) and thin liquids for the prior five to six months "at least." The patient and family denied concerns or difficulties with solid consistencies or pills. The patient stated he consumed "eight or nine pills at one time, no problem." The patient denied recent pneumonia or additional chest infections. Subjective The patient was seated upright in a chair, awake and alert upon entrance to his room by the clinician. The patient greeted the clinician appropriately and was agreeable to participation in the clinical bedside swallowing evaluation. Cognitive Status Patient Orientation: Person, Place, Situation Oral Motor Skills Dentition: Natural Current Food Consistancy: Regular, Thin Liquids Ability to Follow Directions: Fair Oral Expression Ability: Mild Impairment Voice Voice Phonatory-Based Quality: Breathy, Weak Voice Pitch: Normal Voice Loudness: Mildly Soft/Quiet Face Facial Symmetry: Symmetrical Oral-Facial Assessment Oral-Facial Dentition: Normal Labial Seal Description: Normal Smile: Normal Lingual Protrusion: Normal Lingual ROM: Normal Lingual Strength: Normal Volitional Dry Swallow: Yes Voluntary Cough: Yes Can Clear Throat Volitionally: Yes Productive Cough: Yes Productive Throat Clear: Yes Dysphagia Evaluation Consistencies Presented: Regular, Thin Liquid, [place] Thick Liquid, Pureed The patient was able to appropriately accept the bolus from the spoon and cup edge on this date. A straw was not attempted as the patient stated he does not use straws in his home environment. Mildly prolonged mastication was appreciated with the solid consistency, however, complete bolus formation was present. Pharyngeal Phase: Delayed Swallow Laryngeal elevation was present to palpation. A suspected delayed swallow was appreciated. The patient demonstrated an immediate cough following each swallow of thin l iquid (two teaspoons and five cup edge drinks). No s/s of suspected aspiration were demonstrated with nectar-thick liquid via cup edge, puree, or solid consistencies tested. Dietary Recommendations: Regular Liquid Recommendations: Jena Consistancy Recommendations: - Regular consistency diet with NECTAR-THICK liquid, as tolerated. - NO STRAWS. - Fully upright and alert for PO intake. - Small, single bites and sips, only. - Cease PO intake during distractions. - Monitor for s/s of suspected aspiration with PO intake. If demonstrated, contact speech pathology. The results and recommendations were discussed extensively with the patient, the patient's family, and the RN. All questions were answered within the scope of the clinician's practice. THe family members verbalized comprehension of the discussed material. Dysphagia Evaluation Summary The patient demonstrated oropharyngeal dysphagia characterized by reduced lingual coordination, a delayed pharyngeal swallow and poor airway protection in the presence of bolus material. Speech Short Term Goals Short Term Goals Short Term Goals 1. The patient, family and staff will follow safe swallowing recommendations and strategies with 90% accuracy, independently. Time Frame-STG: Three Days. Speech Glass Blower Helper Goals Glass Blower Helper Goals 1. The patient will tolerate the least restrictive diet without s/s of suspected aspiration. Time Frame: One Week. Speech-Plan Treatment Plan Speech Therapy Treatment Plan: Continue Plan of Care Frequency: 2 times per week Estimated Hrs Per Day: .25 hour per day Rehab Potential: Fair Pt/Family Agrees to Plan: Yes Safety Risks/Education Teaching Recipient: Patient, Family Teaching Methods: Discussion Response to Teaching: Verbalize Understanding Education Topics Provided: Results, Recommendations, Safe Swallowing Strategies, Thickening Protocols Time Speech Therapy Time In: 11:35 Speech Therapy Time Out: 11:55 Total Billed Time: 20 Billed Treatment Time 1, ANUP ZALDIVAR ELIZABETH ST Aug 29, 2021 12:10
[2021-08-29] MEDS ORDERED: LORATADINE (CLARITIN) 10 MG TAB PO ONE (12:45)
[2021-08-29] MEDS: ENOXAPARIN 40 MG/0.4 ML (LOVENOX) SYR SC SCH (15:18)
[2021-08-29] MEDS: SERTRALINE 100 MG (ZOLOFT) TAB PO SCH (21:00)
[2021-08-29] MEDS: GABAPENTIN 300 MG (NEURONTIN) CAP PO SCH (21:00)
[2021-08-29] MEDS: MELATONIN 3 MG TABLET PO PRN (21:00)
[2021-08-29] MEDS: traZODone 50 MG (DESYREL) TAB PO SCH (21:00)
[2021-08-29] MEDS: QUEtiapine 25 MG (SEROquel) TAB IMMEDIATE RELEASE PO SCH (21:00)
[2021-08-30] MEDS: inSUlin ASPART (NovoLOG) 1 UNIT/0.01 ML (CHARGE PER UNIT) SC SCH ×4 (05:43→21:05)
[2021-08-30] MEDS: VENlafaxine XR 75 MG (EFFEXOR XR) CAP PO SCH (06:05)
[2021-08-30] MEDS: rOPINIRole 0.25 MG (REQUIP) TAB PO SCH ×3 (06:05→21:02)
[2021-08-30 06:08] LABS: HEMATOCRIT 39 % (40-54); MEAN CORPUSCULAR HEMOGLOBIN 27 pg (25-34); MEAN CORPUSCULAR HGB CONC 31 g/dL (32-36); MEAN CORPUSCULAR VOLUME 88 fL (80-99); MEAN PLATELET VOLUME 10.3 fL (9.0-12.2); PLATELET COUNT 202 10^3/uL (130-400); WHITE BLOOD COUNT 7.2 10^3/uL (4.3-11.0)
[2021-08-30 06:20] LABS: POTASSIUM 4.2 MMOL/L (3.6-5.0)
[2021-08-30 06:22] LABS: CALCIUM 8.2 MG/DL (8.5-10.1)
[2021-08-30 06:26] LABS: CREATININE SERUM 0.71 MG/DL (0.60-1.30)
[2021-08-30] MEDS: FINASTERIDE (PROSCAR) 5 MG TAB PO SCH (08:44)
[2021-08-30] MEDS: PANTOPRAZOLE 40 MG (PROTONIX) TAB PO SCH (08:44)
[2021-08-30] MEDS: LORATADINE (CLARITIN) 10 MG TAB PO SCH (08:45)
[2021-08-30] MEDS: SINEMET CR 50/200 (CARBIDOPA/LEVODOPA SA) TAB PO SCH ×3 (08:45→21:02)
[2021-08-30] MEDS: polyethylene glycoL POWDER 17 GM (MIRALAX) PACK PO PRN (08:47)
[2021-08-30] MEDS: RT-ALBUTEROL SULF 2.5 MG/3 ML PRE-MIX VIAL INH SCH ×2 (09:04→21:13)
[2021-08-30] MEDS: NS IV 1000 ML 1,000 ML IV SCH (11:28)
--- NOTE | 2021-08-30 11:29 | Progress Note - Hospitalist ---
Subjective HPI/CC On Admission Date Seen by Provider: Aug 30, 2021 Time Seen by Provider: 11:23 Patient is a 75-year-old male past medical history of Parkinson's dementia who presented to the emergency department due to weakness and diarrhea. He is unable to tell me much of his history states he does not feel well. His is at bedside and states he had multiple episodes of very loose diarrhea yesterday and continued to get more more weak throughout today. She called his primary care who recommended that he be seen in the ER. Arrival to the emergency room he was found to be hypotensive with blood pressures of 60/30. He was given fluid resuscitation and central line was started and blood pressures have improved to the 90s over 50s. He states he feels little better with that. He denies any fevers, nausea, vomiting, chest pain, shortness of breath, or new cough. His states he has a chronic cough. He is COVID vaccinated. Subjective/Events-last exam Pt reports feeling better today and states he is stronger. No complaints. I sat at bedside and watched him need 2 person assist with very shuffled gait to get to bedside commode. I informed him he is not strong enough to go home in this condition and that I would come back and talk with him and his about this. Focused Exam Lactate Level 08/28/21 11:56: Lactic Acid Level 2.49*H 08/28/21 15:44: Lactic Acid Level 1.20 Time of Focused Exam: 14:50 Objective Exam Vital Signs Vital Signs Date Time Temp Pulse Resp B/P (MAP) Pulse Ox O2 Delivery O2 Flow Rate FiO2 08/30/21 08:56 93 Room Air 08/30/21 08:12 37.0 62 18 137/84 08/29/21 14:45 2.00 Capillary Refill : Less Than 3 Seconds General Appearance: No Apparent Distress, Chronically ill, Obese Respiratory: Lungs Clear, No Respiratory Distress Cardiovascular: Regular Rate, Rhythm, No Murmur Gastrointestinal: Normal Bowel Sounds, Soft Neurologic/Psychiatric: Alert, Oriented x3 Results/Procedures Lab Laboratory Tests 08/30/21 05:50 Patient resulted labs reviewed. Assessment/Plan Assessment and Plan Assess & Plan/Chief Complaint Hypovolemic shock- resolved Lactic acidosis BP improved c diff ordered but no BMs x 24 hours so will DC order Parkinson's dementia Falls reports worsening debility and multiple falls at home PT/OT therapeutic activities services worker consulted for likely intermediate placement Continue home meds COPD No evidence of acute exacerbation MAT protocol Off oxygen Hypertension Hold home meds still as BP well controlled DVT prophylaxis: Lovenox Diagnosis/Problems Diagnosis/Problems (1) Parkinson's disease (2) Shock (3) Frequent falls Status: Acute (4) Skin abrasion Status: Acute JOSUE BULLARD MD Aug 30, 2021 11:29
[2021-08-30] MEDS: ENOXAPARIN 40 MG/0.4 ML (LOVENOX) SYR SC SCH (13:07)
--- NOTE | 2021-08-30 13:50 | Occupational Ther Daily Note ---
OT Current Status-Daily Note Subjective Pt up on [facility], agreeable to OT tx. Mental Status/Objective Patient Orientation: Normal For Age Attachments: IV ADL-Treatment Therapy Code Descriptions/Definitions Functional [place] Measure: 0=Not Assessed/NA 4=Minimal Assistance 1=Total Assistance 5=Supervision or Setup 2=Maximal Assistance 6=Modified [place] 3=Moderate Assistance 7=Complete IndependenceSCALE: Activities may be completed with or without assistive devices. 5-Mxkgexiqbm-ebisqxs completes the activity by him/herself with no assistance from a helper. 5-Set-up or Clean-up Assistance-helper sets up or cleans up; patient completes activity. [place] assists only prior to or following the activity. 4-Supervision or Touching Assistance-helper provides verbal cues and/or touching/steadying and/or contact guard assistance as patient completes activity. Assistance may be provided throughout the activity or intermittently. 3-Partial/Moderate Assistance-helper does LESS THAN HALF the effort. [place] lifts, holds or supports trunk or limbs, but provides less than half the effort. 2-Substantial/Maximal Assistance-helper does MORE THAN HALF the effort. [place] lifts or holds trunk or limbs and provides more than half the effort. 6-Mfpqfxmqp-hpqczt does ALL the effort. Patient does none of the effort to com plete the activity. Or, the assistance of 2 or more helpers is required for the patient to complete the activity. If activity was not attempted, code reason: 7-Patient Refused. 9-Not Applicable-not attempted and the patient did not perform the activity before the current illness, exacerbation or injury. 10-Not Attempted due to Environmental Limitations-(lack of equipment, weather restraints, etc.). 88-Not Attempted due to Medical Conditions or Safety Concerns. Lower Body Dressing (QC): 2 (Pt requires assistance threading BLEs, able to perform pant hike. This is pt's PLOF.) On/Off Footwear: 1 (total assist donning bilateral gripper socks. This is pt's PLOF.) Toileting Hygiene (QC): 3 (Pt requires assistance for hygiene (this is his PLOF and he has a bidet). Pt able to manage clothing.) Toilet Transfer (QC): 4 (CGA off of [facility]) Other Treatment Pt on [facility], attempted to have BM, but unsuccessful. Pt stood from [facility] with CGA, OT performed hygiene for pt. Pt indicates he has a bidet at home for cleaning, and his assists as needed. Pt transferred towards recliner, standing in front of chair using FWW, CGA. Pt completed various reaching tasks, including LB clothing simulation, reaching forward in various planes, and performing a few squats and marches. Pt tolerated ~10 mins of standing with CGA throughout. Pt is currently at his PLOF with toileting, LBD, and footwear based on his performance during this session and report from his . Pt transferred to recliner, positioned to comfort. Post tx, pt in recliner, call light in reach and all needs met. Education OT Patient Education: Correct positioning, Energy conservation, Modified ADL techniques, Progress toward Goal/Update tx plan, Purpose of tx/functional activities, Rehab process Teaching Recipient: Patient Teaching Methods: Discussion Response to Teaching: Verbalize Understanding OT [employer] Sales Representative Goals Jail Goals Time Frame: Sep 12, 2021 Eating (QC): 5 Oral Hygiene (QC): 5 Toileting Hygiene (QC): 4 Shower/Bathe Self (QC): 3 Upper Body Dressing (QC): 3 Lower Body Dressing (QC): 3 1=Demonstrate adherence to instructed precautions during ADL tasks. 2=Patient will verbalize/demonstrate understanding of assistive devices/modifications for ADL. 3=Patient will improve strength/tolerance for activity to enable patient to perform ADL's. OT Education/Plan Problem List/Assessment Assessment: Decreased Activ Tolerance, Decreased UE Strength, Impaired Funct Balance, Impaired I ADL's, Impaired Self-Care Skills, Restricted Funct UE ROM Discharge Recommendations Plan/Recommendations: Continue POC Treatment Plan/Plan of Care Patient would benefit from OT for education, treatment and training to promote independence in ADL's, mobility, safety and/or upper extremity function for ADL's. Plan of Care: ADL Retraining, Caregiver Training, Cognitive Retraining, Functional Mobility, Group Exercise/Act as Ind, UE Funct Exercise/Act Treatment Duration: Sep 12, 2021 Frequency: 3 times per week (3-5x/week) Estimated Hrs Per Day: .25 hour per day Agreement: Yes Rehab Potential: Fair Time/GCodes Start Time: 13:17 Stop Time: 13:40 Total Time Billed (hr/min): 23 Billed Treatment Time 1, ADL (10'), FA (13') PHILLIP ROWLAND OT Aug 30, 2021 13:50
--- NOTE | 2021-08-30 14:05 | Physician Query Clarification ---
Physician Query-General Query to Physician: Clinical Validation Clarification : Pam Aldana Sepsis with septic shock has been documented in the medical record. After study, do you consider Sepsis with septic shock a clinically valid diagnosis? If not clinically valid, please document "Sepsis with septic shock, ruled out" on the progress notes and/or discharge summary. 1. No, Sepsis with Septic shock not clinically valid/ruled out 2. Yes, Sepsis with Septic shock is a clinically valid diagnosis 3. Other, with explanation of the clinical findings 4. Clinically undetermined, no explanation for the clinical findings Additional information: Admission In the setting of advanced age/Parkinson Dementia: Admission VS/LABS: HR 80, RR 14, BP 68/46, SpO2 92% sat on room air, T 35.7 WBC 11.2, HGB 13.8, Na 138, Cr 1.17, eGFR 65, glucose 161, lactic acid 2.49, PCT 0.13, UA trace bacteria, WNL, Urine culture and BC X 2 No Growth, Covid, influenza A and B all neg, In responding to this query, please exercise your independent professional judgment. The purpose of this communication is to more accurately reflect the complexity of your patients condition. The fact that a question is asked does not imply that any particular answer is desired or expected. Thank you for timely response to this clarification. Corrina Rodriguez MSN, RN Clinical Solder Making Laborer PH [email or web address] PHYSICIAN RESPONSE: Based on the clinical findings in the record, please respond to the query above on this document as an addendum. Physician Response: Physician Response 3 If you have questions please contact: Drier And Evaporator Operator: Ext: Thank you for your time and cooperation. Clinical Solder Making Laborer/Drier And Evaporator Operator This is a permanent part of the medical record CORRINA RODRIGUEZ Aug 30, 2021 14:05 JOSUE ALDANA MD Aug 30, 2021 17:11
--- NOTE | 2021-08-30 14:57 | Physical Therapy Daily Note ---
PT Daily Note-Current Subjective [place] [facility] Pt agrees to PT. Pain Location: No Pain Reported Mental Status Patient Orientation: Person, Place Attachments: IV Transfers SCALE: Activities may be completed with or without assistive devices. 1-Ljdsqmyiwh-whmphua completes the activity by him/herself with no assistance from a helper. 5-Set-up or Clean-up Assistance-helper sets up or cleans up; patient completes activity. [place] assists only prior to or following the activity. 4-Supervision or Touching Assistance-helper provides verbal cues and/or touching/steadying and/or contact guard assistance as patient completes activity. Assistance may be provided throughout the activity or intermittently. 3-Partial/Moderate Assistance-helper does LESS THAN HALF the effort. [place] lifts, holds or supports trunk or limbs, but provides less than half the effort. 2-Substantial/Maximal Assistance-helper does MORE THAN HALF the effort. [place] lifts or holds trunk or limbs and provides more than half the effort. 1-Bvzbgivzc-znhryq does ALL the effort. Patient does none of the effort to c omplete the activity. Or, the assistance of 2 or more helpers is required for the patient to complete the activity. If activity was not attempted, code reason: 7-Patient Refused. 9-Not Applicable-not attempted and the patient did not perform the activity before the current illness, exacerbation or injury. 10-Not Attempted due to Environmental Limitations-(lack of equipment, weather restraints, etc.). 88-Not Attempted due to Medical Conditions or Safety Concerns. Sit to Stand (QC): 3 Toilet Transfer (QC): 3 Weight Bearing Full Weight Bearing Full Weight Bearing Exercises Standing: Marching, Mini squats, Weight shifts Standing Reps: 15 Treatments [place] [facility] attempted to have BM, but unsuccessful. Pt stood [place] [facility] [place] CGA, hygiene performed for pt. Pt indicates he has a bidet at home for cleaning, and his assists as needed. Pt transferred towards recliner, standing in front of chair using FWW, CGA. Pt completed various reaching tasks, including LB clothing simulation, reaching forward in various planes, and performing a few squats and marches. Pt tolerated ~10 mins of standing with CGA throughout. Pt is currently at his PLOF with toileting. Pt transferred to recline, positioned to comfort. Post tx, pt in recliner, call light in reach and all needs met. Assessment Current Status: Good Progress Stands from BSC retropulsively but corrects posture and able to stand ~10m using FWW. Balance and activity tolerance is improved today. PT Relief Docking Master Goals Penitentiary Goals PT Relief Docking Master Goals Time Frame: Sep 05, 2021 Roll Left & Right (QC): 4 Sit to Lying (QC): 4 Lying-Sitting on Side/Bed(QC): 4 Sit to Stand (QC): 4 (CGA) Chair/Hli-pq-Frrcy Xfer(QC): 4 (CGA) Walk 10 feet (QC): 4 (CGA) Walk 50ft with 2 Turns (QC): 4 (CGA) PT Plan Problem List Problem List: Transfer Treatment/Plan Treatment Plan: Continue Plan of Care Treatment Plan: Bed Mobility, Education, Functional Activity Gigi, Functional Strength, Gait, Safety, Therapeutic Exercise, Transfers Treatment Duration: Sep 05, 2021 Frequency: 6 times per week Estimated Hrs Per Day: .25 hour per day Patient and/or Family Agrees t: Yes Safety Risks/Education Patient Education: Transfer Techniques, Correct Positioning, Safety Issues Teaching Recipient: Patient, Significant Other Teaching Methods: Discussion Response to Teaching: Verbalize Understanding Time/GCodes Time In: 1317 Time Out: 1340 Total Billed Treatment Time: 23 Total Billed Treatment 1, FA (12m) & EX (11m) DOMITILA SANCHEZ MECHANICAL DESIGN TECHNICIAN Aug 30, 2021 14:57
[2021-08-30] MEDS: ACETAMINOPHEN 325 MG TABLET PO PRN (18:16)
[2021-08-30] MEDS: SERTRALINE 100 MG (ZOLOFT) TAB PO SCH (21:04)
[2021-08-30] MEDS: QUEtiapine 25 MG (SEROquel) TAB IMMEDIATE RELEASE PO SCH (21:04)
[2021-08-30] MEDS: GABAPENTIN 300 MG (NEURONTIN) CAP PO SCH (21:04)
[2021-08-30] MEDS: traZODone 50 MG (DESYREL) TAB PO SCH (21:04)
[2021-08-30] MEDS: MELATONIN 3 MG TABLET PO PRN (23:08)
[2021-08-31] MEDS: NS IV 1000 ML 1,000 ML IV SCH ×2 (03:20→18:41)
[2021-08-31 05:18] LABS: HEMATOCRIT 37 % (40-54); HEMOGLOBIN 11.6 g/dL (13.3-17.7); MEAN CORPUSCULAR HEMOGLOBIN 27 pg (25-34); MEAN CORPUSCULAR HGB CONC 31 g/dL (32-36); MEAN CORPUSCULAR VOLUME 86 fL (80-99); MEAN PLATELET VOLUME 9.6 fL (9.0-12.2); PLATELET COUNT 192 10^3/uL (130-400); WHITE BLOOD COUNT 6.3 10^3/uL (4.3-11.0)
[2021-08-31 05:26] LABS: POTASSIUM 4.1 MMOL/L (3.6-5.0)
[2021-08-31 05:27] LABS: CALCIUM 8.5 MG/DL (8.5-10.1)
[2021-08-31 05:32] LABS: CREATININE SERUM 0.67 MG/DL (0.60-1.30)
[2021-08-31] MEDS: inSUlin ASPART (NovoLOG) 1 UNIT/0.01 ML (CHARGE PER UNIT) SC SCH ×4 (05:36→20:56)
[2021-08-31] MEDS: VENlafaxine XR 75 MG (EFFEXOR XR) CAP PO SCH (05:43)
[2021-08-31] MEDS: rOPINIRole 0.25 MG (REQUIP) TAB PO SCH ×3 (05:43→20:56)
[2021-08-31] MEDS: LORATADINE (CLARITIN) 10 MG TAB PO SCH (08:12)
[2021-08-31] MEDS: SINEMET CR 50/200 (CARBIDOPA/LEVODOPA SA) TAB PO SCH ×3 (08:12→20:56)
[2021-08-31] MEDS: polyethylene glycoL POWDER 17 GM (MIRALAX) PACK PO PRN ×2 (08:12→20:54)
[2021-08-31] MEDS: PANTOPRAZOLE 40 MG (PROTONIX) TAB PO SCH (08:12)
[2021-08-31] MEDS: FINASTERIDE (PROSCAR) 5 MG TAB PO SCH (08:12)
[2021-08-31] MEDS: RT-ALBUTEROL SULF 2.5 MG/3 ML PRE-MIX VIAL INH SCH ×3 (08:39→18:58)
--- NOTE | 2021-08-31 11:49 | Progress Note - Hospitalist ---
Subjective HPI/CC On Admission Date Seen by Provider: Aug 31, 2021 Patient is a 75-year-old male past medical history of Parkinson's dementia who presented to the emergency department due to weakness and diarrhea. He is unable to tell me much of his history states he does not feel well. His is at bedside and states he had multiple episodes of very loose diarrhea yesterday and continued to get more more weak throughout today. She called his primary care who recommended that he be seen in the ER. Arrival to the emergency room he was found to be hypotensive with blood pressures of 60/30. He was given fluid resuscitation and central line was started and blood pressures have improved to the 90s over 50s. He states he feels little better with that. He denies any fevers, nausea, vomiting, chest pain, shortness of breath, or new cough. His states he has a chronic cough. He is COVID vaccinated. Subjective/Events-last exam Patient reports doing well. States he was up and ambulating in the hallway yes terday. Has no complaints other than some constipation and is requesting more aggressive bowel regimen. Focused Exam Lactate Level 08/28/21 11:56: Lactic Acid Level 2.49*H 08/28/21 15:44: Lactic Acid Level 1.20 Time of Focused Exam: 14:50 Objective Exam Vital Signs Vital Signs Date Time Temp Pulse Resp B/P (MAP) Pulse Ox O2 Delivery O2 Flow Rate FiO2 08/31/21 08:55 93 Room Air 08/31/21 07:56 36.3 57 20 144/79 08/29/21 14:45 2.00 Capillary Refill : Less Than 3 Seconds General Appearance: No Apparent Distress, Chronically ill, Obese Respiratory: Lungs Clear, No Respiratory Distress Cardiovascular: Regular Rate, Rhythm, No Murmur Neurologic/Psychiatric: Alert, Oriented x3 Results/Procedures Lab Laboratory Tests 08/31/21 05:13 Patient resulted labs reviewed. Assessment/Plan Assessment and Plan Assess & Plan/Chief Complaint Hypovolemic shock- resolved Lactic acidosis Parkinson's dementia Falls reports worsening debility and multiple falls at home PT/OT assessment services manager consulted for likely custodial placement Continue home meds Now constipated, add bowel regimen COPD No evidence of acute exacerbation MAT protocol Off oxygen Hypertension Hold home meds still as BP well controlled DVT prophylaxis: Lovenox Diagnosis/Problems Diagnosis/Problems (1) Parkinson's disease (2) Shock (3) Frequent falls Status: Acute (4) Skin abrasion Status: Acute JOSUE BULLARD MD Aug 31, 2021 11:49
--- NOTE | 2021-08-31 12:03 | Physical Therapy Progress Note ---
Therapy Progress Note Pt refuses any OOB activities or PT treatment at this time, as he has been unable to have a BM for several days. Pt educated on importance of activity and movement to assist with movement of bowels, Pt continues to deny PT treatment. Will follow up on Thursday. 1 visit CLARE LOVELL PT Aug 31, 2021 12:03
[2021-08-31] MEDS: SENNA W/DOCUSATE (SENOKOT S) TABLET PO PRN ×2 (12:33→20:56)
[2021-08-31 14:00] VITALS: BP 144/79
[2021-08-31] MEDS: ENOXAPARIN 40 MG/0.4 ML (LOVENOX) SYR SC SCH (14:42)
[2021-08-31] MEDS ORDERED: FLEET ENEMA ADULT 1 EA BTL PR ONE (14:45)
[2021-08-31] MEDS: NICOTINE 14 MG (NICODERM) PATCH TD SCH (16:47)
[2021-08-31] MEDS ORDERED: hydrALAZINE (APESOLINE) 20 MG/ML VIAL IV PRN (18:15)
[2021-08-31] MEDS: HYDROCORTISONE 2.5% CREAM (ANUSOL-HC) 30 GM TOP SCH (20:54)
[2021-08-31] MEDS: SERTRALINE 100 MG (ZOLOFT) TAB PO SCH (20:56)
[2021-08-31] MEDS: QUEtiapine 25 MG (SEROquel) TAB IMMEDIATE RELEASE PO SCH (20:56)
[2021-08-31] MEDS: traZODone 50 MG (DESYREL) TAB PO SCH (20:56)
[2021-08-31] MEDS: GABAPENTIN 300 MG (NEURONTIN) CAP PO SCH (20:56)
[2021-08-31] MEDS: MELATONIN 3 MG TABLET PO PRN (23:15)
[2021-09-01] MEDS: ENOXAPARIN 40 MG/0.4 ML (LOVENOX) SYR SC SCH (01:50)
[2021-09-01 04:57] LABS: POTASSIUM 3.8 MMOL/L (3.6-5.0)
[2021-09-01 04:58] LABS: CALCIUM 8.9 MG/DL (8.5-10.1)
[2021-09-01 05:02] LABS: CREATININE SERUM 0.7 MG/DL (0.60-1.30)
[2021-09-01] MEDS: ACETAMINOPHEN 325 MG TABLET PO PRN (05:35)
[2021-09-01 05:36] LABS: HEMATOCRIT 39 % (40-54); HEMOGLOBIN 12.2 g/dL (13.3-17.7); MEAN CORPUSCULAR HEMOGLOBIN 27 pg (25-34); MEAN CORPUSCULAR HGB CONC 32 g/dL (32-36); MEAN CORPUSCULAR VOLUME 86 fL (80-99); MEAN PLATELET VOLUME 10.7 fL (9.0-12.2); PLATELET COUNT 230 10^3/uL (130-400); WHITE BLOOD COUNT 7.3 10^3/uL (4.3-11.0)
[2021-09-01] MEDS: rOPINIRole 0.25 MG (REQUIP) TAB PO SCH ×3 (06:20→21:52)
[2021-09-01] MEDS: inSUlin ASPART (NovoLOG) 1 UNIT/0.01 ML (CHARGE PER UNIT) SC SCH ×4 (06:20→20:32)
[2021-09-01] MEDS: VENlafaxine XR 75 MG (EFFEXOR XR) CAP PO SCH (06:20)
[2021-09-01] MEDS: RT-ALBUTEROL SULF 2.5 MG/3 ML PRE-MIX VIAL INH SCH ×4 (06:29→19:17)
[2021-09-01] MEDS: NICOTINE 14 MG (NICODERM) PATCH TD SCH (08:39)
[2021-09-01] MEDS: LORATADINE (CLARITIN) 10 MG TAB PO SCH (08:39)
[2021-09-01] MEDS: SINEMET CR 50/200 (CARBIDOPA/LEVODOPA SA) TAB PO SCH ×3 (08:39→20:19)
[2021-09-01] MEDS: PANTOPRAZOLE 40 MG (PROTONIX) TAB PO SCH (08:39)
[2021-09-01] MEDS: FINASTERIDE (PROSCAR) 5 MG TAB PO SCH (08:39)
[2021-09-01] MEDS: HYDROCORTISONE 2.5% CREAM (ANUSOL-HC) 30 GM TOP SCH ×2 (08:41→20:20)
[2021-09-01] MEDS: NICOTINE PATCH REMOVAL TP SCH (08:42)
--- NOTE | 2021-09-01 11:40 | Progress Note - Hospitalist ---
Subjective HPI/CC On Admission Date Seen by Provider: Sep 01, 2021 Patient is a 75-year-old male past medical history of Parkinson's dementia who presented to the emergency department due to weakness and diarrhea. He is unable to tell me much of his history states he does not feel well. His is at bedside and states he had multiple episodes of very loose diarrhea yesterday and continued to get more more weak throughout today. She called his primary care who recommended that he be seen in the ER. Arrival to the emergency room he was found to be hypotensive with blood pressures of 60/30. He was given fluid resuscitation and central line was started and blood pressures have improved to the 90s over 50s. He states he feels little better with that. He denies any fevers, nausea, vomiting, chest pain, shortness of breath, or new cough. His states he has a chronic cough. He is COVID vaccinated. Subjective/Events-last exam Pt reports feeling well. Had a BM yesterday and again today. No complaints. Did not work with therapy yesterday due to constipation though. Focused Exam Time of Focused Exam: 14:50 Objective Exam Vital Signs Vital Signs Date Time Temp Pulse Resp B/P (MAP) Pulse Ox O2 Delivery O2 Flow Rate FiO2 09/01/21 10:27 95 Room Air 09/01/21 07:35 36.7 53 18 146/80 08/31/21 14:00 21 08/29/21 14:45 2.00 Capillary Refill : Less Than 3 Seconds General Appearance: No Apparent Distress, Chronically ill, Obese Respiratory: Lungs Clear, No Respiratory Distress Cardiovascular: Regular Rate, Rhythm, No Murmur Neurologic/Psychiatric: Alert, Oriented x3 Results/Procedures Lab Laboratory Tests 09/01/21 04:35 Patient resulted labs reviewed. Assessment/Plan Assessment and Plan Assess & Plan/Chief Complaint Hypovolemic shock- resolved Lactic acidosis- resolved Parkinson's dementia Falls reports worsening debility and multiple falls at home PT/OT construction services technician consulted for likely jail placement Looking at [facility] [place] Continue home meds Constipation resolved COPD No evidence of acute exacerbation MAT protocol Off oxygen Hypertension Resume home meds DVT prophylaxis: Lovenox Diagnosis/Problems Diagnosis/Problems (1) Parkinson's disease (2) Shock (3) Frequent falls Status: Acute (4) Skin abrasion Status: Acute JOSUE BULLARD MD Sep 01, 2021 11:40
[2021-09-01] MEDS: lisINopril 20 MG (PRINIVIL) TABLET PO SCH (12:37)
[2021-09-01] MEDS: NS IV 1000 ML 1,000 ML IV SCH (14:22)
[2021-09-01] MEDS: traZODone 50 MG (DESYREL) TAB PO SCH (20:19)
[2021-09-01] MEDS: MELATONIN 3 MG TABLET PO PRN (20:20)
[2021-09-01] MEDS: QUEtiapine 25 MG (SEROquel) TAB IMMEDIATE RELEASE PO SCH (20:20)
[2021-09-01] MEDS: SERTRALINE 100 MG (ZOLOFT) TAB PO SCH (20:20)
[2021-09-01] MEDS: GABAPENTIN 300 MG (NEURONTIN) CAP PO SCH (20:20)
[2021-09-02] MEDS ORDERED: ENOXAPARIN 40 MG/0.4 ML (LOVENOX) SYR SC SCH (02:00)
[2021-09-02] MEDS: ACETAMINOPHEN 325 MG TABLET PO PRN (04:55)
[2021-09-02] MEDS: NS IV 1000 ML 1,000 ML IV SCH (04:56)
[2021-09-02 05:18] LABS: HEMATOCRIT 40 % (40-54); HEMOGLOBIN 12.5 g/dL (13.3-17.7); MEAN CORPUSCULAR HEMOGLOBIN 27 pg (25-34); MEAN CORPUSCULAR HGB CONC 31 g/dL (32-36); MEAN CORPUSCULAR VOLUME 86 fL (80-99); PLATELET COUNT 228 10^3/uL (130-400); WHITE BLOOD COUNT 7.2 10^3/uL (4.3-11.0)
[2021-09-02 05:31] LABS: POTASSIUM 3.9 MMOL/L (3.6-5.0)
[2021-09-02 05:32] LABS: CALCIUM 8.9 MG/DL (8.5-10.1)
[2021-09-02 05:36] LABS: CREATININE SERUM 0.78 MG/DL (0.60-1.30)
[2021-09-02] MEDS: rOPINIRole 0.25 MG (REQUIP) TAB PO SCH ×2 (06:46→13:00)
[2021-09-02] MEDS: VENlafaxine XR 75 MG (EFFEXOR XR) CAP PO SCH (06:46)
[2021-09-02] MEDS: inSUlin ASPART (NovoLOG) 1 UNIT/0.01 ML (CHARGE PER UNIT) SC SCH ×2 (06:47→10:38)
[2021-09-02] MEDS: RT-ALBUTEROL SULF 2.5 MG/3 ML PRE-MIX VIAL INH SCH ×2 (07:20→10:43)
[2021-09-02] MEDS: SENNA W/DOCUSATE (SENOKOT S) TABLET PO PRN (08:38)
[2021-09-02] MEDS: SINEMET CR 50/200 (CARBIDOPA/LEVODOPA SA) TAB PO SCH ×2 (08:38→13:00)
[2021-09-02] MEDS: LORATADINE (CLARITIN) 10 MG TAB PO SCH (08:38)
[2021-09-02] MEDS: NICOTINE PATCH REMOVAL TP SCH (08:38)
[2021-09-02] MEDS: FINASTERIDE (PROSCAR) 5 MG TAB PO SCH (08:38)
[2021-09-02] MEDS: lisINopril 20 MG (PRINIVIL) TABLET PO SCH (08:38)
[2021-09-02] MEDS: NICOTINE 14 MG (NICODERM) PATCH TD SCH (08:38)
[2021-09-02] MEDS: PANTOPRAZOLE 40 MG (PROTONIX) TAB PO SCH (08:38)
[2021-09-02] MEDS: polyethylene glycoL POWDER 17 GM (MIRALAX) PACK PO PRN (08:40)
[2021-09-02] MEDS: HYDROCORTISONE 2.5% CREAM (ANUSOL-HC) 30 GM TOP SCH (08:41)
--- NOTE | 2021-09-02 11:17 | Physical Therapy Daily Note ---
PT Daily Note-Current Subjective Patient agrees to PT. Spouse present. Mental Status Attachments: IV Transfers SCALE: Activities may be completed with or without assistive devices. 4-Oznrsdovbx-bgzssaw completes the activity by him/herself with no assistance from a helper. 5-Set-up or Clean-up Assistance-helper sets up or cleans up; patient completes activity. [place] assists only prior to or following the activity. 4-Supervision or Touching Assistance-helper provides verbal cues and/or touching/steadying and/or contact guard assistance as patient completes activity. Assistance may be provided throughout the activity or intermittently. 3-Partial/Moderate Assistance-helper does LESS THAN HALF the effort. [place] lifts, holds or supports trunk or limbs, but provides less than half the effort. 2-Substantial/Maximal Assistance-helper does MORE THAN HALF the effort. [place] lifts or holds trunk or limbs and provides more than half the effort. 6-Sceucddul-iwnkth does ALL the effort. Patient does none of the effort to complete the activity. Or, the assistance of 2 or more helpers is required for the patient to complete the activity. If activity was not attempted, code reason: 7-Patient Refused. 9-Not Applicable-not attempted and the patient did not perform the activity before the current illness, exacerbation or injury. 10-Not Attempted due to Environmental Limitations-(lack of equipment, weather restraints, etc.). 88-Not Attempted due to Medical Conditions or Safety Concerns. Sit to Stand (QC): 4 Weight Bearing Full Weight Bearing Full Weight Bearing Gait Training Distance: 300' Walk 10 feet (QC): 4 Walk 50 ft with 2 Turns(QC): 4 Walk 150 ft (QC): 4 Gait Assistive Device: FWW VC's for body placement in FWW and gait sequence due to shuffle sequence (Parkinson's) Exercises Seated Therapy Exercises: Ankle pumps, Long arc quads Seated Reps: 15 Assessment Patient remains up in recliner with needs met. Patient is highly motivated with progress. Plan dismissal to skilled this week for continued therapies. PT Senior Care Goals Senior Maintenance Mechanic Goals PT Senior Maintenance Mechanic Goals Time Frame: Sep 05, 2021 Roll Left & Right (QC): 4 Sit to Lying (QC): 4 Lying-Sitting on Side/Bed(QC): 4 Sit to Stand (QC): 4 (CGA) Chair/Fca-ww-Gosmg Xfer(QC): 4 (CGA) Walk 10 feet (QC): 4 (CGA) Walk 50ft with 2 Turns (QC): 4 (CGA) PT Plan Treatment/Plan Treatment Plan: Continue Plan of Care Treatment Plan: Bed Mobility, Education, Functional Activity Gigi, Functional Strength, Gait, Safety, Therapeutic Exercise, Transfers Treatment Duration: Sep 05, 2021 Frequency: 6 times per week Estimated Hrs Per Day: .25 hour per day Patient and/or Family Agrees t: Yes Time/GCodes Time In: 1047 Time Out: 1101 Total Billed Treatment Time: 14 Total Billed Treatment 1 visit GT 14 min CRISTI JARRETT PT Sep 02, 2021 11:17
--- NOTE | 2021-09-02 12:54 | Occupational Ther Daily Note ---
OT Current Status-Daily Note Subjective Pt alert, sitting in recliner. Pt agrees to therapy. No c/o pain at this time. Mental Status/Objective Patient Orientation: Person, Place, Time, Situation Attachments: IV ADL-Treatment Therapy Code Descriptions/Definitions Functional [place] Measure: 0=Not Assessed/NA 4=Minimal Assistance 1=Total Assistance 5=Supervision or Setup 2=Maximal Assistance 6=Modified [place] 3=Moderate Assistance 7=Complete IndependenceSCALE: Activities may be completed with or without assistive devices. 1-Bdncgjacib-bwgcjkr completes the activity by him/herself with no assistance from a helper. 5-Set-up or Clean-up Assistance-helper sets up or cleans up; patient completes activity. [place] assists only prior to or following the activity. 4-Supervision or Touching Assistance-helper provides verbal cues and/or touching/steadying and/or contact guard assistance as patient completes activity. Assistance may be provided throughout the activity or intermittently. 3-Partial/Moderate Assistance-helper does LESS THAN HALF the effort. [place] lifts, holds or supports trunk or limbs, but provides less than half the effort. 2-Substantial/Maximal Assistance-helper does MORE THAN HALF the effort. [place] lifts or holds trunk or limbs and provides more than half the effort. 7-Boxnxremz-vjajjx does ALL the effort. Patient does none of the effort to complete the activity. Or, the assistance of 2 or more helpers is required for the patient to complete the activity. If activity was not attempted, code reason: 7-Patient Refused. 9-Not Applicable-not attempted and the patient did not perform the activity before the current illness, exacerbation or injury. 10-Not Attempted due to Environmental Limitations-(lack of equipment, weather restraints, etc.). 88-Not Attempted due to Medical Conditions or Safety Concerns. Other Treatment Pt declines any ADLs. Pt does state that he was assisted with donning clothing. Pt able to complete 3 B UE exercises against gravity 2 sets 10 reps. Pt required skilled instruction for correct technique. Cues to breathe throughout exercises instead of holding breath. Pt then completed 3 scoot to front of chair then scoot to back of chair with lost scooting back into chair required assistance due to pt's fatigue. After therapy, pt sitting in recliner with call light/phone in reach. All needs met in room. Pt instructed to complete exercises throughout the day. OT Automotive Worker Foreman Goals Automotive Worker Foreman Goals Time Frame: Sep 12, 2021 Eating (QC): 5 Oral Hygiene (QC): 5 Toileting Hygiene (QC): 4 Shower/Bathe Self (QC): 3 Upper Body Dressing (QC): 3 Lower Body Dressing (QC): 3 1=Demonstrate adherence to instructed precautions during ADL tasks. 2=Patient will verbalize/demonstrate understanding of assistive devic es/modifications for ADL. 3=Patient will improve strength/tolerance for activity to enable patient to perform ADL's. OT Education/Plan Problem List/Assessment Assessment: Decreased Activ Tolerance, Decreased UE Strength, Impaired Funct Balance, Impaired Self-Care Skills, Restricted Funct UE ROM Discharge Recommendations Plan/Recommendations: Continue POC Treatment Plan/Plan of Care Patient would benefit from OT for education, treatment and training to promote independence in ADL's, mobility, safety and/or upper extremity function for ADL's. Plan of Care: ADL Retraining, Caregiver Training, Cognitive Retraining, Functional Mobility, Group Exercise/Act as Ind, UE Funct Exercise/Act Treatment Duration: Sep 12, 2021 Frequency: 3 times per week (3-5x/week) Estimated Hrs Per Day: .25 hour per day Agreement: Yes Rehab Potential: Fair Time/GCodes Start Time: 10:15 Stop Time: 10:30 Total Time Billed (hr/min): 15 Billed Treatment Time 1 visit-EX 1 (15 min) BILLY MARCELO Sep 02, 2021 12:54
--- NOTE | 2021-09-02 12:55 | Discharge Inst-Skilled Nursing ---
Discharge Inst-Skilled NF Consult/Follow Up/Orders Follow Up Appt.: next longterm rounds Skilled NF Admit to: Via [facility] Certification (SNF) I certify that SNF services are required to be given on an inpatient basis because of the above named patient's need for long term care on a continuing basis for the conditions(s) for which he/she was receiving inpatient hospital services prior to his/her transfer to the SNF. Fdc Facility Order: Nursing Services, Computer Scientist-Evaluate & Treat, Physical Therapy-Evaluate & Treat, Speech Language-Evaluate & Treat Oxygen Delivery Method: Room Air Discharge Diet: Low Sodium Diet Daily Activity as Tolerated: Yes Resuscitation Status: Full Code New & Resume Previous Orders Daisy De La Vega Sep 02, 2021 12:54 DAISY DE LA VEGA MD Sep 02, 2021 12:55
--- NOTE | 2021-09-02 23:00 | Discharge Summary ---
Discharge Summary Hospital Course Problems/Dx: (1) Parkinson's disease (2) Shock (3) Frequent falls Status: Acute (4) Skin abrasion Status: Acute Hospital Course Date of Admission: Aug 28, 2021 at 15:42 Admission Diagnosis : Family Physician/Provider: Sami Vincent DO Date of Discharge: 09/02/21 Discharge Diagnosis: [ ] Hospital Course: [ ] Labs and Pending Lab Test: Laboratory Tests 09/02/21 05:10: White Blood Count 7.2, Red Blood Count 4.63, Hemoglobin 12.5L, Hematocrit 40, Mean Corpuscular Volume 86, Mean Corpuscular Hemoglobin 27, Mean Corpuscular Hemoglobin Concent 31L, Red Cell Distribution Width 15.1H, Platelet Count 228, Mean Platelet Volume 10.0, Sodium Level 142, Potassium Level 3.9, Chloride Level 104, Carbon Dioxide Level 28, Anion Gap 10, Blood Urea Nitrogen 8, Creatinine 0.78, Estimat Glomerular Filtration Rate 92, BUN/Creatinine Ratio 10, Glucose Level 119H, Calcium Level 8.9 09/02/21 10:31: Glucometer 113H Microbiology 08/28/21 MRSA Screen - Final, Complete MRSA not isolated 08/28/21 Urine Culture - Final, Complete NO GROWTH 08/28/21 Blood Culture - Final, Complete Staph, Coag Neg (WINDOW TRIMMER) Home Meds Active Reported Cranberry (Cranberry Extract) 200 Mg Capsule 200 Mg PO DAILY Night Time Cough Liquid (Dextromethorphan Hb/Doxylamine) 15 Mg-6.25 Mg/15 Ml Solution 30 Ml PO HS PRN Melatonin 10 Mg Tab.rapdis 20 Mg PO HS TAKES 2 (10MG) TAB Stool Softener (Docusate Sodium) 100 Mg Capsule 100 Mg PO DAILY PRN Zyrtec (Cetirizine HCl) 10 Mg Tablet 10 Mg PO DAILY PRN Mucinex (Guaifenesin) 600 Mg Tab.er.12h 600 Mg PO DAILY PRN Flomax (Tamsulosin HCl) 0.4 Mg Cap 0.4 Mg PO 2000 Neurontin (Gabapentin) 300 Mg Capsule 300 Mg PO HS Venlafaxine HCl ER (Venlafaxine HCl) 75 Mg Cap.er.24h 75 Mg PO DAILY Trazodone HCl 50 Mg Tablet 50 Mg PO HS Sertraline HCl 100 Mg Tablet 100 Mg PO DAILY Finasteride 5 Mg Tablet 5 Mg PO HS Quetiapine Fumarate 25 Mg Tablet 25 Mg PO HS Carbidopa-Levo ER 50-200 Tab (Carbidopa/Levodopa) 50 Mg-200 Mg Tablet.er 1 Each PO 2000 Carbidopa-Levo ER 50-200 Tab (Carbidopa/Levodopa) 50 Mg-200 Mg Tablet.er 2 Each PO BID TAKES 2 TABS 0800 AND TAKES 2 TABS 1200 Benazepril HCl 20 Mg Tablet 20 Mg PO 0800 Ropinirole HCl 0.5 Mg Tablet 0.5 Mg PO TID Miralax (Polyethylene Glycol 3350) 17 Gm Powd.pack 17 Gm PO HS Tylenol Extra Strength (Acetaminophen) 500 Mg Tablet 1,000 Mg PO HS TAKES 2 (500MG) TABLETS Aleve (Naproxen Sodium) 220 Mg Tablet 220 Mg PO DAILY Omeprazole 40 Mg Capsule.dr 40 Mg PO 0800 Assessment/Pt Instructions See instructions Discharge Planning: >30 minutes discharge planning Discharge Instructions Discharge Diet: Low Sodium Diet Activity as Tolerated: Yes Discharge Physical Examination Vital Signs Vital Signs Date Time Temp Pulse Resp B/P (MAP) Pulse Ox O2 Delivery O2 Flow Rate FiO2 09/02/21 15:38 09/02/21 10:43 94 Room Air 09/02/21 07:44 36.5 65 18 08/31/21 14:00 21 08/29/21 14:45 2.00 Allergies: Coded Allergies: No Known Drug Allergies (Unverified , 10/15/12) Discharge Summary Date of Admission Aug 28, 2021 at 15:42 Date of Discharge Sep 02, 2021 at 14:45 Discharge Date: Sep 02, 2021 Discharge Time: 14:45 Admission Diagnosis Hypovolemic shock Discharge Diagnosis (1) Parkinson's disease (2) Shock (3) Frequent falls Status: Acute (4) Skin abrasion Status: Acute RO DE LA VEGA MD Sep 02, 2021 23:00
--- NOTE | 2021-09-03 13:44 | Physician Query Clarification ---
PQ-Further Specificity Admission/Discharge Admission Date: Aug 28, 2021 at 15:42 Discharge Date: Sep 02, 2021 at 14:45 Dr. De La Vega, The medical record reflects the following clinical scenario: History/Risk Factors: diarrhea presumed viral, weakness, shock, Parkinson's dementia, falls Clinical Findings: WBC 11.2, Lactic acid 2.49, T 35.7, P 80, R 14, BP 68/46 Treatment: IV Cefepime Question: Can you further specify the type of shock per the clinical indicators above? Please document a response in the Progress Notes or Discharge Summary. 1. Septic shock 2. hypovolemic shock d/t viral diarrhea 3. Other, with explanation of the clinical findings. 4. Clinically undetermined, no explanation for the clinical findings. PHYSICIAN RESPONSE Can you specify per above: 2 In responding to this query, please exercise your independent professional judgment. The purpose of this communication is to more accurately reflect the complexity of your patients condition. The fact that a question is asked does not imply that any particular answer is desired or expected. Thank you for your timely response to this clarification. Requestors name: Isra THIS PHYSICIAN QUERY FORM IS A PERMANENT PART OF THE MEDICAL RECORD ISRA COATES Sep 03, 2021 13:44 RO DE LA VEGA MD Sep 06, 2021 22:23
== END 2021-09-02 14:45 | DRG 391 ==
LOC: EDUNIT# 11:42 → ER 11:43 → ICU 15:42 → 4TH 08-29 15:35
PROVIDERS: ADMIT Family Medicine; ATTEND Internal Medicine
DX: A08.4 Viral intestinal infection, unspecified (principal); R57.1 Hypovolemic shock; E87.2 Acidosis; G20 Parkinson's disease; F02.80 Dementia in other diseases classified elsewhere, unspecified severity, without behavioral disturbance, psychotic disturbance, mood disturbance, and anxiety; Z91.81 History of falling; F17.210 Nicotine dependence, cigarettes, uncomplicated; J44.9 Chronic obstructive pulmonary disease, unspecified; Z20.822 Contact with and (suspected) exposure to COVID-19; I10 Essential (primary) hypertension; M19.91 Primary osteoarthritis, unspecified site; F32.A Depression, unspecified; S80.812A Abrasion, left lower leg, initial encounter; S80.811A Abrasion, right lower leg, initial encounter; S40.812A Abrasion of left upper arm, initial encounter; S40.811A Abrasion of right upper arm, initial encounter; W19.XXXA Unspecified fall, initial encounter
CPT/HCPCS: 36415; 51702; 70450; 71045; 71260; 72125; 74177; 80048; 80053; 81000; 82947; 83605; 84145; 85025; 85027; 85610; 85730; 87040; 87081; 87088; 87636; 93005; 94640; 94664; 94760; 96361; 96365

== ENCOUNTER 2021-10-13 16:29 | Emergency (ER) | payer MEDICARE, OTHER ==
[~2021-10-13] VITALS: Ht 172 cm; Wt 120.0 kg
[~2021-10-13 16:29] MED LIST changes: +BENA-3 PO; +CARB1TAB41 PO; +CETI10TA49 PO; +CRAN200C PO; +DOCU-26 PO; +FINA5TAB6 PO; +GABA300C PO; +GUAI600T43 PO; +MELA10TA7 PO; +MELA1TAB20 PO; +QUET25TA35 PO; +ROPI0.5T4 PO; +SERT-414 PO; +TMSL.4C PO; +TRZ50T PO; +VENL75CA93 PO; +[UNRECOGNIZED DRUG - CODE] PO
--- NOTE | 2021-10-13 17:01 | ED Head Injury ---
General Chief Complaint: Trauma-Non Activation Stated Complaint: FELL, HEAD/R SHOULDER PAIN Nursing Triage Note: pt presents to ed with complaints of head injury and r shoulder and arm pain after falling outside. pt family reports pt fall easily due to parkinsons. family unsure if pt had loc. pt has abrasions to posterior head, r shoulder, and r forearm. Source: patient Exam Limitations: no limitations History of Present Illness Date Seen by Provider: Oct 13, 2021 Time Seen by Provider: 17:00 Initial Comments Patient is a 75-year-old male with a history of Parkinson's with a history of frequent falls who presents ED with head injury and right arm pain. Patient has a history of Parkinson's. History of frequent falls. Patient just got finishing swimming. Patient was walking to the door grabbing on attempted to smoke a cigarette when he lost his balance rotating to the right hitting the chimney inside the house. Possible loss of consciousness. Family member attempted to talk to patient and took a few seconds for patient to answer. Patient's only complaint is right head pain. Multiple abrasions to right shoulder right forearm. Not on blood thinners. Denies any vomiting, visual edwina nges, unilateral muscle weakness or sensory changes, neck pain, facial pain, mid to lower back pain, bilateral hip pain. Patient denies taking thing for pain. Was able to stand and bear some weight. Location Injury Occurred: home Allergies and Home Medications Allergies Coded Allergies: No Known Drug Allergies (Unverified , 10/15/12) Patient Home Medication List Home Medication List Reviewed: Yes Acetaminophen (Tylenol Extra Strength) 500 Mg Tablet, 1,000 MG PO HS, (Reported) Entered as Reported by: NO FELICIANO on 03/25/17 1158 Benazepril HCl (Benazepril HCl) 20 Mg Tablet, 20 MG PO 0800, (Reported) Entered as Reported by: MELANY RAMIREZ on 08/29/21 1123 Carbidopa/Levodopa (Carbidopa-Levo ER 50-200 Tab) 50 Mg-200 Mg Tablet.er, 2 EACH PO BID, (Reported) Entered as Reported by: MELANY RAMIREZ on 08/29/21 1127 Carbidopa/Levodopa (Carbidopa-Levo ER 50-200 Tab) 50 Mg-200 Mg Tablet.er, 1 EACH PO 2000, (Reported) Entered as Reported by: MELANY RAMIREZ on 08/29/21 1127 Cetirizine HCl (Zyrtec) 10 Mg Tablet, 10 MG PO DAILY PRN for ALLERGIES, (Reported) Entered as Reported by: MELANY RAMIREZ on 08/29/21 1133 Cranberry Extract (Cranberry) 200 Mg Capsule, 200 MG PO DAILY, (Reported) Entered as Reported by: MELANY RAMIREZ on 08/29/21 1144 Dextromethorphan Hb/Doxylamine (Night Time Cough Liquid) 15 Mg-6.25 Mg/15 Ml Solution, 30 ML PO HS PRN for COUGH, (Reported) Entered as Reported by: MELANY RAMIREZ on 08/29/21 1142 Docusate Sodium (Stool Softener) 100 Mg Capsule, 100 MG PO DAILY PRN for CONSTIPATION-1ST LINE, (Reported) Entered as Reported by: MELANY RAMIREZ on 08/29/21 113 Finasteride (Finasteride) 5 Mg Tablet, 5 MG PO HS, (Reported) Entered as Reported by: MELANY RAMIREZ on 08/29/21 1130 Gabapentin (Neurontin) 300 Mg Capsule, 300 MG PO HS, (Reported) Entered as Reported by: MELANY RAMIREZ on 08/29/21 1130 Guaifenesin (Mucinex) 600 Mg Tab.er.12h, 600 MG PO DAILY PRN for CONGESTION, (Reported) Entered as Reported by: MELANY RAMIREZ on 08/29/21 1133 Melatonin (Melatonin) 10 Mg Tab.rapdis, 20 MG PO HS, (Reported) Entered as Reported by: MELANY RAMIREZ on 08/29/21 1137 Naproxen Sodium (Aleve) 220 Mg Tablet, 220 MG PO DAILY, (Reported) Entered as Reported by: NO FELICIANO on 03/25/17 1158 Omeprazole (Omeprazole) 40 Mg Capsule.dr, 40 MG PO 0800, (Reported) Entered as Reported by: NO FELICIANO on 03/25/17 1044 Polyethylene Glycol 3350 (Miralax) 17 Gm Powd.pack, 17 GM PO HS, (Reported) Entered as Reported by: DOMITILA FRANCE on 03/18/20 1051 Quetiapine Fumarate (Quetiapine Fumarate) 25 Mg Tablet, 25 MG PO HS, (Reported) Entered as Reported by: MELANY RAMIREZ on 08/29/21 1130 Ropinirole HCl (Ropinirole HCl) 0.5 Mg Tablet, 0.5 MG PO TID, (Reported) Entered as Reported by: MELANY RAMIREZ on 08/29/21 1123 Sertraline HCl (Sertraline HCl) 100 Mg Tablet, 100 MG PO DAILY, (Reported) Entered as Reported by: MELANY RAMIREZ on 08/29/21 1130 Tamsulosin HCl (Flomax) 0.4 Mg Cap, 0.4 MG PO 2000, (Reported) Entered as Reported by: MELANY RAMIREZ on 08/29/21 1131 Trazodone HCl (Trazodone HCl) 50 Mg Tablet, 50 MG PO HS, (Reported) Entered as Reported by: MELANY RAMIREZ on 08/29/21 1130 Venlafaxine HCl (Venlafaxine HCl ER) 75 Mg Cap.er.24h, 75 MG PO DAILY, (Reported) Entered as Reported by: MELANY RAMIREZ on 08/29/21 1130 Review of Systems Review of Systems Constitutional: No chills, No diaphoresis, No malaise, No weakness Eyes: Denies Blurred Vision, Denies Drainage, Denies Decreased Acuity Respiratory: No cough, No dyspnea on exertion Cardiovascular: No chest pain Gastrointestinal: No abdominal pain, No diarrhea, No nausea, No vomiting Genitourinary: No decreased output, No discharge Musculoskeletal: No back pain; joint pain, muscle pain, muscle stiffness Skin: other (skin abrasions to the right arm) All Other Systems Reviewed Negative Unless Noted: Yes Past Dvvresr-Nzagxv-Oacrjm Hx Patient Social History Tobacco Use?: Yes Tobacco type used: Cigarettes Smoking Status: Current Everyday Smoker Substance use?: Yes Substance type: Marijuana Alcohol Use?: No Pt feels they are or have been: No Immunizations Up To Date Tetanus Booster (TDap): Unknown First/Initial COVID19 Vaccinat: YES UNKNOW DATE Second COVID19 Vaccination Daniel: YES UNKNOW DATE. Third COVID19 Vaccination Date: YES UNKNOW DATE Seasonal Allergies Seasonal Allergies: No Past Medical History Surgery/Hospitalization HX: parkinsons with dementia Surgeries: Yes (L ROTATOR CUFF REPAIR;BACK SURGERY X 2;L FOOT SURGERY;VENTRAL HERNIA ) Abdominal, Orthopedic, Tonsillectomy Respiratory: Yes Chronic Bronchitis Currently Using CPAP: Yes Currently Using BIPAP: No Cardiac: Yes Chronic Edema/Swelling, Hypertension Neurological: Yes Parkinson's Disease Reproductive Disorders: No Genitourinary: No Gastrointestinal: Yes (VENTRAL HERNIA REPAIR) Abdominal Hernia, Obstructive Bowel Musculoskeletal: Yes (R ROTATOR CUFF INJ--NO SURGERY;L ROTATOR CUFF SX;BACK SX X2;L FOOT SX AGE 4) Degenerate Disk Disease, Arthritis, Chronic Back Pain Endocrine: No HEENT: Yes (TONSILLECTOMY) Cataract Loss of Vision: Denies Hearing Impairment: Denies Cancer: No Psychosocial: Yes Sleep Difficulties, Depression Integumentary: No Blood Disorders: No Family Medical History No Pertinent Family Hx Physical Exam Vital Signs Vital Signs - First Documented 10/13/21 16:51 Temp 36.5 Pulse 71 Resp 16 B/P (MAP) 158/108 (125) Pulse Ox 93 O2 Delivery Room Air Capillary Refill : Less Than 3 Seconds Height, Weight, BMI Height: 5'9.00" Weight: 240lbs. 0.0oz. [id number]; 40.00 BMI Method:Stated General Appearance: WD/WN, no apparent distress HEENT: PERRL/EOMI, normal ENT inspection, TMs normal, pharynx normal, other (Contusion abrasions to the right occipital parietal head. No active bleeding. No crepitus or step-off) Neck: non-tender, full range of motion, supple, normal inspection Cardiovascular: regular rate, rhythm, no edema, no gallop, no JVD Respiratory: chest non-tender, lungs clear, normal breath sounds, no respiratory distress, no accessory muscle use Gastrointestinal: normal bowel sounds, non tender, soft, no organomegaly Back: normal inspection, no CVA tenderness Extremities: other (Abrasion to right shoulder, right forearm. Passive and active range with right shoulder intact. Manager Mechanical strength out of 5. Neurovascular intact. No obvious bone deformity.) Crainal Nerves: normal hearing, normal speech, PERRL Coordination/Gait: normal finger to nose Motor/Sensory: no motor deficit, no sensory deficit Skin: normal color, warm/dry [place] Coma Score Best Eye Response: (4) Open Spontaneously Best Verbal Response: (5) Oriented Best Motor Response: (6) Obeys Commands Luba Total: 15 Progress/Results/Core Measures Results/Orders My Orders Orders - JULIETTE SIBLEY Ct Head/Cervical Spine Wo (7/17/22 16:59) Shoulder, Right, 3 Views (10/13/21 16:59) Forearm, Right, 2 Views (10/13/21 16:59) Vital Signs/I&O 10/13/21 10/13/21 10/13/21 16:51 16:57 18:26 Temp 36.5 36.5 Pulse 71 71 84 Resp 16 16 16 B/P (MAP) 158/108 (125) 158/108 (125) 145/94 Pulse Ox 93 93 98 O2 Delivery Room Air Blood Pressure Mean: 125 Departure Communication (PCP) Patient with a contusion and skin abrasion to the right parietal occipital head. CT scan the head and neck was negative for acute abnormality. Had no neck pain at the time however due to the fall and mechanism of injury CT scan of the neck was ordered. Patient with multiple abrasions to the right shoulder and right forearm. X-rays were negative for fracture. Wound care was performed here. Recommend Neosporin twice a day with daily wound checks. Up-to-date on his tetanus. Neuro exam unremarkable. Only complaint was head pain. Patient does have a history of Parkinson's with frequent falls according to family. Recommend continue with walker with assistance at home as needed. Patient agrees. Recommend rest. If any worsening symptoms such as worsening hip pain, vomiting, visual changes, unilateral muscle weakness or sensory changes to return back to ED. Patient is not on blood thinners. Impression Primary Impression: Head injury Additional Impression: Arm abrasion Disposition: HOME, SELF-CARE Condition: Stable Departure-Patient Inst. Decision time for Depature: 18:06 Referrals: ALLYSON DIALLO DO (PCP/Family) Primary Care Physician Patient Instructions: Abrasions ED Add. Discharge Instructions: If any worsening symptoms such as severe head pain, increased confusion, actively vomiting to return back to ED . Recommend Neosporin twice a day to the wounds with daily wound care. All discharge instructions reviewed with patient and/or family. Voiced understanding. JULIETTE SIBLEY Oct 13, 2021 17:01
--- NOTE | 2021-10-13 17:59 | Diagnostic Imaging Report ---
PROCEDURE: CT head and CT cervical spine without contrast. TECHNIQUE: Multiple contiguous axial images were obtained through the brain and cervical spine without the use of intravenous contrast. Sagittal and coronal reformations through the cervical spine were then performed. Auto Exposure Controls were utilized during the CT exam to meet ALARA standards for radiation dose reduction. INDICATION: Head injury, pain, fall. CT HEAD: There is no hemorrhage, hydrocephalus, cerebral edema, mass, mass effect nor evidence for an elevation of the intracerebral pressures. There are no abnormal extra-axial fluid collections. Cerebral cortical volume consistent with mild senescent atrophy, stable from exam 08/28/2021. There has been no change. No calvarial fracture or deformity. No hemosinus or pneumocephalus. There is some right posterior parietal scalp soft tissue swelling. Intracranial atherosclerotic vascular calcifications, chronic. CT CERVICAL: Degenerative changes to the mid to lower cervical spine involving discs, facets and uncovertebral joints, stable and chronic, unchanged since 08/28/2021. Craniocervical relationship and central skull base intact. There is no cervical fracture. No facet dislocation. No traumatic malalignment. No change. IMPRESSION: Stable chronic senescent findings at CT head and cervical show no fracture or hemorrhage. Dictated by: Dictated on workstation # [id number]
--- NOTE | 2021-10-13 18:00 | Diagnostic Imaging Report ---
INDICATION: Fall with pain. FINDINGS: Three-view right shoulder shows glenohumeral and acromioclavicular arthritic changes with some narrowing of the subacromial joint space which may reflect chronic underlying rotator cuff deficiency. No fracture however identified. No opaque loose body. IMPRESSION: No fracture or acute appearing bony abnormality. Dictated by: Dictated on workstation # [id number]
--- NOTE | 2021-10-13 18:04 | Diagnostic Imaging Report ---
INDICATION: Fall, pain. COMPARISON: The most recent relevant comparison is radiographs of the right elbow dated 09/07/2013. FINDINGS: Since the previous, partially-threaded screw transfixes the proximal ulna at the olecranon fracture. The fracture remnant visualized but appears to be healed. No osseous or hardware fracture can be identified. The mid shaft and distal radius and ulna appear intact. There are severe arthritic changes to the wrist. IMPRESSION: Postsurgical proximal ulna. No midshaft or distal injury. No acute finding. 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 Dictated by: Dictated on workstation # [id number]
[2021-10-13 18:26] VITALS: BP 145/94
== END 2021-10-13 18:26 | disposition home or self-care (01) ==
LOC: EDUNIT# 16:29 → ER 16:31
DX: S09.90XA Unspecified injury of head, initial encounter (principal); S40.211A Abrasion of right shoulder, initial encounter; S50.811A Abrasion of right forearm, initial encounter; F17.210 Nicotine dependence, cigarettes, uncomplicated; W22.8XXA Striking against or struck by other objects, initial encounter; Y93.01 Activity, walking, marching and hiking; Y92.009 Unspecified place in unspecified non-institutional (private) residence as the place of occurrence of the external cause
CPT/HCPCS: 70450; 72125; 73030; 73090; 99283; A6223

== ENCOUNTER 2021-11-10 13:33 | Emergency (ER) | payer MEDICARE, OTHER ==
[~2021-11-10] VITALS: Ht 170 cm; Wt 116.0 kg
--- NOTE | 2021-11-10 13:53 | ED Head Injury ---
General Stated Complaint: FALL Source: patient Exam Limitations: no limitations History of Present Illness Date Seen by Provider: Nov 10, 2021 Time Seen by Provider: 13:40 Initial Comments Patient is a 75-year-old male from a local care home, history of Parkinson's was standing up from his seated walker when he lost his balance and fell backwards. Patient struck his head on the floor. No loss of consciousness. He is complaining of a little subjective numbness to his right hand. He sustained a laceration to the occipital scalp. No other complaints of injury. No recent illnesses. Moving all 4 extremities on arrival. Pupils are equal, he is oriented. Not in a cervical collar. Denies neck pain. Occurred: just prior to arrival Severity: mild Location: occipital Method of Injury: fell Loss of Consciousness: no loss of consciousness Associated Systoms: Denies Symptoms Allergies and Home Medications Allergies Coded Allergies: No Known Drug Allergies (Unverified , 10/15/12) Patient Home Medication List Home Medication List Reviewed: Yes Acetaminophen (Tylenol Extra Strength) 500 Mg Tablet, 1,000 MG PO HS, (Reported) Entered as Reported by: NO FELICIANO on 03/25/17 1158 Benazepril HCl (Benazepril HCl) 20 Mg Tablet, 20 MG PO 0800, (Reported) Entered as Reported by: MELANY RAMIREZ on 08/29/21 1123 Carbidopa/Levodopa (Carbidopa-Levo ER 50-200 Tab) 50 Mg-200 Mg Tablet.er, 2 EACH PO BID, (Reported) Entered as Reported by: MELANY RAMIREZ on 08/29/21 1127 Carbidopa/Levodopa (Carbidopa-Levo ER 50-200 Tab) 50 Mg-200 Mg Tablet.er, 1 EACH PO 2000, (Reported) Entered as Reported by: MELANY RAMIREZ on 08/29/21 1127 Cetirizine HCl (Zyrtec) 10 Mg Tablet, 10 MG PO DAILY PRN for ALLERGIES, (Reported) Entered as Reported by: MELANY RAMIREZ on 08/29/21 1133 Cranberry Extract (Cranberry) 200 Mg Capsule, 200 MG PO DAILY, (Reported) Entered as Reported by: MELANY RAMIREZ on 08/29/21 1144 Dextromethorphan Hb/Doxylamine (Night Time Cough Liquid) 15 Mg-6.25 Mg/15 Ml Solution, 30 ML PO HS PRN for COUGH, (Reported) Entered as Reported by: MELANY RAMIREZ on 08/29/21 1142 Docusate Sodium (Stool Softener) 100 Mg Capsule, 100 MG PO DAILY PRN for CONSTIPATION-1ST LINE, (Reported) Entered as Reported by: MELANY RAMIREZ on 08/29/21 1134 Finasteride (Finasteride) 5 Mg Tablet, 5 MG PO HS, (Reported) Entered as Reported by: MELANY RAMIREZ on 08/29/21 1130 Gabapentin (Neurontin) 300 Mg Capsule, 300 MG PO HS, (Reported) Entered as Reported by: MELANY RAMIREZ on 08/29/21 1130 Guaifenesin (Mucinex) 600 Mg Tab.er.12h, 600 MG PO DAILY PRN for CONGESTION, (Reported) Entered as Reported by: MELANY RMAIREZ on 08/29/21 113 Melatonin (Melatonin) 10 Mg Tab.rapdis, 20 MG PO HS, (Reported) Entered as Reported by: MELANY RAMIREZ on 08/29/21 1137 Naproxen Sodium (Aleve) 220 Mg Tablet, 220 MG PO DAILY, (Reported) Entered as Reported by: NO FELICIANO on 03/25/17 1158 Omeprazole (Omeprazole) 40 Mg Capsule.dr, 40 MG PO 0800, (Reported) Entered as Reported by: NO FELICIANO on 03/25/17 1044 Polyethylene Glycol 3350 (Miralax) 17 Gm Powd.pack, 17 GM PO HS, (Reported) Entered as Reported by: DOMITILA FRANCE on 03/18/20 1051 Quetiapine Fumarate (Quetiapine Fumarate) 25 Mg Tablet, 25 MG PO HS, (Reported) Entered as Reported by: MELANY RAMIREZ on 08/29/21 1130 Ropinirole HCl (Ropinirole HCl) 0.5 Mg Tablet, 0.5 MG PO TID, (Reported) Entered as Reported by: MELANY RAMIREZ on 08/29/21 1123 Sertraline HCl (Sertraline HCl) 100 Mg Tablet, 100 MG PO DAILY, (Reported) Entered as Reported by: MELANY RAMIREZ on 08/29/21 113 Tamsulosin HCl (Flomax) 0.4 Mg Cap, 0.4 MG PO 2000, (Reported) Entered as Reported by: MELANY RAMIREZ on 08/29/21 1131 Trazodone HCl (Trazodone HCl) 50 Mg Tablet, 50 MG PO HS, (Reported) Entered as Reported by: MELANY RAMIREZ on 08/29/21 1130 Venlafaxine HCl (Venlafaxine HCl ER) 75 Mg Cap.er.24h, 75 MG PO DAILY, (Reported) Entered as Reported by: MELANY RAMIREZ on 08/29/21 1130 Review of Systems Review of Systems Constitutional: see HPI Eyes: No Symptoms Reported Ears, Nose, Mouth, Throat: no symptoms reported Respiratory: no symptoms reported Cardiovascular: no symptoms reported Gastrointestinal: no symptoms reported Genitourinary: no symptoms reported Musculoskeletal: no symptoms reported Skin: other (laceration) Psychiatric/Neurological: Other (numbness to left hand) All Other Systems Reviewed Negative Unless Noted: Yes Past Udqitij-Zqpkmz-Urpzbk Hx Immunizations Up To Date Tetanus Booster (TDap): Unknown First/Initial COVID19 Vaccinat: YES UNKNOW DATE Second COVID19 Vaccination Daniel: YES UNKNOW DATE. Third COVID19 Vaccination Date: YES UNKNOW DATE Seasonal Allergies Seasonal Allergies: No Past Medical History Surgery/Hospitalization HX: parkinsons with dementia Surgeries: Yes (L ROTATOR CUFF REPAIR;BACK SURGERY X 2;L FOOT SURGERY;VENTRAL HERNIA ) Abdominal, Orthopedic, Tonsillectomy Respiratory: Yes Chronic Bronchitis Currently Using CPAP: Yes Currently Using BIPAP: No Cardiac: Yes Chronic Edema/Swelling, Hypertension Neurological: Yes Parkinson's Disease Reproductive Disorders: No Genitourinary: No Gastrointestinal: Yes (VENTRAL HERNIA REPAIR) Abdominal Hernia, Obstructive Bowel Musculoskeletal: Yes (R ROTATOR CUFF INJ--NO SURGERY;L ROTATOR CUFF SX;BACK SX X2;L FOOT SX AGE 4) Degenerate Disk Disease, Arthritis, Chronic Back Pain Endocrine: No HEENT: Yes (TONSILLECTOMY) Cataract Loss of Vision: Denies Hearing Impairment: Denies Cancer: No Psychosocial: Yes Sleep Difficulties, Depression Integumentary: No Blood Disorders: No Family Medical History No Pertinent Family Hx Physical Exam Vital Signs Vital Signs - First Documented 11/10/21 13:39 Temp 36.8 Pulse 76 Resp 16 B/P (MAP) 101/62 (75) Pulse Ox 93 O2 Delivery Room Air Capillary Refill : Height, Weight, BMI Height: 5'9.00" Weight: 240lbs. 0.0oz. [id number]; 40.00 BMI Method:Stated General Appearance: WD/WN, no apparent distress HEENT: PERRL/EOMI, pharynx normal Neck: non-tender, normal inspection Cardiovascular: regular rate, rhythm Respiratory: lungs clear, normal breath sounds, no respiratory distress, no accessory muscle use Gastrointestinal: non tender, soft Extremities: normal range of motion, normal inspection Psychiatric: alert, oriented x 3 Crainal Nerves: normal hearing, normal speech, PERRL Motor/Sensory: no motor deficit, no sensory deficit ((patient states fingers of right hand feel a little "numb")) Skin: normal color, warm/dry Procedures/Interventions Wound Location: Scalp Other Wound Location right occipital scalp Wound Length (cm): 3 Wound's Depth, Shape: superficial, into muscle, linear Wound Explored: clean Irrigated w/ Saline (ccs): 150 Betadine Prep?: No Anesthesia: Lidocaine w/ Epi Volume Anesthetic (ccs): 4 Staple Repair: Stapler 35W (x4) Layer Closure?: 1 Progress/Results/Core Measures Results/Orders My Orders Orders - NELI RAMIREZ MD Ct Head/Neck Wo (11/10/21 13:48) Lidocaine/Epi 2% 1:100,000 (Xylocaine/Ep (11/10/21 14:00) Lidocaine/Epi Mpf 2% 1:200,000 (Xylocain (11/10/21 14:01) Vital Signs/I&O 11/10/21 13:39 Temp 36.8 Pulse 76 Resp 16 B/P (MAP) 101/62 (75) Pulse Ox 93 O2 Delivery Room Air Progress Progress Note : Time: 14:52 Progress Note Patient had an uneventful stay here in the emergency department. CT scan of the head and cervical spine were unremarkable. He continues to be neurologically "normal". His son is at the bedside. I discussed return precautions with him. They verbalized understanding. They state that he is leaving [facility] on Thursday and they will follow-up with Dr. Vincent to have the anisha removed. All questions are sought and answered. Diagnostic Imaging Diagonstic Imaging: CT Comments [facility], [place] NAME: [facility]RA[facility]AM [facility] REC#: [id number] PT STATUS: REG ER : 1945 PHYSICIAN: NELI RAMIREZ MD ADMIT DATE: 11/10/21/ER Draft Date of Exam:11/10/21 CT HEAD/NECK WO PROCEDURE: CT head and neck without contrast. TECHNIQUE: Contiguous axial images were obtained from the skull base through the vertex. Noncontrast axial images were then obtained of the soft tissue of the neck. Auto Exposure Controls were utilized during the CT exam to meet ALARA standards for radiation dose reduction. INDICATION: Fall. Head laceration. Neck pain. COMPARISON: 10/13/2021. FINDINGS: There are no CT findings of acute intracranial hemorrhage. There is no evidence of an abnormal extra-axial collection. There is no intracranial mass effect or shift. There is no hydrocephalus. The basilar cisterns are patent. There are mild background microvascular changes present within the white matter. There is no territorial loss of lincoln-white differentiation or evidence of vasogenic edema. The mastoid air cells are clear. There is no fluid level within the paranasal sinuses. There is some slight irregularity evident about the nasal bones. This appears to be chronic compared to prior exams. There are no findings of an acute calvarial fracture. Cervical spine demonstrates multilevel cervical degenerative disc disease and facet arthropathy. There is a degenerative anterolisthesis of C7 on T1. Craniocervical junction relationships are maintained. There is fusion of the C2 and C3 facets. There is no facet joint or disc space widening. Vertebral body heights are maintained. There are no CT findings of an acute cervical spine fracture. The lung apices are clear. The soft tissues of the neck demonstrate no acute process. IMPRESSION: 1. Age-related volume loss without CT evidence of intracranial hemorrhage or acute intracranial abnormality 2. No findings of a calvarial fracture 3. Stable degenerative features throughout the cervical spine without findings of traumatic malalignment or acute cervical spine fracture. Dictated on workstation # [id number] Dict: 11/10/21 1409 Trans: 11/10/21 1417 [facility] [id number] Interpreted by: FLORENCIO UNDERWOOD MD Electronically signed by: Departure Impression Primary Impression: Head injury Qualified Codes: S09.90XA - Unspecified injury of head, initial encounter Additional Impression: Occipital scalp laceration Qualified Codes: S01.01XA - Laceration without foreign body of scalp, initial encounter Disposition: HOME, SELF-CARE Condition: Stable Departure-Patient Inst. Decision time for Depature: 14:50 Referrals: ALLYSON VINCENT DO (PCP/Family) Primary Care Physician Patient Instructions: Laceration Repair With [place] [facility], Closed Head Injury Add. Discharge Instructions: The anisha will need to come out in 7 to 10 days. He can wash his hair as normal. Monitor the wound for signs of infection such as redness, swelling, increased warmth or drainage. He may have a mild headache for a couple of days along with mild nausea. A little confusion is to be expected after a head injury/concussion. If you notice any significant behavioral changes or worsening confusion please come back to the emergency department for reevaluation. Follow-up with your primary care physician as needed. Copy Copies To 1: ALLYSON VINCENT KATHRYN M MD Nov 10, 2021 13:53
[2021-11-10] MEDS ORDERED: LIDOCAINE/EPI 2% 1:100,00 (XYLOCAINE) 20 ML VIAL INJ ONE (14:00)
[2021-11-10] MEDS ORDERED: LIDOCAINE/EPI 2% 1:200,00 (XYLOCAINE) 10 ML VIAL ONE (14:01)
--- NOTE | 2021-11-10 14:18 | Diagnostic Imaging Report ---
PROCEDURE: CT head and neck without contrast. TECHNIQUE: Contiguous axial images were obtained from the skull base through the vertex. Noncontrast axial images were then obtained of the soft tissue of the neck. Auto Exposure Controls were utilized during the CT exam to meet ALARA standards for radiation dose reduction. INDICATION: Fall. Head laceration. Neck pain. COMPARISON: 10/13/2021. FINDINGS: There are no CT findings of acute intracranial hemorrhage. There is no evidence of an abnormal extra-axial collection. There is no intracranial mass effect or shift. There is no hydrocephalus. The basilar cisterns are patent. There are mild background microvascular changes present within the white matter. There is no territorial loss of lincoln-white differentiation or evidence of vasogenic edema. The mastoid air cells are clear. There is no fluid level within the paranasal sinuses. There is some slight irregularity evident about the nasal bones. This appears to be chronic compared to prior exams. There are no findings of an acute calvarial fracture. Cervical spine demonstrates multilevel cervical degenerative disc disease and facet arthropathy. There is a degenerative anterolisthesis of C7 on T1. Craniocervical junction relationships are maintained. There is fusion of the C2 and C3 facets. There is no facet joint or disc space widening. Vertebral body heights are maintained. There are no CT findings of an acute cervical spine fracture. The lung apices are clear. The soft tissues of the neck demonstrate no acute process. IMPRESSION: 1. Age-related volume loss without CT evidence of intracranial hemorrhage or acute intracranial abnormality 2. No findings of a calvarial fracture 3. Stable degenerative features throughout the cervical spine without findings of traumatic malalignment or acute cervical spine fracture. Dictated by: Dictated on workstation # [id number]
[2021-11-10 15:01] VITALS: BP 112/59
== END 2021-11-10 15:01 | disposition home or self-care (01) ==
LOC: EDUNIT# 13:33 → ER 13:34
DX: S09.90XA Unspecified injury of head, initial encounter (principal); S01.01XA Laceration without foreign body of scalp, initial encounter; W05.0XXA Fall from non-moving wheelchair, initial encounter
CPT/HCPCS: 70450; 70490

== ENCOUNTER 2021-11-25 16:21 | Emergency (ER) | payer MEDICARE, OTHER ==
[~2021-11-25] VITALS: Ht 175 cm; Wt 118.0 kg
--- NOTE | 2021-11-25 16:41 | ED Fall/Injury ---
General Chief Complaint: Trauma-Non Activation Stated Complaint: FALL Source: patient, EMS Exam Limitations: no limitations History of Present Illness Date Seen by Provider: Nov 25, 2021 Time Seen by Provider: 16:30 Initial Comments 25-year-old male presents via EMS after a fall at a nursing facility. He states he was wearing compression socks that were slippery on the bottom and slipped. He does state that he hit his face on the ground. Did not lose consciousness. He is on blood thinning medications. He has no specific complaints of pain at this time outside of his chronic back pain which is not changed after his fall. He does have some skin tears diffusely. He does not know when his last tetanus shot was. Allergies and Home Medications Allergies Coded Allergies: No Known Drug Allergies (Unverified , 10/15/12) Patient Home Medication List Home Medication List Reviewed: Yes Acetaminophen (Tylenol Extra Strength) 500 Mg Tablet, 1,000 MG PO HS, (Reported) Entered as Reported by: NO FELICIANO on 03/25/17 1158 Benazepril HCl (Benazepril HCl) 20 Mg Tablet, 20 MG PO 0800, (Reported) Entered as Reported by: MELANY RAMIREZ on 08/29/21 1123 Carbidopa/Levodopa (Carbidopa-Levo ER 50-200 Tab) 50 Mg-200 Mg Tablet.er, 2 EACH PO BID, (Reported) Entered as Reported by: MELANY RAMIREZ on 08/29/21 1127 Carbidopa/Levodopa (Carbidopa-Levo ER 50-200 Tab) 50 Mg-200 Mg Tablet.er, 1 EACH PO 2000, (Reported) Entered as Reported by: MELANY RAMIREZ on 08/29/21 1127 Cetirizine HCl (Zyrtec) 10 Mg Tablet, 10 MG PO DAILY PRN for ALLERGIES, (Reported) Entered as Reported by: MELANY RAMIREZ on 08/29/21 1133 Cranberry Extract (Cranberry) 200 Mg Capsule, 200 MG PO DAILY, (Reported) Entered as Reported by: MELANY RAMIREZ on 08/29/21 1144 Dextromethorphan Hb/Doxylamine (Night Time Cough Liquid) 15 Mg-6.25 Mg/15 Ml Solution, 30 ML PO HS PRN for COUGH, (Reported) Entered as Reported by: MELANY RAMIREZ on 08/29/21 1142 Docusate Sodium (Stool Softener) 100 Mg Capsule, 100 MG PO DAILY PRN for CONSTIPATION-1ST LINE, (Reported) Entered as Reported by: MELANY RAMIREZ on 08/29/21 1134 Finasteride (Finasteride) 5 Mg Tablet, 5 MG PO HS, (Reported) Entered as Reported by: MELANY RAMIREZ on 08/29/21 1130 Gabapentin (Neurontin) 300 Mg Capsule, 300 MG PO HS, (Reported) Entered as Reported by: MELANY RAMIREZ on 08/29/21 1130 Guaifenesin (Mucinex) 600 Mg Tab.er.12h, 600 MG PO DAILY PRN for CONGESTION, (Reported) Entered as Reported by: MELANY RAMIREZ on 08/29/21 1133 Melatonin (Melatonin) 10 Mg Tab.rapdis, 20 MG PO HS, (Reported) Entered as Reported by: MELANY RAMIREZ on 08/29/21 1137 Naproxen Sodium (Aleve) 220 Mg Tablet, 220 MG PO DAILY, (Reported) Entered as Reported by: NO FELICIANO on 03/25/17 1158 Omeprazole (Omeprazole) 40 Mg Capsule.dr, 40 MG PO 0800, (Reported) Entered as Reported by: NO FELICIANO on 03/25/17 1044 Polyethylene Glycol 3350 (Miralax) 17 Gm Powd.pack, 17 GM PO HS, (Reported) Entered as Reported by: DOMITILA FRANCE on 03/18/20 1051 Quetiapine Fumarate (Quetiapine Fumarate) 25 Mg Tablet, 25 MG PO HS, (Reported) Entered as Reported by: MELANY RAMIREZ on 08/29/21 1130 Ropinirole HCl (Ropinirole HCl) 0.5 Mg Tablet, 0.5 MG PO TID, (Reported) Entered as Reported by: MELANY RAMIREZ on 08/29/21 1123 Sertraline HCl (Sertraline HCl) 100 Mg Tablet, 100 MG PO DAILY, (Reported) Entered as Reported by: MELANY RAMIREZ on 08/29/21 1130 Tamsulosin HCl (Flomax) 0.4 Mg Cap, 0.4 MG PO 2000, (Reported) Entered as Reported by: MELANY RAMIREZ on 08/29/21 113 Trazodone HCl (Trazodone HCl) 50 Mg Tablet, 50 MG PO HS, (Reported) Entered as Reported by: MELANY RAMIREZ on 08/29/21 1130 Venlafaxine HCl (Venlafaxine HCl ER) 75 Mg Cap.er.24h, 75 MG PO DAILY, (Reported) Entered as Reported by: MELANY RAMIREZ on 08/29/21 1130 Review of Systems Review of Systems Constitutional: no symptoms reported Eyes: No Symptoms Reported Ears, Nose, Mouth, Throat: no symptoms reported Respiratory: no symptoms reported Cardiovascular: no symptoms reported Gastrointestinal: no symptoms reported Genitourinary: no symptoms reported Musculoskeletal: back pain (Chronic) Skin: other (Skin) Past Xltxtwm-[id number]-[id number] Hx Patient Social History Tobacco Use?: No Substance use?: No Alcohol Use?: No Immunizations Up To Date Tetanus Booster (TDap): Unknown First/Initial COVID19 Vaccinat: YES UNKNOW DATE Second COVID19 Vaccination Daniel: YES UNKNOW DATE. Third COVID19 Vaccination Date: YES UNKNOW DATE Seasonal Allergies Seasonal Allergies: No Past Medical History Surgery/Hospitalization HX: [facility] Surgeries: Yes (L ROTATOR CUFF REPAIR;BACK SURGERY X 2;L FOOT SURGERY;VENTRAL HERNIA ) Abdominal, Orthopedic, Tonsillectomy Respiratory: Yes Chronic Bronchitis Currently Using CPAP: Yes Currently Using BIPAP: No Cardiac: Yes Chronic Edema/Swelling, Hypertension Neurological: Yes Parkinson's Disease Reproductive Disorders: No Genitourinary: No Gastrointestinal: Yes (VENTRAL HERNIA REPAIR) Abdominal Hernia, Obstructive Bowel Musculoskeletal: Yes (R ROTATOR CUFF INJ--NO SURGERY;L ROTATOR CUFF SX;BACK SX X2;L FOOT SX AGE 4) Degenerate Disk Disease, Arthritis, Chronic Back Pain Endocrine: No HEENT: Yes (TONSILLECTOMY) Cataract Loss of Vision: Denies Hearing Impairment: Denies Cancer: No Psychosocial: Yes Sleep Difficulties, Depression Integumentary: No Blood Disorders: No Family Medical History No Pertinent Family Hx Physical Exam Vital Signs Vital Signs - First Documented 11/25/21 16:30 Temp 36.2 Pulse 65 Resp 18 B/P (MAP) 102/64 (77) Pulse Ox 98 O2 Delivery Nasal Cannula O2 Flow Rate 2.00 Capillary Refill : Height, Weight, BMI Height: 5'9.00" Weight: 240lbs. 0.0oz. [id number]; 40.00 BMI Method:Stated General Appearance: WD/WN, no apparent distress HEENT: PERRL/EOMI, normal ENT inspection, TMs normal, pharynx normal Neck: non-tender, full range of motion, supple, normal inspection Cardiovascular: regular rate, rhythm, no edema, no gallop, no JVD, no murmur Respiratory: chest non-tender, lungs clear, normal breath sounds, no res piratory distress, no accessory muscle use Gastrointestinal: normal bowel sounds, non tender, soft, no organomegaly, no pulsatile mass Back: normal inspection, no CVA tenderness, no vertebral tenderness Extremities: normal range of motion, non-tender, normal inspection, no pedal edema, no calf tenderness Neurologic/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 There are several small subcentimeter skin tears to the right forearm, elbow region. No bony tenderness. There is a larger skin tear left anterior knee. Joint is intact. There is a small skin tear of left palmar region.) Progress/Results/Core Measures Results/Orders My Orders Orders - PATRICK MOORE DO Ct Head Wo (11/25/21 16:34) Dipht,Pertuss(Acell),Tet Adult (Boostrix (11/25/21 16:45) Vital Signs/I&O 11/25/21 16:30 Temp 36.2 Pulse 65 Resp 18 B/P (MAP) 102/64 (77) Pulse Ox 98 O2 Delivery Nasal Cannula O2 Flow Rate 2.00 Departure Communication (Admissions) CT brain negative. Wounds cleansed and tetanus was updated. discharged in stable condition. Impression Primary Impression: Skin tear Additional Impressions: Fall Qualified Codes: W19.XXXA - Unspecified fall, initial encounter Head injury Qualified Codes: S09.90XA - Unspecified injury of head, initial encounter Disposition: 01 HOME, SELF-CARE Condition: Stable Departure-Patient Inst. Referrals: ALLYSON DIALLO DO (PCP/Family) Primary Care Physician Patient Instructions: Minor Head Injury, Adult ED, Wound Care Add. Discharge Instructions: Keep wounds dressed, clean and dry. Use Motrin and Tylenol for pain. Your tetanus was updated today. Return to the emergency department for any severe concerns. All discharge instructions reviewed with patient and/or family. Voiced understanding. PATRICK MOORE DO Nov 25, 2021 16:41
[2021-11-25] MEDS ORDERED: TETANUS,DIPTH,PERTUSS P/F (BOOSTRIX) 0.5 ML VIAL IM ONE (16:45)
--- NOTE | 2021-11-25 17:05 | Diagnostic Imaging Report ---
PROCEDURE: CT head without contrast. TECHNIQUE: Multiple contiguous axial images were obtained through the brain without the use of intravenous contrast. Auto Exposure Controls were utilized during the CT exam to meet ALARA standards for radiation dose reduction. DATE: November 25, 2021. COMPARISON: CT head and neck November 10, 2021. INDICATION: 75-year-old male, fall. Headache. FINDINGS: There is mild stranding in the region of the left forehead, likely reflecting soft tissue contusion/small hematoma. There is also subcutaneous edema and soft tissue swelling superficial to the left orbit. The globes appear grossly intact. There is no retro-orbital hematoma. There is no identified skull fracture. There are bilateral nasal bone deformities which are similar in appearance to the comparison study. There is no air-fluid level in the paranasal sinuses. The mastoid air cells and middle ears are well-aerated. There is proportional prominence of the ventricles and additional CSF spaces consistent with mild to moderate cerebral volume loss. There is no abnormal extra-axial fluid collection. There is no evidence of acute intracranial hemorrhage. There is no mass effect or midline shift. IMPRESSION: 1. No identified acute intracranial abnormality. 2. Mild to moderate cerebral volume loss. 3. Bilateral nasal bone deformities which are similar in appearance to the comparison study. Dictated by: Dictated on workstation # [id number]
[2021-11-25 17:30] VITALS: BP 107/73
== END 2021-11-25 17:44 | disposition home or self-care (01) ==
LOC: EDUNIT# 16:21 → ER 16:28
DX: S09.90XA Unspecified injury of head, initial encounter (principal); S51.811A Laceration without foreign body of right forearm, initial encounter; S51.011A Laceration without foreign body of right elbow, initial encounter; S61.412A Laceration without foreign body of left hand, initial encounter; S81.012A Laceration without foreign body, left knee, initial encounter; Z23 Encounter for immunization; W01.0XXA Fall on same level from slipping, tripping and stumbling without subsequent striking against object, initial encounter; W22.8XXA Striking against or struck by other objects, initial encounter; Y92.129 Unspecified place in nursing home as the place of occurrence of the external cause
CPT/HCPCS: 70450; 90715

== ENCOUNTER 2022-04-03 19:48 | Inpatient (IN) | payer MEDICARE, OTHER ==
[~2022-04-03] VITALS: Ht 175.3 cm; Wt 115.2 kg
[~2022-04-03 19:48] MED LIST changes: +LEVO-55 PO; -LEVO500T81 PO; +MELA10TA20 PO; -MELA10TA7 PO
[2022-04-03] MEDS ORDERED: RT-ALBUTEROL/IPRATROPIUM 3 ML (DUONEB) VIAL INH ONE (20:30)
[2022-04-03 20:33] LABS: BASOPHILS % (AUTO) 1 % (0-10); EOSINOPHILS # (AUTO) 0.4 10^3/uL (0.0-0.3); EOSINOPHILS % (AUTO) 5 % (0-10); HEMATOCRIT 40 % (40-54); HEMOGLOBIN 11.9 g/dL (13.3-17.7); LYMPHOCYTES # (AUTO) 1.1 10^3/uL (1.0-4.0); LYMPHOCYTES % (AUTO) 16 % (12-44); MEAN CORPUSCULAR HEMOGLOBIN 24 pg (25-34); MEAN CORPUSCULAR HGB CONC 30 g/dL (32-36); MEAN CORPUSCULAR VOLUME 81 fL (80-99); MEAN PLATELET VOLUME 10.8 fL (9.0-12.2); MONOCYTES # (AUTO) 0.7 10^3/uL (0.0-1.0); MONOCYTES % (AUTO) 9 % (0-12); NEUTROPHILS % (AUTO) 69 % (42-75); PLATELET COUNT 213 10^3/uL (130-400); WHITE BLOOD COUNT 7.2 10^3/uL (4.3-11.0)
[2022-04-03 20:45] LABS: PROTHROMBIN TIME PATIENT 13.6 SEC (12.2-14.7)
--- NOTE | 2022-04-03 20:46 | ED General ---
General Chief Complaint: General Problems/Pain Stated Complaint: TROUBLE BREATHING,COUGH,LETHARGY Nursing Triage Note: PT TO RM 10 VIA WC W C/O GENERALIZED WEAKNESS, COUGH X2 DAYS, AND 2X FALLS TODAY. PT DENIES HITTING HEAD, FAMILY AT BEDSIDE REPORTS PT HAS HAD 2 NEB TX TODAY. AUDIBLE WHEEZING NOTED DURING TRIAGE. PT A&O, DENIES PAIN. Source of Information: Caregiver, Family Exam Limitations: No Limitations (SHELLEY OLIVAREZ APRN) History of Present Illness Date Seen by Provider: Apr 03, 2022 Time Seen by Provider: 20:26 Initial Comments 76-year-old male with dementia, COPD, and Parkinson's presents with family for concerns of shortness of air, wheezing, and "gurgling" sound in throat due to inability to clear throat with cough for the last 24 to 48 hours. History obtained from son due to dementia. Family members recently had flu-like symptoms, but were negative for Covid and Influenza. Son reports patient has also been agitated and disassociated. Patient received 4 breathing treatments at home prior to arrival which did not improve his wheezing/SOA. Denies fevers/chills, nausea, vomiting, diarrhea, denies chest pain, denies any other pain. He has frequently been admitted for COPD exacerbations. Timing/Duration: 1-2 Days Severity: Moderate Associated Systoms: No Chest Pain, No Fever/Chills, No Nausea/Vomiting; Shortness of Air (SHELLEY OLIVAREZ APRN) Allergies and Home Medications Allergies Coded Allergies: No Known Drug Allergies (Unverified , 10/15/12) Patient Home Medication List Home Medication List Reviewed: Yes (SHELLEY OLIVAREZ APRN) ALPRAZolam (ALPRAZolam) 0.25 Mg Tablet, 0.125-0.25 MG PO BID PRN for ANXIETY, (Reported) Entered as Reported by: KIERSTEN MORGAN on 04/04/22 1408 Last Action: Reviewed Acetaminophen (Tylenol Extra Strength) 500 Mg Tablet, 1,000 MG PO Q8H PRN for PAIN-MILD (1-4), (Reported) Entered as Reported by: NO FELICIANO on 03/25/17 1158 Last Action: Reviewed Ascorbic Acid (Vitamin C) 500 Mg Tablet, 500 MG PO DAILY, (Reported) Entered as Reported by: KIERSTEN MORGAN on 04/04/221407 Last Action: Reviewed Benazepril HCl (Benazepril HCl) 20 Mg Tablet, 20 MG PO DAILY, (Reported) Entered as Reported by: MELANY RAMIREZ on 08/29/211122 Last Action: Reviewed Carbidopa/Levodopa (Carbidopa-Levo ER 50-200 Tab) 50 Mg-200 Mg Tablet.er, 2 EACH PO 0800,1200, (Reported) Entered as Reported by: MELANY RAMIREZ on 08/29/211126 Last Action: Reviewed Carbidopa/Levodopa (Carbidopa-Levo ER 50-200 Tab) 50 Mg-200 Mg Tablet.er, 1 EACH PO HS, (Reported) Entered as Reported by: MELANY RAMIREZ on 08/29/211126 Last Action: Reviewed Cetirizine HCl (Zyrtec) 10 Mg Tablet, 10 MG PO DAILY PRN for ALLERGIES, (Reported) Entered as Reported by: MELANY RAMIREZ on 08/29/211132 Last Action: Reviewed Divalproex Sodium (Divalproex Sodium) 125 Mg Tablet.dr, 125 MG PO BID, (Reported) Entered as Reported by: KIERSTEN MORGAN on 04/04/221407 Last Action: Reviewed Finasteride (Finasteride) 5 Mg Tablet, 5 MG PO HS, (Reported) Entered as Reported by: MELANY RAMIREZ on 08/29/211129 Last Action: Reviewed Gabapentin (Neurontin) 300 Mg Capsule, 300 MG PO HS, (Reported) Entered as Reported by: MELANY RAMIREZ on 08/29/21 113 Last Action: Reviewed Guaifenesin (Mucus Relief) 600 Mg Tab.er.12h, 600 MG PO Q12H PRN for CONGESTION, (Reported) Entered as Reported by: KIERSTEN MORGAN on 04/04/221407 Last Action: Reviewed Omeprazole (Omeprazole) 40 Mg Capsule.dr, 40 MG PO DAILY, (Reported) Entered as Reported by: NO FELICIANO on 03/25/17 1044 Last Action: Reviewed Polyethylene Glycol 3350 (Miralax) 17 Gm Powd.pack, 17 GM PO HS, (Reported) Entered as Reported by: DOMITILA FRANCE on 03/18/20 1051 Last Action: Reviewed Quetiapine Fumarate (Quetiapine Fumarate) 25 Mg Tablet, 25 MG PO HS, (Reported) Entered as Reported by: MELANY RAMIREZ on 08/29/21 113 Last Action: Reviewed Ropinirole HCl (Ropinirole HCl) 4 Mg Tablet, 4 MG PO TID, (Reported) Entered as Reported by: KIERSTEN MORGAN on 04/04/221407 Last Action: Reviewed Sertraline HCl (Sertraline HCl) 100 Mg Tablet, 100 MG PO DAILY, (Reported) Entered as Reported by: MELANY RAMIREZ on 08/29/21 113 Last Action: Reviewed Sertraline HCl (Sertraline HCl) 50 Mg Tablet, 50 MG PO DAILY, (Reported) Entered as Reported by: KIERSTEN MORGAN on 04/04/221407 Last Action: Reviewed Tamsulosin HCl (Flomax) 0.4 Mg Cap, 0.4 MG PO HS, (Reported) Entered as Reported by: MELANY RAMIREZ on 08/29/21 113 Last Action: Reviewed Trazodone HCl (Trazodone HCl) 50 Mg Tablet, 50-100 MG PO HS PRN for SLEEP, (Reported) Entered as Reported by: MELANY RAMIREZ on 08/29/211129 Last Action: Reviewed Zinc Gluconate (Zinc) 50 Mg Tablet, 50 MG PO DAILY, (Reported) Entered as Reported by: KIERSTEN MORGAN on 04/04/221407 Last Action: Reviewed Discontinued Medications Cranberry Extract (Cranberry) 200 Mg Capsule, 200 MG PO DAILY, (Reported) Discontinued Reason: No Longer Taking Entered as Reported by: MELANY RAMIREZ on 08/29/21 114 Last Action: Discontinued Dextromethorphan Hb/Doxylamine (Night Time Cough Liquid) 15 Mg-6.25 Mg/15 Ml Solution, 30 ML PO HS PRN for COUGH, (Reported) Discontinued Reason: No Longer Taking Entered as Reported by: MELANY RAMIREZ on 08/29/21 114 Last Action: Discontinued Docusate Sodium (Stool Softener) 100 Mg Capsule, 100 MG PO DAILY PRN for CONSTIPATION-1ST LINE, (Reported) Discontinued Reason: Duplicate Order Entered as Reported by: MELANY RAMIREZ on 08/29/211133 Last Action: Discontinued Melatonin (Melatonin) 10 Mg Tab.rapdis, 20 MG PO HS, (Reported) Discontinued Reason: No Longer Taking Entered as Reported by: MELANY RAMIREZ on 08/29/21 1137 Last Action: Discontinued Naproxen Sodium (Aleve) 220 Mg Tablet, 220 MG PO DAILY, (Reported) Discontinued Reason: No Longer Taking Entered as Reported by: NO FELICIANO on 03/25/17 1158 Last Action: Discontinued Ropinirole HCl (Ropinirole HCl) 0.5 Mg Tablet, 0.5 MG PO TID, (Reported) Discontinued Reason: Duplicate Order Entered as Reported by: MELANY RAMIREZ on 08/29/21 1123 Last Action: Discontinued Venlafaxine HCl (Venlafaxine HCl ER) 75 Mg Cap.er.24h, 75 MG PO DAILY, (Reported) Discontinued Reason: No Longer Taking Entered as Reported by: MELANY RAMIREZ on 08/29/21 1130 Last Action: Discontinued Review of Systems Review of Systems Constitutional: see HPI (SHELLEY OLIVAREZ APRN) Past Uvzruxf-Pukkoa-Mdnwai Hx Patient Social History Tobacco Use?: Yes Tobacco type used: Cigarettes Smoking Status: Current Everyday Smoker Use of E-Cig and/or Vaping dev: No Substance use?: No Alcohol Use?: No (SHELLEY OLIVAREZ APRN) Immunizations Up To Date Tetanus Booster (TDap): Unknown Influenza Vaccine Up-to-Date: Yes; Up-to-Date First/Initial COVID19 Vaccinat: YES UNKNOW DATE Second COVID19 Vaccination Daniel: YES UNKNOW DATE. Third COVID19 Vaccination Date: YES UNKNOW DATE COVID19 Vaccine Retread Builder: MODERNA X4 (SHELLEY OLIVAREZ APRN) Seasonal Allergies Seasonal Allergies: No (SHELLEY OLIVAREZ APRN) Past Medical History Surgery/Hospitalization HX: [facility] Surgeries: Yes (L ROTATOR CUFF REPAIR;BACK SURGERY X 2;L FOOT SURGERY;VENTRAL HERNIA ) Abdominal, Orthopedic, Tonsillectomy Respiratory: Yes Chronic Bronchitis Currently Using CPAP: Yes Currently Using BIPAP: No Cardiac: Yes Chronic Edema/Swelling, Hypertension Neurological: Yes Parkinson's Disease Reproductive Disorders: No Genitourinary: No Gastrointestinal: Yes (VENTRAL HERNIA REPAIR) Abdominal Hernia, Obstructive Bowel Musculoskeletal: Yes (R ROTATOR CUFF INJ--NO SURGERY;L ROTATOR CUFF SX;BACK SX X2;L FOOT SX AGE 4) Degenerate Disk Disease, Arthritis, Chronic Back Pain Endocrine: No HEENT: Yes (TONSILLECTOMY) Cataract Loss of Vision: Denies Hearing Impairment: Denies Cancer: No Psychosocial: Yes Sleep Difficulties, Depression Integumentary: No Blood Disorders: No (SHELLEY OLIVAREZ APRN) Family Medical History No Pertinent Family Hx (SHELLEY OLIVAREZ APRN) Physical Exam-Suspected Sepsis Physical Exam Vital Signs Vital Signs - First Documented 04/03/22 04/03/22 19:52 21:30 Temp 36.9 Pulse 74 Resp 20 B/P (MAP) 126/78 (94) Pulse Ox 94 O2 Delivery Nasal Cannula O2 Flow Rate 2.00 FiO2 93 (STEVEN LÓPEZ DO) Vital Signs Capillary Refill : Less Than 3 Seconds (SHELLEY OLIVAREZ APRN) Blood Pressure Mean: 94 Height, Weight, BMI Height: 5'9.00" Weight: 240lbs. 0.0oz. 108.897482ro; 38.00 BMI Method:Stated General Appearance: Mild Distress Neck: Normal Inspection, Supple Respiratory: Decreased Breath Sounds, Wheezing, Other (tachypnea) Cardiovascular: Regular Rate, Rhythm Extremity: Normal Inspection, Normal Range of Motion Neurologic/Psychiatric: Alert Skin: normal color, warm/dry (SHELLEY OLIVAREZ APRN) Focused Exam Sepsis Stage: Sepsis Possible Source: Pulmonary Lactate Level 04/03/22 20:00: Lactic Acid Level 1.59 04/04/22 01:42: Lactic Acid Level 3.22*H 04/04/22 04:08: Lactic Acid Level 4.34*H (STEVEN LÓPEZ DO) Time of Focused Exam: 01:45 Respiratory: No Accessory Muscle Use, No Respiratory Distress, Rales, Rhonci Cardiovascular: Regular Rate, Rhythm, Normal Peripheral Pulses Capillary Refill: Less Than 3 Seconds Skin: normal color, warm/dry Lactic Acid Level Laboratory Tests Test 04/04/22 04:08 Lactic Acid Level 4.34 MMOL/L (0.50-2.00) *H (STEVEN LÓPEZ DO) Within 3hrs of presentation: Admin ABX, Blood cultures prior to ABX's, Focus exam, Lactate level (STEVEN LÓPEZ DO) Progress/Results/Core Measures Suspected Sepsis SIRS Temperature: Pulse: 74 Respiratory Rate: 20 Laboratory Tests 04/03/22 20:00: White Blood Count 7.2 04/04/22 09:40: White Blood Count 9.2 Blood Pressure 126 /78 Mean: 94 04/04/22 01:42: Lactic Acid Level 3.22*H 04/04/22 04:08: Lactic Acid Level 4.34*H 04/04/22 09:40: Lactic Acid Level 2.71*H Laboratory Tests 04/03/22 20:00: Creatinine 0.82, INR Comment 1.0, Platelet Count 213, Total Bilirubin 0.3 04/04/22 09:40: Creatinine 0.84, Platelet Count 159, Total Bilirubin 0.3 (SHELLEY OLIVAREZ APRN) Results/Orders Lab Results Laboratory Tests Test 04/03/22 01:50 04/03/22 20:00 04/03/22 21:27 04/04/22 01:15 Range/Units Urine Color YELLOW Urine Clarity CLEAR Urine pH 5.5 5-9 Urine Specific [place] >=1.030 1.016-1.022 Urine Protein NEGATIVE NEGATIVE Urine Glucose (UA) NEGATIVE NEGATIVE Urine Ketones TRACE H NEGATIVE Urine Nitrite NEGATIVE NEGATIVE Urine Bilirubin NEGATIVE NEGATIVE Urine Urobilinogen 0.2 < = 1.0 MG/DL Urine Leukocyte Esterase NEGATIVE NEGATIVE Urine RBC (Auto) NEGATIVE NEGATIVE Urine RBC NONE /HPF Urine WBC NONE /HPF Urine Crystals NONE /LPF Urine Bacteria NEGATIVE /HPF Urine Casts NONE /LPF Urine Mucus SMALL H /LPF Urine Culture Indicated CULTURE PENDING White Blood Count 7.2 4.3-11.0 10^3/uL Red Blood Count 4.99 4.30-5.52 10^6/uL Hemoglobin 11.9 L 13.3-17.7 g/dL Hematocrit 40 40-54 % Mean Corpuscular Volume 81 80-99 fL Mean Corpuscular Hemoglobin 24 L 25-34 pg Mean Corpuscular Hemoglobin Concent 30 L 32-36 g/dL Red Cell Distribution Width 15.2 H 10.0-14.5 % Platelet Count 213 130-400 10^3/uL Mean Platelet Volume 10.8 9.0-12.2 fL Immature Granulocyte % (Auto) 0 % Neutrophils (%) (Auto) 69 42-75 % Lymphocytes (%) (Auto) 16 12-44 % Monocytes (%) (Auto) 9 0-12 % Eosinophils (%) (Auto) 5 0-10 % Basophils (%) (Auto) 1 0-10 % Neutrophils # (Auto) 5.0 1.8-7.8 10^3/uL Lymphocytes # (Auto) 1.1 1.0-4.0 10^3/uL Monocytes # (Auto) 0.7 0.0-1.0 10^3/uL Eosinophils # (Auto) 0.4 H 0.0-0.3 10^3/uL Basophils # (Auto) 0.0 0.0-0.1 10^3/uL Immature Granulocyte # (Auto) 0.0 0.0-0.1 10^3/uL Prothrombin Time 13.6 12.2-14.7 SEC INR Comment 1.0 0.8-1.4 Activated Partial Thromboplast Time 35 24-35 SEC Sodium Level 141 135-145 MMOL/L Potassium Level 4.1 3.6-5.0 MMOL/L Chloride Level 102 98-107 MMOL/L Carbon Dioxide Level 29 21-32 MMOL/L Anion Gap 10 5-14 MMOL/L Blood Urea Nitrogen 17 7-18 MG/DL Creatinine 0.82 0.60-1.30 MG/DL Estimat Glomerular Filtration Rate 90 BUN/Creatinine Ratio 21 Glucose Level 111 H 70-105 MG/DL Lactic Acid Level 1.59 0.50-2.00 MMOL/L Calcium Level 9.2 8.5-10.1 MG/DL Corrected Calcium 9.0 8.5-10.1 MG/DL Total Bilirubin 0.3 0.1-1.0 MG/DL Aspartate Amino Transf (AST/SGOT) 15 5-34 U/L Alanine Aminotransferase (ALT/SGPT) 7 0-55 U/L Alkaline Phosphatase 93 40-136 U/L Total Protein 7.6 6.4-8.2 GM/DL Albumin 4.3 3.2-4.5 GM/DL Influenza Type A (RT-PCR) Not Detected Not Detecte Influenza Type B (RT-PCR) Not Detected Not Detecte SARS-CoV-2 RNA (RT-PCR) Not Detected Not Detecte Blood Gas Puncture Site L RAD R RAD Blood Gas Patient Temperature 36.7 36.7 Arterial Blood pH 7.34 *L 7.32 *L 7.37-7.43 Arterial Blood Partial Pressure CO2 61 H 59 H 35-45 MMHG Arterial Blood Partial Pressure O2 60 L 62 L 79-93 MMHG Arterial Blood HCO3 32 H 30 H 23-27 MMOL/L Arterial Blood Total CO2 33.9 H 31.9 H 21.0-31.0 MMOL/L Arterial Blood Oxygen Saturation 93 L 93 L 94-100 % Arterial Blood Base Excess 6.4 H 4.3 H -2.5-2.5 MMOL/L Uriah Test YES-POS YES-POS Blood Gas Ventilator Setting NO NO Blood Gas Inspired Oxygen 1L 30% Test 04/04/22 01:42 04/04/22 01:56 04/04/22 03:45 04/04/22 04:08 Range/Units Lactic Acid Level 3.22 *H 4.34 *H 0.50-2.00 MMOL/L Magnesium Level 1.8 1.6-2.4 MG/DL Troponin I < 0.028 <0.028 NG/ML B-Type Natriuretic Peptide 27.5 <100.0 PG/ML Procalcitonin 0.04 <0.10 NG/ML Blood Gas Puncture Site R RAD Blood Gas Patient Temperature 36.7 Arterial Blood pH 7.36 L 7.37-7.43 Arterial Blood Partial Pressure CO2 52 H 35-45 MMHG Arterial Blood Partial Pressure O2 69 L 79-93 MMHG Arterial Blood HCO3 29 H 23-27 MMOL/L Arterial Blood Total CO2 30.8 21.0-31.0 MMOL/L Arterial Blood Oxygen Saturation 96 94-100 % Arterial Blood Base Excess 4.1 H -2.5-2.5 MMOL/L Uriah Test YES-POS Blood Gas Ventilator Setting NO Blood Gas Inspired Oxygen 30% (STEVEN LÓPEZ DO) My Orders Orders - STEVEN LÓPEZ DO Lorazepam Injection (Ativan Injection) (04/03/22 23:45) Rt Request For Service (04/03/22 23:36) Albuterol/Ipra Inhalation Soln (Duoneb I (04/04/22 01:00) Svn Small Volume Nebulizer (04/04/22 00:52) Chest 1 View, Ap/Pa Only (04/04/22 01:27) Bnp Dimmit (04/04/22 01:31) Troponin I Karen (04/04/22 01:31) Lactic Acid Analyzer (04/04/22 01:31) Magnesium (04/04/22 01:31) Procalcitonin (Pct) (04/04/22 01:31) Ekg Tracing (04/04/22 01:35) Arterial Blood Gas (04/04/22 01:15) Furosemide Injection (Lasix Injection) (04/04/22 01:45) Catheter(Urinary) Insert & Ass 03,15 (04/04/22 01:42) Lidocaine 2% (Urojet) (Xylocaine Urojet) (04/04/22 01:45) Cefepime Injection (Maxipime Injection) (04/04/22 02:15) Arterial Blood Gas (04/04/22 03:38) Lorazepam Injection (Ativan Injection) (04/04/22 03:45) Bnp Karen (04/04/22 06:10) Cbc With Automated Diff (04/04/22 06:10) Comprehensive Metabolic Panel (04/04/22 06:10) Lactic Acid Analyzer (04/04/22 06:10) Magnesium (04/04/22 06:10) Procalcitonin (Pct) (04/04/22 06:10) Troponin I Karen (04/04/22 06:10) Albuterol/Ipra Inhalation Soln (Duoneb I (04/04/22 06:15) Methylprednisolone Sod Succ (Solu-Medrol (04/04/22 06:10) Svn Small Volume Nebulizer (04/04/22 06:10) Arterial Blood Gas (04/04/22 06:10) Chest 1 View, Ap/Pa Only (04/04/22 06:10) (STEVEN LÓPEZ DO) Medications Given in ED Current Medications Medications Dose Ordered Sig/[place] Route Start Time Stop Time Status Last Admin Dose Admin Alprazolam 0.5 mg ONCE ONCE PO 04/03/22 22:00 04/03/22 22:01 DC 04/03/22 22:13 0.5 MG Cefepime HCl 2000 mg/Sodium Chloride 50 ml @ 100 mls/hr ONCE ONCE IV 04/04/22 02:15 04/04/22 02:44 DC 04/04/22 04:06 100 MLS/HR Furosemide 80 mg ONCE ONCE IVP 04/04/22 01:45 04/04/22 01:46 DC 04/04/22 02:01 80 MG Lidocaine HCl 10 ml ONCE ONCE TOP 04/04/22 01:45 04/04/22 01:46 DC 04/04/22 02:01 10 ML Lorazepam 1 mg ONCE ONCE IVP 04/03/22 23:45 04/03/22 23:46 DC 04/04/22 00:03 1 MG Lorazepam 1 mg ONCE ONCE IVP 04/04/22 03:45 04/04/22 03:46 DC 04/04/22 04:06 1 MG Methylprednisolone Sodium Succinate 125 mg ONCE ONCE IVP 04/03/22 21:00 04/03/22 21:09 DC 04/03/22 21:12 125 MG (STEVEN LÓPEZ DO) Vital Signs/I&O 04/03/22 04/03/22 04/03/22 04/03/22 19:52 19:52 20:37 21:30 Temp 36.9 Pulse 74 Resp 20 B/P (MAP) 126/78 (94) Pulse Ox 94 95 O2 Delivery Nasal Cannula Nasal Cannula Nasal Cannula Nasal Cannula O2 Flow Rate 2.00 2.00 1.00 1.00 FiO2 93 04/03/22 04/04/22 04/04/22 23:55 00:03 02:09 Temp 36.7 Pulse Ox 92 92 O2 Delivery NIV Bilevel O2 Flow Rate 30.00 FiO2 30 (ERICH LÓPEZA Elsa DO) Vital Signs/I&O Capillary Refill : Less Than 3 Seconds (SHELLEY OLIVAREZ R BUCKLE INSPECTOR) Blood Pressure Mean: 94 Progress Note #1: Time: 21:45 Progress Note Patient seen and evaluated, mild distress, tachypneic. Based on exam and symptoms, differential diagnosis includes COPD exacerbation, pneumonia, sepsis, pleural effusion, pulmonary edema. Sepsis and SOA work-up initiated Progress Note #2: Time: 21:38 Progress Note Admission discussed with Dr. Lugo. Test results discussed with family and patient. Discussed need for admission with family and patient, family agreeable. Informed that patient will be staying in the ER until a bed is available. (SHELLEY OLIVAREZ BUCKLE INSPECTOR) Progress Note : Progress Note 6440--ASSUMED CARE AT END OF SHIFT. PT IS BEING BOARDED IN ER UNTIL ICU BED BECOMES AVAILABLE . WILL START PT ON BIPAP. PT IS AGITATED, PULLED OUT IV, PULLED OFF ALL MONITORING DEVICES. ATIVAN ORDERED. PT WILL NEED A SITTER WHEN ADMITTED TO ICU. 0130--REPEAT DUO NEB TX AND ABG'S DONE BY RT. PT IS ON BIPAP WITH O2 SATS AROUND 91-92%. RESPIRATIONS ARE EVEN AND UNLABORED BUT LUNG SOUNDS ARE COARSE, AND NOW HAS RHONCHI AND RALES. NO WHEEZING. DOES APPEAR TO HAVE SOME FACIAL EDEMA WELL. NO OBVIOUS LEG EDEMA AT THIS TIME. REPEAT CXR ORDERED. ADDITIONAL LAB AND EKG ORDERED CXR SHOWS EVIDENCE OF CHF, WILL ADD LASIX AND FISHMAN. LACTIC ACID LEVEL UP TO > 3. WILL ADD ANTIBIOTICS, BUT HOLD FLUIDS, PT IS IN CHF PT CONSTANTLY PUSHING CALL LIGHT EVERY COUPLE OF MINUTES--SOMETIMES EVEN BEFORE STAFF MEMBER HAS LEFT THE ROOM HE HAS PUSHED IT AGAIN, THEN STATES HE DOESN'T NEED ANYTHING OR WANTS VARIOUS THINGS SUCH HIS PANTS, HIS MONEY, ETC. WHEN ASKED WHAT HE NEEDS OR WHAT HE PUSHED THE CALL LIGHT FOR HE IS CONSTANTLY PULLING ON EQUIPMENT, PULLED OFF HIS BRIEFS, PULLED THE BIPAP HOSE OFF THE MACHINE, MOVING BIPAP MASK, ETC. ADDITIONAL ATIVAN ORDERED. REPEAT ABG'S, REPEAT LACTIC ACID LEVELS, REPEAT NEB TREATMENTS ORDERED THROUGHOUT ER STAY. HIS VITALS HAVE REMAINED STABLE, WITH O2 SATS IN MID 90'S, BP IN 110'S SYSTOLIC, HR IN 70'S, AND AFEBRILE. HAVE REVIEWED OLD RECORDS, INCLUDING PRIOR ER VISITS ( MANY VISITS FOR FALLS), ADMITS INCLUDING H&P'S, CONSULTS, TEST RESULTS, DISCHARGE SUMMARIES. PT HAS REQUIRED FDC PLACEMENT IN THE PAST, AND PT WOULD LIKELY BENEFIT FROM SOCIAL SERVICE CONSULT AND RE-EVALUATION FOR FDC PLACEMENT AGAIN PRIOR TO DISMISSAL, BASED ON PT'S BEHAVIOR DURING ER STAY. COMPLEX MANAGEMENT DUE TO MULTIPLE CO-MORBIDITIES 0600--AM LABS, RT TREATMENTS, MEDS, CXR ORDERED. PT IS RESTING QUIETLY AFTER ATIVAN. VITALS STABLE. REPORT TO DR. RAMIREZ. STILL ARE WAITING FOR BED IN ICU TO OPEN UP HERE. (STEVEN LÓPEZ DO) ECG Initial ECG Impression Date: Apr 04, 2022 Initial ECG Impression Time: 01:43 Initial ECG Rate: 84 Initial ECG Rhythm: Normal Sinus Initial ECG Impression: Nonspecific Changes (IVCD. NON-SPECIFIC ST SEGMENTS. ), 1st Degree AV Block Comment NO SIGNIFICANT CHANGES FROM MOST RECENT EKG OF 08/29/21--MILD AXIS CHANGE, AND LOW VOLTAGE, OTHERWISE ESSENTIALLY UNCHANGED. (STEVEN LÓPEZ DO) Diagnostic Imaging Comments CXR--AT 0128 PENDING RADIOLOGIST REVIEW: -CHF / PULMONARY EDEMA Reviewed: Reviewed by Me (STEVEN LÓPEZ DO) Departure Communication (Admissions) Time/Spoke to Admitting Phy: 21:38 Dr. Lugo, hospitalist consulted for admission. Dr. Lugo wants patient in admitted to ICU on BiPAP due to hypercapnia. No ICU beds available at this time, patient will be ED hold until bed available. (SHELLEY OLIVAREZ APRN) Impression Primary Impression: Acute on chronic respiratory failure with hypoxia and hypercapnia Additional Impressions: COPD with exacerbation CHF (congestive heart failure) Pneumonia Sepsis COGNITVE IMPAIRMENT Agitation CHRONIC WOUND TO RIGHT LOWER LEG Parkinson's disease Parkinson's disease dementia Disposition: ADMITTED INPATIENT Condition: Critical Admissions Decision to Admit Reason: Admit from ER (General) Decision to Admit/Date: Apr 03, 2022 Time/Decision to Admit Time: 21:38 (SHELLEY OLIVAREZ APRN) Departure-Patient Inst. Referrals: ALLYSON DIALLO DO (PCP/Family) Primary Care Physician SHELLEY OLIVAREZ APRN Apr 03, 2022 20:46 STEVEN LÓPEZ DO Apr 04, 2022 00:35
--- NOTE | 2022-04-03 20:54 | Diagnostic Imaging Report ---
INDICATION: Shortness of air. It is compared with radiograph 08/28/2021. FINDINGS: Body habitus limits exam sensitivity. There is likely some mild basilar atelectasis but no consolidating pneumonia. The heart size stable. No overt vascular congestion. No effusion or pneumothorax. IMPRESSION: Limited inspiration with some crowding of the markings and likely mild basilar atelectasis, otherwise negative. Dictated by: Dictated on workstation # [id number]
[2022-04-03 20:55] LABS: ALBUMIN 4.3 GM/DL (3.2-4.5); BILIRUBIN,TOTAL 0.3 MG/DL (0.1-1.0); CALCIUM 9.2 MG/DL (8.5-10.1); CREATININE SERUM 0.82 MG/DL (0.60-1.30); POTASSIUM 4.1 MMOL/L (3.6-5.0); TOTAL PROTEIN 7.6 GM/DL (6.4-8.2)
[2022-04-03] MEDS ORDERED: methylPREDNISolone 125 MG (Solu-MEDROL) VIAL IVP ONE (21:00)
[2022-04-03] MEDS ORDERED: methylPREDNISolone 125 MG (Solu-MEDROL) VIAL ONE (21:10)
[2022-04-03] MEDS ORDERED: RT-ALBUTEROL SULF 2.5 MG/3 ML PRE-MIX VIAL INH ONE (21:15)
[2022-04-03 21:30] LABS: ABG BASE EXCESS 6.4 MMOL/L (-2.5-2.5); ABG OXYGEN SATURATION 93 % (94-100); ABG PCO2 61 MMHG (35-45); ABG PO2 60 MMHG (79-93); ABG TCO2 33.9 MMOL/L (21.0-31.0)
[2022-04-03 21:31] LABS: ALLENS TEST YES-POS; INSPIRED O2 1L; PATIENT TEMP 36.7; VENTILATOR NO
[2022-04-03 21:32] LABS: ABG PH 7.34 (7.37-7.43)
[2022-04-03] MEDS ORDERED: ALPRAZolam 1 MG (XANAX) TAB PO ONE (22:00)
[2022-04-03] MEDS ORDERED: LORazepam INJ 2 MG/ML (ATIVAN) VIAL IVP ONE (23:45)
[2022-04-04] MEDS ORDERED: RT-ALBUTEROL/IPRATROPIUM 3 ML (DUONEB) VIAL INH ONE ×2 (01:00→06:15)
[2022-04-04 01:42] LABS: ABG BASE EXCESS 4.3 MMOL/L (-2.5-2.5); ABG OXYGEN SATURATION 93 % (94-100); ABG PCO2 59 MMHG (35-45); ABG PO2 62 MMHG (79-93); ABG TCO2 31.9 MMOL/L (21.0-31.0)
[2022-04-04 01:44] LABS: ALLENS TEST YES-POS
[2022-04-04 01:45] LABS: INSPIRED O2 30%; PATIENT TEMP 36.7; VENTILATOR NO
[2022-04-04] MEDS ORDERED: FUROSEMIDE 40 MG/4 ML INJ (LASIX) IVP ONE ×2 (01:45→10:45)
[2022-04-04] MEDS ORDERED: LIDOCAINE UROJET 2% GEL 10 ML PKG TOP ONE (01:45)
[2022-04-04 01:57] LABS: ABG PH 7.32 (7.37-7.43)
[2022-04-04 02:01] LABS: BILIRUBIN,URINE NEGATIVE (NEGATIVE); CLARITY,URINE CLEAR; COLOR,URINE YELLOW; GLUCOSE, URINE (UA) NEGATIVE (NEGATIVE); KETONES,URINE TRACE (NEGATIVE); LEUKOCYTE ESTERASE ,URINE NEGATIVE (NEGATIVE); NITRITE,URINE NEGATIVE (NEGATIVE); PH,URINE 5.5 (5-9); PROTEIN,URINE NEGATIVE (NEGATIVE)
[2022-04-04] MEDS ORDERED: CEFEPIME INJECTION 2,000 MG in NS (IVPB) 50 ML IV ONE (02:15)
[2022-04-04 02:17] LABS: BACTERIA,URINE NEGATIVE /HPF
[2022-04-04 02:21] LABS: MAGNESIUM 1.8 MG/DL (1.6-2.4)
[2022-04-04] MEDS ORDERED: LORazepam INJ 2 MG/ML (ATIVAN) VIAL IVP ONE (03:45)
[2022-04-04 04:04] LABS: ABG BASE EXCESS 4.1 MMOL/L (-2.5-2.5); ABG OXYGEN SATURATION 96 % (94-100); ABG PCO2 52 MMHG (35-45); ABG PH 7.36 (7.37-7.43); ABG PO2 69 MMHG (79-93); ABG TCO2 30.8 MMOL/L (21.0-31.0); ALLENS TEST YES-POS; INSPIRED O2 30%; PATIENT TEMP 36.7; VENTILATOR NO
[2022-04-04] MEDS ORDERED: methylPREDNISolone 125 MG (Solu-MEDROL) VIAL IV STA (06:10)
--- NOTE | 2022-04-04 07:32 | Diagnostic Imaging Report ---
INDICATION: Shortness of breath COMPARISONS: 04/04/2022 at 1:29 a.m., this one is obtained at 6:29 a.m. FINDINGS: Single view of the chest shows the cardiac contour to be in the upper limits of normal. There is moderate central venous congestion with scattered 5 lobe alveolar infiltrates but no confluent consolidations. Overall pattern is similar to the previous study with no adverse interval change. Soft tissues and bony thorax unremarkable. IMPRESSION: Congestive heart failure with scattered 5 lobe alveolar infiltrates, overall no change since the prior exam. Dictated by: Dictated on workstation # [id number]
--- NOTE | 2022-04-04 08:20 | Diagnostic Imaging Report ---
INDICATION: Dyspnea Frontal chest obtained at 0129 a.m. and compared to 04/03/2022. There is cardiomegaly. There is central vascular congestion with borderline edema. There is no consolidation or pneumothorax or pleural fluid. The study is limited by poor inspiration. IMPRESSION: Cardiomegaly. Study limited by poor inspiration. Central vascular congestion with borderline perihilar edema. Follow-up is recommended. Dictated by: Dictated on workstation # [id number]
[2022-04-04 08:31] VITALS: BP 123/72
[2022-04-04] MEDS: DOCUSATE SODIUM 100 MG (COLACE) CAP PO SCH ×2 (09:00→20:36)
[2022-04-04] MEDS ORDERED: ACETAMINOPHEN 325 MG TABLET PO PRN (09:00)
[2022-04-04] MEDS: SENNOSIDES 8.6 MG (SENOKOT) TAB PO SCH ×2 (09:00→20:36)
[2022-04-04] MEDS ORDERED: BISACODYL 10 MG SUPP (DULCOLAX) PR PRN (09:00)
[2022-04-04] MEDS ORDERED: diphenhydrAMINE 25 MG TAB (BENADRYL) PO PRN (09:00)
[2022-04-04] MEDS ORDERED: ONDANSETRON 4 MG/2 ML (SDV) Z0FRAN IV PRN (09:00)
[2022-04-04] MEDS ORDERED: ONDANSETRON 4 MG (ZOFRAN) ORAL DISSOLVE TAB PO PRN (09:00)
[2022-04-04] MEDS ORDERED: NS IV 500 ML 500 ML IV PRN (09:00)
[2022-04-04] MEDS ORDERED: CALCIUM CARBONATE 500 MG (TUMS) TAB.CHEW PO PRN (09:00)
[2022-04-04] MEDS ORDERED: LACTULOSE SYRUP 10GM/15ML (ENULOSE) 30ML UDC PO PRN (09:00)
[2022-04-04] MEDS ORDERED: diphenhydrAMINE 50 MG/ML INJ (BENADRYL) IVP PRN (09:00)
[2022-04-04] MEDS ORDERED: HYDROmorphone 2 MG/ML VIAL (DILAUDID) IV PRN (09:00)
[2022-04-04] MEDS ORDERED: ANTACID SUSP 30 ML UDC (MYLANTA) PO PRN (09:00)
[2022-04-04] MEDS ORDERED: MILK OF MAGNESIA 400 MG/5 ML 30 ML UDC PO PRN (09:00)
--- NOTE | 2022-04-04 09:16 | Tele-ICU Progress Note ---
Subjective Date Seen by a Provider: Apr 04, 2022 Subjective/Events-last exam This virtual visit was conducted using real time audio/video. Thank you for asking us to see this patient for respiratory insufficiency due to AECOPD, CHF. Also agitated in ER. PMH: COPD, PD. PE: Comfortable on BiPAP, obese. 94% on BiP 12/6, 30%. HEENT: No obvious masses, adenopathy or JVD. Chestoarse and wheezy on auscultation. CV: RRR S1 S2 No murmur or added sounds. Abd: Non-tender. Bowel sounds Y. : Unremarkable. FoleyY . SAMPLE SAWYER/psychiatric: Grossly intact. No obvious focal findings. Extremities: trace edema. Capillary refill < 3 seconds. Skin: unremarkable. Results: Elevated BG 111, lact 4.34. Decreased Hb 11.9. AB.36/52/69 on 30%. CXR: hyperinflated, B congestion. Available chart/ vitals / labs / images reviewed. Video assessment done using teleICU camera, rest of exam as per RN. A/P: Respiratory insufficiency: Continue present management with BiPAP, medrol, duonebs. Monitor for increasing oxygenation needs and/or need for intubation. Critical Care: critically ill patient. Cont. abx, lasix. Discussed with RN MITCHELL. Asked RN to reach out to eICU if any questions or concerns later. Time spent with patient/coordination of care with other health professionals (mins): 22 Sepsis Event Evaluation Height, Weight, BMI Height: 5'9.00" Weight: 240lbs. 0.0oz. 108.041656sj; 38.00 BMI Method:Stated Focused Exam Lactate Level 04/03/22 20:00: Lactic Acid Level 1.59 04/04/22 01:42: Lactic Acid Level 3.22*H 04/04/22 04:08: Lactic Acid Level 4.34*H Time of Focused Exam: 01:45 Exam Exam Patient acknowledged, consented, and participated in this virtual visit which was conducted using real time audio/video Vital Signs Date Time Temp Pulse Resp B/P (MAP) Pulse Ox O2 Delivery O2 Flow Rate FiO2 04/04/22 08:31 36.5 69 16 123/72 (89) 94 NIV Bilevel 19.00 30.00 04/04/22 08:02 71 18 110/69 93 NIV Bilevel 04/04/22 07:51 76 16 94 30.00 04/04/22 02:09 92 NIV Bilevel 30 04/04/22 00:03 92 30.00 04/03/22 23:55 36.7 04/03/22 21:30 Nasal Cannula 1.00 93 04/03/22 20:37 95 Nasal Cannula 1.00 04/03/22 19:52 36.9 74 20 126/78 (94) 94 Nasal Cannula 2.00 04/03/22 19:52 Nasal Cannula 2.00 I & O 04/04/22 07:00 Intake Total 50 ml Balance 50 ml Height & Weight Height: 5'9.00" Weight: 240lbs. 0.0oz. 108.616090ct; 38.00 BMI Method:Stated General Appearance: Mild Distress Neck: Normal Inspection, Supple Respiratory: No Accessory Muscle Use, No Respiratory Distress, Rales, Rhonci Cardiovascular: Regular Rate, Rhythm, Normal Peripheral Pulses Capillary Refill: Less Than 3 Seconds Extremity: Normal Inspection, Normal Range of Motion Neurologic/Psychiatric: Alert Results Lab Laboratory Tests 04/03/22 20:00 Assessment/Plan Assessment/Plan See free text Critical Care: Critically Ill Patient BHARGAV MENDEZ MD Apr 04, 2022 09:16
[2022-04-04] MEDS: NS IV 1000 ML 1,000 ML IV SCH (09:52)
[2022-04-04] MEDS: ENOXAPARIN 40 MG/0.4 ML (LOVENOX) SYR SC SCH (09:52)
[2022-04-04 09:55] LABS: BASOPHILS % (AUTO) 0 % (0-10); EOSINOPHILS % (AUTO) 0 % (0-10); HEMATOCRIT 42 % (40-54); HEMOGLOBIN 12.3 g/dL (13.3-17.7); LYMPHOCYTES # (AUTO) 0.6 10^3/uL (1.0-4.0); LYMPHOCYTES % (AUTO) 6 % (12-44); MEAN CORPUSCULAR HEMOGLOBIN 24 pg (25-34); MEAN CORPUSCULAR HGB CONC 30 g/dL (32-36); MEAN CORPUSCULAR VOLUME 80 fL (80-99); MEAN PLATELET VOLUME 11.6 fL (9.0-12.2); MONOCYTES # (AUTO) 0.1 10^3/uL (0.0-1.0); MONOCYTES % (AUTO) 1 % (0-12); NEUTROPHILS # (AUTO) 8.5 10^3/uL (1.8-7.8); NEUTROPHILS % (AUTO) 93 % (42-75); PLATELET COUNT 159 10^3/uL (130-400); WHITE BLOOD COUNT 9.2 10^3/uL (4.3-11.0)
[2022-04-04 10:17] LABS: ALANINE AMINOTRANSFERASE 12 U/L (0-55); ALBUMIN 4.1 GM/DL (3.2-4.5); ALKALINE PHOSPHATASE 86 U/L (40-136); BILIRUBIN,TOTAL 0.3 MG/DL (0.1-1.0); BUN/CREATININE RATIO 21; CALCIUM 9.3 MG/DL (8.5-10.1); CARBON DIOXIDE 26 MMOL/L (21-32); CHLORIDE 101 MMOL/L (98-107); CREATININE SERUM 0.84 MG/DL (0.60-1.30); GFR ESTIMATED 90; GLUCOSE 151 MG/DL (70-105); MAGNESIUM 1.7 MG/DL (1.6-2.4); POTASSIUM 4.6 MMOL/L (3.6-5.0); SODIUM 139 MMOL/L (135-145); TOTAL PROTEIN 7.4 GM/DL (6.4-8.2)
[2022-04-04 10:18] LABS: LYMPHOCYTES % (MANUAL) 8 %; MONOCYTES % (MANUAL) 1 %; NEUTROPHILS % (MANUAL) 91 %
[2022-04-04 10:20] LABS: MICROCYTOSIS SLIGHT
[2022-04-04] MEDS ORDERED: RT-ALBUTEROL/IPRATROPIUM 3 ML (DUONEB) VIAL ONE (11:01)
[2022-04-04 11:03] VITALS: BP 129/71
[2022-04-04] MEDS: MAGNESIUM 1 GM/100 ML IVPB 100 ML IV SCH ×2 (11:15→11:16)
[2022-04-04] MEDS: methylPREDNISolone 40 MG/ML (Solu-MEDROL) VIAL IV SCH ×3 (11:15→23:31)
[2022-04-04] MEDS ORDERED: RT-ALBUTEROL/IPRATROPIUM 3 ML (DUONEB) VIAL INH PRN (11:15)
[2022-04-04] MEDS: inSUlin ASPART (NovoLOG) 1 UNIT/0.01 ML (CHARGE PER UNIT) SC SCH ×3 (11:15→20:30)
[2022-04-04] MEDS: CEFEPIME INJECTION 1,000 MG in NS (IVPB) 50 ML IV SCH ×3 (11:16→23:30)
[2022-04-04] MEDS ORDERED: ASCO500T17 PO (14:08)
[2022-04-04] MEDS ORDERED: SERT-413 PO (14:08)
[2022-04-04] MEDS ORDERED: GUAI-977 PO (14:08)
[2022-04-04] MEDS ORDERED: ALPR0.254 PO (14:08)
[2022-04-04] MEDS ORDERED: ZINC50TA11 PO (14:08)
[2022-04-04] MEDS ORDERED: ROPI4TAB5 PO (14:08)
[2022-04-04] MEDS ORDERED: DIVA125T32 PO (14:08)
--- NOTE | 2022-04-04 14:13 | History & Physical-Hospitalist ---
CRISTIAN SWEENEY 04/04/22 1413: History of Present Illness HPI/Chief Complaint Jeff Ellis, a 76yo male with a past medical history of COPD, Parkinson's, and Dementia presented to the ED 04/03/22 due to wheezing and inability to clear throat with cough that has been going on for about two days. He also has had issues falling lately. Pt is a poor historian due to history of dementia, so information is based on chart and ICU nurse. During the interview pt wasn't able to open eyes or speak, but was able to squeeze fingers and wiggle toes upon command. Pt remains on BiPAP. Date Seen 04/04/22 Time Seen by a Provider: 08:00 Attending Physician Sami Vincent DO PCP Admitting Physician: Julia Lugo DO Attending Physician: Ro De La Vega MD Referring Physician Date of Admission Apr 04, 2022 at 07:21 Home Medications & Allergies Home Medications Reviewed patient Home Medication Reconciliation performed by pharmacy medication reconciliations microwave technician and/or nursing. Patients Allergies have been reviewed. Allergies Allergies Coded Allergies No Known Drug Allergies (Unverified10/15/12) Past Rkkbjwr-Qtqxwv-Yyitjq Hx Patient Social History Tobacco Use?: Yes Tobacco type used: Cigarettes Smoking Status: Current Everyday Smoker Use of E-Cig and/or Vaping dev: No Substance use?: No Alcohol Use?: No Immunizations Up To Date Date of Influenza Vaccine: Jan 23, 2017 First/Initial COVID19 Vaccinat: YES UNKNOW DATE Second COVID19 Vaccination Daniel: YES UNKNOW DATE. Tetanus Booster (TDap): Unknown Seasonal Allergies Seasonal Allergies: No Current Status Communicates: Verbally Primary Language: Montenegrin Preferred Spoken Language: Montenegrin Is interpretation needed?: No Past Medical History Surgeries: Abdominal, Orthopedic, Tonsillectomy Chronic Bronchitis Currently Using CPAP: Yes Currently Using BIPAP: No Chronic Edema/Swelling, Hypertension Parkinson's Disease Abdominal Hernia, Obstructive Bowel Degenerate Disk Disease, Arthritis, Chronic Back Pain Cataract Loss of Vision: Denies Hearing Impairment: Denies Sleep Difficulties, Depression Blood Disorders: No Family Medical History No Pertinent Family Hx Review of Systems ROS-Unable to Obtain: Pt wasn't able to speak Physical Exam Physical Exam Vital Signs Vital Signs - First Documented 04/03/22 04/03/22 19:52 21:30 Temp 36.9 Pulse 74 Resp 20 B/P (MAP) 126/78 (94) Pulse Ox 94 O2 Delivery Nasal Cannula O2 Flow Rate 2.00 FiO2 93 Capillary Refill : Less Than 3 Seconds Height, Weight, BMI Height: 5'9.00" Weight: 240lbs. 0.0oz. 108.874286gq; 38.00 BMI Method:Stated General Appearance: Other (Wasn't able to open eyes or speak) Respiratory: Lungs Clear, Normal Breath Sounds Cardiovascular: Regular Rate, Rhythm, No Edema, No Murmur, Normal Peripheral Pulses Gastrointestinal: Normal Bowel Sounds, Soft Rectal: Deferred Neurologic/Psychiatric: No Oriented x3 Skin: Normal Color, Warm/Dry Results Results/Procedures Labs Laboratory Tests 04/03/22 20:00 04/04/22 09:40 Patient resulted labs reviewed. Laboratory Tests Test 04/03/22 21:27 04/04/22 01:15 04/04/22 03:45 Blood Gas Puncture Site L RAD R RAD R RAD Blood Gas Patient Temperature 36.7 36.7 36.7 Arterial Blood pH 7.34 7.32 7.36 Arterial Blood Partial Pressure CO2 61 MMHG 59 MMHG 52 MMHG Arterial Blood Partial Pressure O2 60 MMHG 62 MMHG 69 MMHG Arterial Blood HCO3 32 MMOL/L 30 MMOL/L 29 MMOL/L Arterial Blood Total CO2 33.9 MMOL/L 31.9 MMOL/L 30.8 MMOL/L Arterial Blood Oxygen Saturation 93 % 93 % 96 % Arterial Blood Base Excess 6.4 MMOL/L 4.3 MMOL/L 4.1 MMOL/L Uriah Test YES-POS YES-POS YES-POS Blood Gas Ventilator Setting NO NO NO Blood Gas Inspired Oxygen 1L 30% 30% Imaging Date of Exam:04/03/22 CHEST 1 VIEW, AP/PA ONLY INDICATION: Shortness of air. It is compared with radiograph 08/28/2021. FINDINGS: Body habitus limits exam sensitivity. There is likely some mild basilar atelectasis but no consolidating pneumonia. The heart size stable. No overt vascular congestion. No effusion or pneumothorax. IMPRESSION: Limited inspiration with some crowding of the markings and likely mild basilar atelectasis, otherwise negative. Date of Exam:04/04/22 CHEST 1 VIEW, AP/PA ONLY INDICATION: Dyspnea Frontal chest obtained at 0129 a.m. and compared to 04/03/2022. There is cardiomegaly. There is central vascular congestion with borderline edema. There is no consolidation or pneumothorax or pleural fluid. The study is limited by poor inspiration. IMPRESSION: Cardiomegaly. Study limited by poor inspiration. Central vascular congestion with borderline perihilar edema. Follow-up is recommended. Date of Exam:04/04/22 CHEST 1 VIEW, AP/PA ONLY INDICATION: Shortness of breath COMPARISONS: 04/04/2022 at 1:29 a.m., this one is obtained at 6:29 a.m. FINDINGS: Single view of the chest shows the cardiac contour to be in the upper limits of normal. There is moderate central venous congestion with scattered 5 lobe alveolar infiltrates but no confluent consolidations. Overall pattern is similar to the previous study with no adverse interval change. Soft tissues and bony thorax unremarkable. IMPRESSION: Congestive heart failure with scattered 5 lobe alveolar infiltrates, overall no change since the prior exam. Assessment/Plan Assessment and Plan Jeff Ellis is a 76yo male with past medical history of COPD, Parkinson's, and Dementia presenting with Acute Respiratory Failure with hypoxia and hypercapnia. Acute Respiratory Failure with hypoxia and hypercapnia ABG consistent with hypercapnia MAT Protocol Supplemental oxygen as needed Systemic corticosteroids CHF exacerbation Normal BNP CXR: moderate central venous congestion with scattered 5 lobe alveolar infiltrates but no confluent consolidations ECHO to confirm diagnosis of heart failure Lasix to treat fluid overload Lactic Acidosis Normal pressures likely not due to poor perfusion Receiving high dose Albuterol which could be possible etiology Pneumonia; not septic Normal WBC and w/o fever Recheck labs tomorrow, if normal consider discontinuing antibiotics RO DE LA VEGA MD 04/04/22 1524: History of Present Illness Source: RN/MD Exam Limitations: clinical condition Time Seen by a Provider: 10:05 Past Wirieza-Whcydk-Idpygb Hx Patient Social History Tobacco Use?: Yes Smoking Status: Current Everyday Smoker Past Medical History Parkinson's Disease Family Medical History No Pertinent Family Hx Review of Systems Constitutional: see HPI Physical Exam Physical Exam General Appearance: No Apparent Distress, Obese, Other (wearing BiPAP) Respiratory: Lungs Clear, No Respiratory Distress Cardiovascular: Regular Rate, Rhythm, No Murmur Gastrointestinal: Normal Bowel Sounds, Soft Extremity: Normal Inspection Neurologic/Psychiatric: Alert, Oriented x3 Skin: Normal Color Results Results/Procedures Imaging: Reviewed Imaging Report Assessment/Plan Admission Diagnosis Acute respiratory failure with hypoxia and hypercapnia Admission Status: Inpatient Order (span 2 midnights) Reason for Inpatient Admission: Respiratory failure Assessment and Plan Admitted with respiratory failure on BiPAP likely due to pulmonary edema. Possible pneumonia, started on antibiotics. Improving this morning after Lasix and BiPAP. Likely type B lactic acidosis due to albuterol. Case discussed with and she requests skilled placement on discharge. Critical Care Critically Ill Patient Diagnosis/Problems Diagnosis/Problems (1) Acute on chronic respiratory failure with hypoxia and hypercapnia Status: Acute (2) COPD with exacerbation Status: Acute (3) CHF (congestive heart failure) Status: Acute (4) Pneumonia Status: Acute (5) Parkinson's disease Status: Chronic Supervisory-Addendum Brief Verification & Attestation Participated in pt care: history, MDM, physical Personally performed: exam, history, MDM, supervision of care Care discussed with: Medical Student Procedures: n/a Results interpretation: Verified all documentation A medical student performed and documented this service in my presence. I reviewed and verified all information documented by the medical student and made modifications to such information, when appropriate. I personally performed the physical exam and medical decision making. CRISTIAN SWEENEY Apr 04, 2022 14:13 RO DE LA VEGA MD Apr 04, 2022 15:24
[2022-04-04] MEDS: RT-ALBUTEROL/IPRATROPIUM 3 ML (DUONEB) VIAL INH SCH ×2 (14:39→23:16)
--- NOTE | 2022-04-04 15:24 | Physical Therapy Evaluation ---
PT Evaluation-General Medical Diagnosis Admission Date Apr 04, 2022 at 07:21 Medical Diagnosis: acute respiratory failure Onset Date: Apr 04, 2022 Therapy Diagnosis Therapy Diagnosis: impaired mobility Height/Weight Height (Feet): 5 Height (Inches): 9.00 Weight (Pounds): 240 Weight (Ounces): 0.0 Precautions Precautions/Isolations: Droplet Isolation, Fall Prevention Referral Physician: Gabby Reason for Referral: Evaluation/Treatment Medical History Pertinent Medical History: COPD, HTN, Parkinson's, Smoking Additional Medical History Past Medical History Surgeries: Abdominal, Orthopedic, Tonsillectomy Chronic Bronchitis Currently Using CPAP: Yes Currently Using BIPAP: No Chronic Edema/Swelling, Hypertension Parkinson's Disease Abdominal Hernia, Obstructive Bowel Degenerate Disk Disease, Arthritis, Chronic Back Pain Cataract Loss of Vision: Denies Hearing Impairment: Denies Sleep Difficulties, Depression Blood Disorders: No Reviewed History: Yes Social History Home: Single Level Current Living Status: Spouse Entry Into Home: Stairs With Railing PT Steps Into Home: 5 patient states he has caregivers Prior Prior Level of Function SCALE: Activities may be completed with or without assistive devices. 9-Oklxxtzrjf-lnwodqx completes the activity by him/herself with no assistance from a helper. 5-Set-up or Clean-up Assistance-helper sets up or cleans up; patient completes activity. [place] assists only prior to or following the activity. 4-Supervision or Touching Assistance-helper provides verbal cues and/or touching/steadying and/or contact guard assistance as patient completes activity. Assistance may be provided throughout the activity or intermittently. 3-Partial/Moderate Assistance-helper does LESS THAN HALF the effort. [place] l ifts, holds or supports trunk or limbs, but provides less than half the effort. 2-Substantial/Maximal Assistance-helper does MORE THAN HALF the effort. [place] lifts or holds trunk or limbs and provides more than half the effort. 1-Zxubcpnkb-azyclb does ALL the effort. Patient does none of the effort to complete the activity. Or, the assistance of 2 or more helpers is required for t he patient to complete the activity. If activity was not attempted, code reason: 7-Patient Refused. 9-Not Applicable-not attempted and the patient did not perform the activity before the current illness, exacerbation or injury. 10-Not Attempted due to Environmental Limitations-(lack of equipment, weather restraints, etc.). 88-Not Attempted due to Medical Conditions or Safety Concerns. Bed Mobility: 3 Transfers (B,C,W/C): 3 Gait: 3 Indoor Mobility (Ambulation): Needed Some Help Prior Devices Use: Walker PT Evaluation-Current Subjective Patient in bed pre tx, agrees to PT, has unrated low back pain. Pt/Family Goals to be independent at home Objective Patient Orientation: Person, Confused Attachments: Oxygen, [place] Catheter ROM/Strength ROM Lower Extremities WNL Strength Lower Extremities grossly 3+/5 Sensory Hearing: Functional Sensation Right Lower Extremit: Intact Sensation Left Lower Extremity: Intact Transfers Roll Left to Right (QC): 2 Sit to Lying (QC): 1 Lying to Sitting/Side of Bed(Q: 1 Sit to Stand (QC): 2 Patient was able to perform supine to sit with assist of 2, sit to stand with max assist, patient was pretty retropulsive, he could take a couple of very small steps toward the head of the bed before needing to sit back down due to decreasing O2, went down to 70's but came back up quickly after sitting back down, he was having a lot of difficulty breathing while sitting, layed back down with assist of 2 and scooted up. Patient was SOB but O2 increased to 92%. Assessment/Needs Patient in bed post tx with nurse call, phone, tray, all needs met, bed alarm on. Patient has impaired mobility and strength and endurance. Needs a lot of assist for supine to sit and sit to stand. Rehab Potential: Guarded PT Line Clearance Foreman Goals Line Clearance Foreman Goals PT Line Clearance Foreman Goals Time Frame: Apr 11, 2022 Roll Left & Right (QC): 3 Sit to Lying (QC): 3 Lying-Sitting on Side/Bed(QC): 3 Sit to Stand (QC): 3 Chair/Fpj-ta-Rldhx Xfer(QC): 3 Walk 10 feet (QC): 3 PT Plan Problem List Problem List: Activity Tolerance, Functional Strength, Safety, Balance, Gait, Transfer, Bed Mobility, ROM Treatment/Plan Treatment Plan: Continue Plan of Care Treatment Plan: Bed Mobility, Education, Functional Activity Gigi, Functional Strength, Gait, Safety, Therapeutic Exercise, Transfers Treatment Duration: Apr 11, 2022 Frequency: 6 times per week Estimated Hrs Per Day: .25 hour per day Patient and/or Family Agrees t: Yes Safety Risks/Education Patient Education: Correct Positioning, Safety Issues Teaching Recipient: Patient Teaching Methods: Demonstration, Discussion Response to Teaching: Reinforcement Needed Discharge Recommendations Plan Patient will perform bed mobility and transfer training, balance and endurance training, functional strengthening, gait training, and education, to improve functional mobility. Therapy Discharge Recommendati: Scheduled Assistance, Home & Family, Post Acute PT Time Time In: 1500 Time Out: 1513 DATE: Apr 04, 2022 Total Billed Treatment Time: 13 Total Billed Treatment 1 visit JONNY TAYLOR PT Apr 04, 2022 15:24
--- NOTE | 2022-04-04 15:28 | Occupational Therapy Eval ---
OT Evaluation-General/PLF Medical Diagnosis Admission Date Apr 04, 2022 at 07:21 Medical Diagnosis: COPD exacerbation Onset Date: Apr 04, 2022 Therapy Diagnosis Therapy Diagnosis: decreased ADL status Height/Weight Height (Feet): 5 Height (Inches): 9.00 Weight (Pounds): 240 Weight (Ounces): 0.0 Precautions Precautions/Isolations: Droplet Isolation, Fall Prevention Referral Physician: Gabby Referral Reason: Evaluation/Treatment Medical History Pertinent Medical History: COPD, HTN, Parkinson's, Smoking Additional Medical History COPD, Parkinson's, dementia, HTN, DDD, arthritis, chronic back pain, depression, sleep difficulties Current History ED 04/03/22 due to wheezing and inability to clear throat with cough that has been going on for 2 days. Social History Home: Single Level Current Living Status: Spouse Entry Into Home: Stairs With Railing Steps Into Home: 5 ADL-Prior Level of Function SCALE: Activities may be completed with or without assistive devices. 7-Rufcsfjsbh-obzobwz completes the activity by him/herself with no assistance from a helper. 5-Set-up or Clean-up Assistance-helper sets up or cleans up; patient completes a ctivity. [place] assists only prior to or following the activity. 4-Supervision or Touching Assistance-helper provides verbal cues and/or touching/steadying and/or contact guard assistance as patient completes activity. Assistance may be provided throughout the activity or intermittently. 3-Partial/Moderate Assistance-helper does LESS THAN HALF the effort. [place] lifts, holds or supports trunk or limbs, but provides less than half the effort. 2-Substantial/Maximal Assistance-helper does MORE THAN HALF the effort. [place] lifts or holds trunk or limbs and provides more than half the effort. 3-Euxcjdlmk-lbkagn does ALL the effort. Patient does none of the effort to complete the activity. Or, the assistance of 2 or more helpers is required for the patient to complete the activity. If activity was not attempted, code reason: 7-Patient Refused. 9-Not Applicable-not attempted and the patient did not perform the activity before the current illness, exacerbation or injury. 10-Not Attempted due to Environmental Limitations-(lack of equipment, weather restraints, etc.). 88-Not Attempted due to Medical Conditions or Safety Concerns. ADL PLOF Comments Pt indicates he needs assistance with all ADLs at PLOF. He has a caregiver come in the mornings and evenings but pt unable to state how many days they are present, how long they are there, or what they assist with. Pt unable to provide much information due to h/o dementia. Per chart review and previous OT evaluation complete on 08/29/21, pt required assistance with LE dressing, UE dressing and showering at that time, he was able to self feed and toilet independently. It is unclear if pt still requires this level of assistance or if he requires more assistance since last evaluation. Self Care: Needed Some Help Functional Cognition: Needed Some Help OT Current Status Subjective Pt in bed, agreeable to OT evaluation. Mental Status/Objective Patient Orientation: Person, Confused Attachments: [place] Catheter, Oxygen Current Upper Extremity ROM BUE ~90 degrees during tx session. ADL-Treatment On/Off Footwear (QC): 1 Other Treatments Pt transferred supine to sit EOB, assist x2. Max A sit to stand, pt retropulsive in standing and only able to take a couple very small steps towards HOB before needing to sit back down. O2 saturation decreased going down into the min 70%'s, but came back up quickly to the 90%'s after sitting down. Pt appeared to have difficulty breating while seated so assist x2 provided to transfer sit to supine and assist x2 to scoot up towards HOB. Post tx, pt in bed, call light in reach and all needs met. Bed alarm activated Education OT Patient Education: Correct positioning, Energy conservation, Modified ADL techniques, Progress toward Goal/Update tx plan, Purpose of tx/functional a ctivities, Rehab process Teaching Recipient: Patient Teaching Methods: Discussion Response to Teaching: Verbalize Understanding OT Skilled Nursing Goals Skilled Nursing Goals Time Frame: Apr 18, 2022 Eating (QC): 5 Oral Hygiene (QC): 5 Toileting Hygiene (QC): 3 Additional Goals: 1-Demonstrate ADL Tasks, 2-Verbalize Understanding, 3- ImproveStrength/Gigi 1=Demonstrate adherence to instructed precautions during ADL tasks. 2=Patient will verbalize/demonstrate understanding of assistive devices/modifications for ADL. 3=Patient will improve strength/tolerance for activity to enable patient to perform ADL's. OT Education/Plan Problem List/Assessment Assessment: Decreased Activ Tolerance, Decreased Safety Aware, Decreased UE Strength, Dependent Transfers, Impaired Bed Mobility, Impaired Cognition, Impaired Funct Balance, Impaired I ADL's, Impaired Self-Care Skills Discharge Recommendations Plan/Recommendations: Continue POC Treatment Plan/Plan of Care Patient would benefit from OT for education, treatment and training to promote independence in ADL's, mobility, safety and/or upper extremity function for ADL' s. Plan of Care: ADL Retraining, Functional Mobility, UE Funct Exercise/Act Treatment Duration: Apr 11, 2022 Frequency: 3 times per week (3-5 times per week) Estimated Hrs Per Day: .25 hour per day Agreement: Yes Rehab Potential: Guarded Time Start Time: 15:00 Stop Time: 15:13 DATE: Apr 04, 2022 Total Time Billed (hr/min): 13 Billed Treatment Time 1, PHILLIP WALTON OT Apr 04, 2022 15:28
[2022-04-04] MEDS: LORazepam 0.5 MG (ATIVAN) TABLET PO PRN (18:25)
[2022-04-04] MEDS: MELATONIN 3 MG TABLET PO PRN (20:38)
[2022-04-05] MEDS: LORazepam 0.5 MG (ATIVAN) TABLET PO PRN ×2 (00:23→18:13)
[2022-04-05] MEDS: NS IV 1000 ML 1,000 ML IV SCH ×2 (01:40→18:21)
[2022-04-05] MEDS: RT-ALBUTEROL/IPRATROPIUM 3 ML (DUONEB) VIAL INH SCH ×6 (02:20→23:13)
[2022-04-05] MEDS: LORazepam INJ 2 MG/ML (ATIVAN) VIAL IVP PRN (02:34)
[2022-04-05 03:40] LABS: ABG BASE EXCESS 5.7 MMOL/L (-2.5-2.5); ABG OXYGEN SATURATION 96 % (94-100); ABG PCO2 48 MMHG (35-45); ABG PH 7.41 (7.37-7.43); ABG PO2 67 MMHG (79-93); ABG TCO2 31.7 MMOL/L (21.0-31.0)
[2022-04-05 03:42] LABS: ALLENS TEST YES-POS; INSPIRED O2 3L; PATIENT TEMP 36.8; VENTILATOR NO
[2022-04-05 04:48] LABS: BASOPHILS % (AUTO) 0 % (0-10); EOSINOPHILS % (AUTO) 0 % (0-10); HEMATOCRIT 42 % (40-54); HEMOGLOBIN 12.5 g/dL (13.3-17.7); LYMPHOCYTES # (AUTO) 0.5 10^3/uL (1.0-4.0); LYMPHOCYTES % (AUTO) 4 % (12-44); MEAN CORPUSCULAR HEMOGLOBIN 24 pg (25-34); MEAN CORPUSCULAR HGB CONC 30 g/dL (32-36); MEAN CORPUSCULAR VOLUME 78 fL (80-99); MEAN PLATELET VOLUME 10.8 fL (9.0-12.2); MONOCYTES # (AUTO) 0.3 10^3/uL (0.0-1.0); MONOCYTES % (AUTO) 2 % (0-12); NEUTROPHILS % (AUTO) 94 % (42-75); PLATELET COUNT 249 10^3/uL (130-400); WHITE BLOOD COUNT 13.8 10^3/uL (4.3-11.0)
[2022-04-05 05:09] LABS: ALBUMIN 4.4 GM/DL (3.2-4.5); BILIRUBIN,TOTAL 0.4 MG/DL (0.1-1.0); CALCIUM 9.5 MG/DL (8.5-10.1); CREATININE SERUM 0.97 MG/DL (0.60-1.30); MAGNESIUM 2.3 MG/DL (1.6-2.4); PHOSPHORUS 3.3 MG/DL (2.3-4.7); POTASSIUM 4.5 MMOL/L (3.6-5.0); TOTAL PROTEIN 7.8 GM/DL (6.4-8.2)
[2022-04-05] MEDS: MAGNESIUM 1 GM/100 ML IVPB 100 ML IV SCH (05:11)
[2022-04-05] MEDS: KCL 20 MEQ TAB (K-DUR) PO SCH (05:11)
[2022-04-05] MEDS: POTASSIUM CL 10MEQ/50ML IVPB 50 ML IV SCH (05:11)
[2022-04-05] MEDS: CEFEPIME INJECTION 1,000 MG in NS (IVPB) 50 ML IV SCH ×4 (05:29→23:39)
[2022-04-05] MEDS: methylPREDNISolone 40 MG/ML (Solu-MEDROL) VIAL IV SCH ×2 (05:31→18:14)
[2022-04-05] MEDS: inSUlin ASPART (NovoLOG) 1 UNIT/0.01 ML (CHARGE PER UNIT) SC SCH ×4 (05:31→21:00)
[2022-04-05] MEDS: DOCUSATE SODIUM 100 MG (COLACE) CAP PO SCH ×2 (08:17→21:12)
[2022-04-05] MEDS: SENNOSIDES 8.6 MG (SENOKOT) TAB PO SCH ×2 (08:17→21:13)
--- NOTE | 2022-04-05 08:31 | Diagnostic Imaging Report ---
INDICATION: Dyspnea. TIME OF EXAM: 6:47 AM. COMPARISON: Correlation is made with the prior chest of one day earlier. FINDINGS: The heart size is stable. The lungs appear to be clear. No infiltrates are seen. There is no effusion or pneumothorax. IMPRESSION: No acute cardiopulmonary process is detected. Dictated by: Dictated on workstation # [id number]
[2022-04-05] MEDS: ENOXAPARIN 40 MG/0.4 ML (LOVENOX) SYR SC SCH (10:20)
[2022-04-05] MEDS: polyethylene glycoL POWDER 17 GM (MIRALAX) PACK PO PRN (10:20)
--- NOTE | 2022-04-05 12:20 | Tele-ICU Progress Note ---
Subjective Date Seen by a Provider: Apr 05, 2022 Time Seen by a Provider: 10:55 Subjective/Events-last exam (Tele-ICU Physician , Progress note) Available chart/ vitals / labs / Images reviewed H&P is from ER notes Patient's information available about PMH, allergy reviewed in EMR. ROS as per chart and RN report Video assessment done using teleICU camera, rest of exam as per RN Discussed with RN. He is admitted on 04/04/2022 with a respiratory distress cough and inability to c lear throat. He is found to be in respiratory distress hence he is admitted to the intensive care unit and put on a BiPAP ventilation. He is a poor historian apparently due to dementia. Other medical problems include COPD and Parkinson's disease. Today he looks fairly well and is sitting in the chair without the BiPAP using oxygen via nasal cannula. I have reviewed his blood gases. Impression 1. 1. Upper respiratory tract infection 2. COPD exacerbation with hypoxic respiratory failure 3. Questionable mild congestive heart failure Recommendations 1. Will give IV antibiotics . 2 IV Solu-Medrol and bronchodilators 3. DVT prophylaxis 4. Wean oxygen as tolerated Next Coordination of care with bedside consultants and primary care physician. Sepsis Event Evaluation Height, Weight, BMI Height: 5'9.00" Weight: 240lbs. 0.0oz. 108.855347my; 38.30 BMI Method:Stated Focused Exam Lactate Level 04/04/22 01:42: Lactic Acid Level 3.22*H 04/04/22 04:08: Lactic Acid Level 4.34*H 04/04/22 09:40: Lactic Acid Level 2.71*H Time of Focused Exam: 01:45 Exam Exam Patient acknowledged, consented, and participated in this virtual visit which was conducted using real time audio/video Vital Signs Date Time Temp Pulse Resp B/P (MAP) Pulse Ox O2 Delivery O2 Flow Rate FiO2 04/05/22 12:00 117 27 140/101 (114) 98 Nasal Cannula 2.00 04/05/22 11:47 37.1 04/05/22 11:23 98 High Flow N/C 1.00 04/05/22 11:00 120 27 127/88 (101) 98 Nasal Cannula 2.00 04/05/22 10:00 105 27 128/102 (111) 97 Nasal Cannula 2.00 04/05/22 09:00 118 25 98 Nasal Cannula 2.00 04/05/22 08:00 104 22 157/91 (113) 97 Nasal Cannula 2.00 04/05/22 07:46 37.4 04/05/22 07:14 Nasal Cannula 2.00 04/05/22 07:00 99 04/05/22 07:00 98 15 128/93 (105) 98 Room Air 04/05/22 06:41 Room Air 04/05/22 06:39 98 Room Air 0.00 04/05/22 06:29 100 High Flow N/C 2.00 04/05/22 06:00 95 19 116/75 (89) 99 NIV Bilevel 30.00 04/05/22 05:00 93 22 123/72 (89) 99 NIV Bilevel 30.00 04/05/22 04:00 100 Nasal Cannula 3.00 04/05/22 04:00 102 22 141/72 (95) 100 NIV Bilevel 30.00 04/05/22 03:38 36.9 04/05/22 03:00 96 20 132/93 (106) 94 NIV Bilevel 30.00 04/05/22 02:20 93 High Flow N/C 3.00 04/05/22 02:00 83 18 135/82 (99) 93 NIV Bilevel 30.00 04/05/22 01:00 101 29 93 NIV Bilevel 30.00 04/05/22 01:00 91 04/05/22 00:00 103 19 125/80 (95) 93 NIV Bilevel 30.00 04/05/22 00:00 36.7 04/04/22 23:46 95 Nasal Cannula 3.00 04/04/22 23:17 95 High Flow N/C 3.00 04/04/22 23:00 90 19 92 NIV Bilevel 30.00 04/04/22 22:00 99 24 155/96 (115) 93 NIV Bilevel 30.00 04/04/22 21:00 103 24 128/85 (99) 92 NIV Bilevel 30.00 04/04/22 20:09 95 High Flow N/C 3.00 04/04/22 20:00 98 22 109/63 (78) 92 NIV Bilevel 30.00 04/04/22 20:00 95 Nasal Cannula 3.00 04/04/22 19:52 37.4 04/04/22 19:00 108 04/04/22 19:00 105 17 129/86 (100) 92 NIV Bilevel 30.00 04/04/22 18:00 104 132/74 (93) 91 NIV Bilevel 30.00 04/04/22 17:00 103 17 136/64 (88) 90 NIV Bilevel 30.00 04/04/22 16:16 36.8 04/04/22 16:00 101 12 107/76 (86) 90 NIV Bilevel 30.00 04/04/22 16:00 94 Nasal Cannula 3.00 04/04/22 15:00 96 31 115/82 (93) 91 NIV Bilevel 30.00 04/04/22 14:39 95 High Flow N/C 3.00 04/04/22 14:00 86 23 142/86 (104) 94 NIV Bilevel 30.00 04/04/22 13:00 80 04/04/22 13:00 75 124/71 (88) 93 NIV Bilevel 30.00 I & O 04/05/22 07:00 Intake Total 1205 ml Output Total 4050 ml Balance -2845 ml Height & Weight Height: 5'9.00" Weight: 240lbs. 0.0oz. 108.947807ey; 38.30 BMI Method:Stated General Appearance: Mild Distress Neck: Normal Inspection, Supple Respiratory: Decreased Breath Sounds, Wheezing, Other (tachypnea) Cardiovascular: Regular Rate, Rhythm Capillary Refill: Less Than 3 Seconds Extremity: Normal Inspection, Normal Range of Motion Neurologic/Psychiatric: Alert Skin: Normal Color Results Lab Laboratory Tests 04/03/22 20:00 04/04/22 09:40 04/05/22 04:10 Assessment/Plan Assessment/Plan as above Critical Care: Critically Ill Patient Time spent with patient (mins): 25 MICK MCGREGOR MD Apr 05, 2022 12:20
--- NOTE | 2022-04-05 13:21 | Physical Therapy Daily Note ---
PT Daily Note-Current Subjective Pt is eager to get up to use the bathroom. Pain Section J - Health Conditions 1. Rarely or not at all 2. Occasionally 3. Frequently 4. Almost constantly 8. Unable to answer Pain Effect on Sleep: 1 Pain Interference with Therapy: 1 Pain Interference w/Day-to-Day: 1 Mental Status Patient Orientation: Person, Place, Time Attachments: Oxygen, [place] Catheter Transfers SCALE: Activities may be completed with or without assistive devices. 3-Oyshbsvbpa-tvnyxjw completes the activity by him/herself with no assistance from a helper. 5-Set-up or Clean-up Assistance-helper sets up or cleans up; patient completes activity. [place] assists only prior to or following the activity. 4-Supervision or Touching Assistance-helper provides verbal cues and/or touching/steadying and/or contact guard assistance as patient completes activity. Assistance may be provided throughout the activity or intermittently. 3-Partial/Moderate Assistance-helper does LESS THAN HALF the effort. [place] lifts, holds or supports trunk or limbs, but provides less than half the effort. 2-Substantial/Maximal Assistance-helper does MORE THAN HALF the effort. [place] lifts or holds trunk or limbs and provides more than half the effort. 4-Oyljhbqns-ycdcsk does ALL the effort. Patient does none of the effort to complete the activity. Or, the assistance of 2 or more helpers is required for the patient to complete the activity. If activity was not attempted, code reason: 7-Patient Refused. 9-Not Applicable-not attempted and the patient did not perform the activity before the current illness, exacerbation or injury. 10-Not Attempted due to Environmental Limitations-(lack of equipment, weather restraints, etc.). 88-Not Attempted due to Medical Conditions or Safety Concerns. Roll Left & Right (QC): 2 Sit to Lying (QC): 2 Lying to Sitting/Side of Bed(Q: 2 Sit to Stand (QC): 2 Chair/Vut-iw-Hdhre Xfer(QC): 2 Toilet Transfer (QC): 2 Gait Training Does the Patient Walk?: Yes Distance: 12FT X2 Walk 10 feet (QC): 2 Gait Persons Needed: 1 Gait Assistive Device: FWW Assessment Current Status: Fair Progress Pt required more assistance than in past visits. He opted to return to the chair after treatment. PT Assisted Goals Data Warehousing Manager Goals PT Data Warehousing Manager Goals Time Frame: Apr 11, 2022 Roll Left & Right (QC): 3 Sit to Lying (QC): 3 Lying-Sitting on Side/Bed(QC): 3 Sit to Stand (QC): 3 Chair/Jhz-lv-Nvkth Xfer(QC): 3 Walk 10 feet (QC): 3 PT Plan Treatment/Plan Treatment Plan: Continue Plan of Care Treatment Plan: Bed Mobility, Education, Functional Activity Gigi, Functional Strength, Gait, Safety, Therapeutic Exercise, Transfers Treatment Duration: Apr 11, 2022 Frequency: 6 times per week Estimated Hrs Per Day: .25 hour per day Patient and/or Family Agrees t: Yes Time Time In: 08 Time Out: 900 DATE: Apr 05, 2022 Total Billed Treatment Time: 26 Total Billed Treatment 1, gtx2 26 TANGELA LOZADA PT Apr 05, 2022 13:21
--- NOTE | 2022-04-05 14:13 | Progress Note - Hospitalist ---
CRISTIAN SWEENEY 04/05/22 1413: Subjective HPI/CC On Admission Jeff Ellis, a 76yo male with a past medical history of COPD, Parkinson's, and Dementia presented to the ED 04/03/22 due to wheezing and inability to clear throat with cough that has been going on for about two days. He also has had issues falling lately. Pt is a poor historian due to history of dementia, so information is based on chart and ICU nurse. During the interview pt wasn't able to open eyes or speak, but was able to squeeze fingers and wiggle toes upon command. Pt remains on BiPAP. Subjective/Events-last exam Pt's status has improved from yesterday. Pt was sitting in chair in good spirit during interview. Pt states he has a nonproductive cough and shortness of breath. Hasn't had a bowel movement yet and not much on an appetite. Pt denies chest pain, palpitations, abdominal pain, headache, numbness and tingling. Review of Systems General: No Chills, No Night Sweats HEENT: No Head Aches Pulmonary: Dyspnea, Cough Cardiovascular: No: Chest Pain, Palpitations Gastrointestinal: No: Nausea, Vomiting, Abdominal Pain, Diarrhea, Constipation Genitourinary: No Dysuria Neurological: No: Weakness, Numbness Focused Exam Lactate Level 04/04/22 01:42: Lactic Acid Level 3.22*H 04/04/22 04:08: Lactic Acid Level 4.34*H 04/04/22 09:40: Lactic Acid Level 2.71*H Time of Focused Exam: 01:45 Objective Exam Vital Signs Vital Signs Date Time Temp Pulse Resp B/P (MAP) Pulse Ox O2 Delivery O2 Flow Rate FiO2 04/05/22 13:00 109 04/05/22 13:00 27 122/74 (90) 98 Nasal Cannula 2.00 04/05/22 11:47 37.1 04/04/22 12:00 30 Capillary Refill : Less Than 3 Seconds General Appearance: No Apparent Distress Respiratory: Chest Non Tender, Decreased Breath Sounds Cardiovascular: Regular Rate, Rhythm, No Edema, No Murmur, Normal Peripheral Pulses Gastrointestinal: Non Tender Neurologic/Psychiatric: Alert, Oriented x3, Normal Mood/Affect Skin: Normal Color, Warm/Dry Results/Procedures Lab Laboratory Tests 04/05/22 04:10 Patient resulted labs reviewed. Imaging: Reviewed Imaging Report Assessment/Plan Assessment and Plan Assess & Plan/Chief Complaint Jeff Ellis is a 76yo male with past medical history of COPD, Parkinson's, and Dementia presenting with Acute Respiratory Failure with hypoxia and hypercapnia. Acute Respiratory Failure with hypoxia and hypercapnia ABG consistent with hypercapnia MAT Protocol Supplemental oxygen as needed Continue Systemic corticosteroids Pneumonia; not septic Slightly elevated WBC and w/o fever Continue Antibiotic treatment RO DE LA VEGA MD 04/05/22 1525: Subjective HPI/CC On Admission Date Seen by Provider: Apr 05, 2022 Time Seen by Provider: 10:50 Objective Exam General Appearance: No Apparent Distress, Obese, Other (sitting in bedside chair) Respiratory: Lungs Clear, No Respiratory Distress Cardiovascular: Regular Rate, Rhythm, No Murmur Gastrointestinal: Normal Bowel Sounds, Soft Extremity: Normal Inspection, No Pedal Edema Neurologic/Psychiatric: Alert, Oriented x3 Skin: Normal Color, Warm/Dry Results/Procedures Imaging: Reviewed Imaging Report Assessment/Plan Assessment and Plan Assess & Plan/Chief Complaint Improving. Trial off BiPAP tonight. Taper steroids. Continue MAT protocol. Hold further diuresis. Continue antibiotics for possible pneumonia. Resume home meds as able. Diagnosis/Problems Diagnosis/Problems (1) Acute on chronic respiratory failure with hypoxia and hypercapnia Status: Acute (2) COPD with exacerbation Status: Acute (3) CHF (congestive heart failure) Status: Acute (4) Pneumonia Status: Acute (5) Parkinson's disease Status: Chronic Supervisory-Addendum Brief Verification & Attestation Participated in pt care: history, MDM, physical Personally performed: exam, history, MDM, supervision of care Care discussed with: Medical Student Procedures: n/a Results interpretation: Verified all documentation A medical student performed and documented this service in my presence. I reviewed and verified all information documented by the medical student and made modifications to such information, when appropriate. I personally performed the physical exam and medical decision making. CRISTIAN SWEENEY Apr 05, 2022 14:13 RO DE LA VEGA MD Apr 05, 2022 15:25
[2022-04-05] MEDS: DIVALPROX SPRINKLE 125 MG (DEPAKOTE) CAP PO SCH (21:12)
[2022-04-05] MEDS: FINASTERIDE (PROSCAR) 5 MG TAB PO SCH (21:12)
[2022-04-05] MEDS: ALPRAZolam 0.25 MG (XANAX) TAB PO PRN (21:12)
[2022-04-05] MEDS: GABAPENTIN 300 MG (NEURONTIN) CAP PO SCH (21:13)
[2022-04-05] MEDS: rOPINIRole 1 MG (REQUIP) TABLET PO SCH (21:13)
[2022-04-05] MEDS: TAMSULOSIN 0.4 MG (FLOMAX) CAP PO SCH (21:13)
[2022-04-05] MEDS: QUEtiapine 25 MG (SEROquel) TAB IMMEDIATE RELEASE PO SCH (21:13)
[2022-04-05] MEDS: MELATONIN 3 MG TABLET PO PRN (21:13)
[2022-04-05] MEDS: SINEMET CR 50/200 (CARBIDOPA/LEVODOPA SA) TAB PO SCH (21:34)
[2022-04-06] MEDS: RT-ALBUTEROL/IPRATROPIUM 3 ML (DUONEB) VIAL INH SCH ×6 (02:22→21:39)
[2022-04-06 05:25] LABS: BASOPHILS % (AUTO) 0 % (0-10); EOSINOPHILS % (AUTO) 0 % (0-10); HEMATOCRIT 41 % (40-54); HEMOGLOBIN 12.3 g/dL (13.3-17.7); LYMPHOCYTES # (AUTO) 0.6 10^3/uL (1.0-4.0); LYMPHOCYTES % (AUTO) 4 % (12-44); MEAN CORPUSCULAR HEMOGLOBIN 24 pg (25-34); MEAN CORPUSCULAR HGB CONC 30 g/dL (32-36); MEAN CORPUSCULAR VOLUME 79 fL (80-99); MEAN PLATELET VOLUME 11.1 fL (9.0-12.2); MONOCYTES # (AUTO) 0.6 10^3/uL (0.0-1.0); MONOCYTES % (AUTO) 5 % (0-12); NEUTROPHILS % (AUTO) 91 % (42-75); PLATELET COUNT 270 10^3/uL (130-400); WHITE BLOOD COUNT 13.2 10^3/uL (4.3-11.0)
[2022-04-06 05:46] LABS: ALANINE AMINOTRANSFERASE < 6 U/L (0-55); ALBUMIN 4.4 GM/DL (3.2-4.5); ALKALINE PHOSPHATASE 75 U/L (40-136); BILIRUBIN,TOTAL 0.5 MG/DL (0.1-1.0); BUN/CREATININE RATIO 47; CALCIUM 9.2 MG/DL (8.5-10.1); CARBON DIOXIDE 28 MMOL/L (21-32); CHLORIDE 102 MMOL/L (98-107); CREATININE SERUM 0.83 MG/DL (0.60-1.30); GFR ESTIMATED 90; GLUCOSE 139 MG/DL (70-105); MAGNESIUM 2.6 MG/DL (1.6-2.4); PHOSPHORUS 3.9 MG/DL (2.3-4.7); POTASSIUM 4.1 MMOL/L (3.6-5.0); SODIUM 140 MMOL/L (135-145); TOTAL PROTEIN 7.6 GM/DL (6.4-8.2)
[2022-04-06] MEDS: POTASSIUM CL 10MEQ/50ML IVPB 50 ML IV SCH (05:52)
[2022-04-06] MEDS: KCL 20 MEQ TAB (K-DUR) PO SCH (05:53)
[2022-04-06] MEDS: MAGNESIUM 1 GM/100 ML IVPB 100 ML IV SCH (05:53)
[2022-04-06] MEDS: inSUlin ASPART (NovoLOG) 1 UNIT/0.01 ML (CHARGE PER UNIT) SC SCH ×4 (05:53→20:52)
[2022-04-06] MEDS: CEFEPIME INJECTION 1,000 MG in NS (IVPB) 50 ML IV SCH ×4 (06:04→23:07)
[2022-04-06] MEDS: methylPREDNISolone 40 MG/ML (Solu-MEDROL) VIAL IV SCH (06:04)
--- NOTE | 2022-04-06 07:58 | Tele-ICU Progress Note ---
Subjective Date Seen by a Provider: Apr 06, 2022 Time Seen by a Provider: 11:55 Subjective/Events-last exam (Tele-ICU Physician , Progress note) Available chart/ vitals / labs / Images reviewed H&P is from ER notes Patient's information available about PMH, allergy reviewed in EMR. ROS as per chart and RN report Video assessment done using teleICU camera, rest of exam as per RN Discussed with RN. He is admitted on 04/04/2022 with a respiratory distress cough and inability to clear throat. He is found to be in respiratory distress hence he is admitted to the intensive care unit and put on a BiPAP ventilation. He is a poor historian apparently due to dementia. Other medical problems include COPD and Parkinson's disease. Today he looks fairly well and is sitting in the chair without the BiPAP using oxygen via nasal cannula. I have reviewed his blood gases. 04/06/2022. Feeling much better. tachy cardia and tachypnea resolved. Impression 1. 1. Upper respiratory tract infection 2. COPD exacerbation with hypoxic respiratory failure improved 3. Questionable mild congestive heart failure Recommendations 1. Will give IV antibiotics . 2 IV Solu-Medrol and bronchodilators 3. DVT prophylaxis 4. Wean oxygen as tolerated 5. discharge planning per primary care Coordination of care with bedside consultants and primary care physician. Sepsis Event Evaluation Height, Weight, BMI Height: 5'9.00" Weight: 240lbs. 0.0oz. 108.660916ac; 38.46 BMI Method:Stated Focused Exam Lactate Level 04/04/22 01:42: Lactic Acid Level 3.22*H 04/04/22 04:08: Lactic Acid Level 4.34*H 04/04/22 09:40: Lactic Acid Level 2.71*H Time of Focused Exam: 01:45 Exam Exam Patient acknowledged, consented, and participated in this virtual visit which was conducted using real time audio/video Vital Signs Date Time Temp Pulse Resp B/P (MAP) Pulse Ox O2 Delivery O2 Flow Rate FiO2 04/06/22 07:56 37.5 04/06/22 06:57 92 Nasal Cannula 2.00 04/06/22 06:00 80 24 136/81 (99) 94 Nasal Cannula 3.00 04/06/22 05:00 78 24 94 Nasal Cannula 3.00 04/06/22 04:03 37.2 04/06/22 04:00 79 24 93 Nasal Cannula 3.00 04/06/22 04:00 92 Nasal Cannula 3.00 04/06/22 03:00 81 92 Nasal Cannula 3.00 04/06/22 02:50 Nasal Cannula 3.00 04/06/22 02:26 94 Room Air 04/06/22 02:00 85 96 Nasal Cannula 1.00 04/06/22 01:00 79 20 92 Nasal Cannula 1.00 04/06/22 01:00 86 04/06/22 00:00 88 20 92 Nasal Cannula 1.00 04/05/22 23:59 92 Nasal Cannula 1.00 04/05/22 23:52 37.1 04/05/22 23:14 90 Room Air 04/05/22 23:00 84 24 93 Nasal Cannula 1.00 04/05/22 22:00 97 21 90 Nasal Cannula 1.00 04/05/22 21:00 98 18 90 Nasal Cannula 1.00 04/05/22 20:00 94 Nasal Cannula 1.00 04/05/22 20:00 91 18 91 Nasal Cannula 1.00 04/05/22 20:00 Nasal Cannula 1.00 04/05/22 20:00 37.0 04/05/22 19:00 110 04/05/22 19:00 123 18 91 Nasal Cannula 2.00 04/05/22 18:00 108 21 94 Nasal Cannula 2.00 04/05/22 17:00 133 21 94 Nasal Cannula 2.00 04/05/22 16:00 105 123/87 (99) 93 Nasal Cannula 2.00 04/05/22 16:00 37.2 04/05/22 16:00 92 Room Air 04/05/22 15:00 118 111/68 (82) 99 Nasal Cannula 2.00 04/05/22 14:14 96 High Flow N/C 1.00 04/05/22 14:00 112 130/86 (101) 98 Nasal Cannula 2.00 04/05/22 13:00 109 04/05/22 13:00 116 27 122/74 (90) 98 Nasal Cannula 2.00 04/05/22 12:00 117 27 140/101 (114) 98 Nasal Cannula 2.00 04/05/22 12:00 100 Nasal Cannula 3.00 04/05/22 11:47 37.1 04/05/22 11:23 98 High Flow N/C 1.00 04/05/22 11:00 120 27 127/88 (101) 98 Nasal Cannula 2.00 04/05/22 10:00 105 27 128/102 (111) 97 Nasal Cannula 2.00 04/05/22 09:00 118 25 98 Nasal Cannula 2.00 04/05/22 08:00 97 Nasal Cannula 3.00 04/05/22 08:00 104 22 157/91 (113) 97 Nasal Cannula 2.00 I & O 04/06/22 07:00 Intake Total 2470 ml Output Total 1275 ml Balance 1195 ml Height & Weight Height: 5'9.00" Weight: 240lbs. 0.0oz. 108.019923ap; 38.46 BMI Method:Stated General Appearance: No Apparent Distress, Obese, Other (sitting in bedside chair) Neck: Normal Inspection, Supple Respiratory: Lungs Clear, No Respiratory Distress Cardiovascular: Regular Rate, Rhythm, No Murmur Capillary Refill: Less Than 3 Seconds Extremity: Normal Inspection, No Pedal Edema Neurologic/Psychiatric: Alert, Oriented x3 Skin: Normal Color, Warm/Dry Results Lab Laboratory Tests 04/04/22 09:40 04/05/22 04:10 04/06/22 04:48 Assessment/Plan Assessment/Plan as above Critical Care: Critically Ill Patient Time spent with patient (mins): 15 MICK MCGREGOR MD Apr 06, 2022 07:58
[2022-04-06] MEDS: polyethylene glycoL POWDER 17 GM (MIRALAX) PACK PO PRN (08:23)
[2022-04-06] MEDS: DOCUSATE SODIUM 100 MG (COLACE) CAP PO SCH ×2 (08:24→20:34)
[2022-04-06] MEDS: DIVALPROX SPRINKLE 125 MG (DEPAKOTE) CAP PO SCH ×2 (08:24→20:31)
[2022-04-06] MEDS: SERTRALINE 50 MG (ZOLOFT) TABLET PO SCH (08:24)
[2022-04-06] MEDS: ALPRAZolam 0.25 MG (XANAX) TAB PO PRN ×2 (08:24→20:32)
[2022-04-06] MEDS: SERTRALINE 100 MG (ZOLOFT) TAB PO SCH (08:24)
[2022-04-06] MEDS: rOPINIRole 1 MG (REQUIP) TABLET PO SCH ×3 (08:25→20:32)
[2022-04-06] MEDS: SENNOSIDES 8.6 MG (SENOKOT) TAB PO SCH ×2 (08:25→20:34)
[2022-04-06] MEDS: lisINopril 20 MG (PRINIVIL) TABLET PO SCH (08:25)
--- NOTE | 2022-04-06 08:54 | Diagnostic Imaging Report ---
INDICATION: Dyspnea. COMPARISON: 04/05/2022 FINDINGS: Single frontal radiographic view of the chest was obtained and again shows borderline enlargement of the cardiac silhouette. Pulmonary vasculature is within normal limits. Lungs show low inspiratory volumes. There is increased consolidative opacity within the medial right upper lung. No large effusion or pneumothorax is seen. Osseous structures show no gross acute abnormalities. IMPRESSION: 1. Findings concerning for developing pneumonia of the right upper lung. Alternatively, this could be artifact and related to differences in patient rotation when compared to prior exam. Follow-up is advised. 2. Cardiomegaly. Dictated by: Dictated on workstation # [id number]
[2022-04-06] MEDS: SINEMET CR 50/200 (CARBIDOPA/LEVODOPA SA) TAB PO SCH ×3 (08:57→20:34)
[2022-04-06] MEDS: ENOXAPARIN 40 MG/0.4 ML (LOVENOX) SYR SC SCH (10:12)
[2022-04-06 10:23] VITALS: BP 137/62
--- NOTE | 2022-04-06 13:34 | Progress Note - Hospitalist ---
CRISTIAN SWEENEY 04/06/22 1334: Subjective HPI/CC On Admission Date Seen by Provider: Apr 06, 2022 Jeff Ellis, a 76yo male with a past medical history of COPD, Parkinson's, and Dementia presented to the ED 04/03/22 due to wheezing and inability to clear throat with cough that has been going on for about two days. He also has had issues falling lately. Pt is a poor historian due to history of dementia, so information is based on chart and ICU nurse. During the interview pt wasn't able to open eyes or speak, but was able to squeeze fingers and wiggle toes upon command. Pt remains on BiPAP. Subjective/Events-last exam Pt was eating breakfast during the interview. Pt is doing well with out complaints and would like to go home. Pt is currently stable, eating well and tolerating diet, and sleeping well. Pt typically takes Xanax at home, and was given last night to aid with sleep. Pt did well off BiPAP last night and is c urrently receiving 3L NC. Pt hasn't had a bowel movement but has been passing gas. Nurse plans to offer prune juice and miralax, and if that doesn't work a trial of milk of mag. Pt is experiencing swelling of left hand due to infiltrated IV, so another IV will be place on the right. Pt denies chest pain, palpitations, sob, cough, LUCIANO, abdominal pain, and N/V/D. Review of Systems General: No Chills, No Night Sweats HEENT: No Head Aches, No Sinus Congestion Pulmonary: No Dyspnea, No Cough Cardiovascular: No: Chest Pain, Palpitations Gastrointestinal: No: Nausea, Vomiting, Abdominal Pain, Diarrhea Neurological: No: Weakness, Numbness Focused Exam Lactate Level 04/04/22 01:42: Lactic Acid Level 3.22*H 04/04/22 04:08: Lactic Acid Level 4.34*H 04/04/22 09:40: Lactic Acid Level 2.71*H Time of Focused Exam: 01:45 Objective Exam Vital Signs Vital Signs Date Time Temp Pulse Resp B/P (MAP) Pulse Ox O2 Delivery O2 Flow Rate FiO2 04/06/22 12:00 36.8 04/06/22 12:00 81 113/72 (86) Nasal Cannula 3.00 04/06/22 12:00 93 04/06/22 06:00 24 04/04/22 12:00 30 Capillary Refill : Less Than 3 Seconds General Appearance: No Apparent Distress Respiratory: Chest Non Tender, Lungs Clear Cardiovascular: Regular Rate, Rhythm, No Edema, No Murmur, Normal Peripheral Pulses Gastrointestinal: Normal Bowel Sounds, Non Tender, Soft Rectal: Deferred Neurologic/Psychiatric: Alert, Normal Mood/Affect Skin: Normal Color, Warm/Dry Results/Procedures Lab Laboratory Tests 04/06/22 04:48 Patient resulted labs reviewed. Imaging: Reviewed Imaging Report Assessment/Plan Assessment and Plan Assess & Plan/Chief Complaint Jeff Ellis is a 76yo male with past medical history of COPD, Parkinson's, and Dementia presenting with Acute Respiratory Failure with hypoxia and hypercapnia. Acute Respiratory Failure with hypoxia and hypercapnia Status has improved MAT Protocol Supplemental oxygen as needed Transfer to oral steroid (prednisone) Transfer to floor from ICU Pneumonia; not septic WBC elevated likely due to steroids for COPD exacerbation Continue Antibiotic treatment Considering discharge in a day or two Hyperglycemia Likely due to steroid treatment Insulin - Sliding Scale RO DE LA VEGA MD 04/06/22 1659: Subjective HPI/CC On Admission Time Seen by Provider: 10:15 Objective Exam General Appearance: No Apparent Distress, Obese Respiratory: Lungs Clear, No Respiratory Distress Cardiovascular: Regular Rate, Rhythm, No Murmur Gastrointestinal: Normal Bowel Sounds, Soft Extremity: Normal Inspection, No Pedal Edema Neurologic/Psychiatric: Alert, Normal Mood/Affect Skin: Normal Color, Warm/Dry Assessment/Plan Assessment and Plan Assess & Plan/Chief Complaint Did well off BiPAP overnight. Transition to oral steroids. Procal negative, but concern for pneumonia on chest xray, continue antibiotics. Diagnosis/Problems Diagnosis/Problems (1) Acute on chronic respiratory failure with hypoxia and hypercapnia Status: Acute (2) COPD with exacerbation Status: Acute (3) Pneumonia Status: Acute (4) CHF (congestive heart failure) Status: Acute (5) Parkinson's disease Status: Chronic Supervisory-Addendum Brief Verification & Attestation Participated in pt care: history, MDM, physical Personally performed: exam, history, MDM, supervision of care Care discussed with: Medical Student Procedures: n/a Results interpretation: Verified all documentation A medical student performed and documented this service in my presence. I reviewed and verified all information documented by the medical student and made modifications to such information, when appropriate. I personally performed the physical exam and medical decision making. CRISTIAN SWEENEY Apr 06, 2022 13:34 RO DE LA VEGA MD Apr 06, 2022 16:59
[2022-04-06] MEDS: NS IV 1000 ML 1,000 ML IV SCH (14:23)
[2022-04-06 19:58] VITALS: BP 143/71
[2022-04-06] MEDS: TAMSULOSIN 0.4 MG (FLOMAX) CAP PO SCH (20:31)
[2022-04-06] MEDS: QUEtiapine 25 MG (SEROquel) TAB IMMEDIATE RELEASE PO SCH (20:31)
[2022-04-06] MEDS: GABAPENTIN 300 MG (NEURONTIN) CAP PO SCH (20:32)
[2022-04-06] MEDS: MELATONIN 3 MG TABLET PO PRN (20:32)
[2022-04-06] MEDS: FINASTERIDE (PROSCAR) 5 MG TAB PO SCH (20:32)
[2022-04-06] MEDS: LORazepam INJ 2 MG/ML (ATIVAN) VIAL IVP PRN (23:07)
[2022-04-06 23:35] VITALS: BP 131/71
[2022-04-07] MEDS: RT-ALBUTEROL/IPRATROPIUM 3 ML (DUONEB) VIAL INH SCH ×6 (01:58→21:49)
[2022-04-07 03:19] VITALS: BP 107/51
[2022-04-07] MEDS: NS IV 1000 ML 1,000 ML IV SCH ×2 (05:32→08:50)
[2022-04-07] MEDS: CEFEPIME INJECTION 1,000 MG in NS (IVPB) 50 ML IV SCH ×4 (05:32→23:40)
[2022-04-07] MEDS: inSUlin ASPART (NovoLOG) 1 UNIT/0.01 ML (CHARGE PER UNIT) SC SCH ×4 (05:39→21:00)
[2022-04-07] MEDS: predniSONE 20 MG TAB PO SCH (06:40)
[2022-04-07 07:04] LABS: HEMATOCRIT 40 % (40-54); HEMOGLOBIN 11.8 g/dL (13.3-17.7); MEAN CORPUSCULAR HEMOGLOBIN 24 pg (25-34); MEAN CORPUSCULAR HGB CONC 30 g/dL (32-36); MEAN CORPUSCULAR VOLUME 80 fL (80-99); MEAN PLATELET VOLUME 10.9 fL (9.0-12.2); PLATELET COUNT 219 10^3/uL (130-400); WHITE BLOOD COUNT 9.8 10^3/uL (4.3-11.0)
[2022-04-07 07:23] LABS: BILIRUBIN,TOTAL 0.5 MG/DL (0.1-1.0); CALCIUM 8.8 MG/DL (8.5-10.1); CREATININE SERUM 0.81 MG/DL (0.60-1.30); MAGNESIUM 2.6 MG/DL (1.6-2.4); POTASSIUM 4.4 MMOL/L (3.6-5.0); TOTAL PROTEIN 6.8 GM/DL (6.4-8.2)
[2022-04-07 08:00] VITALS: BP 138/87
[2022-04-07] MEDS: DIVALPROX SPRINKLE 125 MG (DEPAKOTE) CAP PO SCH ×2 (08:24→21:16)
[2022-04-07] MEDS: SERTRALINE 100 MG (ZOLOFT) TAB PO SCH (08:34)
[2022-04-07] MEDS: DOCUSATE SODIUM 100 MG (COLACE) CAP PO SCH ×2 (08:34→21:16)
[2022-04-07] MEDS: SENNOSIDES 8.6 MG (SENOKOT) TAB PO SCH ×2 (08:34→21:16)
[2022-04-07] MEDS: rOPINIRole 1 MG (REQUIP) TABLET PO SCH ×3 (08:34→21:16)
[2022-04-07] MEDS: SINEMET CR 50/200 (CARBIDOPA/LEVODOPA SA) TAB PO SCH ×3 (08:34→21:16)
[2022-04-07] MEDS: lisINopril 20 MG (PRINIVIL) TABLET PO SCH (08:35)
[2022-04-07] MEDS: SERTRALINE 50 MG (ZOLOFT) TABLET PO SCH (08:35)
[2022-04-07] MEDS: ENOXAPARIN 40 MG/0.4 ML (LOVENOX) SYR SC SCH (08:36)
[2022-04-07] MEDS: POTASSIUM CL 10MEQ/50ML IVPB 50 ML IV SCH (09:19)
[2022-04-07] MEDS: MAGNESIUM 1 GM/100 ML IVPB 100 ML IV SCH (09:20)
[2022-04-07] MEDS: KCL 20 MEQ TAB (K-DUR) PO SCH (09:20)
--- NOTE | 2022-04-07 10:32 | Physical Therapy Daily Note ---
PT Daily Note-Current Subjective Patient agrees to PT. Pain Section J - Health Conditions 1. Rarely or not at all 2. Occasionally 3. Frequently 4. Almost constantly 8. Unable to answer Pain Effect on Sleep: 1 Pain Interference with Therapy: 1 Pain Interference w/Day-to-Day: 1 Mental Status Patient Orientation: Person, Time, Situation Attachments: Oxygen, IV Transfers SCALE: Activities may be completed with or without assistive devices. 2-Erfbznvgnr-hfvkyjc completes the activity by him/herself with no assistance from a helper. 5-Set-up or Clean-up Assistance-helper sets up or cleans up; patient completes activity. [place] assists only prior to or following the activity. 4-Supervision or Touching Assistance-helper provides verbal cues and/or touching/steadying and/or contact guard assistance as patient completes activity. Assistance may be provided throughout the activity or intermittently. 3-Partial/Moderate Assistance-helper does LESS THAN HALF the effort. [place] lifts, holds or supports trunk or limbs, but provides less than half the effort. 2-Substantial/Maximal Assistance-helper does MORE THAN HALF the effort. [place] lifts or holds trunk or limbs and provides more than half the effort. 7-Snsiubaji-nzcuzs does ALL the effort. Patient does none of the effort to complete the activity. Or, the assistance of 2 or more helpers is required for the patient to complete the activity. If activity was not attempted, code reason: 7-Patient Refused. 9-Not Applicable-not attempted and the patient did not perform the activity before the current illness, exacerbation or injury. 10-Not Attempted due to Environmental Limitations-(lack of equipment, weather restraints, etc.). 88-Not Attempted due to Medical Conditions or Safety Concerns. Roll Left & Right (QC): 1 (x 2) Lying to Sitting/Side of Bed(Q: 1 (x 2) Sit to Stand (QC): 1 (x 2) Chair/Iah-de-Llvdj Xfer(QC): 1 (x 2) patient unable to take a step to assist with SPT bed to recliner Gait Training Walk 10 feet (QC): 88 Gait Assistive Device: FWW attempted to take step, however, unable to perform on this date. Exercises Supine Ex: Ankle pumps, Heel Slides, Straight leg raise, Hip abd/add Supine Reps: 15 (AAROM with noted increase tone with all ROM) Seated Therapy Exercises: Long arc quads Seated Reps: 15 Assessment Patient is dependent assist of 2 with bed mobility and transfer bed to recliner. Patient unable to maintain sitting EOB without dependent assist. PT to incre ase activity as tolerated by patient. PT Snf Goals Turntable Man Goals PT Snf Goals Time Frame: Apr 11, 2022 Roll Left & Right (QC): 3 Sit to Lying (QC): 3 Lying-Sitting on Side/Bed(QC): 3 Sit to Stand (QC): 3 Chair/Bcx-yg-Nwcbi Xfer(QC): 3 Walk 10 feet (QC): 3 PT Plan Treatment/Plan Treatment Plan: Continue Plan of Care Treatment Plan: Bed Mobility, Education, Functional Activity Gigi, Functional Strength, Gait, Safety, Therapeutic Exercise, Transfers Treatment Duration: Apr 11, 2022 Frequency: 6 times per week Estimated Hrs Per Day: .25 hour per day Patient and/or Family Agrees t: Yes Time Time In: 930 Time Out: 940 DATE: Apr 07, 2022 Total Billed Treatment Time: 10 Total Billed Treatment 1 visit FA 10 min CRISTI JARRETT PT Apr 07, 2022 10:32
--- NOTE | 2022-04-07 10:33 | Progress Note - Hospitalist ---
Subjective HPI/CC On Admission Date Seen by Provider: Apr 07, 2022 Jeff Ellis, a 76yo male with a past medical history of COPD, Parkinson's, and Dementia presented to the ED 04/03/22 due to wheezing and inability to clear throat with cough that has been going on for about two days. He also has had issues falling lately. Pt is a poor historian due to history of dementia, so information is based on chart and ICU nurse. During the interview pt wasn't able to open eyes or speak, but was able to squeeze fingers and wiggle toes upon command. Pt remains on BiPAP. Subjective/Events-last exam Pt reports feeling better today. Eating breakfast. Is hopeful for DC home but admits he is still week. Discussed plan for PT and maybe even IRF if he qualifies. He is still hopeful for DC straight home. Focused Exam Time of Focused Exam: 01:45 Objective Exam Vital Signs Vital Signs Date Time Temp Pulse Resp B/P (MAP) Pulse Ox O2 Delivery O2 Flow Rate FiO2 04/07/22 10:18 92 Nasal Cannula 4.00 04/07/22 08:00 36.7 66 21 138/87 (104) 04/04/22 12:00 30 Capillary Refill : Less Than 3 Seconds General Appearance: No Apparent Distress, Chronically ill, Obese Respiratory: No Respiratory Distress, Wheezing Cardiovascular: Regular Rate, Rhythm, No Murmur Gastrointestinal: Normal Bowel Sounds, Non Tender, Soft Neurologic/Psychiatric: Alert, Oriented x3 Results/Procedures Lab Laboratory Tests 04/07/22 06:54 Patient resulted labs reviewed. 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
[2022-04-07 12:00] VITALS: BP 130/87
[2022-04-07] MEDS ORDERED: NS (IVPB) 50 ML ONE ×2 (12:23→12:26)
[2022-04-07 15:57] VITALS: BP 124/73
[2022-04-07 19:30] VITALS: BP 140/88
[2022-04-07] MEDS: GABAPENTIN 300 MG (NEURONTIN) CAP PO SCH (21:16)
[2022-04-07] MEDS: TAMSULOSIN 0.4 MG (FLOMAX) CAP PO SCH (21:16)
[2022-04-07] MEDS: QUEtiapine 25 MG (SEROquel) TAB IMMEDIATE RELEASE PO SCH (21:16)
[2022-04-07] MEDS: FINASTERIDE (PROSCAR) 5 MG TAB PO SCH (21:16)
[2022-04-07 23:21] VITALS: BP 150/85
[2022-04-08] MEDS: RT-ALBUTEROL/IPRATROPIUM 3 ML (DUONEB) VIAL INH SCH ×5 (02:30→20:48)
[2022-04-08 03:37] VITALS: BP 131/77
[2022-04-08] MEDS: CEFEPIME INJECTION 1,000 MG in NS (IVPB) 50 ML IV SCH ×3 (05:54→17:37)
[2022-04-08] MEDS: predniSONE 20 MG TAB PO SCH (05:54)
[2022-04-08 06:06] LABS: HEMATOCRIT 42 % (40-54); HEMOGLOBIN 12.1 g/dL (13.3-17.7); MEAN CORPUSCULAR HEMOGLOBIN 24 pg (25-34); MEAN CORPUSCULAR HGB CONC 29 g/dL (32-36); MEAN CORPUSCULAR VOLUME 81 fL (80-99); MEAN PLATELET VOLUME 10.5 fL (9.0-12.2); PLATELET COUNT 182 10^3/uL (130-400); WHITE BLOOD COUNT 7.9 10^3/uL (4.3-11.0)
[2022-04-08 06:30] LABS: ALBUMIN 3.9 GM/DL (3.2-4.5); BILIRUBIN,TOTAL 0.3 MG/DL (0.1-1.0); CALCIUM 8.6 MG/DL (8.5-10.1); CREATININE SERUM 0.74 MG/DL (0.60-1.30); MAGNESIUM 2.5 MG/DL (1.6-2.4); POTASSIUM 4.1 MMOL/L (3.6-5.0); TOTAL PROTEIN 6.6 GM/DL (6.4-8.2)
[2022-04-08] MEDS: POTASSIUM CL 10MEQ/50ML IVPB 50 ML IV SCH (07:21)
[2022-04-08] MEDS: inSUlin ASPART (NovoLOG) 1 UNIT/0.01 ML (CHARGE PER UNIT) SC SCH ×4 (07:22→21:39)
[2022-04-08] MEDS: KCL 20 MEQ TAB (K-DUR) PO SCH (07:22)
[2022-04-08] MEDS: MAGNESIUM 1 GM/100 ML IVPB 100 ML IV SCH (07:22)
[2022-04-08 07:57] VITALS: BP 118/63
[2022-04-08] MEDS: SERTRALINE 50 MG (ZOLOFT) TABLET PO SCH (08:31)
[2022-04-08] MEDS: DIVALPROX SPRINKLE 125 MG (DEPAKOTE) CAP PO SCH ×2 (08:31→21:37)
[2022-04-08] MEDS: SERTRALINE 100 MG (ZOLOFT) TAB PO SCH (08:31)
[2022-04-08] MEDS: lisINopril 20 MG (PRINIVIL) TABLET PO SCH (08:32)
[2022-04-08] MEDS: SENNOSIDES 8.6 MG (SENOKOT) TAB PO SCH ×2 (08:32→21:38)
[2022-04-08] MEDS: rOPINIRole 1 MG (REQUIP) TABLET PO SCH ×3 (08:35→21:38)
[2022-04-08] MEDS: SINEMET CR 50/200 (CARBIDOPA/LEVODOPA SA) TAB PO SCH ×3 (08:35→21:38)
[2022-04-08] MEDS: DOCUSATE SODIUM 100 MG (COLACE) CAP PO SCH ×2 (08:35→21:39)
--- NOTE | 2022-04-08 09:24 | Physical Therapy Daily Note ---
PT Daily Note-Current Subjective Patient in bed pre tx, agrees to PT, has no complaints of pain. Pain Section J - Health Conditions 1. Rarely or not at all 2. Occasionally 3. Frequently 4. Almost constantly 8. Unable to answer Pain Effect on Sleep: 1 Pain Interference with Therapy: 1 Pain Interference w/Day-to-Day: 1 Appearance Patient in recliner post tx with nurse call, phone, tray, all needs met, chair alarm on. Mental Status Patient Orientation: Person, Place, Situation Transfers SCALE: Activities may be completed with or without assistive devices. 4-Qhvwqkncpx-iqmnqas completes the activity by him/herself with no assistance from a helper. 5-Set-up or Clean-up Assistance-helper sets up or cleans up; patient completes activity. [place] assists only prior to or following the activity. 4-Supervision or Touching Assistance-helper provides verbal cues and/or touching/steadying and/or contact guard assistance as patient completes activity. Assistance may be provided throughout the activity or intermittently. 3-Partial/Moderate Assistance-helper does LESS THAN HALF the effort. [place] lifts, holds or supports trunk or limbs, but provides less than half the effort. 2-Substantial/Maximal Assistance-helper does MORE THAN HALF the effort. [place] lifts or holds trunk or limbs and provides more than half the effort. 5-Tupdxcvwc-izlreh does ALL the effort. Patient does none of the effort to complete the activity. Or, the assistance of 2 or more helpers is required for the patient to complete the activity. If activity was not attempted, code reason: 7-Patient Refused. 9-Not Applicable-not attempted and the patient did not perform the activity before the current illness, exacerbation or injury. 10-Not Attempted due to Environmental Limitations-(lack of equipment, weather restraints, etc.). 88-Not Attempted due to Medical Conditions or Safety Concerns. Roll Left & Right (QC): 3 Lying to Sitting/Side of Bed(Q: 2 Sit to Stand (QC): 3 Chair/Ygf-fp-Moaxn Xfer(QC): 3 Patient was able to take several steps to the recliner, ambulating about 3' before sitting down, had a hard time picking up feet Exercises Seated Therapy Exercises: Ankle pumps, Long arc quads Seated Reps: 20 Treatments bed mobility and transfers, ambulation, LE ROM Assessment Current Status: Fair Progress improved supine to sit and transfer PT Care Home Goals Care Home Goals PT Care Home Goals Time Frame: Apr 11, 2022 Roll Left & Right (QC): 3 Sit to Lying (QC): 3 Lying-Sitting on Side/Bed(QC): 3 Sit to Stand (QC): 3 Chair/Hfq-zq-Wrucf Xfer(QC): 3 Walk 10 feet (QC): 3 PT Plan Problem List Problem List: Activity Tolerance, Functional Strength, Safety, Balance, Gait, Transfer, Bed Mobility, ROM Treatment/Plan Treatment Plan: Continue Plan of Care Treatment Plan: Bed Mobility, Education, Functional Activity Gigi, Functional Strength, Gait, Safety, Therapeutic Exercise, Transfers Treatment Duration: Apr 11, 2022 Frequency: 6 times per week Estimated Hrs Per Day: .25 hour per day Patient and/or Family Agrees t: Yes Safety Risks/Education Patient Education: Gait Training, Transfer Techniques, Correct Positioning, Safety Issues Teaching Recipient: Patient Teaching Methods: Demonstration, Discussion Response to Teaching: Reinforcement Needed Time Time In: 0900 Time Out: 09 DATE: Apr 08, 2022 Total Billed Treatment Time: 10 Total Billed Treatment 1 visit FA JONNY WONG PT Apr 08, 2022 09:24
[2022-04-08] MEDS: ENOXAPARIN 40 MG/0.4 ML (LOVENOX) SYR SC SCH (09:42)
[2022-04-08 12:00] VITALS: BP 115/60
--- NOTE | 2022-04-08 12:12 | Progress Note - Hospitalist ---
Subjective HPI/CC On Admission Date Seen by Provider: Apr 08, 2022 Jeff Ellis, a 76yo male with a past medical history of COPD, Parkinson's, and Dementia presented to the ED 04/03/22 due to wheezing and inability to clear throat with cough that has been going on for about two days. He also has had issues falling lately. Pt is a poor historian due to history of dementia, so information is based on chart and ICU nurse. During the interview pt wasn't able to open eyes or speak, but was able to squeeze fingers and wiggle toes upon command. Pt remains on BiPAP. Subjective/Events-last exam Pt reports doing well. No new complaints. Still hopeful to go home but discussed need for him to be stronger prior to DC. Focused Exam Time of Focused Exam: 01:45 Objective Exam Vital Signs Vital Signs Date Time Temp Pulse Resp B/P (MAP) Pulse Ox O2 Delivery O2 Flow Rate FiO2 04/08/22 12:00 36.6 81 18 115/60 (78) 91 Nasal Cannula 2.00 04/04/22 12:00 30 Capillary Refill : Less Than 3 Seconds General Appearance: No Apparent Distress, Chronically ill, Obese Respiratory: Lungs Clear, No Respiratory Distress Cardiovascular: Regular Rate, Rhythm, No Murmur Gastrointestinal: Normal Bowel Sounds, Soft Neurologic/Psychiatric: Alert, Oriented x3 Results/Procedures Lab Laboratory Tests 04/08/22 05:37 Patient resulted labs reviewed. 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
--- NOTE | 2022-04-08 14:54 | Occ Therapy Progress Note ---
Therapy Progress Note OT tx attempted at 1445. Pt had 1 visitor present who states she assists pt with aquatic therapy. OT informed pt and visitor about purpose and benefit of OT. Pt declined UE exercises and ADLs at this time, and visitor requests OT to come back later as she would like to visit with pt. OT will attempt tx again next available date. 1, refusal PHILLIP ROWLAND OT Apr 08, 2022 14:54
[2022-04-08 15:53] VITALS: BP 143/75
[2022-04-08 19:30] VITALS: BP 169/79
[2022-04-08] MEDS: GABAPENTIN 300 MG (NEURONTIN) CAP PO SCH (21:38)
[2022-04-08] MEDS: FINASTERIDE (PROSCAR) 5 MG TAB PO SCH (21:38)
[2022-04-08] MEDS: TAMSULOSIN 0.4 MG (FLOMAX) CAP PO SCH (21:38)
[2022-04-08] MEDS: MELATONIN 3 MG TABLET PO PRN (21:38)
[2022-04-08] MEDS: QUEtiapine 25 MG (SEROquel) TAB IMMEDIATE RELEASE PO SCH (21:39)
[2022-04-08] MEDS: LORazepam INJ 2 MG/ML (ATIVAN) VIAL IVP PRN (21:40)
[2022-04-08 23:37] VITALS: BP 133/75
[2022-04-09] VITALS (7 sets, daily range): BP systolic 127–143; BP diastolic 68–81
[2022-04-09] MEDS: RT-ALBUTEROL/IPRATROPIUM 3 ML (DUONEB) VIAL INH SCH ×6 (02:15→22:09)
[2022-04-09] MEDS: inSUlin ASPART (NovoLOG) 1 UNIT/0.01 ML (CHARGE PER UNIT) SC SCH ×4 (06:00→20:41)
[2022-04-09] MEDS: CEFEPIME INJECTION 1,000 MG in NS (IVPB) 50 ML IV SCH ×3 (07:11)
[2022-04-09] MEDS: MAGNESIUM 1 GM/100 ML IVPB 100 ML IV SCH (07:56)
[2022-04-09] MEDS: POTASSIUM CL 10MEQ/50ML IVPB 50 ML IV SCH (07:58)
[2022-04-09] MEDS: KCL 20 MEQ TAB (K-DUR) PO SCH (07:58)
[2022-04-09] MEDS: predniSONE 20 MG TAB PO SCH (07:59)
[2022-04-09] MEDS: SERTRALINE 50 MG (ZOLOFT) TABLET PO SCH (08:23)
[2022-04-09] MEDS: DOCUSATE SODIUM 100 MG (COLACE) CAP PO SCH ×2 (08:23→20:52)
[2022-04-09] MEDS: lisINopril 20 MG (PRINIVIL) TABLET PO SCH (08:23)
[2022-04-09] MEDS: DIVALPROX SPRINKLE 125 MG (DEPAKOTE) CAP PO SCH ×2 (08:23→20:51)
[2022-04-09] MEDS: SENNOSIDES 8.6 MG (SENOKOT) TAB PO SCH ×2 (08:23→20:51)
[2022-04-09] MEDS: SERTRALINE 100 MG (ZOLOFT) TAB PO SCH (08:23)
[2022-04-09] MEDS: rOPINIRole 1 MG (REQUIP) TABLET PO SCH ×3 (08:23→20:51)
[2022-04-09] MEDS: SINEMET CR 50/200 (CARBIDOPA/LEVODOPA SA) TAB PO SCH ×3 (08:26→20:52)
--- NOTE | 2022-04-09 10:10 | Progress Note - Hospitalist ---
Subjective HPI/CC On Admission Date Seen by Provider: Apr 09, 2022 Jeff Ellis, a 76yo male with a past medical history of COPD, Parkinson's, and Dementia presented to the ED 04/03/22 due to wheezing and inability to clear throat with cough that has been going on for about two days. He also has had issues falling lately. Pt is a poor historian due to history of dementia, so information is based on chart and ICU nurse. During the interview pt wasn't able to open eyes or speak, but was able to squeeze fingers and wiggle toes upon command. Pt remains on BiPAP. Subjective/Events-last exam Patient had an eventful day and plan was to go down to inpatient rehab but shortly after acceptance there in the morning family called and stated they no longer wanted to pursue rehab and were looking at retirement placement with possible hospice. He was returned back to his room and I discussed this with him. He is quite frustrated about the possibility of having to go to a retirement but I reassured him everyone is making decisions to help keep him safe and cared for. Focused Exam Time of Focused Exam: 01:45 Objective Exam Vital Signs Vital Signs Date Time Temp Pulse Resp B/P (MAP) Pulse Ox O2 Delivery O2 Flow Rate FiO2 04/10/22 12:07 36.3 77 19 132/74 (93) 92 Nasal Cannula 2.50 04/04/22 12:00 30 Capillary Refill : Less Than 3 Seconds General Appearance: Chronically ill, Obese Respiratory: Lungs Clear, No Respiratory Distress Cardiovascular: Regular Rate, Rhythm, No Murmur Neurologic/Psychiatric: Alert, Oriented x3 Results/Procedures Lab Laboratory Tests 04/10/22 05:05 Patient resulted labs reviewed. 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
[2022-04-09] MEDS: ENOXAPARIN 40 MG/0.4 ML (LOVENOX) SYR SC SCH (11:02)
[2022-04-09] MEDS: LORazepam INJ 2 MG/ML (ATIVAN) VIAL IVP PRN (15:26)
[2022-04-09] MEDS: FINASTERIDE (PROSCAR) 5 MG TAB PO SCH (20:51)
[2022-04-09] MEDS: TAMSULOSIN 0.4 MG (FLOMAX) CAP PO SCH (20:51)
[2022-04-09] MEDS: QUEtiapine 25 MG (SEROquel) TAB IMMEDIATE RELEASE PO SCH (20:51)
[2022-04-09] MEDS: ALPRAZolam 0.25 MG (XANAX) TAB PO PRN (20:51)
[2022-04-09] MEDS: GABAPENTIN 300 MG (NEURONTIN) CAP PO SCH (20:52)
[2022-04-09] MEDS: MELATONIN 3 MG TABLET PO PRN (20:52)
[2022-04-10] MEDS: RT-ALBUTEROL/IPRATROPIUM 3 ML (DUONEB) VIAL INH SCH ×6 (02:52→21:59)
[2022-04-10 03:37] VITALS: BP 119/65
[2022-04-10] MEDS: inSUlin ASPART (NovoLOG) 1 UNIT/0.01 ML (CHARGE PER UNIT) SC SCH ×4 (05:31→20:33)
[2022-04-10] MEDS: predniSONE 20 MG TAB PO SCH (05:35)
[2022-04-10 06:09] LABS: POTASSIUM 3.6 MMOL/L (3.6-5.0)
[2022-04-10 06:10] LABS: CALCIUM 8.7 MG/DL (8.5-10.1)
[2022-04-10 06:14] LABS: CREATININE SERUM 0.71 MG/DL (0.60-1.30)
[2022-04-10 06:16] LABS: MAGNESIUM 2.3 MG/DL (1.6-2.4)
[2022-04-10 06:17] LABS: BASOPHILS % (AUTO) 0 % (0-10); EOSINOPHILS # (AUTO) 0.1 10^3/uL (0.0-0.3); EOSINOPHILS % (AUTO) 1 % (0-10); HEMATOCRIT 38 % (40-54); HEMOGLOBIN 11.4 g/dL (13.3-17.7); LYMPHOCYTES # (AUTO) 1.3 10^3/uL (1.0-4.0); LYMPHOCYTES % (AUTO) 16 % (12-44); MEAN CORPUSCULAR HEMOGLOBIN 24 pg (25-34); MEAN CORPUSCULAR HGB CONC 30 g/dL (32-36); MEAN CORPUSCULAR VOLUME 79 fL (80-99); MEAN PLATELET VOLUME 10.8 fL (9.0-12.2); MONOCYTES # (AUTO) 0.8 10^3/uL (0.0-1.0); MONOCYTES % (AUTO) 10 % (0-12); NEUTROPHILS # (AUTO) 5.6 10^3/uL (1.8-7.8); NEUTROPHILS % (AUTO) 72 % (42-75); PLATELET COUNT 183 10^3/uL (130-400); WHITE BLOOD COUNT 7.8 10^3/uL (4.3-11.0)
[2022-04-10] MEDS: KCL 20 MEQ TAB (K-DUR) PO SCH (07:00)
[2022-04-10] MEDS: POTASSIUM CL 10MEQ/50ML IVPB 50 ML IV SCH (07:00)
[2022-04-10] MEDS: MAGNESIUM 1 GM/100 ML IVPB 100 ML IV SCH (07:01)
[2022-04-10 07:34] LABS: ALBUMIN 3.7 GM/DL (3.2-4.5)
[2022-04-10 07:39] LABS: BILIRUBIN,TOTAL 0.4 MG/DL (0.1-1.0)
[2022-04-10 07:59] VITALS: BP 121/55
[2022-04-10] MEDS ORDERED: KCL 20 MEQ TAB (K-DUR) PO ONE (09:00)
[2022-04-10] MEDS: lisINopril 20 MG (PRINIVIL) TABLET PO SCH (09:27)
[2022-04-10] MEDS: SENNOSIDES 8.6 MG (SENOKOT) TAB PO SCH ×2 (09:27→20:06)
[2022-04-10] MEDS: DIVALPROX SPRINKLE 125 MG (DEPAKOTE) CAP PO SCH ×2 (09:27→20:20)
[2022-04-10] MEDS: SERTRALINE 50 MG (ZOLOFT) TABLET PO SCH (09:27)
[2022-04-10] MEDS: SERTRALINE 100 MG (ZOLOFT) TAB PO SCH (09:27)
[2022-04-10] MEDS: rOPINIRole 1 MG (REQUIP) TABLET PO SCH ×3 (09:27→20:21)
[2022-04-10] MEDS: DOCUSATE SODIUM 100 MG (COLACE) CAP PO SCH ×2 (09:28→20:06)
[2022-04-10] MEDS: SINEMET CR 50/200 (CARBIDOPA/LEVODOPA SA) TAB PO SCH ×3 (09:31→20:21)
[2022-04-10] MEDS: ENOXAPARIN 40 MG/0.4 ML (LOVENOX) SYR SC SCH (09:36)
[2022-04-10 12:07] VITALS: BP 132/74
--- NOTE | 2022-04-10 14:34 | Progress Note - Hospitalist ---
Subjective HPI/CC On Admission Date Seen by Provider: Apr 10, 2022 Jeff Ellis, a 76yo male with a past medical history of COPD, Parkinson's, and Dementia presented to the ED 04/03/22 due to wheezing and inability to clear throat with cough that has been going on for about two days. He also has had issues falling lately. Pt is a poor historian due to history of dementia, so information is based on chart and ICU nurse. During the interview pt wasn't able to open eyes or speak, but was able to squeeze fingers and wiggle toes upon command. Pt remains on BiPAP. Subjective/Events-last exam Pt had just been incontinent of BM when I entered room. No specific complaints other than wanting to get cleaned up. Agreeable to placement though still not thrilled about it. Focused Exam Time of Focused Exam: 01:45 Objective Exam Vital Signs Vital Signs Date Time Temp Pulse Resp B/P (MAP) Pulse Ox O2 Delivery O2 Flow Rate FiO2 04/10/22 12:07 36.3 77 19 132/74 (93) 92 Nasal Cannula 2.50 04/04/22 12:00 30 Capillary Refill : Less Than 3 Seconds General Appearance: No Apparent Distress, Chronically ill, Obese Respiratory: Lungs Clear, No Respiratory Distress Cardiovascular: Regular Rate, Rhythm, No Murmur Results/Procedures Lab Laboratory Tests 04/10/22 05:05 Patient resulted labs reviewed. 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
[2022-04-10] MEDS: LORazepam INJ 2 MG/ML (ATIVAN) VIAL IVP PRN (14:54)
[2022-04-10 16:00] VITALS: BP 131/68
[2022-04-10] MEDS: ALPRAZolam 0.25 MG (XANAX) TAB PO PRN ×2 (16:01→20:21)
[2022-04-10 19:27] VITALS: BP 153/84
[2022-04-10] MEDS: FINASTERIDE (PROSCAR) 5 MG TAB PO SCH (20:20)
[2022-04-10] MEDS: QUEtiapine 25 MG (SEROquel) TAB IMMEDIATE RELEASE PO SCH (20:20)
[2022-04-10] MEDS: TAMSULOSIN 0.4 MG (FLOMAX) CAP PO SCH (20:20)
[2022-04-10] MEDS: GABAPENTIN 300 MG (NEURONTIN) CAP PO SCH (20:20)
[2022-04-10] MEDS: MELATONIN 3 MG TABLET PO PRN (20:21)
[2022-04-10 23:26] VITALS: BP 116/78
[2022-04-11] MEDS: RT-ALBUTEROL/IPRATROPIUM 3 ML (DUONEB) VIAL INH SCH ×4 (02:47→14:06)
[2022-04-11 03:40] VITALS: BP 132/80
[2022-04-11 06:31] LABS: CALCIUM 8.8 MG/DL (8.5-10.1)
[2022-04-11 06:35] LABS: CREATININE SERUM 0.67 MG/DL (0.60-1.30)
[2022-04-11 06:38] LABS: MAGNESIUM 2.2 MG/DL (1.6-2.4)
[2022-04-11] MEDS: POTASSIUM CL 10MEQ/50ML IVPB 50 ML IV SCH (06:38)
[2022-04-11] MEDS: KCL 20 MEQ TAB (K-DUR) PO SCH (06:38)
[2022-04-11] MEDS: inSUlin ASPART (NovoLOG) 1 UNIT/0.01 ML (CHARGE PER UNIT) SC SCH ×3 (06:38→15:16)
[2022-04-11] MEDS: predniSONE 20 MG TAB PO SCH (06:46)
[2022-04-11] MEDS: MAGNESIUM 1 GM/100 ML IVPB 100 ML IV SCH (06:53)
[2022-04-11 07:02] VITALS: BP 117/64
[2022-04-11] MEDS: SERTRALINE 50 MG (ZOLOFT) TABLET PO SCH (08:29)
[2022-04-11] MEDS: SERTRALINE 100 MG (ZOLOFT) TAB PO SCH (08:30)
[2022-04-11] MEDS: DIVALPROX SPRINKLE 125 MG (DEPAKOTE) CAP PO SCH (08:30)
[2022-04-11] MEDS: DOCUSATE SODIUM 100 MG (COLACE) CAP PO SCH (08:31)
[2022-04-11] MEDS: SENNOSIDES 8.6 MG (SENOKOT) TAB PO SCH (08:31)
[2022-04-11] MEDS: lisINopril 20 MG (PRINIVIL) TABLET PO SCH (08:31)
[2022-04-11] MEDS: rOPINIRole 1 MG (REQUIP) TABLET PO SCH ×2 (08:31→12:59)
[2022-04-11] MEDS: SINEMET CR 50/200 (CARBIDOPA/LEVODOPA SA) TAB PO SCH ×2 (08:33→12:59)
[2022-04-11] MEDS: ENOXAPARIN 40 MG/0.4 ML (LOVENOX) SYR SC SCH (08:34)
--- NOTE | 2022-04-11 10:47 | Discharge Inst-Simple/Standard ---
Discharge Inst-Standard Discharge Medications New, Converted or Re-Newed RX: Transmitted to Pharmacy Patient Instructions/Follow Up Plan of Care/Instructions/FU: Please continue to take your medications as written. Please follow up with your primary care doctor to follow up this hospital stay. Activity as Tolerated: Yes Discharge Diet: No Restrictions Return to The Hospital For: Chest pain, shortness of breath, fever, weakness, if you feel you are getting worse. JOSUE BULLARD MD Apr 11, 2022 10:47
[2022-04-11 11:24] VITALS: BP 138/71
[2022-04-11 11:32] VITALS: BP 115/73
[2022-04-11] MEDS ORDERED: GABA300C PO (12:29)
[2022-04-11] MEDS ORDERED: OMEP40CA6 PO (12:29)
[2022-04-11] MEDS ORDERED: CETI10TA49 PO (12:29)
[2022-04-11] MEDS ORDERED: ROPI4TAB5 PO (12:29)
[2022-04-11] MEDS ORDERED: QUET25TA35 PO (12:29)
[2022-04-11] MEDS ORDERED: POLY17PO6 PO (12:29)
[2022-04-11] MEDS ORDERED: ACET-2267 PO (12:29)
[2022-04-11] MEDS ORDERED: SERT-413 PO (12:29)
[2022-04-11] MEDS ORDERED: ZINC50TA11 PO (12:29)
[2022-04-11] MEDS ORDERED: SERT-414 PO (12:29)
[2022-04-11] MEDS ORDERED: CARB1TAB41 PO ×2 (12:29)
[2022-04-11] MEDS ORDERED: BENA-3 PO (12:29)
[2022-04-11] MEDS ORDERED: GUAI-977 PO (12:29)
[2022-04-11] MEDS ORDERED: TRZ50T PO (12:29)
[2022-04-11] MEDS ORDERED: TMSL.4C PO (12:29)
[2022-04-11] MEDS ORDERED: DIVA125T32 PO (12:29)
[2022-04-11] MEDS ORDERED: ALPR0.254 PO (12:29)
--- NOTE | 2022-04-11 14:19 | Discharge Summary ---
Diagnosis/Chief Complaint Date of Admission Apr 04, 2022 at 07:21 Date of Discharge Discharge Date: Apr 11, 2022 Admission Diagnosis Acute respiratory failure with hypoxia and hypercapnia Primary Care Sami Vincent DO Discharge Diagnosis (1) Acute on chronic respiratory failure with hypoxia and hypercapnia Status: Acute (2) COPD with exacerbation Status: Acute (3) Pneumonia Status: Acute (4) CHF (congestive heart failure) Status: Acute (5) Parkinson's disease Status: Chronic Discharge Summary Discharge Physical Exam Allergies: Coded Allergies: No Known Drug Allergies (Unverified , 10/15/12) Vitals & I&Os Vital Signs Date Time Temp Pulse Resp B/P (MAP) Pulse Ox O2 Delivery O2 Flow Rate FiO2 04/11/22 14:06 92 Nasal Cannula 2.50 04/11/22 11:32 36.4 75 18 115/73 (87) Hospital Course Labs (last 24 hrs) Laboratory Tests 04/10/22 17:28: Glucometer 112H 04/10/22 20:32: Glucometer 99 04/11/22 05:31: Glucometer 97 04/11/22 06:05: Sodium Level 137, Potassium Level 4.0, Chloride Level 97L, Carbon Dioxide Level 30, Anion Gap 10, Blood Urea Nitrogen 11, Creatinine 0.67, Estimat Glomerular Filtration Rate 96, BUN/Creatinine Ratio 16, Glucose Level 91, Calcium Level 8.8, Magnesium Level 2.2 04/11/22 10:12: Glucometer 141H Microbiology 04/04/22 MRSA Screen - Final, Complete MRSA not isolated 04/03/22 Blood Culture - Final, Complete No growth 04/03/22 Urine Culture - Final, Complete NO GROWTH Patient resulted labs reviewed. Pending Labs Laboratory Tests 04/11/22 10:12: Glucometer 141 Imaging: Reviewed Imaging Report Discharge Home Medications: Active Scripts Active Sertraline HCl 50 Mg Tablet 50 Mg PO DAILY TAKES 50MG +100MG TOGETHER TO EQUAL 150MG Ropinirole HCl 4 Mg Tablet 4 Mg PO TID Divalproex Sodium 125 Mg Tablet.dr 125 Mg PO BID Zinc (Zinc Gluconate) 50 Mg Tablet 50 Mg PO DAILY ALPRAZolam 0.25 Mg Tablet 0.125-0.25 Mg PO BID PRN TAKES TO 1 (0.25NG) TABS Mucus Relief (Guaifenesin) 600 Mg Tab.er.12h 600 Mg PO Q12H PRN Zyrtec (Cetirizine HCl) 10 Mg Tablet 10 Mg PO DAILY PRN Flomax (Tamsulosin HCl) 0.4 Mg Cap 0.4 Mg PO HS Neurontin (Gabapentin) 300 Mg Capsule 300 Mg PO HS Trazodone HCl 50 Mg Tablet 50-100 Mg PO HS PRN Sertraline HCl 100 Mg Tablet 100 Mg PO DAILY TAKES 50MG +100MG TOGETHER TO EQUAL 150MG Quetiapine Fumarate 25 Mg Tablet 25 Mg PO HS Carbidopa-Levo ER 50-200 Tab (Carbidopa/Levodopa) 50 Mg-200 Mg Tablet.er 1 Each PO HS Carbidopa-Levo ER 50-200 Tab (Carbidopa/Levodopa) 50 Mg-200 Mg Tablet.er 2 Each PO 0800,1200 Benazepril HCl 20 Mg Tablet 20 Mg PO DAILY Miralax (Polyethylene Glycol 3350) 17 Gram Powd.pack 17 Gm PO HS Tylenol Extra Strength (Acetaminophen) 500 Mg Tablet 1,000 Mg PO Q8H PRN TAKES 2 (500MG) TABLETS Omeprazole 40 Mg Capsule.dr 40 Mg PO DAILY Reported Vitamin C (Ascorbic Acid) 500 Mg Tablet 500 Mg PO DAILY Finasteride 5 Mg Tablet 5 Mg PO HS Instructions to patient/family Please see electronic discharge instructions given to patient. JOSUE BULLARD MD Apr 11, 2022 14:19
[2022-04-11 16:41] VITALS: BP 115/73
== END 2022-04-11 16:42 | DRG 193 ==
LOC: EDUNIT# 19:48 → ER 19:50 → ICU 04-04 07:21 → 4TH 04-06 13:22
PROVIDERS: ADMIT Internal Medicine; ATTEND Internal Medicine
PROC: 5A09457 Assistance with Respiratory Ventilation, 24-96 Consecutive Hours, Continuous Positive Airway Pressure (ICD-10-PCS; principal; 2022-04-04)
DX: J18.9 Pneumonia, unspecified organism (principal); J96.21 Acute and chronic respiratory failure with hypoxia; J96.22 Acute and chronic respiratory failure with hypercapnia; J44.1 Chronic obstructive pulmonary disease with (acute) exacerbation; E87.20 Acidosis, unspecified; G72.81 Critical illness myopathy; J44.0 Chronic obstructive pulmonary disease with (acute) lower respiratory infection; G20 Parkinson's disease; Z66 Do not resuscitate; F17.210 Nicotine dependence, cigarettes, uncomplicated; F02.80 Dementia in other diseases classified elsewhere, unspecified severity, without behavioral disturbance, psychotic disturbance, mood disturbance, and anxiety; I10 Essential (primary) hypertension; M19.90 Unspecified osteoarthritis, unspecified site; G89.29 Other chronic pain; M54.9 Dorsalgia, unspecified; F32.A Depression, unspecified; T38.0X5A Adverse effect of glucocorticoids and synthetic analogues, initial encounter; R73.9 Hyperglycemia, unspecified; Z20.822 Contact with and (suspected) exposure to COVID-19
CPT/HCPCS: 36415; 36600; 51702; 71045; 80048; 80053; 81000; 82805; 82947; 83605; 83735; 83880; 84100; 84145; 84484; 85007; 85025; 85027; 85610; 85730; 87040; 87081; 87088; 87636; 93005; 93306; 94640; 94660; 94760; 96365; 96375; 96376

== ENCOUNTER 2022-05-02 13:37 | Emergency (ER) | payer MEDICARE, OTHER ==
[~2022-05-02] VITALS: Ht 175.3 cm; Wt 120.7 kg
[~2022-05-02 13:37] MED LIST changes: +ALPR0.254 PO; +ASCO500T17 PO; +DIVA125T32 PO; +GUAI-977 PO; +ROPI4TAB5 PO; +SERT-413 PO; +ZINC50TA11 PO
[2022-05-02 13:53] LABS: BASOPHILS % (AUTO) 0 % (0-10); EOSINOPHILS # (AUTO) 0.2 10^3/uL (0.0-0.3); EOSINOPHILS % (AUTO) 4 % (0-10); HEMATOCRIT 40 % (40-54); HEMOGLOBIN 11.8 g/dL (13.3-17.7); LYMPHOCYTES # (AUTO) 1.1 10^3/uL (1.0-4.0); LYMPHOCYTES % (AUTO) 22 % (12-44); MEAN CORPUSCULAR HEMOGLOBIN 24 pg (25-34); MEAN CORPUSCULAR HGB CONC 30 g/dL (32-36); MEAN CORPUSCULAR VOLUME 80 fL (80-99); MEAN PLATELET VOLUME 9.8 fL (9.0-12.2); MONOCYTES # (AUTO) 0.5 10^3/uL (0.0-1.0); MONOCYTES % (AUTO) 10 % (0-12); NEUTROPHILS # (AUTO) 3.3 10^3/uL (1.8-7.8); NEUTROPHILS % (AUTO) 63 % (42-75); PLATELET COUNT 240 10^3/uL (130-400); WHITE BLOOD COUNT 5.3 10^3/uL (4.3-11.0)
[2022-05-02 14:04] LABS: POTASSIUM 3.8 MMOL/L (3.6-5.0)
[2022-05-02 14:06] LABS: CALCIUM 8.9 MG/DL (8.5-10.1)
[2022-05-02 14:07] LABS: BILIRUBIN,URINE NEGATIVE (NEGATIVE); CLARITY,URINE CLEAR; COLOR,URINE YELLOW; GLUCOSE, URINE (UA) NEGATIVE (NEGATIVE); KETONES,URINE NEGATIVE (NEGATIVE); LEUKOCYTE ESTERASE ,URINE NEGATIVE (NEGATIVE); NITRITE,URINE NEGATIVE (NEGATIVE); PROTEIN,URINE NEGATIVE (NEGATIVE)
[2022-05-02 14:10] LABS: CREATININE SERUM 0.79 MG/DL (0.60-1.30)
[2022-05-02 14:19] LABS: VALPROIC ACID 16.4 UG/ML (50.0-100.0)
[2022-05-02 14:41] LABS: BACTERIA,URINE NEGATIVE /HPF
--- NOTE | 2022-05-02 14:52 | Diagnostic Imaging Report ---
PROCEDURE: CT head and CT cervical spine without contrast. TECHNIQUE: Multiple contiguous axial images were obtained through the brain and cervical spine without the use of intravenous contrast. Sagittal and coronal reformations through the cervical spine were then performed. Auto Exposure Controls were utilized during the CT exam to meet ALARA standards for radiation dose reduction. INDICATION: Fall. COMPARISON: Correlation is made with prior CT from 11/25/2021. CT HEAD: FINDINGS: Ventricles and sulci remain prominent consistent with cerebral volume loss. No sulcal effacement or midline shift is identified. No acute intra-axial or extra-axial hemorrhage is detected. Cisterns are patent. Visualized paranasal sinuses are clear. IMPRESSION: Stable chronic changes. No acute intracranial process is detected. CT CERVICAL SPINE: FINDINGS: Alignment is normal. There is severe multilevel degenerative disc and facet disease. There is variable disc space narrowing and marginal spurring. No fractures are identified. The prevertebral tissues are normal. Odontoid is intact. IMPRESSION: Cervical spondylosis. No acute bony abnormality is detected. Dictated by: Dictated on workstation # [id number]
--- NOTE | 2022-05-02 15:11 | ED Fall/Injury ---
General Chief Complaint: Trauma-Non Activation Stated Complaint: FALL Nursing Triage Note: pt arrival to ed via [facility] from via [facility], [place]. ems reports pt fell backward from standing at approx 1115 today. reports no LOC and no pain. pt has lac to back of scalp on arrival. pt refused c-collar per ems. ems reports pt has normal A&O. pt is a hospice pt, pt unable to tell this rn what he is on hospice for. pt is A&Ox3 on arrival. pt on o2 nc at 2L per his usual Source: patient, EMS, intermediate records Exam Limitations: no limitations History of Present Illness Date Seen by Provider: May 02, 2022 Time Seen by Provider: 13:38 Initial Comments Up to date on tetanus immunization Allergies and Home Medications Allergies Coded Allergies: No Known Drug Allergies (Unverified , 10/15/12) Patient Home Medication List ALPRAZolam (ALPRAZolam) 0.25 Mg Tablet, 0.125-0.25 MG PO BID PRN for ANXIETY Prescribed by: JOSUE BULLARD on 04/11/22 1229 Acetaminophen (Tylenol Extra Strength) 500 Mg Tablet, 1,000 MG PO Q8H PRN for PAIN-MILD (1-4) Prescribed by: JOSUE BULLARD on 04/11/22 1229 Ascorbic Acid (Vitamin C) 500 Mg Tablet, 500 MG PO DAILY, (Reported) Entered as Reported by: KIERSTEN MORGAN on 04/04/22 1408 Benazepril HCl (Benazepril HCl) 20 Mg Tablet, 20 MG PO DAILY Prescribed by: JOSUE BULLARD on 04/11/22 1229 Carbidopa/Levodopa (Carbidopa-Levo ER 50-200 Tab) 50 Mg-200 Mg Tablet.er, 2 EACH PO 0800,1200 Prescribed by: JOSUE BULLARD on 04/11/22 1229 Carbidopa/Levodopa (Carbidopa-Levo ER 50-200 Tab) 50 Mg-200 Mg Tablet.er, 1 EACH PO HS Prescribed by: JOSUE BULLARD on 04/11/22 1229 Cetirizine HCl (Zyrtec) 10 Mg Tablet, 10 MG PO DAILY PRN for ALLERGIES Prescribed by: JOSUE BULLARD on 04/11/22 1229 Divalproex Sodium (Divalproex Sodium) 125 Mg Tablet.dr, 125 MG PO BID Prescribed by: JOSUE BULLARD on 04/11/22 1229 Finasteride (Finasteride) 5 Mg Tablet, 5 MG PO HS, (Reported) Entered as Reported by: MELANY RAMIREZ on 08/29/21 1130 Gabapentin (Neurontin) 300 Mg Capsule, 300 MG PO HS Prescribed by: JOSUE BULLARD on 04/11/22 1229 Guaifenesin (Mucus Relief) 600 Mg Tab.er.12h, 600 MG PO Q12H PRN for CONGESTION Prescribed by: JOSUE BULLARD on 04/11/22 122 Omeprazole (Omeprazole) 40 Mg Capsule.dr, 40 MG PO DAILY Prescribed by: JOSUE BULLARD on 04/11/22 122 Polyethylene Glycol 3350 (Miralax) 17 Gram Powd.pack, 17 GM PO HS Prescribed by: JOSUE BULLARD on 04/11/22 122 Quetiapine Fumarate (Quetiapine Fumarate) 25 Mg Tablet, 25 MG PO HS Prescribed by: JOSUE BULLARD on 04/11/22 1229 Ropinirole HCl (Ropinirole HCl) 4 Mg Tablet, 4 MG PO TID Prescribed by: JOSUE BULLARD on 04/11/22 122 Sertraline HCl (Sertraline HCl) 100 Mg Tablet, 100 MG PO DAILY Prescribed by: JOSUE BULLARD on 04/11/22 122 Sertraline HCl (Sertraline HCl) 50 Mg Tablet, 50 MG PO DAILY Prescribed by: JOSUE BULLARD on 04/11/22 122 Tamsulosin HCl (Flomax) 0.4 Mg Cap, 0.4 MG PO HS Prescribed by: JOSUE BULLARD on 04/11/22 122 Trazodone HCl (Trazodone HCl) 50 Mg Tablet, 50-100 MG PO HS PRN for SLEEP Prescribed by: JOSUE BULLARD on 04/11/22 122 Zinc Gluconate (Zinc) 50 Mg Tablet, 50 MG PO DAILY Prescribed by: JOSUE BULLARD on 04/11/22 1229 Past Gmqinno-Ouqenb-Mfpsos Hx Immunizations Up To Date Tetanus Booster (TDap): Unknown Influenza Vaccine Up-to-Date: Yes; Up-to-Date First/Initial COVID19 Vaccinat: YES UNKNOW DATE Second COVID19 Vaccination Daniel: YES UNKNOW DATE. Third COVID19 Vaccination Date: YES UNKNOW DATE Seasonal Allergies Seasonal Allergies: No Past Medical History Surgery/Hospitalization HX: [facility] Surgeries: Yes (L ROTATOR CUFF REPAIR;BACK SURGERY X 2;L FOOT SURGERY;VENTRAL HERNIA ) Abdominal, Orthopedic, Tonsillectomy Respiratory: Yes Chronic Bronchitis Currently Using CPAP: Yes Currently Using BIPAP: No Cardiac: Yes Chronic Edema/Swelling, Hypertension Neurological: Yes Parkinson's Disease Reproductive Disorders: No Genitourinary: No Gastrointestinal: Yes (VENTRAL HERNIA REPAIR) Abdominal Hernia, Obstructive Bowel Musculoskeletal: Yes (R ROTATOR CUFF INJ--NO SURGERY;L ROTATOR CUFF SX;BACK SX X2;L FOOT SX AGE 4) Degenerate Disk Disease, Arthritis, Chronic Back Pain Endocrine: No HEENT: Yes (TONSILLECTOMY) Cataract Loss of Vision: Denies Hearing Impairment: Denies Cancer: No Psychosocial: Yes Sleep Difficulties, Depression Integumentary: No Blood Disorders: No Family Medical History No Pertinent Family Hx Physical Exam Vital Signs Vital Signs - First Documented 05/02/22 13:37 Pulse 62 Resp 21 B/P (MAP) 156/88 (110) Pulse Ox 97 O2 Flow Rate 2.00 Capillary Refill : Height, Weight, BMI Height: 5'9.00" Weight: 240lbs. 0.0oz. [id number]; 39.00 BMI Method:Stated Progress/Results/Core Measures Results/Orders Lab Results Laboratory Tests Test 05/02/22 13:47 05/02/22 13:58 Range/Units White Blood Count 5.3 4.3-11.0 10^3/uL Red Blood Count 4.97 4.30-5.52 10^6/uL Hemoglobin 11.8 L 13.3-17.7 g/dL Hematocrit 40 40-54 % Mean Corpuscular Volume 80 80-99 fL Mean Corpuscular Hemoglobin 24 L 25-34 pg Mean Corpuscular Hemoglobin Concent 30 L 32-36 g/dL Red Cell Distribution Width 16.7 H 10.0-14.5 % Platelet Count 240 130-400 10^3/uL Mean Platelet Volume 9.8 9.0-12.2 fL Immature Granulocyte % (Auto) 1 % Neutrophils (%) (Auto) 63 42-75 % Lymphocytes (%) (Auto) 22 12-44 % Monocytes (%) (Auto) 10 0-12 % Eosinophils (%) (Auto) 4 0-10 % Basophils (%) (Auto) 0 0-10 % Neutrophils # (Auto) 3.3 1.8-7.8 10^3/uL Lymphocytes # (Auto) 1.1 1.0-4.0 10^3/uL Monocytes # (Auto) 0.5 0.0-1.0 10^3/uL Eosinophils # (Auto) 0.2 0.0-0.3 10^3/uL Basophils # (Auto) 0.0 0.0-0.1 10^3/uL Immature Granulocyte # (Auto) 0.0 0.0-0.1 10^3/uL Sodium Level 143 135-145 MMOL/L Potassium Level 3.8 3.6-5.0 MMOL/L Chloride Level 102 98-107 MMOL/L Carbon Dioxide Level 30 21-32 MMOL/L Anion Gap 11 5-14 MMOL/L Blood Urea Nitrogen 9 7-18 MG/DL Creatinine 0.79 0.60-1.30 MG/DL Estimat Glomerular Filtration Rate 91 BUN/Creatinine Ratio 11 Glucose Level 101 70-105 MG/DL Calcium Level 8.9 8.5-10.1 MG/DL Magnesium Level 2.0 1.6-2.4 MG/DL Valproic Acid (Depakene) Level 16.4 L 50.0-100.0 UG/ML Urine Color YELLOW Urine Clarity CLEAR Urine pH 6.0 5-9 Urine Specific [place] 1.020 1.016-1.022 Urine Protein NEGATIVE NEGATIVE Urine Glucose (UA) NEGATIVE NEGATIVE Urine Ketones NEGATIVE NEGATIVE Urine Nitrite NEGATIVE NEGATIVE Urine Bilirubin NEGATIVE NEGATIVE Urine Urobilinogen 0.2 < = 1.0 MG/DL Urine Leukocyte Esterase NEGATIVE NEGATIVE Urine RBC (Auto) NEGATIVE NEGATIVE Urine RBC NONE /HPF Urine WBC NONE /HPF Urine Squamous Epithelial Cells NONE /HPF Urine Crystals NONE /LPF Urine Bacteria NEGATIVE /HPF Urine Casts NONE /LPF Urine Mucus NEGATIVE /LPF Urine Culture Indicated NO My Orders Orders - RAKESH BAZAN MD Ct Head/Cervical Spine Wo (05/02/22 13:44) Basic Metabolic Panel (05/02/22 13:44) Cbc With Automated Diff (05/02/22 13:44) Magnesium (05/02/22 13:44) Ua Culture If Indicated (05/02/22 13:44) Valproic Acid (05/02/22 13:44) Ed Iv/Invasive Line Start (05/02/22 13:44) Vital Signs/I&O 05/02/22 13:37 Pulse 62 Resp 21 B/P (MAP) 156/88 (110) Pulse Ox 97 O2 Flow Rate 2.00 Blood Pressure Mean: 110 Departure Impression Primary Impression: Fall on same level Qualified Codes: W18.30XA - Fall on same level, unspecified, initial encounter Additional Impression: Laceration of scalp Qualified Codes: S01.01XA - Laceration without foreign body of scalp, initial encounter Disposition: HOME, SELF-CARE Condition: Stable Departure-Patient Inst. Decision time for Depature: 15:28 Referrals: ALLYSON DIALLO DO (PCP/Family) Primary Care Physician Patient Instructions: Preventing Falls in Older Adults Add. Discharge Instructions: Apply antibiotic ointment and dressing to the shallow laceration on the scalp as needed. Defer to primary care provider and hospice for further needs. All discharge instructions reviewed with patient and/or family. Voiced understanding. RAKESH BAZAN MD May 02, 2022 15:11
[2022-05-02 16:00] VITALS: BP 164/88
== END 2022-05-02 16:00 | disposition home or self-care (01) ==
LOC: EDUNIT# 13:37 → ER 13:38
DX: S01.01XA Laceration without foreign body of scalp, initial encounter (principal); W18.30XA Fall on same level, unspecified, initial encounter
CPT/HCPCS: 36415; 70450; 72125; 80048; 80164; 81000; 83735; 85025

== ENCOUNTER 2022-10-11 19:55 | Inpatient (IN) | payer MEDICARE, OTHER ==
[~2022-10-11] VITALS: Ht 180 cm; Wt 59.0 kg
[~2022-10-11 19:55] MED LIST changes: -MELA1TAB20 PO; +MELA1TAB72 PO
--- NOTE | 2022-10-11 20:12 | ED General ---
General Stated Complaint: FEVER Source of Information: EMS Exam Limitations: No Limitations (JULEITTE SIBLEY) History of Present Illness Date Seen by Provider: Oct 11, 2022 Time Seen by Provider: 20:08 Initial Comments Patient is a 76-year-old male with a history of COPD, respiratory failure, CHF who presents ED from [facility] for mouth secretions, [place] labored breathing. Symptoms started on Thursday. Patient with congestion and cough. According to EMS staff at [facility] noted increased secretions, wheezing and labored breathing this evening and wanted patient. Patient went to breakfast this morning and ate without any difficulties. Patient was alert and oriented at that time. Noted increased confusion throughout the day. Patient had a temperature as high as 102 right before arrival for EMS. No vomiting or diarrhea. Patient is currently on hospice. Limited history provided from EMS and staff. Patient does have a history of dementia. Patient is chronically on oxygen but family is not aware how many liters (JULIETTE SIBLEY) Allergies and Home Medications Allergies Coded Allergies: No Known Drug Allergies (Unverified , 10/15/12) Patient Home Medication List Home Medication List Reviewed: Yes (JULIETTE SIBLEY) Acetaminophen (Acetaminophen) 500 Mg Tablet, 1,000 MG PO Q8H PRN for PAIN, (Reported) Entered as Reported by: MELANY RAMIREZ on 10/13/22 0941 Last Action: Reviewed Acetaminophen (Acetaminophen) 650 Mg Supp.rect, 650 MG RC Q4H PRN for PAIN/FEVER, (Reported) Entered as Reported by: MELANY RAMIREZ on 10/13/22 0953 Last Action: Reviewed Alprazolam (Alprazolam) 0.5 Mg Tablet, 0.5 MG PO Q4H PRN for ANXIETY, (Reported) Entered as Reported by: MELANY RAMIREZ on 10/13/22 0934 Last Action: Reviewed Alprazolam (Alprazolam) 0.5 Mg Tablet, 0.5 MG PO TID, (Reported) Entered as Reported by: MELANY RAMIREZ on 10/13/22 09 Last Action: Reviewed Ascorbic Acid (Vitamin C) 500 Mg Tablet, 500 MG PO DAILY, (Reported) Entered as Reported by: KIERSTEN MORGAN on 04/04/22 1408 Last Action: Reviewed Bisacodyl (Bisacodyl) 10 Mg Supp.rect, 10 MG RC DAILY PRN for CONSTIPATION-4TH LINE, (Reported) Entered as Reported by: MELANY RAMIREZ on 10/13/22943 Last Action: Reviewed Carbidopa/Levodopa (Carbidopa-Levo ER 50-200 Tab) 50 Mg-200 Mg Tablet.er, 2 EACH PO BID, (Reported) Entered as Reported by: MELANY RAMIREZ on 10/13/22941 Last Action: Reviewed Carbidopa/Levodopa (Carbidopa-Levo ER 50-200 Tab) 50 Mg-200 Mg Tablet.er, 1 EACH PO HS, (Reported) Entered as Reported by: MELANY RAMIREZ on 10/13/22942 Last Action: Reviewed Cetirizine HCl (Cetirizine HCl) 10 Mg Tablet, 10 MG PO DAILY PRN for ALLERGIES, (Reported) Entered as Reported by: MELANY RAMIREZ on 10/13/22946 Last Action: Reviewed Dextran 70/Hypromellose/Pf (Artificial Tears Drops) 0.1 %-0.3 % Droperette, 1 EACH OP BID, (Reported) Entered as Reported by: MELANY RAMIREZ on 10/13/22937 Last Action: Reviewed Dextran 70/Hypromellose/Pf (Artificial Tears Drops) 0.1 %-0.3 % Droperette, 1 EACH OP DAILY PRN for DRY EYES, (Reported) Entered as Reported by: MELANY RAMIREZ on 10/13/22957 Last Action: Reviewed Gabapentin (Neurontin) 300 Mg Capsule, 300 MG PO HS, (Reported) Entered as Reported by: MELANY RAMIREZ on 10/13/22943 Last Action: Reviewed Guaifenesin (Mucus Relief) 600 Mg Tab.er.12h, 600 MG PO Q12H PRN for COUGH, (Reported) Entered as Reported by: MELANY RAMIREZ on 10/13/22944 Last Action: Reviewed Hyoscyamine Sulfate (Hyoscyamine Sulfate) 0.125 Mg Tab.subl, 0.125 MG SL Q4H PRN for EXCESS SECRETIONS, (Reported) Entered as Reported by: MELANY RAMIREZ on 10/13/22950 Last Action: Reviewed Ipratropium/Albuterol Sulfate (Iprat-Albut 0.5-3(2.5) mg/3 ml) 0.5 Mg-3 Mg (2.5 Mg Base)/3 Ml Ampul.neb, 1 VIAL PO Q4H PRN for SHORTNESS OF BREATH, (Reported) Entered as Reported by: MELANY RAMIREZ on 10/13/22931 Last Action: Reviewed Lisinopril (Lisinopril) 5 Mg Tablet, 5 MG PO HS, (Reported) Entered as Reported by: MELANY RAMIREZ on 10/13/22935 Last Action: Reviewed Lorazepam (Ativan) 0.5 Mg Tablet, 0.5 MG PO Q4H PRN for ANXIETY, (Reported) Entered as Reported by: MELANY RAMIREZ on 10/13/22931 Last Action: Reviewed Magnesium Hydroxide (Milk of Magnesia) 400 Mg/5 Ml Oral.susp, 30 ML PO DAILY PRN for CONSTIPATION-7TH LINE, (Reported) Entered as Reported by: MELANY RAMIREZ on 10/13/22933 Last Action: Reviewed Melatonin (Melatonin) 10 Mg Tablet, 10 MG PO HS, (Reported) Entered as Reported by: MELANY RAMIREZ on 10/13/22941 Last Action: Reviewed Miconazole Nitrate (Miconazole Nitrate) 2 % Powder, 1 APPLIC TP BID PRN for YEAST, (Reported) Entered as Reported by: MELANY RAMIREZ on 10/13/22939 Last Action: Reviewed Morphine Sulfate (Morphine Conc. 20mg/ml) 100 Mg/5 Ml (20 Mg/Ml) Solution, 0.25 ML PO Q4H PRN for PAIN, (Reported) Entered as Reported by: MELANY RAMIREZ on 10/13/22949 Last Action: Reviewed Omeprazole (Omeprazole) 40 Mg Capsule.dr, 40 MG PO DAILY, (Reported) Entered as Reported by: MELANY RAMIREZ on 10/13/22945 Last Action: Reviewed Ondansetron (Ondansetron Odt) 4 Mg Tab.rapdis, 4 MG SL Q4H PRN for NAUSEA/VOMITING, (Reported) Entered as Reported by: MELANY RAMIREZ on 10/13/22947 Last Action: Reviewed Polyethylene Glycol 3350 (Miralax) 17 Gram Powd.pack, 17 GM PO DAILY PRN for CONSTIPATION-2ND LINE, (Reported) Entered as Reported by: MELANY RAMIREZ on 10/13/22946 Last Action: Reviewed Quetiapine Fumarate (Seroquel) 50 Mg Tablet, 50 MG PO TID, (Reported) Entered as Reported by: MELANY RAMIREZ on 10/13/22935 Last Action: Reviewed Sertraline HCl (Sertraline HCl) 150 Mg Capsule, 150 MG PO DAILY, (Reported) Entered as Reported by: MELANY RAMIREZ on 10/13/22945 Last Action: Reviewed Discontinued Medications Acetaminophen (Tylenol Suppository) 325 Mg/Supp.rect Supp.rect, 325 MG HI Q4H PRN for PAIN/FEVER, (Reported) Discontinued Reason: Prescription changed Entered as Reported by: MELANY RAMIREZ on 10/13/22952 Last Action: New Order Review of Systems Review of Systems Constitutional: chills; No diaphoresis; fever, malaise EENTM: No ear pain Respiratory: cough, short of breath Cardiovascular: No chest pain Gastrointestinal: No abdominal pain, No diarrhea, No nausea, No vomiting Genitourinary: No decreased output, No discharge, No frequency, No hematuria Musculoskeletal: No back pain, No joint pain Skin: No change in color, No change in hair/nails (JULIETTE SIBLEY) All Other Systems Reviewed Negative Unless Noted: Yes (JULIETTE SIBLEY) Past Pasiyis-Qbipid-Acngsv Hx Immunizations Up To Date Tetanus Booster (TDap): Unknown First/Initial COVID19 Vaccinat: YES UNKNOW DATE Second COVID19 Vaccination Daniel: YES UNKNOW DATE. Third COVID19 Vaccination Date: YES UNKNOW DATE (JULIETTE SIBLEY) Seasonal Allergies Seasonal Allergies: No (JULIETTE SIBLEY) Past Medical History Surgery/Hospitalization HX: [facility] Surgeries: Yes (L ROTATOR CUFF REPAIR;BACK SURGERY X 2;L FOOT SURGERY;VENTRAL HERNIA ) Abdominal, Orthopedic, Tonsillectomy Respiratory: Yes Chronic Bronchitis, COPD Currently Using CPAP: Yes Currently Using BIPAP: No Cardiac: Yes Chronic Edema/Swelling, Hypertension Neurological: Yes Dementia, Parkinson's Disease Reproductive Disorders: No Genitourinary: No Gastrointestinal: Yes (VENTRAL HERNIA REPAIR) Abdominal Hernia, Obstructive Bowel Musculoskeletal: Yes (R ROTATOR CUFF INJ--NO SURGERY;L ROTATOR CUFF SX;BACK SX X2;L FOOT SX AGE 4) Degenerate Disk Disease, Arthritis, Chronic Back Pain Endocrine: No HEENT: Yes (TONSILLECTOMY) Cataract Loss of Vision: Denies Hearing Impairment: Denies Cancer: No Psychosocial: Yes Sleep Difficulties, Depression Integumentary: No Blood Disorders: No (JULIETTE SIBLEY) Family Medical History No Pertinent Family Hx (JULIETTE SIBLEY) Physical Exam Vital Signs Vital Signs - First Documented 10/11/22 19:56 Temp 38.8 Pulse 126 Resp 35 B/P (MAP) 121/85 (97) Pulse Ox 90 O2 Delivery OxyMask O2 Flow Rate 15.00 (STEVEN LÓPEZ DO) Vital Signs Capillary Refill : (JULIETTE SIBLEY) Height, Weight, BMI Height: 5'9.00" Weight: 240lbs. 0.0oz. [id number]; 39.00 BMI Method:Stated General Appearance: Chronically ill, Other (Confused) Eyes: Bilateral Eye Normal Inspection, Bilateral Eye PERRL, Bilateral Eye EOMI HEENT: PERRL/EOMI, TMs Normal, Normal ENT Inspection Neck: Full Range of Motion, Normal Inspection, Non Tender Respiratory: Crackles, Decreased Breath Sounds Cardiovascular: No Gallop, No JVD, No Murmur, Tachycardia Gastrointestinal: Normal Bowel Sounds, No Organomegaly, No Pulsatile Mass Extremity: Normal Capillary Refill, Normal Inspection, Normal Range of Motion, Non Tender Neurologic/Psychiatric: Alert, Oriented x3, No Motor/Sensory Deficits, Normal Mood/Affect, health evaluator II-XII Norm as Tested Skin: Normal Color, Warm/Dry (JULIETTE SIBLEY) Focused Exam Lactate Level 10/11/22 20:10: Lactic Acid Level 3.46*H 10/11/22 22:12: Lactic Acid Level 4.57*H (STEVEN LÓPEZ DO) Lactic Acid Level Laboratory Tests Test 10/11/22 20:10 10/11/22 22:12 Lactic Acid Level 3.46 MMOL/L (0.50-2.00) *H 4.57 MMOL/L (0.50-2.00) *H (STEVEN LÓPEZ DO) Progress/Results/Core Measures Suspected Sepsis SIRS Temperature: Pulse: Respiratory Rate: Laboratory Tests 10/11/22 20:10: White Blood Count 12.0H Blood Pressure / Mean: 10/11/22 20:10: Lactic Acid Level 3.46*H 10/11/22 22:12: Lactic Acid Level 4.57*H Laboratory Tests 10/11/22 20:10: Creatinine 2.61H, INR Comment 1.2, Platelet Count 183, Total Bilirubin 1.0 (JULIETTE SIBLEY) Results/Orders Lab Results Laboratory Tests Test 10/11/22 20:10 10/11/22 20:12 10/11/22 20:18 10/11/22 21:08 Range/Units White Blood Count 12.0 H 4.3-11.0 10^3/uL Red Blood Count 5.03 4.30-5.52 10^6/uL Hemoglobin 14.0 13.3-17.7 g/dL Hematocrit 45 40-54 % Mean Corpuscular Volume 90 80-99 fL Mean Corpuscular Hemoglobin 28 25-34 pg Mean Corpuscular Hemoglobin Concent 31 L 32-36 g/dL Red Cell Distribution Width 16.7 H 10.0-14.5 % Platelet Count 183 130-400 10^3/uL Mean Platelet Volume 11.7 9.0-12.2 fL Immature Granulocyte % (Auto) 0 % Neutrophils (%) (Auto) 83 H 42-75 % Lymphocytes (%) (Auto) 7 L 12-44 % Monocytes (%) (Auto) 8 0-12 % Eosinophils (%) (Auto) 1 0-10 % Basophils (%) (Auto) 0 0-10 % Neutrophils # (Auto) 10.0 H 1.8-7.8 10^3/uL Lymphocytes # (Auto) 0.9 L 1.0-4.0 10^3/uL Monocytes # (Auto) 1.0 0.0-1.0 10^3/uL Eosinophils # (Auto) 0.1 0.0-0.3 10^3/uL Basophils # (Auto) 0.0 0.0-0.1 10^3/uL Immature Granulocyte # (Auto) 0.1 0.0-0.1 10^3/uL Neutrophils % (Manual) 60 % Lymphocytes % (Manual) 10 % Monocytes % (Manual) 7 % Band Neutrophils 23 % Prothrombin Time 14.9 H 12.2-14.7 SEC INR Comment 1.2 0.8-1.4 Activated Partial Thromboplast Time 38 H 24-35 SEC Sodium Level 144 135-145 MMOL/L Potassium Level 4.3 3.6-5.0 MMOL/L Chloride Level 106 98-107 MMOL/L Carbon Dioxide Level 22 21-32 MMOL/L Anion Gap 16 H 5-14 MMOL/L Blood Urea Nitrogen 56 H 7-18 MG/DL Creatinine 2.61 H 0.60-1.30 MG/DL Estimat Glomerular Filtration Rate 25 BUN/Creatinine Ratio 21 Glucose Level 162 H 70-105 MG/DL Lactic Acid Level 3.46 *H 0.50-2.00 MMOL/L Calcium Level 9.4 8.5-10.1 MG/DL Corrected Calcium 9.5 8.5-10.1 MG/DL Total Bilirubin 1.0 0.1-1.0 MG/DL Aspartate Amino Transf (AST/SGOT) 17 5-34 U/L Alanine Aminotransferase (ALT/SGPT) < 6 0-55 U/L Alkaline Phosphatase 91 40-136 U/L Troponin I < 0.028 <0.028 NG/ML B-Type Natriuretic Peptide 132.3 H <100.0 PG/ML Total Protein 7.2 6.4-8.2 GM/DL Albumin 3.9 3.2-4.5 GM/DL Blood Gas Puncture Site R RAD Blood Gas Patient Temperature 38.8 Arterial Blood pH 7.35 L 7.37-7.43 Arterial Blood Partial Pressure CO2 47 H 35-45 MMHG Arterial Blood Partial Pressure O2 77 L 79-93 MMHG Arterial Blood HCO3 25 23-27 MMOL/L Arterial Blood Total CO2 26.2 21.0-31.0 MMOL/L Arterial Blood Oxygen Saturation 95 94-100 % Arterial Blood Base Excess 0.4 -2.5-2.5 MMOL/L Uriah Test YES-POS Blood Gas Ventilator Setting NO Blood Gas Inspired Oxygen 15 L Influenza Type A (RT-PCR) Not Detected Not Detecte Influenza Type B (RT-PCR) Not Detected Not Detecte SARS-CoV-2 RNA (RT-PCR) Not Detected Not Detecte Urine Color DARK YELLOW Urine Clarity CLEAR Urine pH 5.5 5-9 Urine Specific [place] 1.025 H 1.016-1.022 Urine Protein TRACE H NEGATIVE Urine Glucose (UA) NEGATIVE NEGATIVE Urine Ketones TRACE H NEGATIVE Urine Nitrite NEGATIVE NEGATIVE Urine Bilirubin 1+ H NEGATIVE Urine Urobilinogen 0.2 < = 1.0 MG/DL Urine Leukocyte Esterase NEGATIVE NEGATIVE Urine RBC (Auto) NEGATIVE NEGATIVE Urine RBC NONE /HPF Urine WBC 0-2 /HPF Urine Crystals PRESENT H /LPF Urine Calcium Oxalate Crystals MODERATE H /LPF Urine Amorphous Sediment MOD PEMA URATES H /LPF Urine Bacteria MODERATE H /HPF Urine Casts PRESENT /LPF Urine Hyaline Casts 5-10 H /LPF Urine Mucus SMALL H /LPF Urine Culture Indicated CULTURE PENDING Test 10/11/22 22:12 10/11/22 23:30 Range/Units Lactic Acid Level 4.57 *H 0.50-2.00 MMOL/L Lab Scanned Report Referred Lab Report [id number] (ERICH LÓPEZA Elsa CARLSON) Micro Results Microbiology 10/11/22 Urine Culture - Final, Complete NO GROWTH 10/11/22 Blood Culture - Preliminary, Resulted No growth 10/11/22 Blood Culture - Preliminary, Resulted Staph, Coag Neg ([employer]) (STEVEN LÓPEZ DO) Vital Signs/I&O 10/11/22 10/11/22 10/11/22 10/11/22 19:56 20:14 21:37 22:58 Temp 38.8 38.8 37.7 Pulse 126 134 130 Resp 35 30 B/P (MAP) 121/85 (97) 93/65 Pulse Ox 90 94 98 O2 Delivery OxyMask O2 Flow Rate 15.00 100.00 (STEVEN LÓPEZ DO) Vital Signs/I&O Capillary Refill : (JULIETTE SIBLEY) ECG Comment Sinus tachycardia, incomplete right bundle branch block, ST deviation and moderate T wave malady in V3 to V4. 132 bpm, QRS duration 98 MS, QTc 445 MS (JULIETTE SIBLEY) Departure Communication (PCP) Patient presents to ED in respiratory distress. Patient does not respond to pain or verbal commands. Oxygen 90% on 10 L nasal cannula. Patient was placed on BiPAP initially. Sepsis protocol was initiated. Patient was tachycardic febrile with temperature 38. COVID exposure. Multiple negative COVID swabs at the residential. Rales and crackles noted throughout the lungs. Concern for pneumonia, viral syndrome, CHF exacerbation. ABG was performed. pH 7.35, PCO2 47, PO2 of 77. Patient white blood count of 12. Creatinine at 2.61 GFR 25. Blood pressure was 121/85. Temperature 38. Patient was started on cefepime and vancomycin for hospital-acquired pneumonia. Patient Was given DuoNeb breathing treatment. Started on a liter of fluid. Chest x-ray concerning for mild CHF, perihilar and hilar infiltrate greater on the left, ill-defined nodular density in the right lower chest. Patient Troponin negative. BNP 132. After a few liters of fluid patient lactic acid increased to 4.57. Blood pressure started to decrease in the 90s systolic. Added 3 L of fluid. Discussed with family that patient may require pressors and a central line for septic shock. They refused to proceed at this time. Initially they were requesting a full work-up but now requesting more comfort measures. Patient is currently DNR and DNI. DPOA is patient's . Discussed with family that my concern that patient may continue to decompensate and require further intervention. She does not want to proceed at this time. She is requesting comfort care. Requesting to wean off BiPAP. Hospice nurse was contacted and came to the ED. Patient was discussed with Dr. Aldana hospitalist who saw patient here in the ED. (JULIETTE SIBLEY) Impression Primary Impression: Acute on chronic respiratory failure with hypoxia and hypercapnia Additional Impressions: Pneumonia Septic shock Disposition: ADMITTED INPATIENT Condition: Stable Admissions Decision to Admit Reason: Admit from ER (General) Decision to Admit/Date: Oct 11, 2022 Time/Decision to Admit Time: 21:39 (JULIETTE SIBLEY) Departure-Patient Inst. Decision time for Depature: 21:39 (JULIETTE SIBLEY) Referrals: ALLYSON DIALLO DO (PCP/Family) Primary Care Physician ATTENDING PHYSICIAN NOTE: I WAS PHYSICALLY PRESENT ER PHYSICIAN, BUT I WAS NOT INVOLVED IN ANY DECISION MAKING OR ANY CARE OF THIS PATIENT, AND I AM NOT COLLABORATING PHYSICIAN. (STEVEN LÓPEZ DO) JULIETTE SIBLEY Oct 11, 2022 20:12 STEVEN LÓPEZ DO Oct 16, 2022 18:26
[2022-10-11 20:14] VITALS: BP 121/85
[2022-10-11] MEDS ORDERED: RT-ALBUTEROL/IPRATROPIUM 3 ML (DUONEB) VIAL INH ONE (20:15)
[2022-10-11] MEDS ORDERED: NS IV 1000 ML 1,000 ML IV SCH (20:15)
[2022-10-11] MEDS ORDERED: CEFEPIME INJECTION 1,000 MG in NS (IVPB) 50 ML IV ONE (20:15)
[2022-10-11 20:26] LABS: BASOPHILS % (AUTO) 0 % (0-10); EOSINOPHILS # (AUTO) 0.1 10^3/uL (0.0-0.3); EOSINOPHILS % (AUTO) 1 % (0-10); HEMATOCRIT 45 % (40-54); LYMPHOCYTES # (AUTO) 0.9 10^3/uL (1.0-4.0); LYMPHOCYTES % (AUTO) 7 % (12-44); MEAN CORPUSCULAR HEMOGLOBIN 28 pg (25-34); MEAN CORPUSCULAR HGB CONC 31 g/dL (32-36); MEAN CORPUSCULAR VOLUME 90 fL (80-99); MEAN PLATELET VOLUME 11.7 fL (9.0-12.2); MONOCYTES % (AUTO) 8 % (0-12); NEUTROPHILS % (AUTO) 83 % (42-75); PLATELET COUNT 183 10^3/uL (130-400)
[2022-10-11 20:33] LABS: ALBUMIN 3.9 GM/DL (3.2-4.5); CHLORIDE 106 MMOL/L (98-107); POTASSIUM 4.3 MMOL/L (3.6-5.0); SODIUM 144 MMOL/L (135-145)
[2022-10-11 20:34] LABS: CALCIUM 9.4 MG/DL (8.5-10.1); INR 1.2 (0.8-1.4); PROTHROMBIN TIME PATIENT 14.9 SEC (12.2-14.7)
[2022-10-11 20:35] LABS: GLUCOSE 162 MG/DL (70-105); TOTAL PROTEIN 7.2 GM/DL (6.4-8.2)
[2022-10-11 20:36] LABS: CARBON DIOXIDE 22 MMOL/L (21-32)
[2022-10-11 20:39] LABS: ALKALINE PHOSPHATASE 91 U/L (40-136); CREATININE SERUM 2.61 MG/DL (0.60-1.30); GFR ESTIMATED 25
[2022-10-11 20:40] LABS: BUN/CREATININE RATIO 21
[2022-10-11 20:42] LABS: ALANINE AMINOTRANSFERASE < 6 U/L (0-55)
--- NOTE | 2022-10-11 20:46 | Diagnostic Imaging Report ---
INDICATION: Shortness of breath. COMPARISONS: 04/06/2022 FINDINGS: Single chest shows the cardiac contour to be upper limits of normal. There is moderate central venous congestion. Some perihilar nodes are seen. There is a focal density in the right lower chest. Some minimal left basilar infiltrates slightly obscured left diaphragmatic silhouette. Soft tissues and bony thorax unremarkable. There is aortic calcific atherosclerosis. IMPRESSION: 1. Mild congestive heart failure. Findings are accentuated by the portable technique and low lung volumes 2. Nonspecific mediastinal adenopathy similar to the previous study. 3. There is an ill-defined nodular density which is developed in the right lower chest. Departmental PA and lateral film of the chest with short-term followup recommended. 4. Some perihilar and basilar infiltrates left greater than right. Dictated by: Dictated on workstation # [id number]
[2022-10-11 21:05] LABS: BAND NEUTROPHILS 23 %; LYMPHOCYTES % (MANUAL) 10 %; MONOCYTES % (MANUAL) 7 %; NEUTROPHILS % (MANUAL) 60 %
[2022-10-11] MEDS ORDERED: NS IV 1000 ML 1,000 ML IV STA ×2 (21:22→22:40)
[2022-10-11 21:25] LABS: CLARITY,URINE CLEAR; COLOR,URINE DARK YELLOW; GLUCOSE, URINE (UA) NEGATIVE (NEGATIVE); KETONES,URINE TRACE (NEGATIVE); LEUKOCYTE ESTERASE ,URINE NEGATIVE (NEGATIVE); NITRITE,URINE NEGATIVE (NEGATIVE); PH,URINE 5.5 (5-9); PROTEIN,URINE TRACE (NEGATIVE)
[2022-10-11] MEDS ORDERED: KETOROLAC 30 MG/ML VIAL IVP ONE (21:30)
[2022-10-11] MEDS ORDERED: KETOROLAC 30 MG/ML VIAL ONE (21:33)
[2022-10-11 21:36] LABS: ABG BASE EXCESS 0.4 MMOL/L (-2.5-2.5); ABG OXYGEN SATURATION 95 % (94-100); ABG PCO2 47 MMHG (35-45); ABG PH 7.35 (7.37-7.43); ABG PO2 77 MMHG (79-93); ABG TCO2 26.2 MMOL/L (21.0-31.0); ALLENS TEST YES-POS; INSPIRED O2 15 L; VENTILATOR NO
[2022-10-11 21:37] LABS: PATIENT TEMP 38.8
[2022-10-11 21:41] LABS: AMORPHOUS SEDIMENT,UR MOD AMOR URATES /LPF; BACTERIA,URINE MODERATE /HPF; CALCIUM OXALATE CRYSTALS,UR MODERATE /LPF; WBC,URINE 0-2 /HPF
[2022-10-11 21:42] LABS: BILIRUBIN,URINE 1+ (NEGATIVE)
[2022-10-11] MEDS ORDERED: VANCOMYCIN INJECTION 1,000 MG in NS (IVPB) 250 ML IV ONE (21:45)
[2022-10-11 22:58] VITALS: BP 93/65
--- NOTE | 2022-10-11 23:45 | History & Physical-Hospitalist ---
History of Present Illness HPI/Chief Complaint Pt is a 76yoCM known to me from the community and previous admission who presented to the ER due to fever. He resides at a local /skilled nursing and had been exposed to COVID but has tested negative multiple times. His symptoms started on 10/07 and continued to progress. He was seen by the hospice nurse yesterday and his actually thought he may pass away that night. He continued to worsen and had labor respirations so decision was made to seek evaluation in the ER. He was found to be septic from pneumonia with a fever of 102 and tachycardia and leukocytosis. His lactic was elevated and he required BiPAP due to work of breathing and hypoxia. Initially plan was to revoke hospice and admit to the ICU for further aggressive care but he continued to further decompensate in the ER and family elected to pursue comfort care measures only. is currently at bedside playing music for patient. Source: family Exam Limitations: clinical condition Date Seen 10/11/22 Time Seen by a Provider: 23:40 Attending Physician Sami Vincent DO PCP Admitting Physician: Josue Bullard MD Attending Physician: Josue Bullard MD Referring Physician Date of Admission Oct 11, 2022 at 23:30 Home Medications & Allergies Home Medications Reviewed patient Home Medication Reconciliation performed by pharmacy medication reconciliations heavy equipment service technician and/or nursing. Patients Allergies have been reviewed. Allergies Allergies Coded Allergies No Known Drug Allergies (Unverified10/15/12) Past Xaotetd-[id number]-[id number] Hx Patient Social History Marrital Status: Immunizations Up To Date Date of Influenza Vaccine: Jan 23, 2017 First/Initial COVID19 Vaccinat: YES UNKNOW DATE Second COVID19 Vaccination Daniel: YES UNKNOW DATE. Tetanus Booster (TDap): Unknown Seasonal Allergies Seasonal Allergies: No Current Status Primary Language: Kuwaiti Preferred Spoken Language: Kuwaiti Past Medical History Surgeries: Abdominal, Orthopedic, Tonsillectomy Chronic Bronchitis, COPD Currently Using CPAP: Yes Currently Using BIPAP: No Chronic Edema/Swelling, Hypertension Dementia, Parkinson's Disease Abdominal Hernia, Obstructive Bowel Degenerate Disk Disease, Arthritis, Chronic Back Pain Cataract Loss of Vision: Denies Hearing Impairment: Denies Sleep Difficulties, Depression Blood Disorders: No Family Medical History No Pertinent Family Hx Review of Systems Constitutional: see HPI Physical Exam Physical Exam Vital Signs Vital Signs - First Documented 10/11/22 19:56 Temp 38.8 Pulse 126 Resp 35 B/P (MAP) 121/85 (97) Pulse Ox 90 O2 Delivery OxyMask O2 Flow Rate 15.00 Capillary Refill : Height, Weight, BMI Height: 5'9.00" Weight: 240lbs. 0.0oz. 108.153232vt; 18.00 BMI Method:Stated General Appearance: Chronically ill, Other (on BiPAP, nearly unresponsive though did flinch to touch) Respiratory: Decreased Breath Sounds, Rhonci, Other (on BiPAP) Cardiovascular: No Murmur, Tachycardia Gastrointestinal: Soft Neurologic/Psychiatric: Other (flinches when touched but otherwise did not respond) Skin: No Mottled Results Results/Procedures Labs Laboratory Tests 10/11/22 20:10 Patient resulted labs reviewed. Imaging: Reviewed Imaging Report [facility] [place], [place] NAME: DARRIUS ABRAHAM [facility] REC#: [id number] PT STATUS: REG ER : 1945 PHYSICIAN: JULIETTE SIBLEY ADMIT DATE: 10/11/22/ER Signed Date of Exam:10/11/22 CHEST 1 VIEW, AP/PA ONLY INDICATION: Shortness of breath. COMPARISONS: 04/06/2022 FINDINGS: Single chest shows the cardiac contour to be upper limits of normal. There is moderate central venous congestion. Some perihilar nodes are seen. There is a focal density in the right lower chest. Some minimal left basilar infiltrates slightly obscured left diaphragmatic silhouette. Soft tissues and bony thorax unremarkable. There is aortic calcific atherosclerosis. IMPRESSION: 1. Mild congestive heart failure. Findings are accentuated by the portable technique and low lung volumes 2. Nonspecific mediastinal adenopathy similar to the previous study. 3. There is an ill-defined nodular density which is developed in the right lower chest. Departmental PA and lateral film of the chest with short-term followup recommended. 4. Some perihilar and basilar infiltrates left greater than right. Dictated by: Dictated on workstation # [id number] Dict: 10/11/222037 Trans: 10/11/222144 CVB [id number] Interpreted by: EL JEFFERS MD Electronically signed by: EL JEFFERS MD 10/11/22 9814 Assessment/Plan Admission Diagnosis Septic Shock Admission Status: Inpatient Order (span 2 midnights) Reason for Inpatient Admission: see below Assessment and Plan Septic Shock due to pneumonia Acute on Chronic Respiratory Failure COPD Parkinson's Disease Parkinson's Dementia Was on hospice briefly considered revoking but now pursuing comfort measures only Admit to GIP Comfort care order set at bedside Wood Casket Maker called for annointing Diagnosis/Problems Diagnosis/Problems (1) Acute on chronic respiratory failure with hypoxia and hypercapnia Status: Acute (2) Pneumonia Status: Acute (3) Sepsis Status: Acute (4) Parkinson's disease dementia Status: Acute (5) Septic shock due to undetermined organism Status: Acute (6) COPD with acute lower respiratory infection Status: Acute (7) Respiratory failure with hypoxia and hypercapnia Status: Acute JOSUE BULLARD MD Oct 11, 2022 23:45
[2022-10-12] MEDS ORDERED: SALIVA SUBSTITUTE 60 ML SPRAY(MOUTHKOTE) MM PRN (02:00)
[2022-10-12] MEDS ORDERED: PROMETHAZINE INJ 25 MG/ML (PHENERGAN) AMP IVP PRN (02:00)
[2022-10-12] MEDS ORDERED: ARTIFICAL TEARS 0.4 ML UNIT DOSE (REFRESH PLUS) OU PRN (02:00)
[2022-10-12] MEDS ORDERED: RT-ALBUTEROL/IPRATROPIUM 3 ML (DUONEB) VIAL INH PRN (02:00)
[2022-10-12] MEDS ORDERED: ONDANSETRON 4 MG/2 ML (SDV) Z0FRAN IVP PRN (02:00)
[2022-10-12] MEDS ORDERED: BISACODYL 10 MG SUPP (DULCOLAX) PR PRN (02:00)
[2022-10-12] MEDS ORDERED: LORazepam 1 MG (ATIVAN) TAB SL PRN (02:00)
[2022-10-12] MEDS ORDERED: ACETAMINOPHEN 650 MG SUPP (TYLENOL) PR PRN (02:00)
[2022-10-12] MEDS ORDERED: GLYCOPYRROLATE 0.2 MG/ML (ROBINUL) 2 ML VIAL ONE (02:17)
[2022-10-12] MEDS ORDERED: morphine INJ 4 MG/ML 1 ML (VIAL/SYRINGE) ONE (02:17)
[2022-10-12] MEDS ORDERED: LORazepam INJ 2 MG/ML (ATIVAN) VIAL ONE (02:18)
[2022-10-12] MEDS: GLYCOPYRROLATE 0.2 MG/ML (ROBINUL) 2 ML VIAL IV PRN ×5 (02:31→23:45)
[2022-10-12] MEDS: morphine INJ 4 MG/ML 1 ML (VIAL/SYRINGE) IVP PRN ×8 (02:35→23:45)
[2022-10-12] MEDS ORDERED: LORazepam INJ 2 MG/ML (ATIVAN) VIAL IVP PRN (02:45)
[2022-10-12] MEDS: LORazepam INJ 2 MG/ML (ATIVAN) VIAL IVP PRN ×8 (04:42→23:45)
[2022-10-12] MEDS ORDERED: VANCOMYCIN INJECTION 1,000 MG in NS (IVPB) 250 ML IV SCH (08:00)
--- NOTE | 2022-10-12 08:04 | Tele-ICU Consult ---
History of Present Illness History of Present Illness Date Seen by Provider: Oct 12, 2022 Time Seen by Provider: 08:03 Date of Admission 10/11/2022 Allergies and Home Medications Allergies Coded Allergies: No Known Drug Allergies (Unverified , 10/15/12) Home Medications Acetaminophen 500 Mg Tablet, 1,000 MG PO Q8H PRN for PAIN, (Reported) TAKES 2 (500MG) TABS Acetaminophen 650 Mg Supp.rect, 650 MG RC Q4H PRN for PAIN/FEVER, (Reported) Alprazolam 0.5 Mg Tablet, 0.5 MG PO Q4H PRN for ANXIETY, (Reported) Alprazolam 0.5 Mg Tablet, 0.5 MG PO TID, (Reported) Ascorbic Acid 500 Mg Tablet, 500 MG PO DAILY, (Reported) Bisacodyl 10 Mg Supp.rect, 10 MG RC DAILY PRN for CONSTIPATION-4TH LINE, (Reported) Carbidopa/Levodopa 50 Mg-200 Mg Tablet.er, 2 EACH PO BID, (Reported) Carbidopa/Levodopa 50 Mg-200 Mg Tablet.er, 1 EACH PO HS, (Reported) Cetirizine HCl 10 Mg Tablet, 10 MG PO DAILY PRN for ALLERGIES, (Reported) Dextran 70/Hypromellose/Pf 0.1 %-0.3 % Droperette, 1 EACH OP BID, (Reported) Dextran 70/Hypromellose/Pf 0.1 %-0.3 % Droperette, 1 EACH OP DAILY PRN for DRY EYES, (Reported) Gabapentin 300 Mg Capsule, 300 MG PO HS, (Reported) Guaifenesin 600 Mg Tab.er.12h, 600 MG PO Q12H PRN for COUGH, (Reported) Hyoscyamine Sulfate 0.125 Mg Tab.subl, 0.125 MG SL Q4H PRN for EXCESS SECRETIONS, (Reported) Ipratropium/Albuterol Sulfate 0.5 Mg-3 Mg (2.5 Mg Base)/3 Ml Ampul.neb, 1 VIAL PO Q4H PRN for SHORTNESS OF BREATH, (Reported) Lisinopril 5 Mg Tablet, 5 MG PO HS, (Reported) Lorazepam 0.5 Mg Tablet, 0.5 MG PO Q4H PRN for ANXIETY, (Reported) Magnesium Hydroxide 400 Mg/5 Ml Oral.susp, 30 ML PO DAILY PRN for CONSTIPATION- 7TH LINE, (Reported) Melatonin 10 Mg Tablet, 10 MG PO HS, (Reported) Miconazole Nitrate 2 % Powder, 1 APPLIC TP BID PRN for YEAST, (Reported) Morphine Sulfate 100 Mg/5 Ml (20 Mg/Ml) Solution, 0.25 ML PO Q4H PRN for PAIN, (Reported) Omeprazole 40 Mg Capsule.dr, 40 MG PO DAILY, (Reported) Ondansetron 4 Mg Tab.rapdis, 4 MG SL Q4H PRN for NAUSEA/VOMITING, (Reported) Polyethylene Glycol 3350 17 Gram Powd.pack, 17 GM PO DAILY PRN for CONSTIPATION- 2ND LINE, (Reported) Quetiapine Fumarate 50 Mg Tablet, 50 MG PO TID, (Reported) Sertraline HCl 150 Mg Capsule, 150 MG PO DAILY, (Reported) Past Medical/Social/Family Hx Patient Social History Marrital Status: Tobacco Use?: No Use of E-Cig and/or Vaping dev: No Substance use?: No Alcohol Use?: No Pt stated abuse/neglect: No Immunizations Up To Date First/Initial COVID19 Vaccinat: YES UNKNOW DATE Second COVID19 Vaccination Daniel: YES UNKNOW DATE. Tetanus Booster (TDap): Unknown Current Status Communicates: Verbally Primary Language: [place]an Preferred Spoken Language: [place]an Focused Exam Lactate Level 10/11/22 20:10: Lactic Acid Level 3.46*H 10/11/22 22:12: Lactic Acid Level 4.57*H Height, Weight, BMI Height: 5'9.00" Weight: 240lbs. 0.0oz. 108.503081la; 18.20 BMI Method:Stated Exam Exam Patient acknowledged, consented, and participated in this virtual visit which was conducted using real time audio/video Vital Signs Date Time Temp Pulse Resp B/P (MAP) Pulse Ox O2 Delivery O2 Flow Rate FiO2 10/12/22 01:52 OxyMask 2.00 10/11/22 22:58 37.7 130 93/65 98 10/11/22 21:37 38.8 10/11/22 20:14 134 30 94 100.00 10/11/22 19:56 38.8 126 35 121/85 (97) 90 OxyMask 15.00 I & O 10/12/22 07:00 Intake Total 3300 ml Output Total 100 ml Balance 3200 ml Height & Weight Height: 5'9.00" Weight: 240lbs. 0.0oz. 108.777755py; 18.20 BMI Method:Stated General Appearance: Chronically ill, Other (on BiPAP, nearly unresponsive though did flinch to touch) HEENT: PERRL/EOMI, TMs Normal, Normal ENT Inspection Neck: Full Range of Motion, Normal Inspection, Non Tender Respiratory: Decreased Breath Sounds, Rhonci, Other (on BiPAP) Cardiovascular: No Murmur, Tachycardia Extremity: Normal Capillary Refill, Normal Inspection, Normal Range of Motion, Non Tender Neurologic/Psychiatric: Other (flinches when touched but otherwise did not respond) Skin: No Mottled Results Lab Laboratory Tests 10/11/22 20:10 MICK MCGREGOR MD Oct 12, 2022 08:03
[2022-10-12] MEDS ORDERED: CEFEPIME INJECTION 1,000 MG in NS (IVPB) 50 ML IV SCH (09:00)
--- NOTE | 2022-10-12 09:18 | Progress Note - Hospitalist ---
Subjective HPI/CC On Admission Date Seen by Provider: Oct 12, 2022 Pt is a 76yoCM known to me from the community and previous admission who presented to the ER due to fever. He resides at a local /[facility] and had been exposed to COVID but has tested negative multiple times. His symptoms started on 10/07 and continued to progress. He was seen by the hospice nurse yesterday and his actually thought he may pass away that night. He continued to worsen and had labor respirations so decision was made to seek evaluation in the ER. He was found to be septic from pneumonia with a fever of 102 and tachycardia and leukocytosis. His lactic was elevated and he required BiPAP due to work of breathing and hypoxia. Initially plan was to revoke hospice and admit to the ICU for further aggressive care but he continued to further decompensate in the ER and family elected to pursue comfort care measures only. is currently at bedside playing music for patient. Subjective/Events-last exam Pt laying in bed. Appears comfortable. RN reports no concerns this AM. No ROS possible. Focused Exam Lactate Level 10/11/22 20:10: Lactic Acid Level 3.46*H 10/11/22 22:12: Lactic Acid Level 4.57*H Objective Exam Vital Signs Vital Signs Date Time Temp Pulse Resp B/P (MAP) Pulse Ox O2 Delivery O2 Flow Rate FiO2 10/12/22 09:06 38.8 137 34 85 OxyMask 2.00 10/11/22 22:58 93/65 Capillary Refill : General Appearance: No Apparent Distress, Chronically ill Respiratory: No Accessory Muscle Use, Decreased Breath Sounds Cardiovascular: Tachycardia Neurologic/Psychiatric: Other (resting comfortably) Results/Procedures Lab Laboratory Tests 10/11/22 20:10 Patient resulted labs reviewed. Imaging: Reviewed Imaging Report Assessment/Plan Assessment and Plan Assess & Plan/Chief Complaint Septic Shock due to pneumonia Acute on Chronic Respiratory Failure COPD Parkinson's Disease Parkinson's Dementia Was on hospice briefly considered revoking but now pursuing comfort measures only Admit to GIP Comfort care order set Appears comfortable Continue supportive care Diagnosis/Problems Diagnosis/Problems (1) Acute on chronic respiratory failure with hypoxia and hypercapnia Status: Acute (2) Pneumonia Status: Acute (3) Sepsis Status: Acute (4) Parkinson's disease dementia Status: Acute (5) Septic shock due to undetermined organism Status: Acute (6) COPD with acute lower respiratory infection Status: Acute (7) Respiratory failure with hypoxia and hypercapnia Status: Acute JOSUE BULLARD MD Oct 12, 2022 09:18
[2022-10-12] MEDS: ATROPINE 1% OPHTHALMIC SOLN 2 ML SL PRN (16:12)
[2022-10-12] MEDS: KETOROLAC 15 MG/ML VIAL IVP PRN ×2 (17:44→20:25)
[2022-10-12] MEDS ORDERED: VANCOMYCIN 750 MG/NS 250 ML IVPB IV SCH ×2 (21:00)
[2022-10-13] MEDS: LORazepam INJ 2 MG/ML (ATIVAN) VIAL IVP PRN ×8 (05:07→23:45)
[2022-10-13] MEDS: morphine INJ 4 MG/ML 1 ML (VIAL/SYRINGE) IVP PRN ×8 (05:08→23:46)
[2022-10-13] MEDS: GLYCOPYRROLATE 0.2 MG/ML (ROBINUL) 2 ML VIAL IV PRN ×4 (05:08→18:40)
[2022-10-13] MEDS ORDERED: LORA-404 PO (09:32)
[2022-10-13] MEDS ORDERED: IPRA3AMP31 PO (09:32)
[2022-10-13] MEDS ORDERED: MAGN400O7 PO (09:34)
[2022-10-13] MEDS ORDERED: ALPR0.5T7 PO ×2 (09:34→09:35)
[2022-10-13] MEDS ORDERED: QUET50TA PO (09:36)
[2022-10-13] MEDS ORDERED: LISI5TAB20 PO (09:36)
[2022-10-13] MEDS ORDERED: DEXT1DRO8 OP ×3 (09:38→09:58)
[2022-10-13] MEDS ORDERED: MICO85PO14 TP (09:40)
[2022-10-13] MEDS ORDERED: ACET-93 PO (09:41)
[2022-10-13] MEDS ORDERED: CARB1TAB41 PO ×2 (09:42→09:43)
[2022-10-13] MEDS ORDERED: MELA10TA2 PO (09:42)
[2022-10-13] MEDS ORDERED: BISA10SU8 RC (09:44)
[2022-10-13] MEDS ORDERED: GABA300C PO (09:44)
[2022-10-13] MEDS ORDERED: GUAI-977 PO (09:45)
[2022-10-13] MEDS ORDERED: OMEP40CA6 PO (09:46)
[2022-10-13] MEDS ORDERED: SERT150C PO (09:46)
[2022-10-13] MEDS ORDERED: POLY17PO6 PO (09:47)
[2022-10-13] MEDS ORDERED: CETI10TA17 PO (09:47)
[2022-10-13] MEDS ORDERED: ONDA4TAB11 SL (09:48)
[2022-10-13] MEDS ORDERED: MORP100S7 PO (09:50)
[2022-10-13] MEDS ORDERED: HYOS-19 SL (09:51)
[2022-10-13] MEDS ORDERED: ACET325S10 PR (09:53)
[2022-10-13] MEDS ORDERED: ACET650S15 RC (09:53)
--- NOTE | 2022-10-13 15:39 | Progress Note - Hospitalist ---
Subjective HPI/CC On Admission Date Seen by Provider: Oct 13, 2022 Time Seen by Provider: 11:00 Pt is a 76yoCM known to me from the community and previous admission who presented to the ER due to fever. He resides at a local /[facility] and had been exposed to COVID but has tested negative multiple times. His symptoms started on 10/07 and continued to progress. He was seen by the hospice nurse yesterday and his actually thought he may pass away that night. He continued to worsen and had labor respirations so decision was made to seek evaluation in the ER. He was found to be septic from pneumonia with a fever of 102 and tachycardia and leukocytosis. His lactic was elevated and he required BiPAP due to work of breathing and hypoxia. Initially plan was to revoke hospice and admit to the ICU for further aggressive care but he continued to further decompensate in the ER and family elected to pursue comfort care measures only. is currently at bedside playing music for patient. Subjective/Events-last exam He is sleeping and unresponsive. His is at the bedside. Focused Exam Lactate Level 10/11/22 20:10: Lactic Acid Level 3.46*H 10/11/22 22:12: Lactic Acid Level 4.57*H Objective Exam Vital Signs Vital Signs Date Time Temp Pulse Resp B/P (MAP) Pulse Ox O2 Delivery O2 Flow Rate FiO2 10/13/22 09:28 OxyMask 2.00 10/13/22 08:59 38.6 10/12/22 09:06 137 34 85 10/11/22 22:58 93/65 Capillary Refill : General Appearance: No Apparent Distress, Thin Respiratory: Decreased Breath Sounds, Respiratory Distress (tachypnea) Cardiovascular: No Murmur, Tachycardia Gastrointestinal: Normal Bowel Sounds, Soft Extremity: Normal Inspection, No Pedal Edema Neurologic/Psychiatric: Other (unresponsive) Results/Procedures Lab Patient resulted labs reviewed. Imaging: Reviewed Imaging Report Assessment/Plan Assessment and Plan Assess & Plan/Chief Complaint Septic Shock due to pneumonia Acute on Chronic Respiratory Failure COPD Parkinson's Disease Parkinson's Dementia Poor prognosis Comfort measures only status Previously on hospice Comfort care orders in place Continue supportive care Diagnosis/Problems Diagnosis/Problems (1) Septic shock Status: Acute (2) Pneumonia Status: Acute (3) Acute on chronic respiratory failure with hypoxia and hypercapnia Status: Acute (4) Parkinson's disease Status: Chronic (5) Parkinson's disease dementia Status: Acute (6) Comfort measures only status Status: Acute (7) Poor prognosis Status: Acute RO DE LA VEGA MD Oct 13, 2022 15:39
[2022-10-13] MEDS: KETOROLAC 15 MG/ML VIAL IVP PRN (19:32)
[2022-10-14] MEDS: morphine INJ 4 MG/ML 1 ML (VIAL/SYRINGE) IVP PRN ×7 (02:32→20:40)
[2022-10-14] MEDS: GLYCOPYRROLATE 0.2 MG/ML (ROBINUL) 2 ML VIAL IV PRN ×5 (02:32→20:39)
[2022-10-14] MEDS: LORazepam INJ 2 MG/ML (ATIVAN) VIAL IVP PRN ×6 (02:33→20:39)
[2022-10-14] MEDS: KETOROLAC 15 MG/ML VIAL IVP PRN (14:11)
[2022-10-14] MEDS: ATROPINE 1% OPHTHALMIC SOLN 2 ML SL PRN (16:03)
--- NOTE | 2022-10-14 17:27 | Progress Note - Hospitalist ---
Subjective HPI/CC On Admission Date Seen by Provider: Oct 14, 2022 Time Seen by Provider: 10:45 Pt is a 76yoCM known to me from the community and previous admission who presented to the ER due to fever. He resides at a local /[facility] and had been exposed to COVID but has tested negative multiple times. His symptoms started on 10/07 and continued to progress. He was seen by the hospice nurse yesterday and his actually thought he may pass away that night. He continued to worsen and had labor respirations so decision was made to seek evaluation in the ER. He was found to be septic from pneumonia with a fever of 102 and tachycardia and leukocytosis. His lactic was elevated and he required BiPAP due to work of breathing and hypoxia. Initially plan was to revoke hospice and admit to the ICU for further aggressive care but he continued to further decompensate in the ER and family elected to pursue comfort care measures only. is currently at bedside playing music for patient. Subjective/Events-last exam He is sleeping. He opens his eyes briefly. He does not speak. He appears comfortable. Focused Exam Lactate Level 10/11/22 20:10: Lactic Acid Level 3.46*H 10/11/22 22:12: Lactic Acid Level 4.57*H Objective Exam Vital Signs Vital Signs Date Time Temp Pulse Resp B/P (MAP) Pulse Ox O2 Delivery O2 Flow Rate FiO2 10/14/22 13:53 OxyMask 2.00 10/13/22 21:00 85 10/13/22 08:59 38.6 10/12/22 09:06 137 34 10/11/22 22:58 93/65 Capillary Refill : General Appearance: No Apparent Distress, Chronically ill, Thin Respiratory: Lungs Clear, No Respiratory Distress Cardiovascular: No Murmur, Tachycardia Gastrointestinal: Normal Bowel Sounds, Soft Extremity: Normal Inspection, No Pedal Edema Skin: Diaphoresis Results/Procedures Lab Patient resulted labs reviewed. Imaging: Reviewed Imaging Report Assessment/Plan Assessment and Plan Assess & Plan/Chief Complaint Septic Shock due to pneumonia Acute on Chronic Respiratory Failure COPD Parkinson's Disease Parkinson's Dementia Poor prognosis Comfort measures only status Continue comfort care Diagnosis/Problems Diagnosis/Problems (1) Septic shock Status: Acute (2) Pneumonia Status: Acute (3) Acute on chronic respiratory failure with hypoxia and hypercapnia Status: Acute (4) Parkinson's disease Status: Chronic (5) Parkinson's disease dementia Status: Acute (6) Comfort measures only status Status: Acute (7) Poor prognosis Status: Acute RO DE LA VEGA MD Oct 14, 2022 17:27
--- NOTE | 2022-10-15 08:52 | Discharge Summary ---
Discharge Summary Hospital Course Problems/Dx: (1) Septic shock Status: Acute (2) Pneumonia Status: Acute (3) Acute on chronic respiratory failure with hypoxia and hypercapnia Status: Acute (4) Parkinson's disease Status: Chronic (5) Parkinson's disease dementia Status: Acute (6) Comfort measures only status Status: Acute (7) Poor prognosis Status: Acute Hospital Course Date of Admission: Oct 11, 2022 at 23:30 Admission Diagnosis : Septic shock due to pneumonia Family Physician/Provider: Allyson Vincent DO Date of Discharge: 10/15/22 Discharge Diagnosis: Septic shock due to pneumonia Hospital Course: Jeff Ellis was a 76 year old male with PMH HTN, COPD, chronic respiratory failure, Parkinson's disease with dementia, who was admitted with septic shock due to pneumonia. He has been on hospice. He was admitted on [facility] hospice for uncontrolled symptoms and end of life care. He was placed on comfort measures only status. He subsequently on 10/15/2022 at 0123 with his at the bedside. Labs and Pending Lab Test: Microbiology 10/11/22 Urine Culture - Final, Complete NO GROWTH 10/11/22 Blood Culture - Preliminary, Resulted No growth Home Meds Active Reported Artificial Tears Drops (Dextran 70/Hypromellose/Pf) 0.1 %-0.3 % Droperette 1 Each OP DAILY PRN Acetaminophen 650 Mg Supp.rect 650 Mg RC Q4H PRN Hyoscyamine Sulfate 0.125 Mg Tab.subl 0.125 Mg SL Q4H PRN Morphine Conc. 20mg/ml (Morphine Sulfate) 100 Mg/5 Ml (20 Mg/Ml) Solution 0.25 Ml PO Q4H PRN Ondansetron Odt (Ondansetron) 4 Mg Tab.rapdis 4 Mg SL Q4H PRN Miralax (Polyethylene Glycol 3350) 17 Gram Powd.pack 17 Gm PO DAILY PRN Cetirizine HCl 10 Mg Tablet 10 Mg PO DAILY PRN Omeprazole 40 Mg Capsule.dr 40 Mg PO DAILY Sertraline HCl 150 Mg Capsule 150 Mg PO DAILY Mucus Relief (Guaifenesin) 600 Mg Tab.er.12h 600 Mg PO Q12H PRN Neurontin (Gabapentin) 300 Mg Capsule 300 Mg PO HS Bisacodyl 10 Mg Supp.rect 10 Mg RC DAILY PRN Carbidopa-Levo ER 50-200 Tab (Carbidopa/Levodopa) 50 Mg-200 Mg Tablet.er 1 Each PO HS Carbidopa-Levo ER 50-200 Tab (Carbidopa/Levodopa) 50 Mg-200 Mg Tablet.er 2 Each PO BID Melatonin 10 Mg Tablet 10 Mg PO HS Acetaminophen 500 Mg Tablet 1,000 Mg PO Q8H PRN TAKES 2 (500MG) TABS Miconazole Nitrate 2 % Powder 1 Applic TP BID PRN Artificial Tears Drops (Dextran 70/Hypromellose/Pf) 0.1 %-0.3 % Droperette 1 Each OP BID Lisinopril 5 Mg Tablet 5 Mg PO HS Seroquel (Quetiapine Fumarate) 50 Mg Tablet 50 Mg PO TID Alprazolam 0.5 Mg Tablet 0.5 Mg PO TID Alprazolam 0.5 Mg Tablet 0.5 Mg PO Q4H PRN Milk of Magnesia (Magnesium Hydroxide) 400 Mg/5 Ml Oral.susp 30 Ml PO DAILY PRN Ativan (Lorazepam) 0.5 Mg Tablet 0.5 Mg PO Q4H PRN Iprat-Albut 0.5-3(2.5) mg/3 ml (Ipratropium/Albuterol Sulfate) 0.5 Mg-3 Mg (2.5 Mg Base)/3 Ml Ampul.neb 1 Vial PO Q4H PRN Vitamin C (Ascorbic Acid) 500 Mg Tablet 500 Mg PO DAILY Assessment/Pt Instructions Patient Discharge Planning: <30 minutes discharge planning Discharge Physical Examination Vital Signs Vital Signs Date Time Temp Pulse Resp B/P (MAP) Pulse Ox O2 Delivery O2 Flow Rate FiO2 10/14/22 20:40 OxyMask 2.00 10/13/22 21:00 85 10/13/22 08:59 38.6 10/12/22 09:06 137 34 10/11/22 22:58 93/65 Allergies: Coded Allergies: No Known Drug Allergies (Unverified , 10/15/12) Copy Copies To 1: ALLYSON VINCENT DO Discharge Summary Date of Admission Oct 11, 2022 at 23:30 Date of Discharge Oct 15, 2022 at 02:49 Discharge Date: Oct 15, 2022 Discharge Time: 01:23 Admission Diagnosis Septic Shock Comfort Measures/ End of Life Care: Comfort Measures Advance Care discuss with: family member (s) Plan: clarifying prognosis, identified end-of-life goals, developed treatment plan Cardiopulmonary Arrest: Cardiorespiratory Arrest Date of : Oct 15, 2022 Time of : 01:23 Discharge Diagnosis Septic Shock due to pneumonia Acute on Chronic Respiratory Failure COPD Parkinson's Disease Parkinson's Dementia Poor prognosis Comfort measures only status (1) Septic shock Status: Acute (2) Pneumonia Status: Acute (3) Acute on chronic respiratory failure with hypoxia and hypercapnia Status: Acute (4) Parkinson's disease Status: Chronic (5) Parkinson's disease dementia Status: Acute (6) Comfort measures only status Status: Acute (7) Poor prognosis Status: Acute RO DE LA VEGA MD Oct 15, 2022 08:50
== END 2022-10-15 02:49 | disposition expired | DRG 951 ==
LOC: EDUNIT# 19:55 → ER 19:56 → ICU 23:30 → 4TH 10-12 14:28
PROVIDERS: ADMIT Family Medicine; ATTEND Internal Medicine
DX: Z51.5 Encounter for palliative care (principal); A41.9 Sepsis, unspecified organism; R65.21 Severe sepsis with septic shock; J18.9 Pneumonia, unspecified organism; J96.21 Acute and chronic respiratory failure with hypoxia; J96.22 Acute and chronic respiratory failure with hypercapnia; J44.0 Chronic obstructive pulmonary disease with (acute) lower respiratory infection; I11.0 Hypertensive heart disease with heart failure; Z66 Do not resuscitate; I50.9 Heart failure, unspecified; G20 Parkinson's disease; F02.80 Dementia in other diseases classified elsewhere, unspecified severity, without behavioral disturbance, psychotic disturbance, mood disturbance, and anxiety; Z99.81 Dependence on supplemental oxygen; Z20.822 Contact with and (suspected) exposure to COVID-19; Z79.899 Other long term (current) drug therapy
CPT/HCPCS: 36415; 36600; 51702; 71045; 80053; 81000; 82805; 83605; 83880; 84484; 85007; 85027; 85610; 85730; 87040; 87088; 87636; 93005; 94660; 94760; 96361; 96365; 96367; 96375